=== PATIENT | male | born 1950 | race Caucasian/White ===

== ENCOUNTER → 2018-02-18 | Outpatient (CLI) | payer MEDICARE, OTHER ==
--- NOTE | 2018-02-25 10:19 | P.ARTDOP ---
Arterial Doppler LOWER EXTREMITY ARTERIAL DOPPLER: DATE OF SERVICE: 02/18/2018 Reason for study: Suspected peripheral vascular disease. Doppler waveforms: Multiphasic bilaterally throughout. Pulse volume recording: Fairly normal configuration. Pressure gradients: Mild gradient above the low thigh bilaterally. Ankle-brachial indices: 0.84 on the right and 0.71 on the left. Toe pressures: [] on the right, [] on the left Impression: Mild right SFA disease and mild to moderate left SFA disease. Clinical correlation suggested..
== END | disposition home or self-care (01) ==
LOC: RADUSWWP 07:52
PROVIDERS: ATTEND Family Medicine
DX: I73.9 Peripheral vascular disease, unspecified (principal)
CPT/HCPCS: 93923

== ENCOUNTER 2018-09-16 09:35 | Day surgery (SDC) | payer MEDICARE, OTHER ==
[2018-09-14 17:39] VITALS: BMI 33.9
--- NOTE | 2018-09-16 07:56 | P.GSHP ---
History of Present Illness H&P Date: 09/16/18 CHIEF COMPLAINT: Colon screen HISTORY OF PRESENT ILLNESS: The patient is a 68-year-old male who presents for colon screen. Lower endoscopy was offered for further evaluation and management. PAST MEDICAL HISTORY: Please see list. PAST SURGICAL HISTORY: Please see list. MEDICATIONS: Please see list. ALLERGIES: Please see list. SOCIAL HISTORY: No illicit drug use FAMILY HISTORY: No reports of Crohn disease or ulcerative colitis. REVIEW OF ORGAN SYSTEMS: CONSTITUTIONAL: No reports of fevers or chills. PHYSICAL EXAM: VITAL SIGNS: Stable GENERAL: Well-developed pleasant in no acute distress. HEENT: No scleral icterus. Extraocular movements grossly intact. Moist buccal mucosa. NECK: Supple without lymphadenopathy. CHEST: Unlabored respirations. Equal bilateral excursions. CARDIOVASCULAR: Regular rate and rhythm. Distal 2+ pulses. ABDOMEN: Soft, nontender, nondistended. MUSCULOSKELETAL: No clubbing, cyanosis, or edema. ASSESSMENT: 1. Colon screen. PLAN: 1. Recommend proceeding with a lower endoscopy Past Medical History Past Medical History: Asthma, CVA/TIA, Hyperlipidemia, Hypertension, Osteoarthritis (OA), Rheumatoid Arthritis (RA) Additional Past Medical History / Comment(s): stroke 2005-no residual effects, History of Any Multi-Drug Resistant Organisms: None Reported Additional Past Surgical History / Comment(s): left cataract Past Anesthesia/Blood Transfusion Reactions: No Reported Reaction Smoking Status: Current every day smoker - Past Family History Father Family Medical History: Cancer Medications and Allergies Home Medications Medication Instructions Recorded Confirmed Type Aspirin [Adult Low Dose Aspirin EC] 81 mg PO DAILY 09/14/18 09/14/18 History Atorvastatin [Lipitor] 40 mg PO HS 09/14/18 09/14/18 History Clopidogrel [Plavix] 75 mg PO DAILY 09/14/18 09/14/18 History Losartan/Hydrochlorothiazide 1 each PO QAM 09/14/18 09/14/18 History [Hyzaar 100-12.5 Tablet] Allergies Allergy/AdvReac Type Severity Reaction Status Date / Time strawberry Allergy Swelling Verified 09/14/18 17:30
[~2018-09-16 09:35] MED LIST: LACTATED RINGERS 1,000 ML IV SCH; LIDOCAINE 1% 20 ML VIAL (10MG/ML) FOR IV START INTRADERMA PRN
[2018-09-16 10:22] VITALS: RESP 16; TEMP 97.2
[2018-09-16] MEDS ORDERED: PROPOFOL 10 MG/ML 20 ML VIAL IV ONE (11:07)
--- NOTE | 2018-09-16 12:06 | P.PCN ---
Date of Procedure: 09/16/18 Description of Procedure: PREOPERATIVE DIAGNOSIS: Colonoscopy screening Personal history of colon polyps. POSTOPERATIVE DIAGNOSIS: Colonoscopy screening Personal history of colon polyps. Large tubular adenomas of the cecum of unclear malignant potential Tubular adenomas, ascending colon OPERATION: Colonoscopy to the ileocecal valve and appendiceal orifice. Colonoscopy with multiple hot snare polypectomies Colonoscopy with injection of Angélica ink, cecum SURGEON: Gabi Jackson MD. ANESTHESIA: MAC. INDICATIONS: The patient is a 68-year-old male who presents for colonoscopy screening. Last colonoscopy 3 years ago. Benefits and risks were described and informed consent was obtained. DESCRIPTION OF PROCEDURE: The patient had undergone Gatorade, MiraLAX and Dulcolax prep. He had been brought into the operating room and laid in the left lateral decubitus position. After adequate intravenous sedation, the rectum was examined with 2% lidocaine jelly. No external hemorrhoids were encountered. The rectal tone was within normal limits. No lesions were palpated in the rectal vault. An Olympus colonoscope was advanced until the ileocecal valve and appendiceal orifice were clearly viewed. The prep was good with visualization of the mucosal folds. The scope was removed with visualization of each mucosal fold. 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 Angélica ink, 3 mL was injected circumferentially at the site of tumor. No scattered diverticulosis was encountered. Multiple colonic polyps were found and snare polypectomy. No evidence of focal colitis was found. Retroflexion of the scope demonstrated grade 1 internal hemorrhoids without active bleeding or inflammation. The colon was desufflated. The patient had tolerated the procedure well. Withdrawal time was over 6 minutes. 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 Angélica ink, 3 mL was injected circumferentially at the site of tumor. Removal of 2 polyps: - Snare polypectomy ascending colon 2, 12 mm tubulovillous adenoma polyp. No focal colitis. RECOMMENDATIONS: Will need resection of tumor and ileocecal valve as complete resection not amenable by snare polypectomy Plan - Discharge Summary Discharge Rx Participant: No New Discharge Prescriptions: No Action Losartan/Hydrochlorothiazide [Hyzaar 100-12.5 Tablet] 1 each PO QAM Clopidogrel [Plavix] 75 mg PO DAILY Atorvastatin [Lipitor] 40 mg PO HS Aspirin [Adult Low Dose Aspirin EC] 81 mg PO DAILY Discharge Medication List Aspirin [Adult Low Dose Aspirin EC] 81 mg PO DAILY 09/14/18 [History] Atorvastatin [Lipitor] 40 mg PO HS 09/14/18 [History] Clopidogrel [Plavix] 75 mg PO DAILY 09/14/18 [History] Losartan/Hydrochlorothiazide [Hyzaar 100-12.5 Tablet] 1 each PO QAM 09/14/18 [History] Follow up Appointment(s)/Referral(s): Gabi Jackson MD [STAFF PHYSICIAN] - 09/29/18 Patient Instructions/Handouts: Colorectal Polyps (DC), Diverticulosis Diet (GEN), Diverticulosis (DC) Activity/Diet/Wound Care/Special Instructions: Re-start plavix September 18. Discharge Disposition: HOME SELF-CARE
[2018-09-16 12:07] VITALS: BP 138/86; PULSE 66
== END 2018-09-16 12:36 | disposition home or self-care (01) ==
LOC: ORWHC2ENDO 09:35
PROVIDERS: ATTEND Surgery Plastic and Reconstructive Surgery
DX: Z12.11 Encounter for screening for malignant neoplasm of colon (principal); Z86.010 Personal history of colon polyps; D37.4 Neoplasm of uncertain behavior of colon; K63.5 Polyp of colon; K64.8 Other hemorrhoids; E66.01 Morbid (severe) obesity due to excess calories; Z68.33 Body mass index [BMI] 33.0-33.9, adult; M06.9 Rheumatoid arthritis, unspecified; I10 Essential (primary) hypertension; M19.90 Unspecified osteoarthritis, unspecified site; J45.909 Unspecified asthma, uncomplicated; F17.210 Nicotine dependence, cigarettes, uncomplicated; Z98.42 Cataract extraction status, left eye; Z86.73 Personal history of transient ischemic attack (TIA), and cerebral infarction without residual deficits; Z79.02 Long term (current) use of antithrombotics/antiplatelets; Z79.82 Long term (current) use of aspirin; Z79.899 Other long term (current) drug therapy; Z91.018 Allergy to other foods
CPT/HCPCS: 88305; 45385; 45381; J2704; 44404

== ENCOUNTER 2018-11-13 11:45 | Inpatient (IN) | payer MEDICARE, OTHER ==
--- NOTE | 2018-11-19 09:30 | P.PN ---
Progress Note - Text Progress Note Date: 11/19/18 I personally contacted patient home. Patient presents with new findings of acute renal failure with kidney function of 1.1 and now elevated to 1.7 within the last week. He is to undergo a bowel prep. 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
[2018-11-19] MEDS ORDERED: ONDANSETRON 4 MG/2 ML VIAL IVP PRN (12:33)
[2018-11-19] MEDS ORDERED: NALOXONE 0.4 MG/ML 1 ML VIAL IV PRN (12:33)
[2018-11-19] MEDS ORDERED: Antibiotics per Pharmacy 1 EACH MISC MISCELLANE PRN (12:38)
[2018-11-19 14:23] VITALS: BMI 33.7
[2018-11-19] MEDS: metroNIDAZOLE 500 MG TAB PO SCH ×2 (14:34→14:46)
[2018-11-19] MEDS: NEOMYCIN 500 MG TAB PO SCH ×2 (14:35→14:46)
[2018-11-19] MEDS: SODIUM CHLORIDE 0.9% 1,000 ML IV SCH ×2 (14:44→18:03)
[2018-11-19] MEDS ORDERED: SODIUM CHLORIDE 0.9% 2,000 ML IV ONE (15:25)
--- NOTE | 2018-11-19 15:27 | P.GSHP ---
History of Present Illness H&P Date: 11/19/18 CHIEF COMPLAINT: History of large cecal polyp, unresectable and new acute kidney injury HISTORY OF PRESENT ILLNESS: Kevin Kincaid is a 68-year-old male who comes in with a history of multiple colon adenomas, particularly along the cecum. He has a large tumor, unresectable, by snare technique, and hence presents for further evaluation and management. In fact, he actually had cardiac clearance already, including echo and stress test. Separately, he reports new onset right upper quadrant abdominal pain in the last 3 days. Additionally, he had preoperative workup including a CT of the abdomen pelvis where blood work came back with new acute kidney injury with creatinine elevated from 1.19 to to 1.78 in less than 1 week. He has lost 13 pounds in less than 2 weeks intentionally on a new diet. He reports having a high protein diet. His family is at bedside who reports with weight loss, he often becomes dehydrated. He has history of intolerance to his hypertensive medications which he has been on for the last 3 months. No recent blood in stools however. Secondary to acute onset kidney injury and history of cecal malignancy, he has been admitted. PAST MEDICAL HISTORY: Please see list. PAST SURGICAL HISTORY: Please see list. MEDICATIONS: Please see list. ALLERGIES: Please see list. SOCIAL HISTORY: Past tobacco use FAMILY HISTORY: No reports of Crohn disease or ulcerative colitis. REVIEW OF ORGAN SYSTEMS: CONSTITUTIONAL: No fevers or chills. No recent weight loss. EYES: Denies any trouble with vision. Wears glasses. HEENT: No difficulties with hearing. No nosebleeds. No difficulty swallowing. RESPIRATORY: Denies pneumonia. Denies any troubles with breathing or dyspnea on exertion. Past bronchitis. CARDIOVASCULAR: Denies any chest pain, palpitations, or recent heart attacks. History of hypertensive heart disease. GASTROINTESTINAL: Denies fatty food intolerance. Denies change in bowel habits and gas bloat. History of high risk colon polyps. GENITOURINARY: Denies any blood in urine or increased urinary frequency. NEUROLOGICAL: Denies any numbness or tingling along the distal extremities. No seizure disorders or headaches. Past stroke. MUSCULOSKELETAL: Has back pain, stiffness or joint arthritis. SKIN: No current skin cancer. No rash. PSYCHIATRIC: Denies current depression or suicidal thoughts. ENDOCRINE: Denies current thyroid disorders. Denies any blood sugar glucose intolerance. HEME/LYMPHATIC: Denies any lumps and bumps around the neck. No recent deep venous thrombosis. ALLERGY/IMMUNOLOGY: No immunoglobulin therapy. No immune deficiencies. BREAST: Denies current breast lumps, pain or nipple discharge. PHYSICAL EXAM: VITAL SIGNS: Stable Patient is a 68-year-old male. CONSTITUTIONAL: Well developed and in no acute distress. Vitals reviewed. EYES: Conjuctivae without sclera icterus. Pupils are equally round and reactive to light. Extraocular movements grossly intact. HEAD, EARS, NOSE, THROAT: Moist buccal mucosa. Head is atraumatic, normocephalic. Hears conversational speech. No nasal drainage. Missing maxillary mulitple front teet. NECK: Supple. No JV distention. No thyroidomegaly. RESPIRATORY: Non-labored respirations and equal bilateral excursions. No gross wheezes. CARDIOVASCULAR: Regular rate and rhythm. Extremities without moderate edema. Palpable 2+ radial pulses. ABDOMEN: No hepatomegaly. Soft. Obese. Mild tenderness at right flank/right upper quadrant. Nondistended. LYMPH: No neck lymphadenopathy. No axillary lymphadenopathy. MUSCULOSKELETAL: Gait within normal limits. Range of motion bilateral upper extremities within normal limits. Nail and fingers with good capillary refill. SKIN: Warm and well perfused with good skin turgor. NEUROLOGIC: Cranial nerves I through XII grossly intact. Sensation upper and extremities intact. No focal or lateralizing signs. PSYCH: Appropriate affect. Alert and oriented to person, place and time. Displays appropriate insight. PATHOLOGY: Consistent with tubular adenoma. MISC: Reviewed films from colonoscopy and demonstrated multiple flat adenomas and tubular adenomas involving the ileocecal valve, ascending colon, unresectable STUDIES: CT of the abdomen and pelvis and appendix were reviewed demonstrating some thickening along the ascending colon and redundancy of hepatic flexure. No adenopathy. REPORT: CT of the abdomen and pelvis report confirms right kidney stone. ASSESSMENT: 1. Cecal malignancy. 2. Acute kidney injury, new 3. Hypertensive heart disease 4. Past history of stroke 5. Obesity duet to excess calories, BMI 34.3 PLAN: 1. Given the location, including multiple tubular adenomas along the cecum and ascending colon, a colon resection was described. 2. Enhanced colon recovery program advsied. 3. He has completed cardiac risk assessment. 4. Robotic colectomy was described in detail with benefits and risks. He will need a complete bowel prep including preoperative education and diet were also given. 5. He is high risk with history of cardiac disease, morbid obesity and new acute kidney injury 6. Aggressive fluid hydration 7. Renal consultation for acute kidney injury. 8. Inpatient hospitalization more than 2 nights described. Past Medical History Past Medical History: Asthma, CVA/TIA, Hyperlipidemia, Hypertension, Osteoarthritis (OA), Rheumatoid Arthritis (RA), Vascular Disorder Additional Past Medical History / Comment(s): stroke 2005-no residual effects, tumor colon, kidney stones History of Any Multi-Drug Resistant Organisms: None Reported Additional Past Surgical History / Comment(s): left cataract, colonoscopy Past Anesthesia/Blood Transfusion Reactions: No Reported Reaction Past Psychological History: No Psychological Hx Reported Smoking Status: Former smoker Past Alcohol Use History: None Reported Additional Past Alcohol Use History / Comment(s): smokes 1 PPD, has smoked for 50 yrs quit 10/28 Past Drug Use History: None Reported - Past Family History Father Family Medical History: Cancer Additional Family Medical History / Comment(s): oral cancer with metastasis Medications and Allergies Home Medications Medication Instructions Recorded Confirmed Type Aspirin [Adult Low Dose Aspirin EC] 81 mg PO DAILY 09/14/18 11/19/18 History Atorvastatin [Lipitor] 40 mg PO HS 09/14/18 11/19/18 History Clopidogrel [Plavix] 75 mg PO DAILY 09/14/18 11/19/18 History Losartan/Hydrochlorothiazide 1 tab PO QAM 09/14/18 11/19/18 History [Hyzaar 100-12.5 Tablet] Allergies Allergy/AdvReac Type Severity Reaction Status Date / Time strawberry Allergy Swelling Verified 11/19/18 15:28 Surgical - Exam Vital Signs Resp 16 11/19/18 14:49 Assessment and Plan (1) Adenomatous polyp of cecum Current Visit: Yes Status: Acute Code(s): D12.0 - BENIGN NEOPLASM OF CECUM SNOMED Code(s): 147188679 (2) Adenomatous polyp of ascending colon Current Visit: Yes Status: Acute Code(s): D12.2 - BENIGN NEOPLASM OF ASCENDING COLON SNOMED Code(s): 081707269 (3) Obesity (BMI 30.0-34.9) Current Visit: Yes Status: Acute Code(s): E66.9 - OBESITY, UNSPECIFIED SNOMED Code(s): 338483585140479 (4) Hypertensive heart disease Current Visit: Yes Status: Acute Code(s): I11.9 - HYPERTENSIVE HEART DISEASE WITHOUT HEART FAILURE SNOMED Code(s): 18298112 (5) Acute kidney injury (BHAVIK) with acute tubular necrosis (ATN) Current Visit: Yes Status: Acute Code(s): N17.0 - ACUTE KIDNEY FAILURE WITH TUBULAR NECROSIS SNOMED Code(s): 303420443 (6) Right flank pain Current Visit: Yes Status: Acute Code(s): R10.9 - UNSPECIFIED ABDOMINAL PAIN SNOMED Code(s): 630316225 (7) Kidney stone on right side Current Visit: Yes Status: Acute Code(s): N20.0 - CALCULUS OF KIDNEY SNOMED Code(s): 01676317
[2018-11-19] MEDS ORDERED: POLYETHYLENE GLYCOL LYTES SOLN 4,000 ML SOLN.RECON PO ONE (17:00)
[2018-11-19 18:58] LABS: Basophils % (A) 1 %; Eosinophils # (A) 0.3 k/uL (0-0.7); Eosinophils % (A) 3 %; HGB 14.3 gm/dL (13.0-17.5); Lymphocytes # (A) 1.4 k/uL (1.0-4.8); Lymphocytes % (A) 16 %; MCH 31.5 pg (25.0-35.0); MCV 92.9 fL (80.0-100.0); Mean Platelet Volume 9.6; Monocytes # (A) 0.5 k/uL (0-1.0); Monocytes % (A) 6 %; Neutrophils # (A) 6.2 k/uL (1.3-7.7); Neutrophils % (A) 73 %; Platelet Count 156 k/uL (150-450); RBC 4.53 m/uL (4.30-5.90); RDW 12.7 % (11.5-15.5); WBC 8.5 k/uL (3.8-10.6)
[2018-11-19 19:08] LABS: Albumin 3.9 g/dL (3.5-5.0); Calcium 8.8 mg/dL (8.4-10.2); Potassium 3.9 mmol/L (3.5-5.1); Total Bilirubin 0.8 mg/dL (0.2-1.3); Total Protein 6.3 g/dL (6.3-8.2)
[2018-11-19] MEDS ORDERED: TEMAZEPAM 15 MG CAP PO ONE (21:00)
[2018-11-20] MEDS: metroNIDAZOLE 500 MG TAB PO SCH (00:32)
[2018-11-20] MEDS: SODIUM CHLORIDE 0.9% 1,000 ML IV SCH ×4 (00:32→21:12)
[2018-11-20] MEDS: NEOMYCIN 500 MG TAB PO SCH (00:32)
[2018-11-20] MEDS ORDERED: metroNIDAZOLE-NS PMX 500 MG in SALINE 1 100ML.BAG IVPB ONE (05:00)
[2018-11-20] MEDS ORDERED: ceFAZolin IN SWFI 2 GM/20 ML SYRINGE IVP ONE ×2 (05:00→14:00)
[2018-11-20] MEDS ORDERED: HEPARIN SODIUM,PORCINE 5,000 UNIT/ML 1 ML VIAL SQ ONE (05:00)
[2018-11-20] MEDS ORDERED: IV FLUID CONTINUATION 1,000 ML IV ONE (07:31)
[2018-11-20] MEDS ORDERED: ALVIMOPAN 12 MG CAPSULE PO ONE (08:00)
[2018-11-20] MEDS ORDERED: LACTATED RINGERS 1,000 ML IV ONE ×6 (08:09→14:46)
[2018-11-20] MEDS ORDERED: LIDOCAINE 1% 20 ML VIAL (10MG/ML) FOR IV START INTRADERMA ONE (08:25)
[2018-11-20] MEDS ORDERED: MIDAZOLAM (PF) 2 MG/2 ML VIAL IV ONE (08:28)
[2018-11-20] MEDS ORDERED: fentaNYL (PF) 50 MCG/ML 2 ML AMP IV ONE (08:28)
[2018-11-20 08:34] LABS: Basophils % (A) 1 %; Eosinophils # (A) 0.2 k/uL (0-0.7); Eosinophils % (A) 3 %; HCT 40.6 % (39.0-53.0); HGB 13.2 gm/dL (13.0-17.5); Lymphocytes % (A) 15 %; MCH 30.5 pg (25.0-35.0); MCHC 32.6 g/dL (31.0-37.0); MCV 93.6 fL (80.0-100.0); Mean Platelet Volume 9.8; Monocytes # (A) 0.4 k/uL (0-1.0); Monocytes % (A) 6 %; Neutrophils % (A) 74 %; Platelet Count 146 k/uL (150-450); RBC 4.33 m/uL (4.30-5.90); RDW 12.8 % (11.5-15.5); WBC 6.8 k/uL (3.8-10.6)
--- NOTE | 2018-11-20 08:43 | P.ANPRN ---
Procedure Note - Anesthesia - Nerve Block Performed Transversus Abdominis Time Out Performed: Yes Date of Procedure: 11/20/18 Procedure Start Time: 08:29 Procedure Stop Time: 08:38 Location of Patient Procedure: PreOp Indication: Acute Post-Operative Pain, Requested by physician Sedation Type: Sedate with meaningful contact maintained Preparation: Sterile Prep Position: Supine Catheter: None Needle Types: Pajunk Needle Gauge: 21 Technique: Ultrasound Injectate: 0.5% Ropivacaine (see comment for volume) (30ml ropi +4mg dexamethasone- 15ml/side) Blood Aspirated: No Pain Paresthesia on Injection Noted: No Resistance on Injection: Normal Events: Uneventful and Well Tolerated
[2018-11-20] MEDS ORDERED: ONDANSETRON 4 MG/2 ML VIAL IVP ONE (08:46)
[2018-11-20] MEDS ORDERED: DEXAMETHASONE SOD PHOSPHATE 10 MG/ML 1 ML VIAL IV ONE (08:47)
[2018-11-20 09:06] LABS: Calcium 8.4 mg/dL (8.4-10.2); Potassium 4.1 mmol/L (3.5-5.1)
--- NOTE | 2018-11-20 09:14 | CONS ---
CONSULTATION REASON FOR CONSULT: Renal failure. HISTORY OF PRESENT ILLNESS: Patient is a 68-year-old male who was admitted to the hospital for abdominal surgery for robotic colectomy as he was found to have a cecal mass. Patient's serum creatinine was elevated to 1.78 mg/dL on 11/18/2018, which was up from 1.19 on 11/13/2018. The patient has been started on IV fluids. His renal function has improved with creatinine down to 1.2 yesterday. At this point, patient denies any prior history of kidney disease. He states he has been voiding. He has not had any nonsteroidal anti- inflammatory agents prior to admission. Patient was maintained on losartan/hydrochlorothiazide. Blood pressure had been slightly on the lower side. Patient is currently off NEAL inhibitors. He was seen this morning and is being wheeled down to OR. PAST MEDICAL HISTORY: Hypertension, dyslipidemia, osteoarthritis. Recent CT of the abdomen was noted to have a large abdominal tumor, multiple colon adenomas in the past. MEDICATIONS: Prior to admission included Hyzaar, Plavix, Lipitor, aspirin. SOCIAL HISTORY: Negative for drug abuse or alcohol abuse. The patient is a former smoker. PHYSICAL EXAMINATION: Currently patient is comfortable, awake, not in any acute distress. Blood pressure was 130/59, heart rate 55 per minute. He is afebrile. Examination of the heart, S1, S2. Examination of the lungs, bilateral breath sounds are heard. Abdomen is soft, nontender. Examination of the lower extremities shows no evidence of edema. INSPECTOR CHIEF exam is grossly intact. LABS: Sodium 139, potassium 3.9, BUN 19, serum creatinine 1.21 from yesterday. Hemoglobin 14.3. ASSESSMENT: 1. Acute kidney injury, mostly prerenal, currently improved. Check urinalysis. Repeat labs today. Continue IV fluids and continue to hold off on NEAL inhibitors for now. 2. A cecal mass, most likely malignancy going in for a colectomy today. 3. History of hypertension. Blood pressure is controlled and maintain patient off NEAL inhibitors for now. 4. Osteoarthritis. 5. Dyslipidemia. PLAN: Continue IV fluids. Repeat labs today. Check urinalysis and maintain patient off NEAL inhibitors and we will continue to follow the patient. Thank you for this consultation. MMODL / IJN: [id number] /
[2018-11-20] MEDS ORDERED: DEXAMETHASONE SOD PHOSPHATE 4 MG/ML 1 ML VIAL ONE (09:45)
[2018-11-20] MEDS ORDERED: PROPOFOL 10 MG/ML 20 ML VIAL IV ONE (09:45)
[2018-11-20] MEDS ORDERED: ROPIVACAINE 5 MG/ML 30 ML VIAL ONE (09:45)
[2018-11-20] MEDS ORDERED: LIDOCAINE 1% INJ 10MG/ML (20 ML MDV) ONE (09:45)
[2018-11-20] MEDS ORDERED: GLYCOPYRROLATE 0.2 MG/ML 2 ML VIAL ONE (09:45)
[2018-11-20] MEDS ORDERED: NEOSTIGMINE 1 MG/ML 10 ML VIAL ONE (09:45)
[2018-11-20] MEDS ORDERED: fentaNYL (PF) 50 MCG/ML 2 ML AMP ONE (09:45)
[2018-11-20] MEDS ORDERED: ROCURONIUM BROMIDE 10 MG/ML 10 ML VIAL IV ONE (09:45)
[2018-11-20] MEDS ORDERED: MIDAZOLAM 2 MG/2 ML VIAL ONE (09:45)
[2018-11-20] MEDS ORDERED: BUPIVACAINE-EPI 0.5%-1:200,000 10 ML VIAL SQ ONE (10:42)
[2018-11-20] MEDS ORDERED: BUPIVACAINE (PF) 0.25% 30 ML VIAL SQ ONE (10:42)
--- NOTE | 2018-11-20 17:46 | P.OP ---
Date of Procedure: 11/20/18 Description of Procedure: SURGEON: KHALIDA LOUIS MD Preoperative Diagnosis: 1. Cecal malignant colon polyps 2. Ascending malignant colon polyps 3. Hypertensive heart disease 4. Hyperlipidemia 5. Kidney stones 6. Asthma 7. History of transient ischemic attack 8. Rheumatoid arthritis 9. Acute kidney injury Postoperative Diagnosis: 1. Cecal malignant colon polyps 2. Ascending malignant colon polyps 3. Hypertensive heart disease 4. Hyperlipidemia 5. Kidney stones 6. Asthma 7. History of transient ischemic attack 8. Rheumatoid arthritis 9. Acute kidney injury 10. Appendicitis 11. Chronic cholecystitis Procedure(s) Performed: 1. Robot-assisted daVinci Xi laparoscopic extended right hemicolectomy 2. Application of PREVENA wound vac 13-cm at left upper quadrant incision Anesthesia: GETA, local Estimated Blood Loss (ml): 20 Pathology: other (Right hemicolectomy en bloc) Condition: stable Disposition: floor Operative Findings: 1. Moderate redundancy of hepatic flexure adding complexity to the case 2. Moderate redundancy of ascending colon with retroperitoneal attachments causing intermittent large bowel obstruction intermittent 3. Dilated tip of appendix with moderate scarring highly suspicious for past appendicitis 4. Moderate inflammation along the gallbladder consistent with chronic cholecystitis 5. Side to side anastomosis ileum to midtransverse colon using 60 mm sureform blue staple load 6. Mesenteric defect undisturbed, and widely patent 7. Handsewn anastomosis for [id number]-ps-xsan ileocolectomy, 2 layer approach 8. Complete closure of left upper quadrant fascial defect at 12 mm port including specimen extraction site 9. PREVENA-13cm wound VAC placed 10. Complete docking of robot along the left side, left lateral abdominal wall 11. Removal of over 2 feet of redundant ascending colon including proximal transverse colon 12. Console time 315 min INDICATIONS: The patient is a 68-year-old male who presents with unresectable malignant cecal and ascending colon polyps. Surgical intervention with colon resection was described in detail. Benefits and risks, including infection, open surgery possibility for additional surgery was discussed at length. Informed consent was obtained. All questions of the patient and family were answered. DESCRIPTION: Earlier the patient had undergone a bowel prep using the enhanced colon recovery program. An abdominal wall block was placed by anesthesia. The patient was transferred to the operating room and placed in supine position. After general anesthetic, a chauhan catheter was placed. The abdomen was then prepped and draped in standard sterile fashion as Ioban was placed along the abdomen to minimize any contamination of skin floor. After a timeout protocol was performed, attention was then brought to the left upper quadrant whereby a 0 degree 5 mm laparoscopic trocar entry was performed. The abdominal cavity was entered and insufflated to 15 mmHg pressure, which was tolerated well. Diagnostic laparoscopy demonstrated no injury to bowel, viscera or mesentery. The liver was unremarkable. Next all four trochars were placed along the left lateral abdominal wall. Ports were placed 10 cm apart from each other including 15-20 cm away from the target anatomy of the right pelvis. The 5-mm port was exchanged for a 8 mm robotic p ort. The patient was then placed in Trendelenburg position, at least 6, with the right side up 6. The robotic da Kyle XI system was primed and docked from the left side of the patient. Using atraumatic graspers and vessel sealer, the robotic system was docked and primed as described. Instruments were interchanged by the pizza hut assistant including cautery, needle regional intermodal truck driver, robotic stapler and vessel sealer. Next, attention was brought to identify the cecum. The appendix was completely adherent to the retroperitoneum including to the pelvis with dilated tip of the appendix highly suspicious for previous appendicitis. Extensive mobilization was performed to free the appendix and cecum with over 1 hr of mobilization performed. A stay suture using 0 silk was placed along the anterior serosa of the along the terminal ileum. The terminal ileum and ascending colon mesentery were mobilized using a vessel sealer whereby the colon was marked and tagged. Dense adhesions about the gallbladder was found consistent with chronic cholecystitis. Additional time was needed to dissect the colon from the gallbladder. Moderately redundant right colon was identified including the hepatic flexure was adherent to the retroperitoneum. Additionaly extensive mobilization over 3 hrs was performed. To further mobilize the colon, an extended right hemicolectomy with mobilization was performed for another 1 hour. Total mobilization of the ileum, appendix, redundant ascending colon and hepatic flexure occurred over 5 hrs. Additionally, the patient had moderate intra-abdominal tissue and small bowel complicating visualization. Using robot stapler 60 mm white load, the distal ileum was divided 10 centimeters proximal to the ileocecal valve. The mesentery of the ascending colon was mobilized towards the midline using a vessel sealer. Secondary to the highly redundant hepatic flexure and ascending colon, the right colon was mobilized to the mid transverse colon and prepared for resection. The colon was divided using 60 mm green loads. The rest of the colon mesentery was mobilized using vessel sealer including using blunt dissection. The ascending colon was mobilized from proximal to distal with the meeting point of the hepatic flexure The vascular pedicle of the ileocolic artery was controlled using vessel sealer. The mid transverse colon and distal ileum was brought in a side to side antiperistaltic anastomotic fashion after placing interrupted sutures along the proposed filemon-lumen using 3-0 silk. A colotomy and enterotomy were prepared along both limbs along the antimesenteric border. Next, 60 mm blue stapler loads were fired to create the filemon-lumen. The filemon-lumen was closed in 2-layers using 2-0 VLOC followed by imbricating suture of 3-0 silk for closure of the enterostomy. The mesenteric defect was widely patent and undisturbed. All needles were removed from the abdominal cavity. The robot was undocked. I re-scrubbed into the case. Via the 12 mm port of the left upper quadrant, the right colon was removed after widening the skin incision to 3-cm. All sponges were removed from the abdominal cavity. The fascial defect was oversewn using 0 Vicryl and Enzo Mixon. Next all pneumoperitoneum was evacuated from the abdominal cavity. The 8-mm trocar sites were reapproximated using 4-0 Monocryl in an interrupted subcuticular fashion. Local anesthetic was infiltrated to all wounds for postop analgesia. All incisions were also cleansed with diluted hydrogen peroxide. A PREVENA surgical wound vac was placed over the left upper quadrant incision of the colon extraction site. The specimen was measured at least 2 feet. Liquid was applied to the rest of the skin incisions. The patient had tolerated the procedure well. The patient was extubated successfully. Intraoperative photos were reviewed with the patient's family who were overall pleased with the level of care. The patient was transferred to the postanesthesia care unit in stable condition. COMPLEXITY: To further mobilize the colon, an extended right hemicolectomy with mobilization was performed for another 1 hour. Total mobilization of the ileum, appendix, redundant ascending colon and hepatic flexure occurred over 5 hrs. Additionally, the patient had moderate intra-abdominal tissue and small bowel complicating visualization.
[2018-11-20] MEDS: KETOROLAC 30 MG/ML 1 ML VIAL IVP SCH ×2 (19:28→23:45)
[2018-11-20] MEDS: METOCLOPRAMIDE 5 MG/ML 2 ML VIAL IVP SCH ×2 (19:28→23:45)
[2018-11-20] MEDS ORDERED: TAMSULOSIN 0.4 MG CAP.ER.24H PO ONE (20:00)
[2018-11-20] MEDS: FAMOTIDINE 20 MG/2 ML VIAL IV SCH (20:07)
[2018-11-20] MEDS: HEPARIN SODIUM,PORCINE 5,000 UNIT/ML 1 ML VIAL SQ SCH (20:07)
[2018-11-20 22:33] LABS: Appearance,Urine Clear (Clear); Bilirubin,Urine Negative (Negative); Blood,Urine Small (Negative); Cellular Casts,Urine 1 /lpf (0); Color,Urine Yellow; Glucose,Urine (UA) Negative (Negative); Hyaline Casts,Urine 7 /lpf (0-2); Ketones,Urine 3+ (Negative); Leukocyte Esterase,Urine Moderate (Negative); Mucus,Urine Occasional /hpf; Nitrite,Urine Negative (Negative); PH, Urine 5.5 (5.0-8.0); Protein,Urine Trace (Negative); RBC,Urine 37 /hpf (0-5); Urobilinogen,Urine <2.0 mg/dL (<2.0); WBC,Urine 39 /hpf (0-5)
[2018-11-20] MEDS: ceFAZolin IN SWFI 2 GM/20 ML SYRINGE IVP SCH (23:45)
[2018-11-21] MEDS: METOCLOPRAMIDE 5 MG/ML 2 ML VIAL IVP SCH ×3 (05:59→17:47)
[2018-11-21] MEDS: KETOROLAC 30 MG/ML 1 ML VIAL IVP SCH ×3 (05:59→17:47)
[2018-11-21] MEDS: SODIUM CHLORIDE 0.9% 1,000 ML IV SCH ×3 (06:02→15:54)
[2018-11-21 07:09] LABS: Basophils % (A) 0 %; Eosinophils % (A) 0 %; HCT 38.8 % (39.0-53.0); HGB 13.1 gm/dL (13.0-17.5); Lymphocytes # (A) 0.6 k/uL (1.0-4.8); Lymphocytes % (A) 4 %; MCH 31.5 pg (25.0-35.0); MCHC 33.8 g/dL (31.0-37.0); MCV 93.1 fL (80.0-100.0); Mean Platelet Volume 9.9; Monocytes # (A) 0.6 k/uL (0-1.0); Monocytes % (A) 5 %; Neutrophils # (A) 12.8 k/uL (1.3-7.7); Neutrophils % (A) 91 %; Platelet Count 141 k/uL (150-450); RBC 4.17 m/uL (4.30-5.90); RDW 12.6 % (11.5-15.5); WBC 14.2 k/uL (3.8-10.6)
[2018-11-21 07:35] LABS: Potassium 4.3 mmol/L (3.5-5.1)
[2018-11-21] MEDS: FAMOTIDINE 20 MG/2 ML VIAL IV SCH ×2 (09:29→20:35)
[2018-11-21] MEDS: HEPARIN SODIUM,PORCINE 5,000 UNIT/ML 1 ML VIAL SQ SCH ×2 (09:29→20:35)
[2018-11-21] MEDS: ALVIMOPAN 12 MG CAPSULE PO SCH ×2 (09:30→20:35)
[2018-11-21] MEDS: TAMSULOSIN 0.4 MG CAP.ER.24H PO SCH (09:30)
[2018-11-21] MEDS: HYDROmorphone 1 MG/ML 1 ML SYRINGE IVP PRN ×2 (09:37→15:53)
--- NOTE | 2018-11-21 10:28 | P.PN ---
Subjective Progress Note Date: 11/21/18 Principal diagnosis: Post right colectomy Patient doing better today. He is up in the chair at this time. White blood cell count 14.2. Hemoglobin stable. Tolerating clears. No flatus. Objective - Vital Signs Vital signs: Vital Signs Temp 97.6 F 11/21/18 07:15 Pulse 73 11/21/18 07:15 Resp 17 11/21/18 07:15 BP 125/58 11/21/18 07:15 Pulse Ox 95 11/21/18 07:15 Intake & Output 11/20/18 11/21/18 11/21/18 18:59 06:59 18:59 Intake Total 4850 Output Total 675 700 Balance 4175 -700 Intake: IV 4850 Output: Urine 655 700 Uretheral (Wallace) 350 Estimated Blood Loss 20 Other: Voiding Method Indwelling Catheter - Exam Abdomen: Soft, nondistended, incision sites clean and dry, mild tenderness - Labs CBC & Chem 7: 11/21/18 06:39 11/21/18 06:39 Labs: Abnormal Lab Results - Last 24 Hours (Table) 11/20/18 11/21/18 11/21/18 Range/Units 21:21 06:39 06:39 WBC 14.2 H (3.8-10.6) k/uL RBC 4.17 L (4.30-5.90) m/uL Hct 38.8 L (39.0-53.0) % Plt Count 141 L (150-450) k/uL Neutrophils # 12.8 H (1.3-7.7) k/uL Lymphocytes # 0.6 L (1.0-4.8) k/uL Chloride 110 H (98-107) mmol/L Glucose 111 H (74-99) mg/dL Calcium 8.0 L (8.4-10.2) mg/dL Urine Protein Trace H (Negative) Urine Ketones 3+ H (Negative) Urine Blood Small H (Negative) Ur Leukocyte Esterase Moderate H (Negative) Urine RBC 37 H (0-5) /hpf Urine WBC 39 H (0-5) /hpf Hyaline Casts 7 H (0-2) /lpf Urine Mucus Occasional H (None) /hpf Assessment and Plan (1) Cecum mass Narrative/Plan: Will increase diet to full liquids. Ambulate. Possible discharge tomorrow. Current Visit: Yes Status: Acute Code(s): K63.89 - OTHER SPECIFIED DISEASES OF INTESTINE SNOMED Code(s): 029305738
[2018-11-21] MEDS: ceFAZolin IN SWFI 2 GM/20 ML SYRINGE IVP SCH ×2 (11:08→18:24)
--- NOTE | 2018-11-21 13:18 | P.PN ---
Subjective Progress Note Date: 11/21/18 Principal diagnosis: This is a 68-year-old admitted for colectomy for cecal mass which was done on 11/20/2018. He seen because of acute kidney injury. His creatinine went up preop from 1.19 on 11/13/2018, up to to 1.9 dated 11/18/2018. He was admitted on 711 with a creatinine down to 1.21. Postop creatinine is 1.21. He is making urine and is on IV fluids. He feels comfortable except for some abdominal pain. No nausea vomiting is able to eat but has not passed any stools or flatness. Abdomen is somewhat distended. He denies any shortness of breath chest pain. Has mild cough. He is mainly 675 mL of urine overnight and 700 mL since this morning Objective - Vital Signs Vital signs: Vital Signs Temp 97.6 F 11/21/18 07:15 Pulse 73 11/21/18 07:15 Resp 17 11/21/18 07:15 BP 125/58 11/21/18 07:15 Pulse Ox 96 11/21/18 12:36 Intake & Output 11/20/18 11/21/18 11/21/18 18:59 06:59 18:59 Intake Total 4850 Output Total 675 700 Balance 4175 -700 Intake: IV 4850 Output: Urine 655 700 Uretheral (Wallace) 350 Estimated Blood Loss 20 Other: Voiding Method Indwelling Catheter On examination he is somewhat obese male in no distress HEENT exam no JVP neck is supple no facial asymmetry Lungs are clear to auscultation good air entry bilaterally Heart sounds are unremarkable for any murmur rub gallop Abdomen is somewhat obese and distended. Bowel sounds are not heard yet. There is no gross tenderness on palpation of the abdomen Extremity exam was no edema Neurologically awake alert oriented comfortable sitting in a chair - Labs CBC & Chem 7: 11/21/18 06:39 11/21/18 06:39 Labs: Abnormal Lab Results - Last 24 Hours (Table) 11/20/18 11/21/18 11/21/18 Range/Units 21:21 06:39 06:39 WBC 14.2 H (3.8-10.6) k/uL RBC 4.17 L (4.30-5.90) m/uL Hct 38.8 L (39.0-53.0) % Plt Count 141 L (150-450) k/uL Neutrophils # 12.8 H (1.3-7.7) k/uL Lymphocytes # 0.6 L (1.0-4.8) k/uL Chloride 110 H (98-107) mmol/L Glucose 111 H (74-99) mg/dL Calcium 8.0 L (8.4-10.2) mg/dL Urine Protein Trace H (Negative) Urine Ketones 3+ H (Negative) Urine Blood Small H (Negative) Ur Leukocyte Esterase Moderate H (Negative) Urine RBC 37 H (0-5) /hpf Urine WBC 39 H (0-5) /hpf Hyaline Casts 7 H (0-2) /lpf Urine Mucus Occasional H (None) /hpf Assessment and Plan Assessment: Impression 1. Acute kidney injury preop on 11/18/2018 when his creatinine went up from a baseline of 1.19-1.73 cause of this is not clear it resolved prior to surgery with a creatinine down to 1.21 preop on 11/19/2018. Postoperative 1.1 stable 2. Vital signs are stable. Robot-assisted laparoscopic extended right hemicolectomy dated 11/20/2018., Cecal mass Recommendation. 1. Continue IV fluids for 1 more day, reduce it to 100 mL an hour 2. Follow-up labs tomorrow
[2018-11-21] MEDS ORDERED: SODIUM CHLORIDE 0.9% 500 ML 500 ML IV ONE (17:40)
[2018-11-22] MEDS: METOCLOPRAMIDE 5 MG/ML 2 ML VIAL IVP SCH ×3 (00:28→13:49)
[2018-11-22] MEDS: KETOROLAC 30 MG/ML 1 ML VIAL IVP SCH ×3 (00:29→13:49)
[2018-11-22] MEDS: SODIUM CHLORIDE 0.9% 1,000 ML IV SCH ×3 (00:39→13:49)
[2018-11-22] MEDS: ceFAZolin IN SWFI 2 GM/20 ML SYRINGE IVP SCH ×2 (01:01→10:36)
--- NOTE | 2018-11-22 07:15 | P.PN ---
Subjective Progress Note Date: 11/22/18 Principal diagnosis: This is a 68-year-old admitted for colectomy for cecal mass which was done on 11/20/2018. He seen because of acute kidney injury. His creatinine went up preop from 1.19 on 11/13/2018, up to to 1.9 dated 11/18/2018, even before surgery. He was admitted on 11/19 with a creatinine down to 1.21 preop. Postop creatinine is 1.21. He is making urine and is on IV fluids. He feels comfortable, abdominal pain from this surgical scar is much better. He is able to walk. Is able to eat. No nausea or vomiting no chest pain shortness of breath cough. He made 1375 mL of urine output Objective - Vital Signs Vital signs: Vital Signs Temp 98.3 F 11/22/18 02:00 Pulse 78 11/22/18 04:00 Resp 20 11/22/18 04:00 BP 169/66 11/22/18 02:00 Pulse Ox 94 L 11/22/18 02:00 Intake & Output 11/21/18 11/22/18 11/22/18 18:59 06:59 18:59 Intake Total 480 200 Output Total 300 3 Balance 180 197 Intake: Oral 480 200 Output: Urine 300 0 Straight 300 Urine/Stool Mix 3 Other: Voiding Method Toilet # Voids 1 On examination is awake alert oriented comfortable HEENT exam no JVP neck is supple no facial asymmetry Lungs clear to auscultation with occasional coarse crackle at bases. Heart sounds unremarkable for any murmur rub gallop Abdomen soft nontender slightly protuberant and obese. Extremity exam was trace edema Neurologically awake alert oriented - Labs CBC & Chem 7: 11/21/18 06:39 11/21/18 06:39 Labs: Abnormal Lab Results - Last 24 Hours (Table) 11/21/18 11/21/18 Range/Units 06:39 06:39 WBC 14.2 H (3.8-10.6) k/uL RBC 4.17 L (4.30-5.90) m/uL Hct 38.8 L (39.0-53.0) % Plt Count 141 L (150-450) k/uL Neutrophils # 12.8 H (1.3-7.7) k/uL Lymphocytes # 0.6 L (1.0-4.8) k/uL Chloride 110 H (98-107) mmol/L Glucose 111 H (74-99) mg/dL Calcium 8.0 L (8.4-10.2) mg/dL Assessment and Plan Assessment: Impression 1. Acute kidney injury preop on 11/18/2018 when his creatinine went up from a baseline of 1.19-1.73 cause of this is not clear, it resolved prior to surgery with a creatinine down to 1.21 preop on 11/19/2018. Postoperative 1.1 stable. Today's labs are pending 2. Vital signs are stable. Robot-assisted laparoscopic extended right hemicolectomy dated 11/20/2018., Cecal mass 3. Blood pressure is slightly high Recommendation. 1. Discontinue IV fluids. 2. Labs are pending. 3. Expect blood pressures to improve once he is off of the normal saline
[2018-11-22 07:30] LABS: Calcium 8.5 mg/dL (8.4-10.2); Potassium 3.8 mmol/L (3.5-5.1)
[2018-11-22 07:57] LABS: Basophils % (A) 0 %; Eosinophils # (A) 0.1 k/uL (0-0.7); Eosinophils % (A) 1 %; HCT 36.7 % (39.0-53.0); HGB 12.5 gm/dL (13.0-17.5); Lymphocytes # (A) 0.6 k/uL (1.0-4.8); Lymphocytes % (A) 5 %; MCH 31.1 pg (25.0-35.0); MCHC 34.1 g/dL (31.0-37.0); MCV 91.3 fL (80.0-100.0); Monocytes # (A) 0.5 k/uL (0-1.0); Monocytes % (A) 4 %; Neutrophils # (A) 12.1 k/uL (1.3-7.7); Neutrophils % (A) 90 %; Platelet Count 142 k/uL (150-450); RBC 4.02 m/uL (4.30-5.90); RDW 13.5 % (11.5-15.5); WBC 13.5 k/uL (3.8-10.6)
[2018-11-22 08:35] VITALS: BP 156/69; PULSE 73; RESP 16; TEMP 97.6
[2018-11-22] MEDS: TAMSULOSIN 0.4 MG CAP.ER.24H PO SCH (08:58)
[2018-11-22] MEDS: ALVIMOPAN 12 MG CAPSULE PO SCH (08:58)
[2018-11-22] MEDS: FAMOTIDINE 20 MG/2 ML VIAL IV SCH (08:58)
[2018-11-22] MEDS: HEPARIN SODIUM,PORCINE 5,000 UNIT/ML 1 ML VIAL SQ SCH (08:58)
[2018-11-22] MEDS ORDERED: metroNIDAZOLE-NS PMX 500 MG in SALINE 1 100ML.BAG IVPB SCH (11:00)
--- NOTE | 2018-11-22 12:41 | P.DS ---
Providers Date of admission: 11/19/18 13:53 Expected date of discharge: 11/22/18 Attending physician: Gabi Jackson Consults: 11/19/18 12:36 Consult Physician Routine Consulting Provider: Kelly Guajardo Consult Reason/Comments: acute kidney injury Do you want consulting provider notified?: Yes 11/20/18 19:10 Consult Physician Routine Consulting Provider: Jayro Nj Consult Reason/Comments: medical management, HYPERTENSION Do you want consulting provider notified?: Yes Primary care physician: Kevin Sherman - Discharge Diagnosis(es) (1) Cecum mass Patient admitted for elective right colectomy. This was performed 2 days ago. He is doing well today. He is asking to go home. He is tolerating his full liquid diet. Denies nausea vomiting. He did have a bowel movement this morning. White blood cell count improved to 13.5. Creatinine improved as well. Abdomen: Soft, nondistended, minimal tenderness, dressing clean and dry. Will plan discharge today. Follow with Dr. Lacy on Friday. Current Visit: Yes Status: Acute Plan - Discharge Summary Discharge Rx Participant: No New Discharge Prescriptions: New Ibuprofen [Motrin] 600 mg PO Q8HR PRN #30 tab PRN Reason: Pain HYDROcodone/APAP 5-325MG [[place] 5-325] 1 tab PO Q4HR PRN 3 Days #18 tab PRN Reason: Pain Tamsulosin [Flomax] 0.4 mg PO DAILY #5 cap.er.24h No Action Losartan/Hydrochlorothiazide [Hyzaar 100-12.5 Tablet] 1 tab PO QAM Clopidogrel [Plavix] 75 mg PO DAILY Atorvastatin [Lipitor] 40 mg PO HS Aspirin [Adult Low Dose Aspirin EC] 81 mg PO DAILY Discharge Medication List Aspirin [Adult Low Dose Aspirin EC] 81 mg PO DAILY 09/14/18 [History] Atorvastatin [Lipitor] 40 mg PO HS 09/14/18 [History] Clopidogrel [Plavix] 75 mg PO DAILY 09/14/18 [History] Losartan/Hydrochlorothiazide [Hyzaar 100-12.5 Tablet] 1 tab PO QAM 09/14/18 [History] HYDROcodone/APAP 5-325MG [[place] 5-325] 1 tab PO Q4HR PRN 3 Days #18 tab 11/20/18 [Rx] Ibuprofen [Motrin] 600 mg PO Q8HR PRN #30 tab 11/20/18 [Rx] Tamsulosin [Flomax] 0.4 mg PO DAILY #5 cap.er.24h 11/20/18 [Rx] Follow up Appointment(s)/Referral(s): Gabi Jackson MD [STAFF PHYSICIAN] - 11/24/18 Patient Instructions/Handouts: Colectomy Diet (GEN) Activity/Diet/Wound Care/Special Instructions: PREVENA wound vac to be removed in the office. NO bathtub soaks. DO NOT GET WOUND VAC WET. No lifting over 4 pounds in 4 weeks, Dec 21. Liquid diet for home Discharge Disposition: HOME SELF-CARE
--- NOTE | 2018-11-22 14:38 | P.CONS ---
History of Present Illness - Reason for Consult Consult date: 11/22/18 Medical management - Chief Complaint Abdominal pain - History of Present Illness Reason for consultation: Medical management requested by Dr. Lacy Consultation: This is a pleasant 68-year-old patient of Dr. Sherman. Chronic stable medical conditions include asthma, hypertension, hyperlipidemia, osteoarthritis, rheumatoid arthritis. Patient did have a stroke in 2005 with no residue up. History of kidney stones. Patient has undergone right hemicolectomy for underlying abnormal polyps. Patient be advanced to full liquid diet. Did pass some flatus. No nausea vomiting. Some abdominal pain is present. No chest pain or shortness of breath. Otherwise patient feeling well. Review of systems: GEN.: Tired EYES: None HEENT: None NECK: None RESPIRATORY: None CARDIOVASCULAR: None GASTROINTESTINAL: As above GENITOURINARY: None MUSCULOSKELETAL: None LYMPHATICS: None HEMATOLOGICAL: None PSYCHIATRY: None NEUROLOGICAL: None Social history: Smoked a pack a day for close to 50 years. Has just. Few days ago. Family history: Oral cancer with metastatic disease Physical examination: VITAL SIGNS: 97.6, 73, 16, 156/69, 95% room air GENERAL: BMI 34.4, sitting up in a chair, not in distress. EYES: Pupils equal. Conjunctiva normal. HEENT: External appearance of nose and ears normal, oral cavity grossly normal. NECK: JVD not raised; masses not palpable. HEART: First and second heart sounds are normal; no edema. LUNGS: Respiratory rate normal; slightly decreased breath sounds. ABDOMEN: Soft, mild tenderness,, liver spleen not palpable, no masses palpable, bowel sounds present. PSYCH: Alert and oriented x3; mood and affect normal. NEUROLOGICAL: Cranial nerves grossly intact; no facial asymmetry, power and sensation grossly intact. LYMPHATICS: No lymph nodes palpable in the axilla and neck Assessment: -Right hemicolectomy for polyps -Obesity BMI 34.4 -Hyperlipidemia -Essential hypertension -Chronic primary osteoarthritis Plan: Patient stable. Doing well. Home medications should be continued. Patient advised not to resume smoking. Patient should swallow for his family doctor. Diet to be advanced per surgery. Charlotte Lacy Past Medical History Past Medical History: Asthma, CVA/TIA, Hyperlipidemia, Hypertension, Osteoarthritis (OA), Rheumatoid Arthritis (RA), Vascular Disorder Additional Past Medical History / Comment(s): stroke 2005-no residual effects, tumor colon, kidney stones History of Any Multi-Drug Resistant Organisms: None Reported Additional Past Surgical History / Comment(s): left cataract, colonoscopy Past Anesthesia/Blood Transfusion Reactions: No Reported Reaction Past Psychological History: No Psychological Hx Reported Smoking Status: Former smoker Past Alcohol Use History: None Reported Additional Past Alcohol Use History / Comment(s): smokes 1 PPD, has smoked for 50 yrs quit 10/28 Past Drug Use History: None Reported - Past Family History Father Family Medical History: Cancer Additional Family Medical History / Comment(s): oral cancer with metastasis Medications and Allergies Home Medications Medication Instructions Recorded Confirmed Type Aspirin [Adult Low Dose Aspirin EC] 81 mg PO DAILY 09/14/18 11/19/18 History Atorvastatin [Lipitor] 40 mg PO HS 09/14/18 11/19/18 History Clopidogrel [Plavix] 75 mg PO DAILY 09/14/18 11/19/18 History Losartan/Hydrochlorothiazide 1 tab PO QAM 09/14/18 11/19/18 History [Hyzaar 100-12.5 Tablet] HYDROcodone/APAP 5-325MG [[place] 1 tab PO Q4HR PRN 3 Days #18 tab 11/20/18 Rx 5-325] Ibuprofen [Motrin] 600 mg PO Q8HR PRN #30 tab 11/20/18 Rx Tamsulosin [Flomax] 0.4 mg PO DAILY #5 cap.er.24h 11/20/18 Rx Allergies Allergy/AdvReac Type Severity Reaction Status Date / Time strawberry Allergy Swelling Verified 11/19/18 15:28 Physical Exam Vitals: Vital Signs Temp Pulse Resp BP BP Pulse Ox 11/22/18 07:20 97.6 F 73 16 156/69 95 11/22/18 04:00 78 20 11/22/18 02:00 98.3 F 78 20 169/66 94 L 11/22/18 00:00 80 20 11/21/18 20:00 97.9 F 80 20 159/64 95 Intake and Output 11/21/18 11/22/18 11/22/18 22:59 06:59 14:59 Intake Total 380 60 Output Total 302 1 Balance 78 59 Intake: Oral 380 60 Output: Urine 300 0 Straight 300 Urine/Stool Mix 2 1 Other: Voiding Method Toilet Toilet # Voids 1 1 Results CBC & Chem 7: 11/22/18 06:30 11/22/18 06:30 Labs: Abnormal Lab Results - Last 24 Hours (Table) 11/22/18 11/22/18 Range/Units 06:30 06:30 WBC 13.5 H (3.8-10.6) k/uL RBC 4.02 L (4.30-5.90) m/uL Hgb 12.5 L (13.0-17.5) gm/dL Hct 36.7 L (39.0-53.0) % Plt Count 142 L (150-450) k/uL Neutrophils # 12.1 H (1.3-7.7) k/uL Lymphocytes # 0.6 L (1.0-4.8) k/uL Chloride 111 H (98-107) mmol/L Carbon Dioxide 19 L (22-30) mmol/L
--- NOTE | 2018-11-24 12:27 | CDI ---
Documentation Clarification Form Date: 11/24/18 From: Yanira Marina Phone: If you have a question regarding this query, please contact Eugenia Ventura at [phone] between 8am and 5pm. Admit Date: 11/19/2018 1:53:00 PM Patient Name: Kevin Kincaid Visit Number: [id number] Discharge Date: 11/22/2018 3:04:00 PM ATTENTION: The Clinical Documentation Specialists (CDI) and [facility] Coding Staff appreciate your assistance in clarifying documentation. Please respond to the clarification below the line at the bottom and electronically sign. The CDI & [facility] Coding staff will review the response and follow-up if needed. Please note: Queries are made part of the Legal Health Record. If you have any questions, please contact the author of this message via ITS. Dr. Carlos Seo Conflicting documentation has been found in the medical record: In your discharge summary you documented cecum mass. Dr. Jackson documented cecal malignant polyps and ascending malignant colon polyps. History/Risk Factors: Multiple colon polyps particularly along the cecum Clinical Indicators: Large tumor cecum, ascending colon polyps Pathology: Per H&P pathology is consistent with tubular adenoma. No pathology from the hemicolectomy. Treatment: Right hemicolectomy In your opinion, what is the most clinically appropriate diagnosis for this patient? 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 JERRY/AB DANIELS
== END 2018-11-22 15:04 | disposition home or self-care (01) | DRG 329 ==
LOC: 2ORMAIN 11-19 13:48 → UNDOADMIN 11-19 13:48 → 4SSUR 11-19 13:53
PROVIDERS: ADMIT Surgery Plastic and Reconstructive Surgery; ATTEND Surgery Plastic and Reconstructive Surgery
PROC: 8E0W4CZ Robotic Assisted Procedure of Trunk Region, Percutaneous Endoscopic Approach (ICD-10-PCS; 2018-11-20)
PROC: 0DTF4ZZ Resection of Right Large Intestine, Percutaneous Endoscopic Approach (ICD-10-PCS; principal; 2018-11-20 08:55)
DX: D12.0 Benign neoplasm of cecum (principal); N17.0 Acute kidney failure with tubular necrosis; K56.609 Unspecified intestinal obstruction, unspecified as to partial versus complete obstruction; Q43.8 Other specified congenital malformations of intestine; E66.01 Morbid (severe) obesity due to excess calories; K81.1 Chronic cholecystitis; I11.9 Hypertensive heart disease without heart failure; Z68.34 Body mass index [BMI] 34.0-34.9, adult; E78.5 Hyperlipidemia, unspecified; E86.0 Dehydration; J45.909 Unspecified asthma, uncomplicated; K37 Unspecified appendicitis; M06.9 Rheumatoid arthritis, unspecified; M19.91 Primary osteoarthritis, unspecified site; N20.0 Calculus of kidney; Z79.02 Long term (current) use of antithrombotics/antiplatelets; Z79.82 Long term (current) use of aspirin; Z79.899 Other long term (current) drug therapy; Z86.73 Personal history of transient ischemic attack (TIA), and cerebral infarction without residual deficits; Z87.891 Personal history of nicotine dependence; Z87.442 Personal history of urinary calculi; Z98.42 Cataract extraction status, left eye; Z91.018 Allergy to other foods; Z80.8 Family history of malignant neoplasm of other organs or systems
CPT/HCPCS: 64488; 80048; 80053; 81001; 85025; 86850; 86900; 86901; 88309

== ENCOUNTER → 2018-11-13 | Outpatient (CLI) | payer MEDICARE, OTHER ==
[2018-11-13 08:39] LABS: HCT 44.7 % (39.0-53.0); HGB 15.4 gm/dL (13.0-17.5); MCH 31.8 pg (25.0-35.0); MCHC 34.5 g/dL (31.0-37.0); MCV 92.1 fL (80.0-100.0); Mean Platelet Volume 9.8; Platelet Count 181 k/uL (150-450); RBC 4.86 m/uL (4.30-5.90); WBC 9.2 k/uL (3.8-10.6)
[2018-11-13 08:49] LABS: Albumin 4.3 g/dL (3.5-5.0); Calcium 9.6 mg/dL (8.4-10.2); Potassium 4.1 mmol/L (3.5-5.1); Total Bilirubin 0.9 mg/dL (0.2-1.3); Total Protein 6.9 g/dL (6.3-8.2)
== END ==
LOC: LABPAT 07:58
PROVIDERS: ATTEND Surgery Plastic and Reconstructive Surgery
DX: Z01.812 Encounter for preprocedural laboratory examination (principal)
CPT/HCPCS: 36415; 80053; 85027

== ENCOUNTER → 2018-11-18 | Outpatient (CLI) | payer MEDICARE, OTHER ==
--- NOTE | 2018-11-18 14:19 | CT ---
EXAMINATION TYPE: CT abdomen pelvis wo con DATE OF EXAM: 11/18/2018 HISTORY: Ileocecal valve neoplasm, presumed recent abnormal colonoscopy. CT DLP: 1019.0 mGycm. Automated Exposure Control for Dose Reduction was Utilized. TECHNIQUE: CT scan of the abdomen and pelvis is performed with oral but without IV contrast. IV cont rast cannot be given due to acute onset diminished renal function. COMPARISON: NONE FINDINGS: Within the limitations of a non-contrast study, the following observations are made. LUNG BASES: No significant abnormality is appreciated. LIVER/GB: No significant abnormality is appreciated. PANCREAS: No significant abnormality is seen. SPLEEN: No significant abnormality is seen. ADRENALS: No significant abnormality is seen. KIDNEYS: Simple appearing 6.1 cm cyst anteriorly upper pole of the left kidney is noted image 33. The re is 4 mm calculus lower pole of the right kidney on image 63. No hydronephrosis or obstructing uret eral calculi. BOWEL: Oral contrast reaches level of the cecum. No suspicious small or large bowel dilatation. Mena l-appearing appendix is seen from cecum medially in the right lower quadrant. GENITAL ORGANS: No gross abnormality seen. LYMPH NODES: No greater than 1cm abdominal or pelvic lymph nodes are appreciated. OSSEOUS STRUCTURES: Multilevel disc space narrowing and vacuum disc phenomenon in the lower thoracic spine. Slight spondylolisthesis L3 on L4. OTHER: [id number] calcified plaque of the aorta extends into branch vessels. Some ectasia is se en. No greater than 3 cm aneurysmal change is noted. IMPRESSION: No suspicious mass or adenopathy to suggest metastatic disease.
== END | disposition home or self-care (01) ==
LOC: RADCTMAIN 10:27
PROVIDERS: ATTEND Surgery Plastic and Reconstructive Surgery
DX: D49.0 Neoplasm of unspecified behavior of digestive system (principal)
CPT/HCPCS: 36415; 74176; 82565; 84520

== ENCOUNTER 2018-11-24 09:56 | Inpatient (IN) | payer MEDICARE, OTHER ==
[2018-11-24] MEDS ORDERED: NALOXONE 0.4 MG/ML 1 ML VIAL IV PRN (09:57)
[2018-11-24] MEDS ORDERED: ENOXAPARIN 40 MG/0.4 ML SYRINGE SQ SCH (10:00)
--- NOTE | 2018-11-24 10:18 | P.GSHP ---
History of Present Illness H&P Date: 11/24/18 CHIEF COMPLAINT: Colitis and right upper quadrant abdominal pain HISTORY OF PRESENT ILLNESS: Kevin Kincaid is a 68-year-old male who is status post right hemicolectomy 4 days ago, 11/20/2018. He had called the office with acute onset bilateral upper quadrant to right upper quadrant abdominal pain including right shoulder pain which started in the last 24+ hours. He reports doing well at home tolerating full liquid to soft diet. He has been having bowel movements at least 5+ times daily. He denies any independent passage of flatus. He was just recently discharged from the hospital over the weekend 11/22/2018, 2 days ago. He reports acute swelling of his bilateral lower extremities is too tight to ambulate. Previously he was admitted for acute kidney injury last week from taking his home medications. Reports taking his home medications and has persistent dark stools. He also reports discussing with his sister who exclaims multiple high-risk polyps which he did not know until yesterday. Risk colonoscopy was less than 3 months ago. He has not had an upper endoscopy before. Reports epigastric pain as well. He is taking Plavix including ibuprofen and additional NSAIDs with new dark stools. He also reports dark urine and has a history of postoperative obstructive uropathy requiring straight catheterization. He reports fullness at the suprapubic area as well. He has history of kidney stones found incidentally on computed tomography scan. PAST MEDICAL HISTORY: Please see list. PAST SURGICAL HISTORY: Please see list. MEDICATIONS: Please see list. ALLERGIES: Please see list. SOCIAL HISTORY: Past tobacco use FAMILY HISTORY: No reports of Crohn disease or ulcerative colitis. REVIEW OF ORGAN SYSTEMS: CONSTITUTIONAL: No fevers or chills. No recent weight loss. EYES: Denies any trouble with vision. Wears glasses. HEENT: No difficulties with hearing. No nosebleeds. No difficulty swallowing. RESPIRATORY: Denies pneumonia. Denies any troubles with breathing or dyspnea on exertion. Past bronchitis. CARDIOVASCULAR: Denies any chest pain, palpitations, or recent heart attacks. History of hypertensive heart disease. GASTROINTESTINAL: New change in bowel habits including diarrhea. GENITOURINARY: History of any obstructive uropathy including recent acute kidney injury and discontinuing blood pressure medication NEUROLOGICAL: Denies any numbness or tingling along the distal extremities. No seizure disorders or headaches. Past stroke. MUSCULOSKELETAL: Has back pain, stiffness or joint arthritis. SKIN: No current skin cancer. No rash. PSYCHIATRIC: Denies current depression or suicidal thoughts. ENDOCRINE: Denies current thyroid disorders. Denies any blood sugar glucose intolerance. HEME/LYMPHATIC: Denies any lumps and bumps around the neck. No recent deep venous thrombosis. ALLERGY/IMMUNOLOGY: No immunoglobulin therapy. No immune deficiencies. BREAST: Denies current breast lumps, pain or nipple discharge. PHYSICAL EXAM: VITAL SIGNS: Stable Patient is a 68-year-old male. CONSTITUTIONAL: Well developed and in no acute distress. Vitals reviewed. EYES: Conjuctivae without sclera icterus. Pupils are equally round and reactive to light. Extraocular movements grossly intact. HEAD, EARS, NOSE, THROAT: Moist buccal mucosa. Head is atraumatic, normocephalic. Hears conversational speech. No nasal drainage. Missing maxillary mulitple front teet. NECK: Supple. No JV distention. No thyroidomegaly. RESPIRATORY: Non-labored respirations and equal bilateral excursions. No gross wheezes. CARDIOVASCULAR: Regular rate and rhythm. Extremities without moderate edema. Palpable 2+ radial pulses. ABDOMEN: No hepatomegaly. Soft. Obese. Mildly distended. Wound VAC intact midline. Tender along right upper quadrant. LYMPH: No neck lymphadenopathy. No axillary lymphadenopathy. MUSCULOSKELETAL: 3+ bilateral pitting edema of the lower extremities. SKIN: Warm and well perfused with good skin turgor. NEUROLOGIC: Cranial nerves I through XII grossly intact. Sensation upper and extremities intact. No focal or lateralizing signs. PSYCH: Appropriate affect. Alert and oriented to person, place and time. Displays appropriate insight. PATHOLOGY: PENDING ASSESSMENT: 1. Colitis with diarrhea 2. Postoperative ileus 3. Obstructive uropathy, pre-existing 4. History of kidney stones, pre-existing 5. Cholecystitis 6. Acute kidney injury secondary to medications, pre-existing 7. Family history of malignant colon polyps 8. Bilateral lower extremity edema 9. Hypertensive heart disease 10. Adverse reaction to blood pressure medications 11. NSAID use for risk of gastric ulcers PLAN: 1. He has been directed from the office to the hospital for direct admission 2. Recommend stat labs including amylase lipase, compressive metabolic panel and CBC 3. Obtain ultrasound of the bladder for a history of obstructive uropathy 4. Obtain right upper quadrant ultrasound for history of cholecystitis 5. Diuretics for symptomatic severe bilateral lower extremity edema 6. Upper endoscopy for chronic NSAID use and dark stools, risk for gastroi ntestinal bleed 7. Abdominal x-ray including chest x-ray for ileus 8. Placement of Wallace catheter for history of obstructive uropathy Past Medical History Past Medical History: Asthma, CVA/TIA, Hyperlipidemia, Hypertension, Osteoarthritis (OA), Rheumatoid Arthritis (RA) Additional Past Medical History / Comment(s): stroke 2005-no residual effects, History of Any Multi-Drug Resistant Organisms: None Reported Additional Past Surgical History / Comment(s): left cataract Past Anesthesia/Blood Transfusion Reactions: No Reported Reaction Additional Past Alcohol Use History / Comment(s): smokes 1 PPD, has smoked for 50 yrs - Past Family History Father Family Medical History: Cancer Additional Family Medical History / Comment(s): oral cancer with metastasis Medications and Allergies Home Medications Medication Instructions Recorded Confirmed Type Aspirin [Adult Low Dose Aspirin EC] 81 mg PO DAILY 09/14/18 11/19/18 History Atorvastatin [Lipitor] 40 mg PO HS 09/14/18 11/19/18 History Clopidogrel [Plavix] 75 mg PO DAILY 09/14/18 11/19/18 History Losartan/Hydrochlorothiazide 1 tab PO QAM 09/14/18 11/19/18 History [Hyzaar 100-12.5 Tablet] HYDROcodone/APAP 5-325MG [[place] 1 tab PO Q4HR PRN 3 Days #18 tab 11/20/18 Rx 5-325] Ibuprofen [Motrin] 600 mg PO Q8HR PRN #30 tab 11/20/18 Rx Tamsulosin [Flomax] 0.4 mg PO DAILY #5 cap.er.24h 11/20/18 Rx Allergies Allergy/AdvReac Type Severity Reaction Status Date / Time strawberry Allergy Swelling Verified 11/19/18 15:28
--- NOTE | 2018-11-24 10:54 | XR ---
EXAMINATION TYPE: XR abdomen acute w cxr DATE OF EXAM: 11/24/2018 COMPARISON: CT abdomen pelvis 11/18/2018 HISTORY: Ileus, pain and diarrhea, postop TECHNIQUE: Supine, upright, and frontal chest views of the abdomen and chest are obtained. FINDINGS: Minimal basilar atelectasis noted. Difficult to exclude minimal pneumoperitoneum. There are air-fluid levels without bowel distention. Arthropathy noted in the hips. No mass effects are seen. Subcutaneous emphysema is noted. Overlying tubing present in left hemiabdo men. Right-sided renal calcification at the lower pole suspected, there are bowel sutures present in the r ight hemiabdomen, probable vascular calcifications in the pelvis. IMPRESSION: Findings likely represent postoperative ileus. There may be minimal pneumoperitoneum, likely postoper ative.
[2018-11-24] MEDS: SODIUM CHLORIDE 0.9% 1,000 ML IV SCH ×2 (11:46→21:56)
[2018-11-24 11:50] LABS: Appearance,Urine Cloudy (Clear); Bacteria,Urine Occasional /hpf; Bilirubin,Urine Negative (Negative); Blood,Urine Trace (Negative); Color,Urine Yellow; Glucose,Urine (UA) Negative (Negative); Granular Casts,Urine 1 /lpf (0); Hyaline Casts,Urine 44 /lpf (0-2); Ketones,Urine 1+ (Negative); Leukocyte Esterase,Urine Negative (Negative); Mucus,Urine Few /hpf; Nitrite,Urine Negative (Negative); PH, Urine 5.5 (5.0-8.0); Protein,Urine 1+ (Negative); RBC,Urine 3 /hpf (0-5); Squamous Epithelial Cell,Urine <1 /hpf (0-4); Urobilinogen,Urine <2.0 mg/dL (<2.0); WBC,Urine 7 /hpf (0-5); White Blood Cell Casts,Urine 9 /lpf (0)
[2018-11-24] MEDS: PANTOPRAZOLE 40 MG/10 ML VIAL IVP SCH ×2 (12:39→21:50)
[2018-11-24 13:06] LABS: Basophils % (A) 0 %; Eosinophils # (A) 0.2 k/uL (0-0.7); Eosinophils % (A) 1 %; HCT 32.6 % (39.0-53.0); HGB 11.2 gm/dL (13.0-17.5); Lymphocytes # (A) 0.4 k/uL (1.0-4.8); Lymphocytes % (A) 2 %; MCH 32.2 pg (25.0-35.0); MCHC 34.5 g/dL (31.0-37.0); MCV 93.3 fL (80.0-100.0); Mean Platelet Volume 9.5; Monocytes # (A) 0.5 k/uL (0-1.0); Monocytes % (A) 3 %; Neutrophils # (A) 14.5 k/uL (1.3-7.7); Neutrophils % (A) 92 %; Platelet Count 159 k/uL (150-450); RBC 3.49 m/uL (4.30-5.90); RDW 13.6 % (11.5-15.5); WBC 15.8 k/uL (3.8-10.6)
[2018-11-24 13:19] LABS: Calcium 8.8 mg/dL (8.4-10.2); Magnesium 2.1 mg/dL (1.6-2.3); Phosphorus 2.2 mg/dL (2.5-4.5); Potassium 4.2 mmol/L (3.5-5.1); Total Bilirubin 0.7 mg/dL (0.2-1.3); Total Protein 5.4 g/dL (6.3-8.2)
[2018-11-24] MEDS: HYDROmorphone 1 MG/ML 1 ML SYRINGE IVP PRN ×3 (14:07→21:51)
[2018-11-24] MEDS: PIPERACILLIN-TAZOBACTAM 3.375 GM in SODIUM CHLORIDE 0.9% 100 ML IVPB SCH (15:07)
[2018-11-24] MEDS: METOCLOPRAMIDE 5 MG/ML 2 ML VIAL IVP SCH (15:08)
[2018-11-24] MEDS: FUROSEMIDE 10 MG/ML 2 ML VIAL IV SCH (15:08)
--- NOTE | 2018-11-24 15:32 | US ---
EXAMINATION TYPE: US abd limited kidneys/bladder DATE OF EXAM: 11/24/2018 COMPARISON: CT dated 11/18/2018 CLINICAL HISTORY: Right upper quadrant pain; bilateral upper quadrant pain , rt > lt, today after clovis l of oatmeal; patient is post bowel resection last Friday and home from hospital this past Friday EXAM MEASUREMENTS: US exam is limited by overlying bowel gas Liver Length: 16.6 cm Gallbladder Wall: 0.3 cm CBD: 0.2 cm Right Kidney: 11.2 x 7.0 x 5.0 cm Left Kidney: 12.4 x 7.3 x 6.5 cm Post Void Volume: NA as patient has indwelling urinary catheter Pancreas: Obscured by bowel gas Liver: moderately obscured by overlying bowel gas; Gallbladder: small amount of sludge is suspected 5 days post op CBD: wnl Right Kidney: No hydronephrosis or masses seen Left Kidney: upper to mid cortical cyst = 5.9 x 5.9 x 5.7cm. Bladder: indwelling urinary catheter is present, and bladder/catheter is limitedly seen Kidneys show normal cortical medullary differentiation. There is no ascites. IMPRESSION: Exam is somewhat limited. Patient's small right-sided renal calculus is not identified on today's exam. Possible tumefactive sludge is present within the gallbladder. Probable simple cyst le ft kidney.
[2018-11-24 18:05] LABS: Glucose,Whole Blood 110 mg/dL (75-99)
--- NOTE | 2018-11-24 19:33 | P.PN ---
Progress Note - Text Progress Note Date: 11/24/18 Patient had 800 to 1000 mL in bladder upon placement of chauhan as discussed with nursing. Patient had severe obstructive uropathy with immediate improvement of bilateral lower extremity swelling. Family at bedside. He has not passed flatus or bowel movements since admission in the last 7 hrs. P re-tibial edema down from 3+ to 1+. Abdomen decreased tenderness along epigastrium. All labs reviewed including ultrasound confirming new acute pancreatitis consistent with epigastric tenderness. Gallbladder sludge with gallbladder wall thickening also found consistent with cholecystitis. AXR confirms ileus, no bowel obstruction. Above is my personal interpretation. Radiological films also reviewed. ASSESSMENT: 1. Acute pancreatitis, new 2. Acute cholecystitis, new 3. Acute obstructive uropathy Plan: 1. C Diff pending 2. NPO for acute pancreatitis 3. Urology consultation for severe obstructive uropathy 4. Antibiotics for cholecystitis 5. Chauhan catheter to continue upon discharge home pending urology assessment 6. EGD for chronic NSAID use and evaluation for gastric ulcers. 7. Anticipated hospitalization for another 48 hrs pending resolution of pancreatitis. Above care plan discussed and agreed upon with patient and family.
[2018-11-24] MEDS: HEPARIN SODIUM,PORCINE 5,000 UNIT/ML 1 ML VIAL SQ SCH (21:33)
[2018-11-25] MEDS: METOCLOPRAMIDE 5 MG/ML 2 ML VIAL IVP SCH ×5 (00:23→23:42)
[2018-11-25] MEDS: PIPERACILLIN-TAZOBACTAM 3.375 GM in SODIUM CHLORIDE 0.9% 100 ML IVPB SCH ×4 (00:23→23:43)
[2018-11-25] MEDS: HYDROmorphone 1 MG/ML 1 ML SYRINGE IVP PRN ×4 (04:27→21:58)
[2018-11-25] MEDS: SODIUM CHLORIDE 0.9% 1,000 ML IV SCH ×3 (05:48→22:01)
[2018-11-25] MEDS: HEPARIN SODIUM,PORCINE 5,000 UNIT/ML 1 ML VIAL SQ SCH ×2 (08:37→21:12)
[2018-11-25] MEDS: PANTOPRAZOLE 40 MG/10 ML VIAL IVP SCH ×2 (08:42→21:12)
[2018-11-25] MEDS: FUROSEMIDE 10 MG/ML 2 ML VIAL IV SCH (08:48)
[2018-11-25 09:23] LABS: Basophils % (A) 0 %; Eosinophils # (A) 0.1 k/uL (0-0.7); Eosinophils % (A) 0 %; HCT 34.3 % (39.0-53.0); HGB 11.6 gm/dL (13.0-17.5); Lymphocytes # (A) 0.5 k/uL (1.0-4.8); Lymphocytes % (A) 3 %; MCH 31.4 pg (25.0-35.0); MCHC 33.8 g/dL (31.0-37.0); MCV 92.9 fL (80.0-100.0); Mean Platelet Volume 8.6; Monocytes # (A) 0.6 k/uL (0-1.0); Monocytes % (A) 4 %; Neutrophils # (A) 14.7 k/uL (1.3-7.7); Neutrophils % (A) 92 %; Platelet Count 204 k/uL (150-450); RBC 3.69 m/uL (4.30-5.90); RDW 14.1 % (11.5-15.5)
[2018-11-25] MEDS ORDERED: SODIUM CHLORIDE 0.9% 1,000 ML IV ONE (09:25)
[2018-11-25] MEDS: TAMSULOSIN 0.4 MG CAP.ER.24H PO SCH (09:34)
[2018-11-25 09:35] LABS: Calcium 8.1 mg/dL (8.4-10.2); Potassium 3.7 mmol/L (3.5-5.1)
[2018-11-25] MEDS ORDERED: LIDOCAINE 1% INJ 10MG/ML (20 ML MDV) ONE (11:33)
[2018-11-25] MEDS ORDERED: fentaNYL (PF) 50 MCG/ML 2 ML AMP ONE (11:33)
[2018-11-25] MEDS ORDERED: PROPOFOL 10 MG/ML 20 ML VIAL IV ONE (11:33)
[2018-11-25] MEDS ORDERED: MIDAZOLAM 2 MG/2 ML VIAL ONE (11:33)
[2018-11-25] MEDS ORDERED: KETAMINE 10 MG/ML 20 ML VIAL ONE (11:33)
[2018-11-25] MEDS ORDERED: IV FLUID CONTINUATION 700 ML IV ONE (11:34)
--- NOTE | 2018-11-25 12:03 | P.HPADDEND ---
H&P Addendum H&P Addendum Date: 11/25/18 Patient reports passage of flatus. Otherwise, discussion with nurse confirms dark stools. Will proceed with upper endoscopy for evaluation of gastric and duodenal ulcers
--- NOTE | 2018-11-25 12:08 | P.PCN ---
Date of Procedure: 11/25/18 Description of Procedure: PREOPERATIVE DIAGNOSIS: Upper gastrointestinal bleed with melena Chronic antiplatelet use and NSAID use POSTOPERATIVE DIAGNOSIS: Upper gastrointestinal bleed with melena Chronic antiplatelet use and NSAID use Diaphragmatic hiatal hernia Multiple duodenal ulcers with recent bleeding OPERATION: Esophagogastroduodenoscopy with biopsies along duodenum and antrum. SURGEON: Gabi Jackson MD ANESTHESIA: MAC. INDICATIONS: The patient is a 68-year-old male who presents with acute melena. Benefits and risks of the procedure were described. Informed consent was obtained. DESCRIPTION: The patient was brought into the endoscopy suite and laid in the left lateral decubitus position. An Olympus gastroscope was passed along the posterior oropharynx down to the distal esophagus where the squamocolumnar junction was encountered at 40 cm from the incisors. The stomach was entered and no bile reflux was found. Additional findings are listed below. Biopsies with cold forceps were obtained of the antrum. The first through third portion of the duodenum was examined and remarkable for multiple acute duodenal ulcers with recent bleeding involving the first through third portion of the duodenum. Retroflexion of the scope confirmed Hill grade 4 lower esophageal valve. The sq uamocolumnar junction demonstrated LA grade B erosive esophagitis. The stomach was desufflated. The patient tolerated the procedure well. FINDINGS: Squamocolumnar junction 40 cm from the incisors. Diaphragmatic hiatus at 42 cm. Hiatal hernia, 2 cm Hill grade 4 lower esophageal valve. LA grade B erosive esophagitis. Multiple acute duodenal ulcers with recent bleeding No acute superficial gastritis RECOMMENDATIONS: Upper endoscopy as needed. Pertinent pump inhibitor 40 mg twice daily Carafate daily Avoidance of NSAIDs and antiplatelet therapy
--- NOTE | 2018-11-25 12:36 | P.GSCN ---
History of Present Illness Consult date: 11/25/18 Reason for Consult: Urinary retention History of present illness: The patient is a 68-year-old male admitted yesterday for evaluation of epigast levi pain. He had originally undergone robotic right hemicolectomy on 11/20. His catheter was removed on 11/21 but he was unable to void and was in and out cathed later in the day. He was started on tamsulosin and was able to void however a postvoid residual was never rechecked. He was discharged on 11/22. He says that he was voiding at home although he was voiding more frequently. He developed severe epigastric pain on the morning of 11/24 and was admitted for further evaluation. He was discovered to be in urinary retention and a catheter was inserted. It was never recorded how much drained from the bladder at that time but the next entry in the intake and output record was 1600 mL. The patient says that his epigastric pain did not resolve following placement of the catheter. He underwent EGD earlier this morning and says that he is feeling somewhat better than yesterday. He did have loose stool which was apparently dark colored prior to being admitted. The patient denies any previous history of urinary retention. He says he usually voids every 2-3 hours during the day and once or twice at night. He has been told that his prostate is enlarged but hadn't never been on an he lpful carlie. He has no history of urinary tract infection or gross hematuria. Review of Systems - Constitutional Denies chills, Denies fever - Gastrointestinal Reports as per HPI - Genitourinary Reports as per HPI Past Medical History Past Medical History: Asthma, CVA/TIA, Eye Disorder, Hyperlipidemia, Hypertension, Osteoarthritis (OA), Prostate Disorder, Rheumatoid Arthritis (RA) Additional Past Medical History / Comment(s): Multiple colon polyps, recent R colectomy d/t tumor/polyps and found appendix was diseased so removed and also found gallbladder disease and kidney stones per pt, pt has post op wound vac in place, prior to colectomy found to have abnormal kidney function labs-thought d/t dehydration/side effect of antihypertensive med pt was taking, 2005 CVA with no residual, bilateral legs vascular disease, BPH, past nephrolithiasis-passed stones on his own, R cataract History of Any Multi-Drug Resistant Organisms: None Reported Past Surgical History: Appendectomy, Bowel Resection Additional Past Surgical History / Comment(s): 11/23/18 R colectomy/appendectomy, 2 colonoscopies with multiple benign polypectomies, left cataract Past Anesthesia/Blood Transfusion Reactions: No Reported Reaction Smoking Status: Former smoker - Past Family History Father Family Medical History: Cancer Additional Family Medical History / Comment(s): oral cancer with metastasis Mother Family Medical History: Renal Disease Additional Family Medical History / Comment(s): Mother from a kidney stone/infection/sepsis. Medications and Allergies Home Medications Medication Instructions Recorded Confirmed Type Aspirin [Adult Low Dose Aspirin EC] 81 mg PO DAILY 09/14/18 11/24/18 History Atorvastatin [Lipitor] 40 mg PO HS 09/14/18 11/24/18 History Clopidogrel [Plavix] 75 mg PO DAILY 09/14/18 11/24/18 History Losartan/Hydrochlorothiazide 1 tab PO QAM 09/14/18 11/24/18 History [Hyzaar 100-12.5 Tablet] HYDROcodone/APAP 5-325MG [[place] 1 tab PO Q4HR PRN 3 Days #18 tab 11/20/18 11/24/18 Rx 5-325] Ibuprofen [Motrin] 600 mg PO Q8HR PRN #30 tab 11/20/18 11/24/18 Rx Tamsulosin [Flomax] 0.4 mg PO DAILY #5 cap.er.24h 11/20/18 11/24/18 Rx Allergies Allergy/AdvReac Type Severity Reaction Status Date / Time strawberry Allergy Swelling Verified 11/24/18 12:34 Surgical - Exam Vital Signs Temp Pulse Resp BP Pulse Ox 98.5 F 94 20 132/61 95 11/24/18 12:10 11/24/18 12:10 11/24/18 12:10 11/24/18 12:10 11/24/18 12:10 - General well developed, well nourished, no distress, obese - ENT no hearing loss - Neck no masses, no lymphadectomy - Respiratory normal respiratory effort - Abdomen Abdomen: soft, non tender, no organomegaly - Genitourinary normal penis with no external lesions, testicles non-tender, other (Wallace jenelle ter is in place and is draining clear urine) - Rectum Rectum: normal sphincter tone, other (Prostate is 2+ enlarged and benign.) Results - Labs 11/25/18 08:45 11/25/18 08:45 Abnormal Lab Results - Last 24 Hours (Table) 11/24/18 11/24/18 11/24/18 Range/Units 12:02 12:02 18:04 WBC 15.8 H (3.8-10.6) k/uL RBC 3.49 L (4.30-5.90) m/uL Hgb 11.2 L (13.0-17.5) gm/dL Hct 32.6 L (39.0-53.0) % Neutrophils # 14.5 H (1.3-7.7) k/uL Lymphocytes # 0.4 L (1.0-4.8) k/uL Chloride 110 H (98-107) mmol/L BUN 22 H (9-20) mg/dL Creatinine (0.66-1.25) mg/dL Glucose 100 H (74-99) mg/dL POC Glucose (mg/dL) 110 H (75-99) mg/dL Calcium (8.4-10.2) mg/dL Phosphorus 2.2 L (2.5-4.5) mg/dL Total Protein 5.4 L (6.3-8.2) g/dL Albumin 3.0 L (3.5-5.0) g/dL Lipase 409 H (23-300) U/L 11/25/18 11/25/18 Range/Units 08:45 08:45 WBC 16.0 H (3.8-10.6) k/uL RBC 3.69 L (4.30-5.90) m/uL Hgb 11.6 L (13.0-17.5) gm/dL Hct 34.3 L (39.0-53.0) % Neutrophils # 14.7 H (1.3-7.7) k/uL Lymphocytes # 0.5 L (1.0-4.8) k/uL Chloride 111 H (98-107) mmol/L BUN 24 H (9-20) mg/dL Creatinine 1.33 H (0.66-1.25) mg/dL Glucose 108 H (74-99) mg/dL POC Glucose (mg/dL) (75-99) mg/dL Calcium 8.1 L (8.4-10.2) mg/dL Phosphorus (2.5-4.5) mg/dL Total Protein (6.3-8.2) g/dL Albumin (3.5-5.0) g/dL Lipase (23-300) U/L Diabetes panel 11/24/18 11/25/18 Range/Units 12:02 08:45 Sodium 141 143 (137-145) mmol/L Potassium 4.2 3.7 (3.5-5.1) mmol/L Chloride 110 H 111 H (98-107) mmol/L Carbon Dioxide 23 24 (22-30) mmol/L BUN 22 H 24 H (9-20) mg/dL Creatinine 1.10 1.33 H (0.66-1.25) mg/dL Glucose 100 H 108 H (74-99) mg/dL Calcium 8.8 8.1 L (8.4-10.2) mg/dL AST 33 (17-59) U/L ALT 28 (21-72) U/L Alkaline Phosphatase 54 (38-126) U/L Total Protein 5.4 L (6.3-8.2) g/dL Albumin 3.0 L (3.5-5.0) g/dL Calcium panel 11/24/18 11/25/18 Range/Units 12:02 08:45 Calcium 8.8 8.1 L (8.4-10.2) mg/dL Phosphorus 2.2 L (2.5-4.5) mg/dL Albumin 3.0 L (3.5-5.0) g/dL Pituitary panel 11/24/18 11/25/18 Range/Units 12:02 08:45 Sodium 141 143 (137-145) mmol/L Potassium 4.2 3.7 (3.5-5.1) mmol/L Chloride 110 H 111 H (98-107) mmol/L Carbon Dioxide 23 24 (22-30) mmol/L BUN 22 H 24 H (9-20) mg/dL Creatinine 1.10 1.33 H (0.66-1.25) mg/dL Glucose 100 H 108 H (74-99) mg/dL Calcium 8.8 8.1 L (8.4-10.2) mg/dL Adrenal panel 11/24/18 11/25/18 Range/Units 12:02 08:45 Sodium 141 143 (137-145) mmol/L Potassium 4.2 3.7 (3.5-5.1) mmol/L Chloride 110 H 111 H (98-107) mmol/L Carbon Dioxide 23 24 (22-30) mmol/L BUN 22 H 24 H (9-20) mg/dL Creatinine 1.10 1.33 H (0.66-1.25) mg/dL Glucose 100 H 108 H (74-99) mg/dL Calcium 8.8 8.1 L (8.4-10.2) mg/dL Total Bilirubin 0.7 (0.2-1.3) mg/dL AST 33 (17-59) U/L ALT 28 (21-72) U/L Alkaline Phosphatase 54 (38-126) U/L Total Protein 5.4 L (6.3-8.2) g/dL Albumin 3.0 L (3.5-5.0) g/dL Assessment and Plan (1) Postoperative urinary retention Narrative/Plan: Urinary retention is not unusual postop. The patient had mild-moderate symptoms of bladder outflow obstruction preoperatively. It's unclear whether he was emptying his bladder completely prior to being discharged as a postvoid residual was never checked. Unfortunately when a catheter was inserted yesterday he had a very large amount in his bladder which may cause temporary bladder atony. His catheter should be left in place until tomorrow. If he is feeling better he could have a voiding trial tomorrow but he should be monitored with the bladder scan unit to ensure that his postvoid residuals are acceptably small. He should be continued on tamsulosin. Current Visit: Yes Status: Acute Code(s): N99.89 - OTH POSTPROCEDURAL COMPLI CATIONS AND DISORDERS OF SYS; R33.8 - OTHER RETENTION OF URINE SNOMED Code(s): 349035955
[2018-11-25] MEDS: SUCRALFATE 1 GM TAB PO SCH ×2 (13:59→17:27)
[2018-11-25] MEDS: metroNIDAZOLE-NS PMX 500 MG in SALINE 1 100ML.BAG IVPB SCH ×3 (13:59→21:12)
[2018-11-25 16:30] LABS: Ferritin 242.2 ng/mL (22.0-322.0)
[2018-11-25 16:33] LABS: Iron Saturation 4.32 (15.00-50.00)
--- NOTE | 2018-11-25 16:42 | P.CONS ---
History of Present Illness - Reason for Consult Consult date: 11/25/18 Medical management requested by Dr. Angelito Lacy - Chief Complaint Not feeling well - History of Present Illness Consultation: Consultation: This is a pleasant 68-year-old patient of Dr. Sherman. Chronic stable medical conditions include asthma, hypertension, hyperlipidemia, osteoarthritis, rheum atoid arthritis. Patient did have a stroke in 2005 with no residue up. History of kidney stones. Patient on November 20 underwent right hemicolectomy by Dr. Angelito Lacy. Patient was discharged on November 22. Patient had been tolerating a liquid diet. After patient went home he described after second day urine output decreased. Patient also notices swelling of the lower extremity. Also became a bit short of breath. Also patient noticed some diffuse abdominal pain. There was no nausea vomiting area and patient did notice a slight temperature. Patient did have a bowel movement when he caught him. Appetite has not been good. Patient had been ambulatory in the house. Patient been having dark stools at home. Admitted for the same. Patient's is present. Review of systems: GEN.: Tired EYES: None HEENT: None NECK: None RESPIRATORY: None CARDIOVASCULAR: None GASTROINTESTINAL: As above GENITOURINARY: As above MUSCULOSKELETAL: He did some joints LYMPHATICS: None HEMATOLOGICAL: Dark stools PSYCHIATRY: None NEUROLOGICAL: None Social history: Smoked a pack a day for close to 50 years. . Family history: Oral cancer with metastatic disease Physical examination: VITAL SIGNS: 98.5, 94, 20, 132/61, 95% room air GENERAL: BMI 37.4, laying in bed, tired appearing. EYES: Pupils equal. Conjunctiva normal. HEENT: External appearance of nose and ears normal, oral cavity grossly normal. NECK: JVD not raised; masses not palpable. HEART: First and second heart sounds are normal; some edema and lower extremity. LUNGS: Respiratory rate normal; slightly decreased breath sounds. ABDOMEN: Soft, mild tenderness,, liver spleen not palpable, no masses palpable, bowel sounds present. PSYCH: Alert and oriented x3; mood and affect normal. NEUROLOGICAL: Cranial nerves grossly intact; no facial asymmetry, power and sensation grossly intact. LYMPHATICS: No lymph nodes palpable in the axilla and neck Investigations: White count 15.8, hemoglobin 11.2, potassium 4.2, creatinine 1.1 Hemoglobin was 14.3 prior to surgery Renal ultrasound-shows right-sided renal calculi Acute abdominal series reports some element of ileus Assessment: -Patient presented with dark stools. Patient has been on Plavix, aspirin and Motrin. This is probably resulted upper GI bleed -Acute blood loss anemia from upper GI bleed, and also some blood loss as expected from surgery as hemoglobin was 12.5 upon discharge -Right hemicolectomy for polyps -Obesity BMI 34.4 -Hyperlipidemia -Essential hypertension -Chronic primary osteoarthritis Plan: Patient is seen by me earlier today. Patient is due for EGD this afternoon. Patient's antiplatelet agents and NSAIDs are being discontinued. Keep a close and H&H. Other home medications are renewed. Urology was also consulted. Care was discussed with the patient's out of the bedside. Follow closely Thank your Dr. Lacy Past Medical History Past Medical History: Asthma, CVA/TIA, Eye Disorder, Hyperlipidemia, Hypertension, Osteoarthritis (OA), Prostate Disorder, Rheumatoid Arthritis (RA) Additional Past Medical History / Comment(s): Multiple colon polyps, recent R colectomy d/t tumor/polyps and found appendix was diseased so removed and also found gallbladder disease and kidney stones per pt, pt has post op wound vac in place, prior to colectomy found to have abnormal kidney function labs-thought d/t dehydration/side effect of antihypertensive med pt was taking, 2005 CVA with no residual, bilateral legs vascular disease, BPH, past nephrolithiasis-passed stones on his own, R cataract History of Any Multi-Drug Resistant Organisms: None Reported Past Surgical History: Appendectomy, Bowel Resection Additional Past Surgical History / Comment(s): 11/23/18 R colectomy/appendectomy, 2 colonoscopies with multiple benign polypectomies, left cataract Past Anesthesia/Blood Transfusion Reactions: No Reported Reaction Smoking Status: Former smoker - Past Family History Father Family Medical History: Cancer Additional Family Medical History / Comment(s): oral cancer with metastasis Mother Family Medical History: Renal Disease Additional Family Medical History / Comment(s): Mother from a kidney stone/infection/sepsis. Medications and Allergies Home Medications Medication Instructions Recorded Confirmed Type Atorvastatin [Lipitor] 40 mg PO HS 09/14/18 11/24/18 History HYDROcodone/APAP 5-325MG [[place] 1 tab PO Q4HR PRN 3 Days #18 tab 11/20/18 11/24/18 Rx 5-325] Tamsulosin [Flomax] 0.4 mg PO DAILY #5 cap.er.24h 11/20/18 11/24/18 Rx Pantoprazole [Protonix] 40 mg PO BID #60 tab 11/25/18 Rx Sucralfate [Carafate] 1 gm PO AC-TID #90 tab 11/25/18 Rx Allergies Allergy/AdvReac Type Severity Reaction Status Date / Time strawberry Allergy Swelling Verified 11/24/18 12:34 Physical Exam Vitals: Vital Signs Temp Pulse Resp BP Pulse Ox 11/25/18 16:00 74 20 11/25/18 13:30 98.2 F 74 20 108/69 97 11/25/18 13:15 98.3 F 73 18 114/67 93 L 11/25/18 13:07 98.2 F 73 18 113/76 96 11/25/18 12:37 98.1 F 80 18 109/73 94 L 11/25/18 12:22 98.2 F 72 18 110/67 95 11/25/18 09:57 94 L 11/25/18 04:51 98 F 101 H 18 108/65 94 L 11/25/18 00:10 101 H 20 11/24/18 21:00 98.9 F 101 H 20 107/58 94 L 11/24/18 16:45 94 L Intake and Output 11/25/18 11/25/18 11/25/18 06:59 14:59 22:59 Intake Total 500 300 Output Total 1600 Balance 500 300 -1600 Intake: IV 300 Intake, IV Titration 500 Amount Piperacillin-Tazobactam 3 100 .375 gm In Sodium Chloride 0.9% 100 ml @ 25 mls/hr IVPB Q8HR [facility] Rx# :[id number] Sodium Chloride 0.9% 1, 400 000 ml @ 100 mls/hr IV . Q10H [facility] Rx#:[id number] Output: Urine 1600 Other: Voiding Method Indwelling Catheter Indwelling Catheter Indwelling Catheter # Voids 1 1 Results CBC & Chem 7: 11/25/18 08:45 11/25/18 08:45 Labs: Abnormal Lab Results - Last 24 Hours (Table) 11/24/18 11/25/18 11/25/18 Range/Units 18:04 08:45 08:45 WBC 16.0 H (3.8-10.6) k/uL RBC 3.69 L (4.30-5.90) m/uL Hgb 11.6 L (13.0-17.5) gm/dL Hct 34.3 L (39.0-53.0) % Neutrophils # 14.7 H (1.3-7.7) k/uL Lymphocytes # 0.5 L (1.0-4.8) k/uL Chloride 111 H (98-107) mmol/L BUN 24 H (9-20) mg/dL Creatinine 1.33 H (0.66-1.25) mg/dL Glucose 108 H (74-99) mg/dL POC Glucose (mg/dL) 110 H (75-99) mg/dL Calcium 8.1 L (8.4-10.2) mg/dL
--- NOTE | 2018-11-25 18:52 | US ---
EXAMINATION TYPE: US venous doppler duplex LE DATE OF EXAM: 11/25/2018 6:13 PM COMPARISON: NONE CLINICAL HISTORY: r/o dvt. Edema bilateral legs SIDE PERFORMED: bilateral TECHNIQUE: The lower extremity deep venous system is examined utilizing real time linear array sonog efrem with graded compression, doppler sonography and color-flow sonography. VESSELS IMAGED: External Iliac Vein (EIV) Common Femoral Vein Deep Femoral Vein Greater Saphenous Vein * Femoral Vein Popliteal Vein Small Saphenous Vein * Proximal Calf Veins (* superficial vessels) Technical limitations due to large amount of soft tissue edema Right Leg: No evidence of DVT Left Leg: No evidence of DVT IMPRESSION: No evidence of deep venous thrombosis in both legs.
--- NOTE | 2018-11-25 19:41 | P.PN ---
Subjective Progress Note Date: 11/25/18 CHIEF COMPLAINT: Pancreatitis with upper GI bleed HISTORY OF PRESENT ILLNESS: The patient is a 68-year-old male who was readmitted secondary to acute onset epigastric abdominal pain including bilateral lower extremity swelling and suprapubic pain. He presented with severe obstructive uropathy with over 1000 mL emptied in his bladder which at this time is now preexistent as confirmed with the urologist in consultation. Separately, patient completed an upper endoscopy confirming multiple duodenal ulcers with recent bleed consistent with dark stools and upper GI bleed. He reports improvement of his suprapubic pain. Separately, patient had elevated lipase including right upper quadrant abdominal pain with acute cholecystitis and acute pancreatitis improving. He reports generalized weakness as well. He is passing flatus as ileus is resolved. ROS: No reports of nausea and vomiting. Had bowel movement last night dark as witnessed by nursing. No fevers or chills. No new chest pain. No productive sputum PHYSICAL EXAM: VITAL SIGNS: Reviewed CONSTITUTIONAL: Well developed and in no acute distress. EYES: Conjuctivae without sclera icterus. Extraocular movements grossly intact. HEAD, EARS, NOSE, THROAT: Moist buccal mucosa. Head is atraumatic, normocephalic. Hears conversational speech. No nasal drainage. NECK: Supple. No thyroidomegaly. RESPIRATORY: Non-labored respirations and equal bilateral excursions. CARDIOVASCULAR: Palpable 2+ radial pulses. Regular rate. Regular rhythm. ABDOMEN: Incisions clean dry and intact. No cellulitis. PREVENA wound VAC discontinued from left upper abdominal incision. Decreased tenderness right upper quadrant epigastric MUSCULOSKELETAL: No gross deformity of the lower extremities noted. No clubbing. No cyanosis. Trace pitting edema left leg. 1+ pitting edema right leg. SKIN: Good skin turgor. Well perfused. NEUROLOGIC: Cranial nerves I through XII grossly intact. No focal or lateralizing signs. PSYCH: Appropriate affect. Alert and oriented to person, place and time. CLINCAL LABS: White blood cell count elevated at 16,000, creatinine elevated 1.1-1.33 STUDIES: Bilateral lower extremity swelling negative for DVTs ASSESSMENT: 1. Acute upper gastrointestinal bleed secondary to acute bleeding duodenal ulcers 2. Acute pancreatitis, resolving 3. Acute cholecystitis, stable 4. Severe obstructive uropathy, pre-existing, please see urology consultation note 5. Acute bilateral lower extremity edema, resolved 6. Ileus secondary to acute pancreatitis PLAN: 1. Post void residual study per urology recommendations 2. Ileus resolved, start clear liquid diet 3. Evaluation with PT OT including rehabilitation and home health care needs 4. IV fluid hydration 5. Continue with antibiotics for acute cholecystitis 6. Dietitian evaluation for low-fat diet The above care plan and clinical improvement was described to the patient and his his bedside who are agreeable with the plan. Overall he feels better as he is passing flatus. With his new clinical findings, may benefit from rehab evaluation. Objective - Vital Signs Vital signs: Vital Signs Temp 98.1 F 11/25/18 14:17 Pulse 74 11/25/18 16:00 Resp 20 11/25/18 16:00 BP 136/72 11/25/18 14:17 Pulse Ox 98 11/25/18 14:17 Intake & Output 11/25/18 11/25/18 11/26/18 06:59 18:59 06:59 Intake Total 500 300 Output Total 1600 1600 Balance -1100 -1300 Weight 118.2 kg Intake: IV 300 Intake, IV Titration 500 Amount Piperacillin-Tazobactam 3 100 .375 gm In Sodium Chloride 0.9% 100 ml @ 25 mls/hr IVPB Q8HR [facility] Rx# :[id number] Sodium Chloride 0.9% 1, 400 000 ml @ 100 mls/hr IV . Q10H [facility] Rx#:[id number] Output: Urine 1600 1600 Other: Voiding Method Indwelling Catheter Indwelling Catheter # Voids 1 1 # Bowel Movements 2 - Labs CBC & Chem 7: 11/25/18 08:45 11/25/18 08:45 Labs: Abnormal Lab Results - Last 24 Hours (Table) 11/25/18 11/25/18 11/25/18 Range/Units 08:45 08:45 08:45 WBC 16.0 H (3.8-10.6) k/uL RBC 3.69 L (4.30-5.90) m/uL Hgb 11.6 L (13.0-17.5) gm/dL Hct 34.3 L (39.0-53.0) % Neutrophils # 14.7 H (1.3-7.7) k/uL Lymphocytes # 0.5 L (1.0-4.8) k/uL Chloride 111 H (98-107) mmol/L BUN 24 H (9-20) mg/dL Creatinine 1.33 H (0.66-1.25) mg/dL Glucose 108 H (74-99) mg/dL Calcium 8.1 L (8.4-10.2) mg/dL Iron 8 L (65-175) ug/dL TIBC 185 L (228-460) ug/dL Iron Saturation 4.32 L (15.00-50.00) Assessment and Plan (1) Obstructive uropathy Current Visit: Yes Status: Acute Code(s): N13.9 - OBSTRUCTIVE AND REFLUX UROPATHY, UNSPECIFIED SNOMED Code(s): 6527800 (2) Prostatic hyperplasia, benign localized, with obstruction Current Visit: Yes Status: Acute Code(s): N40.1 - BENIGN PROSTATIC HYPERPLASIA WITH LOWER URINARY TRACT SYMP; N13.8 - OTHER OBSTRUCTIVE AND REFLUX UROPATHY SNOMED Code(s): 617704820 (3) Acute cholecystitis with chronic cholecystitis Current Visit: Yes Status: Acute Code(s): K81.2 - ACUTE CHOLECYSTITIS WITH CHRONIC CHOLECYSTITIS SNOMED Code(s): 779822472 (4) Acute pancreatitis Current Visit: Yes Status: Acute Code(s): K85.90 - ACUTE PANCREATITIS WITHOUT NECROSIS OR INFECTION, UNSP SNOMED Code(s): 953830373 (5) Duodenal ulcer hemorrhage Current Visit: Yes Status: Acute Code(s): K26.4 - CHRONIC OR UNSPECIFIED DUODENAL ULCER WITH HEMORRHAGE SNOMED Code(s): 01346481 (6) Upper GI bleeding Current Visit: Yes Status: Acute Code(s): K92.2 - GASTROINTESTINAL HEMORRHAGE, UNSPECIFIED SNOMED Code(s): 29927294 (7) Iron deficiency anemia due to chronic blood loss Current Visit: Yes Status: Acute Code(s): D50.0 - IRON DEFICIENCY ANEMIA SECONDARY TO BLOOD LOSS (CHRONIC) SNOMED Code(s): 492949859 (8) Swelling of lower extremity Current Visit: Yes Status: Acute Code(s): M79.89 - OTHER SPECIFIED SOFT TISSUE DISORDERS SNOMED Code(s): 713053563 (9) Morbid obesity due to excess calories Current Visit: Yes Status: Acute Code(s): E66.01 - MORBID (SEVERE) OBESITY DUE TO EXCESS CALORIES SNOMED Code(s): 410154798 (10) BMI 37.0-37.9, adult Current Visit: Yes Status: Acute Code(s): Z68.37 - BODY MASS INDEX (BMI) 37.0-37.9, ADULT SNOMED Code(s): 154564047 (11) Obstructive sleep apnea Current Visit: Yes Status: Acute Code(s): G47.33 - OBSTRUCTIVE SLEEP APNEA (ADULT) (PEDIATRIC) SNOMED Code(s): 21906947 (12) Hypertensive heart disease Current Visit: No Status: Acute Code(s): I11.9 - HYPERTENSIVE HEART DISEASE WITHOUT HEART FAILURE SNOMED Code(s): 41142681 (13) Bladder atony Current Visit: Yes Status: Acute Code(s): N31.2 - FLACCID NEUROPATHIC BLADDER, NOT ELSEWHERE CLASSIFIED SNOMED Code(s): 222703725
[2018-11-25] MEDS: SODIUM FERRIC GLUCONAT-SUCROSE 125 MG in SODIUM CHLORIDE 0.9% 100 ML IVPB SCH (22:13)
[2018-11-26] MEDS: HYDROmorphone 1 MG/ML 1 ML SYRINGE IVP PRN ×3 (02:13→22:40)
[2018-11-26] MEDS: metroNIDAZOLE-NS PMX 500 MG in SALINE 1 100ML.BAG IVPB SCH ×4 (04:01→22:45)
[2018-11-26] MEDS: METOCLOPRAMIDE 5 MG/ML 2 ML VIAL IVP SCH ×3 (05:02→17:23)
[2018-11-26 07:08] LABS: Basophils % (A) 0 %; Eosinophils # (A) 0.1 k/uL (0-0.7); Eosinophils % (A) 1 %; HCT 33.6 % (39.0-53.0); HGB 11.3 gm/dL (13.0-17.5); Lymphocytes # (A) 0.5 k/uL (1.0-4.8); Lymphocytes % (A) 3 %; MCH 31.4 pg (25.0-35.0); MCHC 33.7 g/dL (31.0-37.0); MCV 93.2 fL (80.0-100.0); Mean Platelet Volume 8.3; Monocytes # (A) 0.7 k/uL (0-1.0); Monocytes % (A) 4 %; Neutrophils # (A) 14.8 k/uL (1.3-7.7); Neutrophils % (A) 91 %; Platelet Count 216 k/uL (150-450); RBC 3.61 m/uL (4.30-5.90); WBC 16.2 k/uL (3.8-10.6)
[2018-11-26 07:18] LABS: Albumin 2.6 g/dL (3.5-5.0); Potassium 3.6 mmol/L (3.5-5.1); Total Bilirubin 0.9 mg/dL (0.2-1.3)
[2018-11-26] MEDS: TAMSULOSIN 0.4 MG CAP.ER.24H PO SCH (08:48)
[2018-11-26] MEDS: SODIUM FERRIC GLUCONAT-SUCROSE 125 MG in SODIUM CHLORIDE 0.9% 100 ML IVPB SCH (08:48)
[2018-11-26] MEDS: PANTOPRAZOLE 40 MG/10 ML VIAL IVP SCH ×2 (08:48→20:39)
[2018-11-26] MEDS: HEPARIN SODIUM,PORCINE 5,000 UNIT/ML 1 ML VIAL SQ SCH ×2 (08:49→20:39)
[2018-11-26] MEDS: SUCRALFATE 1 GM TAB PO SCH ×3 (08:49→17:23)
[2018-11-26] MEDS: PIPERACILLIN-TAZOBACTAM 3.375 GM in SODIUM CHLORIDE 0.9% 100 ML IVPB SCH ×2 (09:57→17:23)
[2018-11-26] MEDS: HYDROcodone/APAP 5-325MG 1 EACH TAB PO PRN ×2 (10:07→14:38)
--- NOTE | 2018-11-26 13:20 | XR ---
EXAMINATION TYPE: XR chest 2V DATE OF EXAM: 11/26/2018 COMPARISON: None INDICATION: Ileus, pain TECHNIQUE: Frontal and lateral views of the chest are obtained. FINDINGS: The heart size is normal. The pulmonary vasculature is normal. The lungs are clear. IMPRESSION: 1. No acute pulmonary process.
[2018-11-26] MEDS ORDERED: FUROSEMIDE 10 MG/ML 2 ML VIAL IV STA (13:49)
--- NOTE | 2018-11-26 13:56 | US ---
EXAMINATION TYPE: US bladder DATE OF EXAM: 11/26/2018 COMPARISON: US 2 days ago/ CT 8 days ago. CLINICAL HISTORY: suprapubic pressure. Pt states ABD pain, pt had urinary cath removed this AM, bladd er scans on floor show urinary retention, pt had recent bowel resection surgery EXAM MEASUREMENTS: Bladder Volume: 72.3 mL Pt states voiding bladder twice today since cath removal, having ABD pain Color Doppler performed to assess ureteral jets. Bilateral Jets seen: No Bladder show suboptimal distention prior to voiding . Bilateral distal ureter jets are not seen. IMPRESSION: As above.
--- NOTE | 2018-11-26 14:00 | P.PN ---
Subjective Progress Note Date: 11/26/18 CHIEF COMPLAINT: Pancreatitis with upper GI bleed HISTORY OF PRESENT ILLNESS: Patient examined at the bedside with Dr. Jackson. Wallace catheter was discontinued this morning. Patient voided without difficulty. Bladder scan was negative for retention. However, patient is reporting suprapubic pressure. His is at the bedside and confirms patient has a history of urinary difficulties at home. Patient reports passing gas from rectum and three bowel movements overnight. All loose. He does report belching and feeling bloated. He has been tolerating clear liquid diet. No nausea or vomiting. WBC increased to 16.2 today. Currently receiving Zosyn and Flagyl. Infectious disease has been consulted for further evaluation of antibiotic therapy. PHYSICAL EXAM: VITAL SIGNS: Currently stable. GENERAL: Well-developed in no acute distress. HEENT: No sclera icterus. Extraocular movements grossly intact. Moist buccal mucosa. Head is atraumatic, normocephalic. Hears conversational speech. No nasal drainage. NECK: Supple without lymphadenopathy. CHEST: Non-labored respirations and equal bilateral excursions. CARDIOVASCULAR: Regular rate with regular rhythm. Palpable 2+ radial pulses. ABDOMEN: Soft. Mildly distended. Positive bowel sounds. Tenderness with palpation near suprapubic region. MUSCULOSKELETAL: No clubbing or cyanosis. +1 bilateral lower extremity edema NEUROLOGIC: No focal or lateralizing signs. Cranial nerves II through XII grossly intact. PSYCH: Appropriate affect. Alert and oriented to person, place and time. SKIN: Well perfused. Good skin turgor. ASSESSMENT: 1. Acute upper gastrointestinal bleed secondary to acute bleeding duodenal ulcers 2. Acute pancreatitis, resolving 3. Acute cholecystitis, stable 4. Severe obstructive uropathy, pre-existing 5. Acute bilateral lower extremity edema 6. Ileus secondary to acute pancreatitis PLAN: 1. Continue to check post void residuals 2. US Bladder 3. XR of chest and abdomen 4. Full liquid diet 5. Continue antibiotics. Await ID evaluation. Monitor CBC. Await culture results. 6. Lasix 20mg IV x 1 dose to help with lower extremity edema. Recommend elevating extremities while in bed. HONEY hose to bilateral LE to help with swelling. Nurse practitioner note has been reviewed by physician. Signing provider agrees with the documented findings, assessment, and plan of care. Objective - Vital Signs Vital signs: Vital Signs Temp 98 F 11/26/18 11:55 Pulse 73 11/26/18 11:55 Resp 20 11/26/18 11:55 BP 138/75 11/26/18 11:55 Pulse Ox 95 11/26/18 11:55 Intake & Output 11/25/18 11/26/18 11/26/18 18:59 06:59 18:59 Intake Total 300 Output Total 1600 2600 0 Balance -1300 -2600 0 Weight 118.2 kg Intake: IV 300 Output: Urine 1600 2600 Post Void Residual 0 Other: Voiding Method Indwelling Catheter Indwelling Catheter Toilet # Voids 1 1 - Labs CBC & Chem 7: 11/26/18 06:18 11/26/18 06:18 Labs: Abnormal Lab Results - Last 24 Hours (Table) 11/25/18 11/26/18 11/26/18 Range/Units 08:45 06:18 06:18 WBC 16.2 H (3.8-10.6) k/uL RBC 3.61 L (4.30-5.90) m/uL Hgb 11.3 L (13.0-17.5) gm/dL Hct 33.6 L (39.0-53.0) % Neutrophils # 14.8 H (1.3-7.7) k/uL Lymphocytes # 0.5 L (1.0-4.8) k/uL Chloride 110 H (98-107) mmol/L BUN 24 H (9-20) mg/dL Glucose 107 H (74-99) mg/dL Calcium 8.0 L (8.4-10.2) mg/dL Iron 8 L (65-175) ug/dL TIBC 185 L (228-460) ug/dL Iron Saturation 4.32 L (15.00-50.00) Total Protein 5.0 L (6.3-8.2) g/dL Albumin 2.6 L (3.5-5.0) g/dL Microbiology - Last 24 Hours (Table) 11/26/18 02:40 Stool Culture - Preliminary Stool Assessment and Plan (1) Acute cholecystitis with chronic cholecystitis Current Visit: Yes Status: Acute Code(s): K81.2 - ACUTE CHOLECYSTITIS WITH CHRONIC CHOLECYSTITIS SNOMED Code(s): 099950734 (2) Acute pancreatitis Current Visit: Yes Status: Acute Code(s): K85.90 - ACUTE PANCREATITIS WITHOUT NECROSIS OR INFECTION, UNSP SNOMED Code(s): 431894010 (3) BMI 37.0-37.9, adult Current Visit: Yes Status: Acute Code(s): Z68.37 - BODY MASS INDEX (BMI) 37.0-37.9, ADULT SNOMED Code(s): 060033469 (4) Bladder atony Current Visit: Yes Status: Acute Code(s): N31.2 - FLACCID NEUROPATHIC BLADDER, NOT ELSEWHERE CLASSIFIED SNOMED Code(s): 847737471 (5) Duodenal ulcer hemorrhage Current Visit: Yes Status: Acute Code(s): K26.4 - CHRONIC OR UNSPECIFIED DUODENAL ULCER WITH HEMORRHAGE SNOMED Code(s): 59330394 (6) Iron deficiency anemia due to chronic blood loss Current Visit: Yes Status: Acute Code(s): D50.0 - IRON DEFICIENCY ANEMIA SECONDARY TO BLOOD LOSS (CHRONIC) SNOMED Code(s): 094507134 (7) Prostatic hyperplasia, benign localized, with obstruction Current Visit: Yes Status: Acute Code(s): N40.1 - BENIGN PROSTATIC HYPERPLA PABLITO WITH LOWER URINARY TRACT SYMP; N13.8 - OTHER OBSTRUCTIVE AND REFLUX UROPATHY SNOMED Code(s): 303444363
--- NOTE | 2018-11-26 15:10 | XR ---
EXAMINATION TYPE: XR abdomen 2V DATE OF EXAM: 11/26/2018 CLINICAL HISTORY: Abdominal pain after recent partial colectomy TECHNIQUE: Supine, upright, and left side down lateral decubitus views of the abdomen are obtained. COMPARISON: CT from 8 days ago. Abdominal x-ray 2 days ago. FINDINGS: Gas prominent small bowel loops throughout the abdomen are present with some prominent air fluid levels in the mid abdominal level. Cannot exclude small amount of pneumoperitoneum low left hem idiaphragm presumed postsurgical. This is improved from 2 days earlier. Surgical sutures right lower quadrant are present. [id number] narrowing in both hip joints is seen. IMPRESSION: Overall nonspecific bowel gas pattern remains present. Presumed postoperative ileus give n patient's history of recent surgery.
[2018-11-26] MEDS: SODIUM CHLORIDE 0.9% 1,000 ML IV SCH (16:11)
--- NOTE | 2018-11-26 17:19 | P.PN ---
Progress Note - Text Progress Note Date: 11/26/18 - Chief Complaint Not feeling well Interval history: This is a pleasant 68-year-old patient of Dr. Sherman. Chronic stable medical conditions include asthma, hypertension, hyperlipidemia, osteoarthritis, rheumatoid arthritis. Patient did have a stroke in 2005 with no residue up. History of kidney stones. Patient on November 20 underwent right hemicolectomy by Dr. Angelito Lacy. Patient was discharged on November 22. Patient had been tolerating a liquid diet. After patient went home he described after second day urine output decreased. Patient also notices swelling of the lower extremity. Also became a bit short of breath. Also patient noticed some diffuse abdominal pain. There was no nausea vomiting area and patient did notice a slight temperature. Patient did have a bowel movement when he caught him. Appetite has not been good. Patient had been ambulatory in the house. Patient been having dark stools at home. Admitted for the same. On November 25 patient did undergo EGD that showed multiple duodenal ulcers with evidence of recent bleeding. Also diaphragmatic hiatal hernia Today-patient is a bit better had couple of bowel movements. No abdominal pain. No nausea vomiting. Didn't walk about a bit. is present. No fever or chills. . Review of systems: Was done for constitutional, cardiovascular, GI, pulmonary. relevant finding as above Current medications are reviewed that include: Subcu heparin, IV Flagyl, IV Zosyn Physical examination: VITAL SIGNS: 98, 73, 20, 130/75, 95% room air GENERAL: Sitting at edge of bed. Feeling better. EYES: Pupils equal. Conjunctiva normal. HEENT: External appearance of nose and ears normal, oral cavity grossly normal. NECK: JVD not raised; masses not palpable. HEART: First and second heart sounds are normal; some edema and lower extremity. LUNGS: Respiratory rate normal; slightly decreased breath sounds. ABDOMEN: Soft, mild tenderness, some distention, liver spleen not palpable, no masses palpable, bowel sounds present. PSYCH: Alert and oriented x3; mood and affect normal. NEUROLOGICAL: Cranial nerves grossly intact; no facial asymmetry, power and sensation grossly intact. LYMPHATICS: No lymph nodes palpable in the axilla and neck Investigations: White count 16.2 hemoglobin 11.3 potassium 3.6 creatinine 1.2 Hemoglobin was 14.3 prior to surgery Renal ultrasound-shows right-sided renal calculi Acute abdominal series reports some element of ileus Assessment: -Acute GI bleed from multiple duodenal ulcers, from use of NSAIDs and antiplatelet agents -Acute blood loss anemia from upper GI bleed, and also some blood loss as expected from surgery as hemoglobin was 12.5 upon discharge -Right hemicolectomy for polyps -Obesity BMI 34.4 -Hyperlipidemia -Essential hypertension -Chronic primary osteoarthritis Plan: Patient is on IV Protonix. Patient is also on Carafate. That will lots of too much of for Propacet may interfere of the medications. I recommend that can be discontinued. Care was discussed with the patient. Patient has been advanced to full liquid diet and follow
[2018-11-26] MEDS: IOPAMIDOL CONTRAST (ORAL USE) VIAL PO PRN ×2 (19:25→20:10)
--- NOTE | 2018-11-26 22:05 | CT ---
EXAMINATION TYPE: CT abdomen pelvis w con DATE OF EXAM: 11/26/2018 COMPARISON: 11/18/2018 HISTORY: Upper abdominal pain and leukocytosis. CT DLP: 1978.3 mGycm Automated exposure control for dose reduction was used. TECHNIQUE: Helical acquisition of images was performed from the lung bases through the pelvis. CONTRAST: Performed with Oral Contrast and with IV Contrast, patient injected with 100ml mL of Isovue 300. FINDINGS: There are small pleural effusions and atelectasis at the lung bases. There is no pericardial effusion . Liver shows no focal defect. Spleen appears normal. Stomach appears intact. There is no evidence of p ancreatic mass. The bile ducts are not dilated. There is no adrenal mass. Kidneys show satisfactory contrast opacification. There is no hydronephrosi s. There is 6.5 cm cortical cyst anterior left kidney. There are right renal parapelvic cysts. There is no retroperitoneal adenopathy. Bladder distends smoothly. There is no inguinal hernia. There is 6 mm nonobstructing calculus lower pole right kidney. There is moderate free fluid in the abdomen. There is patchy pneumoperitoneum. There are multiple dis tended fluid-filled loops of small bowel in the abdomen that measure up to 4 cm. There is soft tissue air over the left anterior abdominal wall. There are surgical clips at the right colon. This relates to the history of recent right hemicolectomy. I see no bony destructive process. Bony pelvis is inta ct. Lumbar spine is intact. IMPRESSION: COMPARED TO RECENT EXAM OF 11/18/2018 THERE IS DILATED SMALL BOWEL WITH FLUID LEVELS AND ALSO MILDLY D ILATED RIGHT COLON CONSISTENT WITH ILEUS OR PARTIAL MECHANICAL OBSTRUCTION. THERE IS pneumoperitoneum and free fluid in the abdomen and pelvis. Bowel leak is possible. The fluid and air are new compared to recent exam. There is apparent recent surgery on the right colon. Stable renal cortical cysts. Results of this exam were discussed with the patient's nurse on the floor at 10:00 PM.
[2018-11-26] MEDS ORDERED: DEXTROSE 5% IN WATER 100 ML with AMIODARONE 150 MG IV ONE (22:17)
[2018-11-26] MEDS ORDERED: AMIODARONE 360 MG in DEXTROSE 5% IN WATER 200 ML IV ONE ×2 (22:17)
--- NOTE | 2018-11-26 23:05 | P.CONS ---
History of Present Illness - Reason for Consult Consult date: 11/26/18 Leukocytosis Requesting physician: Gabi Jackson - Chief Complaint Abdominal pain x few days - History of Present Illness Patient is a 68-year-old male who is status post right hemicolectomy performed at this facility on 11/20/2018 the patient was discharged in a stable condition home on 11/22/2018, patient is presenting back to the [facility] on 11/24/2018 which she complains of abdominal pain and weakness and melena, patient did have EGD performed by Dr. Jackson with evidence of gastritis, during this hospital admission the patient has been afebrile, patient did have elevated white count of 15.8 admission that has slowly increased up to 16.2 today that prompted this infection disease consultation, patient was started on Zosyn on admission with the Flagyl added yesterday. Patient currently denies having any headache or URI symptoms no chest pain shortness of breath or cough has been complaining of some abdominal discomfort m ostly on the right side more of a dull aching pain intensity 5-6 out of 10 and no radiation denies having any diarrhea no burning or frequency of urine so far workup including a UA that has not been positive ultrasound of the abdomen did not show any acute abnormality Review of Systems Positive points has been mentioned in HPI rest of the systems are negative Past Medical History Past Medical History: Asthma, CVA/TIA, Eye Disorder, Hyperlipidemia, Hypertension, Osteoarthritis (OA), Prostate Disorder, Rheumatoid Arthritis (RA) Additional Past Medical History / Comment(s): Multiple colon polyps, recent R colectomy d/t tumor/polyps and found appendix was diseased so removed and also found gallbladder disease and kidney stones per pt, pt has post op wound vac in place, prior to colectomy found to have abnormal kidney function labs-thought d/t dehydration/side effect of antihypertensive med pt was taking, 2005 CVA with no residual, bilateral legs vascular disease, BPH, past nephrolithiasis-passed stones on his own, R cataract History of Any Multi-Drug Resistant Organisms: None Reported Past Surgical History: Appendectomy, Bowel Resection Additional Past Surgical History / Comment(s): 11/23/18 R colectomy/appendectomy, 2 colonoscopies with multiple benign polypectomies, left cataract Past Anesthesia/Blood Transfusion Reactions: No Reported Reaction Smoking Status: Former smoker - Past Family History Father Family Medical History: Cancer Additional Family Medical History / Comment(s): oral cancer with metastasis Mother Family Medical History: Renal Disease Additional Family Medical History / Comment(s): Mother from a kidney stone/infection/sepsis. Medications and Allergies Home Medications Medication Instructions Recorded Confirmed Type Atorvastatin [Lipitor] 40 mg PO HS 09/14/18 11/24/18 History HYDROcodone/APAP 5-325MG [[facility] 1 tab PO Q4HR PRN 3 Days #18 tab 11/20/18 11/24/18 Rx 5-325] Tamsulosin [Flomax] 0.4 mg PO DAILY #5 cap.er.24h 11/20/18 11/24/18 Rx Pantoprazole [Protonix] 40 mg PO BID #60 tab 11/25/18 Rx Sucralfate [Carafate] 1 gm PO AC-TID #90 tab 11/25/18 Rx Tamsulosin [Flomax] 0.4 mg PO DAILY #30 cap.er.24h 11/25/18 Rx Allergies Allergy/AdvReac Type Severity Reaction Status Date / Time strawberry Allergy Swelling Verified 11/24/18 12:34 Physical Exam Vitals: Vital Signs Temp Pulse Resp BP Pulse Ox 11/26/18 11:55 98 F 73 20 138/75 95 11/26/18 09:00 95 11/26/18 04:17 97.9 F 104 H 20 136/73 93 L 11/26/18 00:00 104 H 20 11/25/18 20:15 98.2 F 104 H 20 134/72 95 11/25/18 16:00 74 20 Intake and Output 11/26/18 11/26/18 11/26/18 06:59 14:59 22:59 Intake Total 200 Output Total 2600 100 Balance -2600 100 Intake: Intake, IV Titration 200 Amount Piperacillin-Tazobactam 3 100 .375 gm In Sodium Chloride 0.9% 100 ml @ 25 mls/hr IVPB Q8HR [facility] Rx# :[id number] Sodium Ferric Gluconat- 100 Sucrose 125 mg In Sodium Chloride 0.9% 100 ml @ 100 mls/hr IVPB DAILY [facility] Rx#:[id number] Output: Urine 2600 100 Post Void Residual 0 Other: Voiding Method Indwelling Catheter Toilet # Voids 1 GENERAL DESCRIPTION: An elderly male lying in bed, no distress. No tachypnea or accessory muscle of respiration use. HEENT: Shows Pallor , no scleral icterus. Oral mucous membrane is dry. No pharyngeal erythema or thrush NECK: Trachea central, no thyromegaly. LUNGS: Unlabored breathing. Decreased breath sound at the base. No wheeze or crackle. HEART: S1, S2, regular rate and rhythm. No loud murmur ABDOMEN: Soft, midline incision is healed , patient did have right upper quadrant tenderness ,no guarding or rigidity, no organomegaly EXTREMITIES: No edema of feet. SKIN: No rash, no masses palpable. NEUROLOGICAL: The patient is awake, alert, oriented x3, mood and affect normal. Results CBC & Chem 7: 11/26/18 06:18 11/26/18 06:18 Labs: Abnormal Lab Results - Last 24 Hours (Table) 11/25/18 11/26/18 11/26/18 Range/Units 08:45 06:18 06:18 WBC 16.2 H (3.8-10.6) k/uL RBC 3.61 L (4.30-5.90) m/uL Hgb 11.3 L (13.0-17.5) gm/dL Hct 33.6 L (39.0-53.0) % Neutrophils # 14.8 H (1.3-7.7) k/uL Lymphocytes # 0.5 L (1.0-4.8) k/uL Chloride 110 H (98-107) mmol/L BUN 24 H (9-20) mg/dL Glucose 107 H (74-99) mg/dL Calcium 8.0 L (8.4-10.2) mg/dL Iron 8 L (65-175) ug/dL TIBC 185 L (228-460) ug/dL Iron Saturation 4.32 L (15.00-50.00) Total Protein 5.0 L (6.3-8.2) g/dL Albumin 2.6 L (3.5-5.0) g/dL Microbiology - Last 24 Hours (Table) 11/26/18 02:40 Stool Culture - Preliminary Stool Assessment and Plan Assessment: 1-patient with elevated white count in this patient who did have abdominal pain with some tenderness noticed on clinical examination of the right side with concern for possible abdominal source in this patient who did have recent right hemicolectomy currently with no other clinical focus of infection lungs were clear to auscultation here has been negative and no evidence of any cellulitis Plan: 1-We will obtain a CT of abdominal pelvis to better define his underlying abdominal pain and tenderness and rule out abdominal source for his elevated white count 2-patient is currently covered with Zosyn and that will be continued 3-blood cultures time 2 spike any fever we will follow on clinical condition and culture to further adjust medication if needed Thank you for this consultation will follow this patient along with you Time with Patient: Greater than 30
[2018-11-26 23:14] LABS: Calcium 7.7 mg/dL (8.4-10.2); Potassium 3.2 mmol/L (3.5-5.1)
[2018-11-26] MEDS ORDERED: Potassium Replacement Protocol 1 EACH MISC MISCELLANE PRN (23:28)
--- NOTE | 2018-11-26 23:45 | P.PN ---
Subjective Progress Note Date: 11/26/18 CHIEF COMPLAINT: New atrial fibrillation HISTORY OF PRESENT ILLNESS: The patient is a 68-year-old male who is status post right hemicolectomy 11/20/2018. He is postop day 6. Earlier today he was pass ing flatus and having bowel movements witnessed by me. Additionally epigastric and bilateral upper abdominal pain had resolved. He was ambulating freely through the hallway with his . Later in the afternoon, he reported increased fatigue and mild abdominal distention. Abdominal x-rays were o btained. Consultation with infectious disease was performed for persistent leukocytosis who had ordered an abdominal CT scan. No reports of fevers or chills. Patient later on tonight developed acute onset atrial fibrillation and was transferred to [facility] care and started on amiodarone drip. Additionally, I was notified by covering provider of new studies performed with questionable findings of anastomotic leak. I personally came tonight at patient's bedside. His is at bedside. He denies any generalized abdominal pain. He reports feeling scared. Additionally, he reports his nerves are bad. He explains that he has neglected medical care for many years and feels that has impaired his recovery. Overall, I encouraged him that we will closely follow his recovery. Separately, he reports mild tenderness of the right lower quadrant which started late this afternoon. ROS: No reports of vomiting. Had bowel movements. No fevers or chills. No new chest pain. No productive sputum PHYSICAL EXAM: VITAL SIGNS: Reviewed CONSTITUTIONAL: Well developed and in no acute distress. EYES: Conjuctivae without sclera icterus. Extraocular movements grossly intact. HEAD, EARS, NOSE, THROAT: Moist buccal mucosa. Head is atraumatic, normocephalic. Hears conversational speech. No nasal drainage. NECK: Supple. No thyroidomegaly. RESPIRATORY: Non-labored respirations and equal bilateral excursions. CARDIOVASCULAR: Palpable 2+ radial pulses. Irregular rate. Irregular rhythm ABDOMEN: Mildly abdominal distention. Nontender bilateral upper abdomen. Mild tenderness right lower quadrant. No diffuse peritonitis. No abdominal wall rigidity. MUSCULOSKELETAL: No gross deformity of the lower extremities noted. 1+ bilateral pitting edema SKIN: Good skin turgor. Well perfused. NEUROLOGIC: Cranial nerves I through XII grossly intact. No focal or lateralizing signs. PSYCH: Alert and oriented to person, place and time. CLINCAL LABS: White blood cell count stable at 16,000. Creatinine improved from 1.3-1.2. STUDIES: abdominal x-ray review with air-fluid levels. No diffuse free air identified. Radiology report also confirmed improved findings relative to previous films CT of the abdomen and pelvis independently reviewed by me demonstrating some fluid within the pelvis. Scattered air of the right abdomen and subcu emphysema along the left upper quadrant consistent with incision site. Air-fluid levels identified. Radiology report also reviewed with questionable anastomotic leak. Additionally, persistent right 6 mm kidney stone identified ASSESSMENT: 1. Abnormal computed tomography scan with persisting kidney stone and postsurgical changes 2. New onset H or fibrillation with rapid ventricular response PLAN: 1. I reassured him that we will closely monitor his course. Possibility of surgical exploration pending clinical course was described. 2. Medical reconciliation performed with discontinuance of Reglan with new onset atrial fibrillation 3. Stat magnesium level including stat basic metabolic panel obtain confirming new hypokalemia. Magnesium level 2.0. Potassium protocol started 4. Overall, computed tomography scan reviewed and patient is still within less than 1 week from his recent surgery, as a result persistent intra-abdominal air and postsurgical changes are present. As he denies any peritonitis and cli nically stable without fevers, we'll reevaluate with possibility of surgical intervention and reexploration described. The above care plan and clinical improvement was described to the patient and his his bedside who are agreeable with the plan. Critical care time 33 minutes Objective - Vital Signs Vital signs: Vital Signs Temp 98.9 F 11/26/18 19:51 Pulse 130 H 11/26/18 19:51 Resp 20 11/26/18 20:00 BP 141/69 11/26/18 19:51 Pulse Ox 93 L 11/26/18 19:51 Intake & Output 11/26/18 11/26/18 11/27/18 06:59 18:59 06:59 Intake Total 200 Output Total 2600 100 Balance -2600 100 Intake: Intake, IV Titration 200 Amount Piperacillin-Tazobactam 3 100 .375 gm In Sodium Chloride 0.9% 100 ml @ 25 mls/hr IVPB Q8HR [facility] Rx# :[id number] Sodium Ferric Gluconat- 100 Sucrose 125 mg In Sodium Chloride 0.9% 100 ml @ 100 mls/hr IVPB DAILY [facility] Rx#:[id number] Output: Urine 2600 100 Post Void Residual 0 Other: Voiding Method Indwelling Catheter Toilet Toilet # Voids 1 - Labs CBC & Chem 7: 11/26/18 06:18 11/26/18 22:54 Labs: Abnormal Lab Results - Last 24 Hours (Table) 11/26/18 11/26/18 11/26/18 Range/Units 06:18 06:18 22:54 WBC 16.2 H (3.8-10.6) k/uL RBC 3.61 L (4.30-5.90) m/uL Hgb 11.3 L (13.0-17.5) gm/dL Hct 33.6 L (39.0-53.0) % Neutrophils # 14.8 H (1.3-7.7) k/uL Lymphocytes # 0.5 L (1.0-4.8) k/uL Potassium 3.2 L (3.5-5.1) mmol/L Chloride 110 H (98-107) mmol/L BUN 24 H 22 H (9-20) mg/dL Glucose 107 H 106 H (74-99) mg/dL Calcium 8.0 L 7.7 L (8.4-10.2) mg/dL Total Protein 5.0 L (6.3-8.2) g/dL Albumin 2.6 L (3.5-5.0) g/dL Microbiology - Last 24 Hours (Table) 11/26/18 14:45 Urine Culture - Preliminary Urine,Voided 11/26/18 02:40 Stool Culture - Preliminary Stool Assessment and Plan (1) Obstructive uropathy Current Visit: Yes Status: Acute Code(s): N13.9 - OBSTRUCTIVE AND REFLUX UROPATHY, UNSPECIFIED SNOMED Code(s): 6856481 (2) Prostatic hyperplasia, benign localized, with obstruction Current Visit: Yes Status: Acute Code(s): N40.1 - BENIGN PROSTATIC HYPERPLASIA WITH LOWER URINARY TRACT SYMP; N13.8 - OTHER OBSTRUCTIVE AND REFLUX UROPATHY SNOMED Code(s): 479964353 (3) Acute cholecystitis with chronic cholecystitis Current Visit: Yes Status: Acute Code(s): K81.2 - ACUTE CHOLECYSTITIS WITH CHRONIC CHOLECYSTITIS SNOMED Code(s): 349725320 (4) Acute pancreatitis Current Visit: Yes Status: Acute Code(s): K85.90 - ACUTE PANCREATITIS WITHOUT NECROSIS OR INFECTION, UNSP SNOMED Code(s): 565969142 (5) Duodenal ulcer hemorrhage Current Visit: Yes Status: Acute Code(s): K26.4 - CHRONIC OR UNSPECIFIED DUODENAL ULCER WITH HEMORRHAGE SNOMED Code(s): 00029746 (6) Upper GI bleeding Current Visit: Yes Status: Acute Code(s): K92.2 - GASTROINTESTINAL HEMORRHAGE, UNSPECIFIED SNOMED Code(s): 20906943 (7) Iron deficiency anemia due to chronic blood loss Current Visit: Yes Status: Acute Code(s): D50.0 - IRON DEFICIENCY ANEMIA SECONDARY TO BLOOD LOSS (CHRONIC) SNOMED Code(s): 049583332 (8) Swelling of lower extremity Current Visit: Yes Status: Acute Code(s): M79.89 - OTHER SPECIFIED SOFT TISSUE DISORDERS SNOMED Code(s): 257275211 (9) Morbid obesity due to excess calories Current Visit: Yes Status: Acute Code(s): E66.01 - MORBID (SEVERE) OBESITY DUE TO EXCESS CALORIES SNOMED Code(s): 527887911 (10) BMI 37.0-37.9, adult Current Visit: Yes Status: Acute Code(s): Z68.37 - BODY MASS INDEX (BMI) 37.0-37.9, ADULT SNOMED Code(s): 075817849 (11) Obstructive sleep apnea Current Visit: Yes Status: Acute Code(s): G47.33 - OBSTRUCTIVE SLEEP APNEA (ADULT) (PEDIATRIC) SNOMED Code(s): 73717066 (12) Hypertensive heart disease Current Visit: No Status: Acute Code(s): I11.9 - HYPERTENSIVE HEART DISEASE WITHOUT HEART FAILURE SNOMED Code(s): 21309600 (13) Bladder atony Current Visit: Yes Status: Acute Code(s): N31.2 - FLACCID NEUROPATHIC BLADDER, NOT ELSEWHERE CLASSIFIED SNOMED Code(s): 503832527 (14) Atrial fibrillation with RVR Current Visit: Yes Status: Acute Code(s): I48.91 - UNSPECIFIED ATRIAL FIBRILLATION SNOMED Code(s): 320948704395229
[2018-11-27] MEDS: SODIUM CHLORIDE 0.9% 1,000 ML IV SCH ×2 (00:45→00:46)
[2018-11-27] MEDS: PIPERACILLIN-TAZOBACTAM 3.375 GM in SODIUM CHLORIDE 0.9% 100 ML IVPB SCH ×3 (01:18→15:38)
[2018-11-27] MEDS: ONDANSETRON 4 MG/2 ML VIAL IVP PRN ×2 (01:32→08:35)
[2018-11-27] MEDS: metroNIDAZOLE-NS PMX 500 MG in SALINE 1 100ML.BAG IVPB SCH ×3 (05:49→15:08)
[2018-11-27] MEDS: POTASSIUM CHLORIDE 10 MEQ in WATER FOR INJECTION 1 100ML.BAG IVPB SCH ×4 (05:56→13:59)
[2018-11-27] MEDS: SUCRALFATE 1 GM TAB PO SCH ×2 (05:57→13:18)
[2018-11-27] MEDS ORDERED: CALCIUM GLUCONATE 2 GM in SODIUM CHLORIDE 0.9% 100 ML IVPB ONE (08:06)
[2018-11-27 08:11] LABS: Basophils % (A) 0 %; Eosinophils # (A) 0.1 k/uL (0-0.7); Eosinophils % (A) 1 %; HCT 34.1 % (39.0-53.0); HGB 11.5 gm/dL (13.0-17.5); Lymphocytes # (A) 0.4 k/uL (1.0-4.8); Lymphocytes % (A) 2 %; MCH 31.1 pg (25.0-35.0); MCHC 33.6 g/dL (31.0-37.0); MCV 92.4 fL (80.0-100.0); Mean Platelet Volume 7.4; Monocytes # (A) 0.8 k/uL (0-1.0); Monocytes % (A) 4 %; Neutrophils # (A) 16.9 k/uL (1.3-7.7); Neutrophils % (A) 92 %; Platelet Count 271 k/uL (150-450); RBC 3.69 m/uL (4.30-5.90); RDW 13.2 % (11.5-15.5); WBC 18.4 k/uL (3.8-10.6)
[2018-11-27 08:18] LABS: INR 1.1 (<1.2); Prothrombin Time 11.4 sec (9.0-12.0)
[2018-11-27 08:23] LABS: ALT 38 U/L (21-72); AST 39 U/L (17-59); African American GFR (CKD) >90 (>60 ml/min/1.73 sqM); Albumin 2.3 g/dL (3.5-5.0); Alkaline Phosphatase 44 U/L (38-126); Amylase 93 U/L (30-110); Anion Gap 8 mmol/L; Blood Urea Nitrogen 19 mg/dL (9-20); Calcium 7.8 mg/dL (8.4-10.2); Carbon Dioxide 23 mmol/L (22-30); Chloride 109 mmol/L (98-107); Glucose 105 mg/dL (74-99); Non-African American GFR(CKD) 86 (>60 ml/min/1.73 sqM); Potassium 3.4 mmol/L (3.5-5.1); Sodium 140 mmol/L (137-145); Total Bilirubin 0.8 mg/dL (0.2-1.3); Total Protein 4.6 g/dL (6.3-8.2)
[2018-11-27] MEDS: AMIODARONE 300 MG in DEXTROSE 5% IN WATER 250 ML IV SCH ×2 (08:26)
[2018-11-27] MEDS: HEPARIN SODIUM,PORCINE 5,000 UNIT/ML 1 ML VIAL SQ SCH (08:28)
[2018-11-27] MEDS: PANTOPRAZOLE 40 MG/10 ML VIAL IVP SCH (08:28)
--- NOTE | 2018-11-27 09:06 | P.CRDCN ---
History of Present Illness Consult date: 11/27/18 Requesting physician: Gabi Jackson Consult reason: atrial fibrillation Chief complaint: Status post right hemicolectomy History of present illness: This is a pleasant 68-year-old gentleman who is status post right hemicolectomy on October 21, history of hypertension, hyperlipidemia, nicotine dependence, prior CVA, he appeared presented back to the hospital on November 24 because of the right upper quadrant abdominal pain, patient had also noted to lower extremity edema as well as dark loose stools. He underwent an EGD on November 24 which revealed upper GI bleed with melena, diaphragmatic hiatal hernia with multiple duodenal ulcers and recent bleeding, patient has chronic antiplatelet use and NSAID use. A cardiology consultation was requested because the patient had gone into atrial fibrillation with a rapid ventricular response yesterday. Patient was started on IV amiodarone drip. This morning continues to be in atrial fibrillation, his heart rate is in the 90 range. According to the patient, he has had no prior history of irregular heart beating for atrial fibrillation. CT of the abdomen and pelvis was performed yesterday, compared to recent exam there is dilated small bowel with fluid levels and also mildly dilated right colon consistent with ileus or partial mechanical obstruction. There is no pneumoperitoneum in free fluid in the abdomen and pelvis, bowel leak is possible. The fluid and air are new compared to recent exam. Blood pressure this morning 122/60 with a heart rate in the 1 teens, 98% on 3 L of oxygen. White blood cell count 18.4, hemoglobin 11.5, platelet count 271. Sodium 140, potassium 3.4, BUN 19, creatinine 0.9. Magnesium 2.0. Troponin 0.03. At the time of my examination this morning, patient feels very tired, states that he did not sleep well through the night last night. Denies any palpitations, is mildly short of breath but states that his IMPROVED from yesterday. I did have a lengthy discussion with the patient and his regarding the need for anticoagulation for stroke prevention, in view of the recent bleed and surgery this will need to be cleared by the surgeons. In the meantime we will optimize heart rate control. Obtain a TSH level and an echocardiogram with Doppler study. Past Medical History Past Medical History: Asthma, CVA/TIA, Eye Disorder, Hyperlipidemia, Hypertension, Osteoarthritis (OA), Prostate Disorder, Rheumatoid Arthritis (RA) Additional Past Medical History / Comment(s): Multiple colon polyps, recent R colectomy d/t tumor/polyps and found appendix was diseased so removed and also found gallbladder disease and kidney stones per pt, pt has post op wound vac in place, prior to colectomy found to have abnormal kidney function labs-thought d/t dehydration/side effect of antihypertensive med pt was taking, 2005 CVA with no residual, bilateral legs vascular disease, BPH, past nephrolithiasis-passed stones on his own, R cataract History of Any Multi-Drug Resistant Organisms: None Reported Past Surgical History: Appendectomy, Bowel Resection Additional Past Surgical History / Comment(s): 11/23/18 R colectomy/appendectomy, 2 colonoscopies with multiple benign polypectomies, left cataract Past Anesthesia/Blood Transfusion Reactions: No Reported Reaction Smoking Status: Former smoker - Past Family History Father Family Medical History: Cancer Additional Family Medical History / Comment(s): oral cancer with metastasis Mother Family Medical History: Renal Disease Additional Family Medical History / Comment(s): Mother from a kidney stone/infection/sepsis. Medications and Allergies Home Medications Medication Instructions Recorded Confirmed Type Atorvastatin [Lipitor] 40 mg PO HS 09/14/18 11/24/18 History HYDROcodone/APAP 5-325MG [Chualar 1 tab PO Q4HR PRN 3 Days #18 tab 11/20/18 11/24/18 Rx 5-325] Tamsulosin [Flomax] 0.4 mg PO DAILY #5 cap.er.24h 11/20/18 11/24/18 Rx Pantoprazole [Protonix] 40 mg PO BID #60 tab 11/25/18 Rx Sucralfate [Carafate] 1 gm PO AC-TID #90 tab 11/25/18 Rx Tamsulosin [Flomax] 0.4 mg PO DAILY #30 cap.er.24h 11/25/18 Rx Allergies Allergy/AdvReac Type Severity Reaction Status Date / Time strawberry Allergy Swelling Verified 11/24/18 12:34 Physical Exam Vitals: Vital Signs Temp Pulse Pulse Resp BP Pulse Ox 11/27/18 05:00 97 F L 112 H 16 122/60 98 11/27/18 00:00 98 F 86 16 124/61 98 11/26/18 20:00 98 F 114 H 16 143/92 98 11/26/18 19:51 98.9 F 130 H 18 141/69 93 L 11/26/18 11:55 98 F 73 20 138/75 95 11/26/18 09:00 95 Intake and Output 11/26/18 11/27/18 11/27/18 22:59 06:59 14:59 Output Total 425 Balance -425 Output: Urine 425 Other: Voiding Method Toilet Toilet # Voids 1 PHYSICAL EXAMINATION: GENERAL: 68-year-old gentleman in no acute distress at the time of my examination HEENT: Head is atraumatic, normocephalic. Pupils equal, round. Sclera anicteric. Conjunctiva are clear. Mucous membranes of the mouth are moist. Neck is supple. There is no elevated jugular venous pressure. No carotid bruit is heard. HEART EXAMINATION: Heart S1 and S2 irregularly irregular CHEST EXAMINATION: Lungs are clear with mild diminished air entry to the bases. No chest wall tenderness is noted on palpation or with deep breathing. ABDOMEN: Mild distention noted, right lower quadrant discomfort.. EXTREMITIES: 2+ peripheral pulses with no evidence of 1+ bilateral peripheral edema.. NEUROLOGIC patient is awake, alert and oriented 3 . Results 11/27/18 07:52 11/27/18 07:52 Cardiac Enzymes 11/27/18 Range/Units 07:52 AST 39 (17-59) U/L Coagulation 11/27/18 Range/Units 07:52 PT 11.4 (9.0-12.0) sec CBC 11/27/18 Range/Units 07:52 WBC 18.4 H (3.8-10.6) k/uL RBC 3.69 L (4.30-5.90) m/uL Hgb 11.5 L (13.0-17.5) gm/dL Hct 34.1 L (39.0-53.0) % Plt Count 271 (150-450) k/uL Comprehensive Metabolic Panel 11/26/18 11/27/18 Range/Units 22:54 07:52 Sodium 139 140 (137-145) mmol/L Potassium 3.2 L 3.4 L (3.5-5.1) mmol/L Chloride 107 109 H (98-107) mmol/L Carbon Dioxide 25 23 (22-30) mmol/L BUN 22 H 19 (9-20) mg/dL Creatinine 1.03 0.93 (0.66-1.25) mg/dL Glucose 106 H 105 H (74-99) mg/dL Calcium 7.7 L 7.8 L (8.4-10.2) mg/dL AST 39 (17-59) U/L ALT 38 (21-72) U/L Alkaline Phosphatase 44 (38-126) U/L Total Protein 4.6 L (6.3-8.2) g/dL Albumin 2.3 L (3.5-5.0) g/dL Current Medications Generic Name Dose Route Start Last Admin Trade Name Freq PRN Reason Stop Dose Admin Hydrocodone Bitart/Acetaminophen 1 each 11/26/18 09:25 11/26/18 14:38 Chualar 5-325 PO 1 each Q4HR PRN Administration MODERATE Pain Heparin Sodium (Porcine) 5,000 unit 11/24/18 21:00 11/26/18 20:39 Heparin SQ 5,000 unit Q12HR SONJA Administration Hydromorphone HCl 1 mg 11/24/18 10:03 11/26/18 22:40 Dilaudid IVP 1 mg Q4HR PRN Administration SEVERE Pain Piperacillin Sod/Tazobactam 100 mls @ 25 mls/hr 11/24/18 16:00 11/27/18 01:18 Sod 3.375 gm/ Sodium Chloride IVPB 25 mls/hr Q8HR SONJA Administration Metronidazole 500 mg/ IV 100 mls @ 100 mls/hr 11/25/18 10:00 11/27/18 05:49 Solution IVPB 100 mls/hr Q6H SONJA Administration Ferric Sodium Gluconate 125 mg 110 mls @ 100 mls/hr 11/25/18 19:00 11/26/18 08:48 / Sodium Chloride IVPB 11/27/18 10:05 100 mls/hr DAILY SONJA Administration Sodium Chloride 1,000 mls @ 50 mls/hr 11/26/18 22:30 11/27/18 00:46 Saline 0.9% IV 50 mls/hr .Q20H SONJA Administration Potassium Chloride 10 meq/ IV 100 mls @ 100 mls/hr 11/27/18 07:00 11/27/18 05:56 Solution IVPB 11/27/18 10:59 100 mls/hr Q1HR SONJA Administration Protocol Amiodarone HCl 300 mg/ 250 mls @ 25 mls/hr 11/27/18 06:30 11/27/18 08:26 Dextrose/Water IV 11/28/18 00:29 0.5 mg/min .Q10H SONJA 25 mls/hr Administration Protocol 0.5 MG/MIN Calcium Gluconate 2 gm/ Sodium 120 mls @ 100 mls/hr 11/27/18 08:06 Chloride IVPB 11/27/18 09:17 ONCE ONE Miscellaneous Information 1 each 11/26/18 23:28 Potassium Per Protocol MISCELLANE DAILY PRN Per Protocol Protocol Naloxone HCl 0.2 mg 11/24/18 09:57 Narcan IV Q2M PRN Opioid Reversal Ondansetron HCl 4 mg 11/24/18 09:57 11/27/18 01:32 Zofran IVP 4 mg Q8HR PRN Administration Nausea And Vomiting Pantoprazole Sodium 40 mg 11/24/18 10:15 11/26/18 20:39 Protonix IVP 40 mg BID SONJA Administration Sucralfate 1 gm 11/25/18 12:30 11/27/18 05:57 Carafate PO 1 gm AC-TID SONJA Administration Tamsulosin HCl 0.4 mg 11/25/18 09:00 11/26/18 08:48 Flomax PO 0.4 mg DAILY SONJA Administration Intake and Output 11/26/18 11/27/18 11/27/18 22:59 06:59 14:59 Output Total 425 Balance -425 Output: Urine 425 Other: Voiding Method Toilet Toilet # Voids 1 11/27/18 07:52 11/27/18 07:52 EKG Interpretations (text) EKG shows atrial fibrillation with a rapid ventricular response Assessment and Plan Plan: Assessment and plan #1 acute GI bleed from multiple duodenal ulcers secondary to NSAID and antiplatelet use #2 recent right hemicolectomy on November 20 #3 hypertension #4 hyperlipidemia #5 nicotine dependence #6 history of stroke Plan Patient had a stress test, echo, and preop evaluation performed in the office prior to his surgery with Dr. Edmond, we will request those records. Replace potassium. Continue IV amiodarone, maintain adequate rate control. Patient will require oral anticoagulation for stroke prevention, however in view of the fact that the patient has had a recent acute GI bleed as well as recent hemicolectomy, initiation of oral anticoagulation will need to be cleared by GI and surgery. This was explained to the patient and his . Further recommendations to follow. DNP note has been reviewed, I agree with a documented findings and plan of care. Patient was seen and examined.
[2018-11-27] MEDS: SODIUM FERRIC GLUCONAT-SUCROSE 125 MG in SODIUM CHLORIDE 0.9% 100 ML IVPB SCH ×2 (09:50→11:00)
--- NOTE | 2018-11-27 10:02 | P.PN ---
Subjective Progress Note Date: 11/27/18 CHIEF COMPLAINT: New atrial fibrillation HISTORY OF PRESENT ILLNESS: The patient is a 68-year-old male who is status post right hemicolectomy 11/20/2018. He is postop day 7. Last night I came in to evaluate him regarding new findings on computed tomography scan. He reports passing flatus. Less abdominal distention. Abdominal pain at the right lower quadrant however his still persistent. He is afebrile. He is in atrial fibrillation however rate is controlled. Reglan has been discontinued. Potassium came back with hypokalemia. No fevers or chills. His stay with him at bedside. ROS: No reports of vomiting. No fevers or chills. No new chest pain. No productive sputum PHYSICAL EXAM: VITAL SIGNS: Reviewed CONSTITUTIONAL: Well developed and in no acute distress. EYES: Conjuctivae without sclera icterus. Extraocular movements grossly intact. HEAD, EARS, NOSE, THROAT: Moist buccal mucosa. Head is atraumatic, normocephalic. Hears conversational speech. No nasal drainage. NECK: Supple. No thyroidomegaly. RESPIRATORY: Non-labored respirations and equal bilateral excursions. CARDIOVASCULAR: Palpable 2+ radial pulses. Irregular rate. Irregular rhythm ABDOMEN: No peritonitis. Focal tenderness right lower quadrant. Incisions clean dry and intact MUSCULOSKELETAL: No gross deformity of the lower extremities noted. SKIN: Good skin turgor. Well perfused. NEUROLOGIC: Cranial nerves I through XII grossly intact. No focal or lateralizing signs. PSYCH: Alert and oriented to person, place and time. CLINCAL LABS: White blood cell count increased from 16,000-18,000 STUDIES: All x-rays and CT of the abdomen and pelvis previously reviewed. ASSESSMENT: 1. Abnormal computed tomography scan with persisting kidney stone and postsurgical changes 2. New onset atrial fibrillation with rapid ventricular response PLAN: 1. As he has persistent right lower quadrant abdominal pain and increased leukocytosis, I recommended laparotomy with possible colostomy creation. Placement of NICO drains, nasogastric tube and placement of Wallace catheter was also reviewed. 2. He will likely need TPN for prolonged nothing by mouth status hence PICC line. 3. Additionally, we'll likely need prolonged IV antibiotics. 4. Double-lumen PICC line requested. 5. Benefits and risks of surgical intervention including no intervention carefully reviewed. Patient and agrees with pursuing surgery. 6. Additionally, patient may benefit from rehab postop and also reviewed I reviewed that covering provider will be managing postoperative course including additional consultants silver miner, hospitalist, infectious disease specialist. The above care plan was described to the patient and his his bedside who are agreeable with the plan. Objective - Vital Signs Vital signs: Vital Signs Temp 97 F L 11/27/18 05:00 Pulse 112 H 11/27/18 05:00 Resp 16 11/27/18 05:00 BP 122/60 11/27/18 05:00 Pulse Ox 95 11/27/18 09:00 Intake & Output 11/26/18 11/27/18 11/27/18 18:59 06:59 18:59 Intake Total 200 Output Total 100 425 Balance 100 -425 Intake: Intake, IV Titration 200 Amount Piperacillin-Tazobactam 3 100 .375 gm In Sodium Chloride 0.9% 100 ml @ 25 mls/hr IVPB Q8HR SONJA Rx# :[id number] Sodium Ferric Gluconat- 100 Sucrose 125 mg In Sodium Chloride 0.9% 100 ml @ 100 mls/hr IVPB DAILY SONJA Rx#:[id number] Output: Urine 100 425 Post Void Residual 0 Other: Voiding Method Toilet Toilet Toilet # Voids 1 - Labs CBC & Chem 7: 11/27/18 07:52 11/27/18 07:52 Labs: Abnormal Lab Results - Last 24 Hours (Table) 11/26/18 11/27/18 11/27/18 Range/Units 22:54 07:52 07:52 WBC 18.4 H (3.8-10.6) k/uL RBC 3.69 L (4.30-5.90) m/uL Hgb 11.5 L (13.0-17.5) gm/dL Hct 34.1 L (39.0-53.0) % Neutrophils # 16.9 H (1.3-7.7) k/uL Lymphocytes # 0.4 L (1.0-4.8) k/uL Potassium 3.2 L 3.4 L (3.5-5.1) mmol/L Chloride 109 H (98-107) mmol/L BUN 22 H (9-20) mg/dL Glucose 106 H 105 H (74-99) mg/dL Calcium 7.7 L 7.8 L (8.4-10.2) mg/dL Total Protein 4.6 L (6.3-8.2) g/dL Albumin 2.3 L (3.5-5.0) g/dL Microbiology - Last 24 Hours (Table) 11/26/18 14:45 Urine Culture - Preliminary Urine,Voided 11/26/18 02:40 Stool Culture - Preliminary Stool Assessment and Plan (1) Obstructive uropathy Current Visit: Yes Status: Acute Code(s): N13.9 - OBSTRUCTIVE AND REFLUX UROPATHY, UNSPECIFIED SNOMED Code(s): 2252289 (2) Prostatic hyperplasia, benign localized, with obstruction Current Visit: Yes Status: Acute Code(s): N40.1 - BENIGN PROSTATIC HYPERPLASIA WITH LOWER URINARY TRACT SYMP; N13.8 - OTHER OBSTRUCTIVE AND REFLUX UROPATHY SNOMED Code(s): 417438508 (3) Acute cholecystitis with chronic cholecystitis Current Visit: Yes Status: Acute Code(s): K81.2 - ACUTE CHOLECYSTITIS WITH CHRONIC CHOLECYSTITIS SNOMED Code(s): 887705983 (4) Acute pancreatitis Current Visit: Yes Status: Acute Code(s): K85.90 - ACUTE PANCREATITIS WITHOUT NECROSIS OR INFECTION, UNSP SNOMED Code(s): 288019976 (5) Duodenal ulcer hemorrhage Current Visit: Yes Status: Acute Code(s): K26.4 - CHRONIC OR UNSPECIFIED DUODENAL ULCER WITH HEMORRHAGE SNOMED Code(s): 74765752 (6) Upper GI bleeding Current Visit: Yes Status: Acute Code(s): K92.2 - GASTROINTESTINAL HEMORRHAGE, UNSPECIFIED SNOMED Code(s): 38155353 (7) Iron deficiency anemia due to chronic blood loss Current Visit: Yes Status: Acute Code(s): D50.0 - IRON DEFICIENCY ANEMIA SECONDARY TO BLOOD LOSS (CHRONIC) SNOMED Code(s): 565966908 (8) Swelling of lower extremity Current Visit: Yes Status: Acute Code(s): M79.89 - OTHER SPECIFIED SOFT TISS UE DISORDERS SNOMED Code(s): 435295322 (9) Morbid obesity due to excess calories Current Visit: Yes Status: Acute Code(s): E66.01 - MORBID (SEVERE) OBESITY DUE TO EXCESS CALORIES SNOMED Code(s): 467998813 (10) BMI 37.0-37.9, adult Current Visit: Yes Status: Acute Code(s): Z68.37 - BODY MASS INDEX (BMI) 37.0-37.9, ADULT SNOMED Code(s): 615138960 (11) Obstructive sleep apnea Current Visit: Yes Status: Acute Code(s): G47.33 - OBSTRUCTIVE SLEEP APNEA (ADULT) (PEDIATRIC) SNOMED Code(s): 11486206 (12) Hypertensive heart disease Current Visit: No Status: Acute Code(s): I11.9 - HYPERTENSIVE HEART DISEASE WITHOUT HEART FAILURE SNOMED Code(s): 27474363 (13) Bladder atony Current Visit: Yes Status: Acute Code(s): N31.2 - FLACCID NEUROPATHIC BLADDER, NOT ELSEWHERE CLASSIFIED SNOMED Code(s): 588814262 (14) Atrial fibrillation with RVR Current Visit: Yes Status: Acute Code(s): I48.91 - UNSPECIFIED ATRIAL FIBRILLATION SNOMED Code(s): 288961446824092 (15) Leukocytosis Current Visit: Yes Status: Acute Code(s): D72.829 - ELEVATED WHITE BLOOD CELL COUNT, UNSPECIFIED SNOMED Code(s): 067826757 (16) Hypokalemia due to inadequate potassium intake Current Visit: Yes Status: Acute Code(s): E87.6 - HYPOKALEMIA SNOMED Code(s): 40875351 (17) Inadequate dietary intake of protein Current Visit: Yes Status: Acute Code(s): E63.9 - NUTRITIONAL DEFICIENCY, UNSPECIFIED SNOMED Code(s): 127012039
[2018-11-27] MEDS ORDERED: LIDOCAINE 1% INJ 10MG/ML (20 ML MDV) SQ ONE (10:14)
--- NOTE | 2018-11-27 11:07 | IR ---
PICC LINE PLACEMENT: HISTORY: Infection requiring long-term antibiotic therapy PROCEDURE: Ultrasound and fluoroscopic guidance of PICC line placement. COMPLICATIONS: None ANESTHESIA: 1. 1% Lidocaine locally. FINDINGS/TECHNIQUE: The procedure was explained to the patient. The risks, complications, benefits and alternatives were discussed and any questions were answered. Informed consent was obtained. The patient was placed supine on the fluoroscopic table and prepped and draped in the usual sterile fash ion. Utilizing a 21 gauge needle and sonographic and fluoroscopic guidance, access in the right bas ilic vein was achieved and there is placement of a 0.018 guidewire. The vein is patent. A 4-F sheat h was placed over the guidewire. The guidewire and dilator were removed and a 4-F. PICC line was jevon carmelo through the sheath with the tip at the level of the SVC. The sheath was removed, the catheter wa s flushed and sutured into position. The patient was stable throughout the procedure and remained st able upon discharge from the Department of Radiology. The vein puncture was patent under ultrasound. A simmons scale image was obtained to document patency of the vein punctured. All elements of the maximal barrier technique were utilized. FLUOROSCOPY TIME: 0.3 minutes and one image submitted IMPRESSION: Successful PICC line placement under ultrasound and fluoroscopic guidance.
[2018-11-27] MEDS: TAMSULOSIN 0.4 MG CAP.ER.24H PO SCH (13:18)
--- NOTE | 2018-11-27 14:23 | PN ---
PROGRESS NOTE DATE OF SERVICE: 11/27/2018 REASON FOR FOLLOWUP: Leukocytosis, possible abdominal source. INTERVAL HISTORY: The patient has been transferred to the telemetry. The patient has been breathing comfortably. Still complaining of pain to the right upper quadrant area. Some nausea but no vomiting. No chest pain, shortness of breath or cough. PHYSICAL EXAMINATION: Blood pressure 135/57 with a pulse of 106, temperature 97.8. He is 92% on room air. General description is an elderly male, lying in bed in no distress. RESPIRATORY SYSTEM: Unlabored breathing, decreased breath sounds at the base, no wheeze. HEART: S1, S2. Regular rate and rhythm. ABDOMEN: Soft, mild distended to the right upper quadrant area. EXTREMITIES: No edema feet. LABS: Hemoglobin is 11.5, white count 18.4, BUN of 19, creatinine 0.93. Blood culture has been negative so far. CT abdominal and pelvis completed last night did show evidence of free air and fluid. DIAGNOSTIC IMPRESSION AND PLAN: Patient with leukocytosis, possible abdominal source, did have recent right hemicolectomy. Patient is scheduled for a laparotomy with diverting colostomy this afternoon and possible drainage. Patient is currently on Zosyn. Consult should be obtained at time of surgery and antibiotic adjusted with some clinical response and culture. Family at the bedside. Questions were answered. MMODL / IJN: [id number] / MTDD
[2018-11-27] MEDS ORDERED: IV FLUID CONTINUATION 1,000 ML IV ONE ×3 (16:04→16:05)
[2018-11-27] MEDS ORDERED: FLUID CONTINUATION IV ONE (16:06)
[2018-11-27] MEDS ORDERED: NALOXONE 0.4 MG/ML 1 ML VIAL IV PRN ×2 (17:00→21:46)
[2018-11-27] MEDS ORDERED: diphenhydrAMINE 50 MG/ML 1 ML VIAL IVP PRN (17:00)
--- NOTE | 2018-11-27 17:11 | P.HPADDEND ---
H&P Addendum H&P Addendum Date: 11/27/18 Patient reevaluated after getting PICC line and epidural for proposed open laparotomy. In fact, patient reports new passage of moderate amount of flatus continuously and in fact improvement of his symptoms. His abdominal distention has improved. He no longer has right upper quadrant abdominal pain. His right lower quadrant abdominal pain has also improved. As a result of this new clinical finding, will proceed with diagnostic laparoscopy with possible open laparotomy pending findings. Patient and are agreeable with care plan.
[2018-11-27] MEDS ORDERED: PROPOFOL 10 MG/ML 20 ML VIAL IV ONE (17:49)
[2018-11-27] MEDS ORDERED: HYDROmorphone (PF) 1 MG/ML ONE (17:49)
[2018-11-27] MEDS ORDERED: LIDOCAINE 1% INJ 10MG/ML (20 ML MDV) ONE (17:49)
[2018-11-27] MEDS ORDERED: PHENYLEPHRINE-0.9% NACL SYG 1 MG/10 ML SYRINGE ONE (17:49)
[2018-11-27] MEDS ORDERED: SUCCINYLCHOLINE CHLORIDE 100 MG/5 ML SYR IV ONE (17:49)
[2018-11-27] MEDS ORDERED: fentaNYL (PF) 50 MCG/ML 2 ML AMP ONE (17:49)
[2018-11-27] MEDS ORDERED: ESMOLOL 100 MG/10 ML VIAL ONE (17:49)
[2018-11-27] MEDS ORDERED: ROCURONIUM BROMIDE 10 MG/ML 10 ML VIAL IV ONE (17:49)
[2018-11-27] MEDS ORDERED: BUPIVACAINE (PF) 0.25% 30 ML VIAL SQ ONE (18:13)
[2018-11-27] MEDS ORDERED: LACTATED RINGERS 1,000 ML IV ONE ×2 (18:30→21:00)
[2018-11-27] MEDS: ROPIVACAINE EPIDURAL PRN ×2 (21:34→22:15)
[2018-11-27] MEDS: SODIUM CHLORIDE 0.9% EPIDURAL PRN ×2 (21:34→22:15)
[2018-11-27] MEDS: HYDROMORPHONE EPIDURAL PRN ×2 (21:34→22:15)
--- NOTE | 2018-11-27 21:46 | P.OP ---
Date of Procedure: 11/27/18 Description of Procedure: Date of Procedure: 11/27/18 PREOPERATIVE DIAGNOSES: 1. Abnormal computed tomography scan 2. Leukocytosis 3. Right lower quadrant abdominal pain 4. History of gastrointestinal bleed with duodenal ulcers 5. Right upper quadrant abdominal pain 6. Right lower quadrant abdominal pain with localized peritonitis 7. Hypertensive heart disease 8. New-onset atrial fibrillation 9. Obstructive uropathy POSTOP DIAGNOSES: 1. Intra-abdominal abscess right lower quadrant with anastomotic leak 2. Leukocytosis 3. Right lower quadrant abdominal pain 4. History of gastrointestinal bleed with duodenal ulcers 5. Right upper quadrant abdominal pain 6. Right lower quadrant abdominal pain with localized peritonitis 7. Hypertensive heart disease 8. New-onset atrial fibrillation 9. Obstructive uropathy 10. Abnormal computed tomography scan PROCEDURES PERFORMED: 1. Open lysis of adhesions over 2-1/2 to 3 hours 2. Abdominal lavage 3 L 3. Placement of round #19 drain right lower quadrant 4. Small bowel resection with primary anastomosis involving the mid to distal jejunum Procedure(s) Performed: 1. Diagnostic laparoscopy converted to open exploratory laparotomy 2. Open drainage of intra-abdominal abscess right lower quadrant and pelvis 3. Partial omentectomy 4. Transverse partial colectomy 5. Small bowel resection ileum 6. Primary ileocolic anastomosis 7. Abdominal lavage 12 L normal saline 8. Placement of #19 NICO drain right side pelvis 9. Application of incisional wound VAC system universal Anesthesia: GETA, local, epidural Surgeon: Gabi Jackson Estimated Blood Loss (ml): 20 Pathology: other (1. Small bowel resection of anastomosis 2. Partial omentectomy 3. Partial colectomy of anastomosis) Condition: stable Disposition: floor Operative Findings: 1. Initial diagnostic laparoscopy performed as patient clinically reported doing better and feeling well. 2. Localized intra-abdominal abscess right lower quadrant with conversion to exploratory laparotomy performed 3. Blowout of ileocolic anastomosis identified 4. Drainage of pelvic abscess 5. Remnant transverse colon omentum with ischemic changes of the right upper quadrant excised 15 x 10 cm 6. Small bowel resection of anastomosis performed 7. Primary ileocolic anastomosis to mid transverse colon 8. Complete abdominal washout until aspirant clear 12 L normal saline 9. NICO drain #19 via the right abdominal wall positioned at the pelvis 10. Nasogastric tube position in the stomach 11. Incisional Casey wound VAC system placed INDICATIONS: The patient is a 68-year-old male who previously underwent right hemicolectomy for large ascending colon and cecal adenoma one week ago. He was initially doing well until 2 days ago when he developed new right lower quadrant abdominal pain. Clinically, he reported passing flatus and reportedly felt better today however CT of the abdomen pelvis was abnormal demonstrating possible anastomotic leak. Diagnostic laparoscopy with the possibility of open laparotomy and ileostomy was described. Benefits, risks of procedure including bleeding, infection, small bowel resection were described in detail. Informed consent was obtained. DESCRIPTION: The patient was brought into the operating table. An epidural was placed per Anesthesia. After general induction, a Wallace catheter was placed. The abdomen had been prepped and draped in standard sterile fashion including placement of Ioban draping. Prior to incision, a time-out protocol was confirmed with surgical team regarding the patient's name and procedures being performed. He was on scheduled IV antibiotics. A left upper quadrant 5 mm laparoscopic trocar entry was performed. The abdomen was insufflated to 15 mmHg pressure which he tolerated well. Additionally two 5-mm trochars were placed along the left lateral abdominal wall. The right upper quadrant and lateral abdominal wall was explored where the omentum was elevated and purulence was identified confirming anastomotic leak. At this point a formal exploratory laparotomy was performed. A #10 blade was used to enter the abdomen from the epigastrium down to the pubis. Carefully the abdomen was entered using a combination of blunt dissection with a Kitner as well as Metzenbaum scissors and a #10 blade. Extensive lysis of adhesions occurred well over an hour upon entry into the abdomen to avoid any enterotomies. Next once the abdomen was entered, the bowel was investigated from the ligament of Treitz distally. Interloop adhesions and abscess was found along the right lower quadrant including right upper quadrant where ischemic transverse mesocolon omentum was identified. Partial omentectomy was performed over 10 x 15 cm. The previous ileocolic anastomosis was explored where an anterior serosal defect confirmed an anastomotic leak. The anastomosis was resected along the ileum proximally. Similarly, the proximal transverse colon was resected to prepare for anastomosis as the proximal and distal bowel were viable. The abdomen was copiously irrigated with over 10 L normal saline prior to anastomosis. A 3-0 silk suture was placed along the antimesenteric border for ileocolic anastomosis after extended right hemicolectomy. Next enterotomies were made along the antimesenteric border of the transverse colon and small bowel. A [employer] tri-stapler 60 mm purple load was fired to create neolumen. The enterotomy was closed using similar stapler load. The abdomen was copiously irrigated with total of 12 L normal saline at the end of the case. The nasogastric tube was repositioned and confirmed with Anesthesia. Hemostasis had been checked. Given the moderate amount of irrigation a round #19 NICO drain was exited via the right lower quadrant with suction within the deep pelvis. A 2-0 nylon drain stitch was placed. The tubing was cut to size, and a NICO bulb was placed. The subcutaneous tissue had been cleansed. The abdomen had been closed using double-stranded 0-PDS. Optifoam dressing was also placed over the NICO site as well. PREVENA incisional wound VAC system was placed lengthwise and placed to suction without leak. At the end of the procedure, the sponge and instrument count had been verified correct by the nursing surgical services director. The patient tolerated the procedure well and was brought to the anesthesia postanesthesia care unit in guarded condition. Intraabdominal findings were reviewed at length with the patient's family.
[2018-11-27] MEDS ORDERED: SODIUM CHLORIDE 0.9% 2,000 ML IV ONE (21:51)
[2018-11-28] MEDS: metroNIDAZOLE-NS PMX 500 MG in SALINE 1 100ML.BAG IVPB SCH ×5 (00:12→22:55)
[2018-11-28] MEDS: PANTOPRAZOLE 40 MG/10 ML VIAL IVP SCH ×3 (00:13→21:05)
[2018-11-28] MEDS: SUCRALFATE 1 GM TAB PO SCH ×4 (00:18→16:33)
--- NOTE | 2018-11-28 01:06 | P.PN ---
Progress Note - Text Progress Note Date: 11/27/18 - Chief Complaint Not feeling well Interval history: This is a pleasant 68-year-old patient of Dr. Sherman. Chronic stable medical conditions include asthma, hypertension, hyperlipidemia, osteoarthritis, rheumatoid arthritis. Patient did have a stroke in 2005 with no residue up. History of kidney stones. Patient on November 20 underwent right hemicolectomy by Dr. Angelito Lacy. Patient was discharged on November 22. Patient had been tolerating a liquid diet. After patient went home he described after second day urine output decreased. Patient also notices swelling of the lower extremity. Also became a bit short of breath. Also patient noticed some diffuse abdominal pain. There was no nausea vomiting area and patient did notice a slight temperature. Patient did have a bowel movement when he caught him. Appetite has not been good. Patient had been ambulatory in the house. Patient been having dark stools at home. Admitted for the same. On November 25 patient did undergo EGD that showed multiple duodenal ulcers with evidence of recent bleeding. Also diaphragmatic hiatal hernia Today-seen by me this morning. Laying in bed. Feeling tired. Abdominal distended. Not feeling well. Review of systems: Was done for constitutional, cardiovascular, GI, pulmonary. relevant finding as above Current medications are reviewed that include: Subcu heparin, IV Flagyl, IV Zosyn Physical examination: VITAL SIGNS: 97, 112, 16, 122/60, 90% 3 L GENERAL: Laying in bed, tired appearing. EYES: Pupils equal. Conjunctiva normal. HEENT: External appearance of nose and ears normal, oral cavity grossly normal. NECK: JVD not raised; masses not palpable. HEART: First and second heart sounds are normal; some edema and lower extremity. LUNGS: Respiratory rate normal; slightly decreased breath sounds. ABDOMEN: Soft, distended, tender, liver spleen not palpable, no masses palpable, bowel sounds present. PSYCH: Alert and oriented x3; mood and affect normal. Investigations: White count 18.4 hemoglobin 11.5 potassium 3.4 creatinine 0.93 Computed tomography scan of the abdomen-moderate free fluid in the abdomen. Patchy pneumopericardium. Multiple distended fluid-filled loops of small bowel in the abdomen Hemoglobin was 14.3 prior to surgery Renal ultrasound-shows right-sided renal calculi Acute abdominal series reports some element of ileus Assessment: -Suspect bowel perforation and evidence of free fluid in the abdomen and pneumoperitoneum, also not elevated white count -Acute GI bleed from multiple duodenal ulcers, from use of NSAIDs and antiplatelet agents -Acute blood loss anemia from upper GI bleed, and also some blood loss as expect ed from surgery as hemoglobin was 12.5 upon discharge -Right hemicolectomy for polyps -Obesity BMI 34.4 -Hyperlipidemia -Essential hypertension -Chronic primary osteoarthritis Plan: Continue current medication treatment plan. Awaits further surgical intervention. Care was discussed with the patient. Continue antibiotics.
[2018-11-28] MEDS: SODIUM CHLORIDE 0.9% 1,000 ML IV SCH ×4 (02:51→17:34)
[2018-11-28] MEDS: LACTATED RINGERS 1,000 ML IV SCH ×7 (02:53→10:22)
[2018-11-28] MEDS ORDERED: DEXTROSE 5% IN WATER 250 ML with AMIODARONE 300 MG IV ONE (05:52)
[2018-11-28] MEDS: AMIODARONE 300 MG in DEXTROSE 5% IN WATER 250 ML IV SCH ×2 (06:34)
[2018-11-28] MEDS: PIPERACILLIN-TAZOBACTAM 3.375 GM in SODIUM CHLORIDE 0.9% 100 ML IVPB SCH ×3 (06:36→16:33)
[2018-11-28 07:00] LABS: Basophils % (A) 0 %; Eosinophils % (A) 0 %; HCT 36.6 % (39.0-53.0); HGB 11.8 gm/dL (13.0-17.5); Lymphocytes # (A) 0.4 k/uL (1.0-4.8); Lymphocytes % (A) 2 %; MCH 30.6 pg (25.0-35.0); MCHC 32.4 g/dL (31.0-37.0); MCV 94.6 fL (80.0-100.0); Mean Platelet Volume 8.1; Monocytes # (A) 0.8 k/uL (0-1.0); Monocytes % (A) 4 %; Neutrophils # (A) 22.1 k/uL (1.3-7.7); Neutrophils % (A) 94 %; Platelet Count 275 k/uL (150-450); RBC 3.87 m/uL (4.30-5.90); RDW 14.1 % (11.5-15.5); WBC 23.6 k/uL (3.8-10.6)
[2018-11-28 07:23] LABS: Calcium 7.2 mg/dL (8.4-10.2)
[2018-11-28] MEDS: HEPARIN SODIUM,PORCINE 5,000 UNIT/ML 1 ML VIAL SQ SCH ×2 (08:57→21:05)
--- NOTE | 2018-11-28 09:39 | P.PN ---
Progress Note - Text Progress Note Date: 11/28/18 Pt without complaints. Denies pain. Denies lower extremity paresthesia or weakness. Has not been out of bed yet. BP 88/57 with IVF @ 125 ml/hr. Epidural running at 7 ml/hr. Epidural site clean and dry A/P POD#1 s/p exploratory laparotomy with bowel resection - may titrate epidural down as long as pt remains comfortable
[2018-11-28] MEDS: TAMSULOSIN 0.4 MG CAP.ER.24H PO SCH (09:53)
[2018-11-28] MEDS ORDERED: LACTATED RINGERS 1,000 ML IV SCH (10:00)
--- NOTE | 2018-11-28 10:35 | P.PN ---
Progress Note - Text Progress Note Date: 11/28/18 The patient is postoperative day 1 for reexploration from ileocolectomy anastomotic leak. Patient underwent washout of his abdomen with re-anastomosis yesterday. He has not passed any flatus. He has no significant abdominal pain. On exam his vital signs are stable. His abdomen is soft.Prevena wound system is in place. Patient will continue to be nothing by mouth. He is receiving TPN. We'll observe closely.
[2018-11-28 12:10] LABS: Albumin 1.6 g/dL (3.5-5.0); Calcium 6.9 mg/dL (8.4-10.2); Magnesium 2.1 mg/dL (1.6-2.3); Phosphorus 3.9 mg/dL (2.5-4.5); Potassium 4.1 mmol/L (3.5-5.1); Total Bilirubin 0.5 mg/dL (0.2-1.3); Total Protein 3.5 g/dL (6.3-8.2)
[2018-11-28 12:22] LABS: Ionized Calcium 4.8 mg/dL (4.5-5.3)
[2018-11-28] MEDS ORDERED: INSULIN ASPART (NovoLOG) 100 UNIT/ML VIAL SQ SCH (12:30)
[2018-11-28 13:06] LABS: Glucose,Whole Blood 124 mg/dL (75-99)
[2018-11-28] MEDS ORDERED: SODIUM CHLORIDE 0.9% 1,000 ML IV ONE (13:21)
[2018-11-28] MEDS ORDERED: MVI, ADULT NO.4 WITH VIT K 10 ML, TRACE (CONC-1ML/DOSE) 1 ML in AMINO ACID 5%-D15W 1,00... IV SCH ×3 (14:00)
[2018-11-28] MEDS ORDERED: MVI, ADULT NO.4 WITH VIT K 10 ML, TRACE (CONC-1ML/DOSE) 1 ML, PARENTERAL ELECTROLYTES 2... IV SCH ×4 (14:00)
--- NOTE | 2018-11-28 14:39 | CONS ---
CONSULTATION This is a pulmonary critical care consultation. DATE OF SERVICE: November 28, 2018 This is a 68-year-old male who is status post right hemicolectomy 4 days ago on November 20, 2018. He called Dr. Jackson's office who did the surgery with abdominal discomfort. It had been going on for about 24 hours prior to the phone call. He was discharged from the hospital last on November 22. Anyway, the patient was discovered to have a leak and the patient was taken back to the operating room yesterday to have that repaired. Apparently throughout the last 24 hours or so, the patient has been having significant hypotension and for that reason, the patient was transferred to the ICU. The patient was actually seen by Dr. Moss today. The primary on the patient is Dr. Nj. Dr. Moss called the nurses and wanted the patient transferred because of the hypotension. He is postop day #1 status post reexploration because of an ileocolectomy, anastomotic leak. Currently, the patient's blood pressure was about 88 systolic. He has received 2 L of fluid on the . I have asked the nurses to give him another full L of fluid to do a stat cortisol level and to start Levophed if he is not respond to the fluid bolus. Again the initial surgery was done on November 20. He was discharged on the and he had repeat surgery on the . This repeat surgery was done by Dr. Jackson. She initially apparently attempted diagnostic laparoscopy which converted to an open exploratory laparotomy, drainage of intraabdominal abscess, right lower quadrant and pelvis, partial omentectomy, partial colectomy, small-bowel resection, primary anastomotic ileal colic, primary anastomosis, abdominal lavage with 12 L normal saline and placement of a #19 Mauro-Tomas drain in the right side of the pelvis. Wound VAC was also placed as well. PAST MEDICAL HISTORY: Positive for asthma, hypertension, hyperlipidemia, DJD, rheumatoid arthritis, and CVA without a residual. He also has a history of kidney stones. SOCIAL HISTORY: Positive for 1 pack of cigarettes a day for 50 years. FAMILY HISTORY: Positive for oral cancer with metastatic disease. HOME MEDICATIONS: On discharge on the included Flomax, Hico, Lipitor, Carafate, and Protonix. ALLERGIES: ALLERGIES ARE STRAWBERRIES. MEDICATIONS: His current medication list includes: An epidural catheter, Benadryl, subcu heparin, Hico, Dilaudid, insulin, Flagyl, Narcan, Zofran, Protonix, Zosyn, potassium replacement, Carafate, saline IV, and Flomax. SURGICAL HISTORY: Remote. FAMILY HISTORY: Otherwise noncontributory. OCCUPATION HISTORY: Noncontributory. REVIEW OF SYSTEMS: CONSTITUTIONAL: Weakness. NEUROLOGIC: Negative. HEENT negative. CARDIOVASCULAR: Negative. PULMONARY: Negative. GI negative: negative. RHEUMATOLOGIC negative. IMMUNOLOGIC negative. ENDOCRINOLOGIC negative. DERMATOLOGIC negative. PHYSICAL EXAMINATION: VITAL SIGNS: Current vital signs are reviewed. Temperature is 99.1. Heart rate 96, respiratory rate 16, blood pressure 86/55, mean 65. 3 L saturation 95%. GENERAL: Appears somewhat pale. Not having any distress. No respiratory difficulty. HEENT examination is grossly unremarkable. Nasal O2 in place. NECK: Supple. Full range of motion. No adenopathy or thyromegaly. Neck veins are flat. CARDIOVASCULAR examination reveals a heart rate between 96 and 110 beats per minute. S1, S2 normal. There is no murmur. LUNGS: Reveal mostly clear breath sounds. A few scattered rhonchi. No wheezes. ABDOMEN: Soft. Bowel sounds are not heard. EXTREMITIES are intact. No edema. SKIN: Without rash. NEUROLOGIC examination is brief but nonfocal. LAB DATA: Reviewed. White count 23.6, hemoglobin 11.8, hematocrit 36.6, platelet count 275,000. Sodium 140, potassium 4.1, chloride is 112, CO2 23, anion gap is 5, BUN and creatinine were 38 and 1.76. His calcium was 6.9, ionized calcium was normal. Albumin 1.6. TSH was normal. Microbiology is thus far negative including a blood, stool, urine, and abdominal wound. Medications are reviewed. As mentioned, he is on Flagyl and Zosyn. He is going to get additional fluids on Levophed if his blood pressure does not improve. ASSESSMENT: 1. Status post robotically assisted hemicolectomy on November 20 and discharged from the hospital on the and readmission to the hospital and repeat surgery for anastomotic leak on the . 2. Hypotension, rule out sepsis. 3. History of hyperlipidemia. 4. History of hypertension. 5. History of degenerative joint disease. 6. Previous history of cerebrovascular accident without residual. 7. History of kidney stones. 8. History of rheumatoid arthritis. 9. History of mild asthma. PLAN: The patient will get some additional IV fluids. We will do a stat random cortisol. If he does not respond to the fluids, he will get Levophed to maintain a mean of 65-70 mmHg. He is already on good antibiotics. Additional recommendations and suggestions are forthcoming. Prognosis is guarded. We will continue to watch closely. MMODL / IJN: [id number] /
[2018-11-28] MEDS: NOREPINEPHRINE 32 MG in SODIUM CHLORIDE 0.9% 218 ML IV SCH (14:57)
[2018-11-28] MEDS: FAT EMULSION 20% 250 ML IV SCH (14:59)
[2018-11-28] MEDS ORDERED: AMIODARONE 200 MG TAB PO STA (15:09)
--- NOTE | 2018-11-28 15:12 | P.PN ---
Progress Note - Text Progress Note Date: 11/28/18 - Chief Complaint Not feeling well Interval history: This is a pleasant 68-year-old patient of Dr. Sherman. Chronic stable medical conditions include asthma, hypertension, hyperlipidemia, osteoarthritis, rheumatoid arthritis. Patient did have a stroke in 2005 with no residue up. History of kidney stones. Patient on November 20 underwent right hemicolectomy by Dr. Angelito Lacy. Patient was discharged on November 22. Patient had been tolerating a liquid diet. After patient went home he described after second day urine output decreased. Patient also notices swelling of the lower extremity. Also became a bit short of breath. Also patient noticed some diffuse abdominal pain. There was no nausea vomiting area and patient did notice a slight temperature. Patient did have a bowel movement when he caught him. Appetite has not been good. Patient had been ambulatory in the house. Patient been having dark stools at home. Admitted for the same.subsequently found to have intra-abdominal abscess anastomosis leak. Taking back to the OR. On November 25 patient did undergo EGD that showed multiple duodenal ulcers with evidence of recent bleeding. Also diaphragmatic hiatal hernia Today-laying in bed. NG tube in place. Has a wound VAC in place. NICO drain in place. Abdomen distended. Laying in bed. Family the bedside. Review of systems: Was done for constitutional, cardiovascular, GI, pulmonary. relevant finding as above Active Medications Hydrocodone Bitart/Acetaminophen ([place] 5-325) 1 each PO Q4HR PRN PRN Reason: MODERATE Pain Last Admin: 11/26/18 14:38 Dose: 1 each Documented by: Diphenhydramine HCl (Benadryl) 25 mg IVP Q6HR PRN PRN Reason: Itching Heparin Sodium (Porcine) (Heparin) 5,000 unit SQ Q12HR SONJA Last Admin: 11/28/18 08:57 Dose: 5,000 unit Documented by: Hydromorphone HCl (Dilaudid) 1 mg IVP Q4HR PRN PRN Reason: SEVERE Pain Last Admin: 11/26/18 22:40 Dose: 1 mg Documented by: Piperacillin Sod/Tazobactam (Sod 3.375 gm/ Sodium Chloride) 100 mls @ 25 mls/hr IVPB Q8HR SONJA Last Admin: 11/28/18 08:50 Dose: 25 mls/hr Documented by: Metronidazole 500 mg/ IV (Solution) 100 mls @ 100 mls/hr IVPB Q6H [facility] Last Admin: 11/28/18 15:01 Dose: 100 mls/hr Documented by: Ropivacaine 400 mg/Hydromorphone HCl 7.5 mg/Sodium Chloride 250 mls @ 0 mls/hr EPIDURAL .Q0M PRN; Protocol PRN Reason: Pain Control Last Admin: 11/27/18 22:15 Dose: 6 mls Documented by: Sodium Chloride (Saline 0.9%) 1,000 mls @ 125 mls/hr IV .Q8H SONJA Last Admin: 11/28/18 12:41 Dose: 125 mls/hr Documented by: Amiodarone HCl 300 mg/ (Dextrose/Water) 256 mls @ 25 mls/hr IV .[id number] ONE Stop: 11/28/18 16:06 Last Admin: 11/28/18 06:48 Dose: 25 mls/hr Documented by: Norepinephrine Bitartrate 32 (mg/ Sodium Chloride) 250 mls @ 2.77 mls/hr IV .Q24H [facility]; Protocol Last Admin: 11/28/18 14:57 Dose: Not Given Documented by: Fat Emulsion Intravenous (Lipids 20%) 250 mls @ 20.833 mls/hr IV DAILY [facility] Last Admin: 11/28/18 14:59 Dose: 20.833 mls/hr Documented by: Parenteral Vitamin Supplement 10 ml/ Chromium/Copper/Manganese/Seleni/Zn 1 ml/Parenteral Electrolytes 20 ml/Amino Acids/Dextrose 1,031 mls @ 30 mls/hr IV .Q24H [facility] Stop: 11/29/18 13:59 Last Admin: 11/28/18 14:59 Dose: 30 mls/hr Documented by: Parenteral Vitamin Supplement 10 ml/ Chromium/Copper/Manganese/Seleni/Zn 1 ml/Amino Ac/Electrol/Dextrose/Calcium 1,011 mls @ 95 mls/hr IV .BY DURATION [facility] Amino Ac/Electrol/Dextrose/Calcium (Clinimix E 5%-D15% Solution) 1,000 mls @ 95 mls/hr IV .BY DURATION [facility] Insulin Aspart (Novolog) 0 unit SQ Q6H SONJA; Protocol Miscellaneous Information (Potassium Per Protocol) 1 each MISCELLANE DAILY PRN; Protocol PRN Reason: Per Protocol Naloxone HCl (Narcan) 0.2 mg IV Q2M PRN PRN Reason: Opioid Reversal Ondansetron HCl (Zofran) 4 mg IVP Q8HR PRN PRN Reason: Nausea And Vomiting Last Admin: 11/27/18 08:35 Dose: 4 mg Documented by: Pantoprazole Sodium (Protonix) 40 mg IVP BID [facility] Last Admin: 11/28/18 08:51 Dose: 40 mg Documented by: Sucralfate (Carafate) 1 gm PO AC-TID [facility] Last Admin: 11/28/18 12:40 Dose: Not Given Documented by: Physical examination: VITAL SIGNS: 99.1, 96, 16, 86/55, 95% on 3 L GENERAL: Laying in bed, tired appearing. EYES: Pupils equal. Conjunctiva normal. HEENT: External appearance of nose and ears normal, oral cavity grossly normal.NG tube in place NECK: JVD not raised; masses not palpable. HEART: First and second heart sounds are normal; some edema and lower extremity. LUNGS: Respiratory rate normal; slightly decreased breath sounds. ABDOMEN: distended, wound VAC in place, NICO drain, bowel sounds absent PSYCH: Alert and oriented x3; mood and affect normal. Investigations: white count 23.6 hemoglobin 11.8 potassium 4.1 BUN 38 creatinine 1.76 Computed tomography scan of the abdomen-moderate free fluid in the abdomen. Patchy pneumopericardium. Multiple distended fluid-filled loops of small bowel in the abdomen Hemoglobin was 14.3 prior to surgery Renal ultrasound-shows right-sided renal calculi Acute abdominal series reports some element of ileus Assessment: -Diagnostic laparoscopy converted to open exploratory laparotomy, drainage of intra-abdominal abscess right lower quadrant and pelvis, partial omentectomy, partial colectomy, small bowel resection, primary anastomosis ileocolic, abdominal lavage 12 L normal saline, placement of #19 NICO drain right side pelvis, application of incisional wound VAC system universal -Acute GI bleed from multiple duodenal ulcers, from use of NSAIDs and antiplatelet agents -Acute blood loss anemia from upper GI bleed, and also some blood loss as expected from surgery as hemoglobin was 12.5 upon discharge -Impending septic shock, blood pressure trending low. -Right hemicolectomy for polyps -Obesity BMI 34.4 -Hyperlipidemia -Essential hypertension -Chronic primary osteoarthritis -Acute renal failure possibly ATN combination of cardiorenal syndrome, loss of fluids Plan: patient clinical condition was discussed with the family the bedside. Patient to continue with antibiotics. Getting TPN. Blood pressures running low. On broad-spectrum antibiotics. Dr. Moss is moving the patient 2 ICU. agree with the same. Prognosis guarded.ID is on the following the case.
--- NOTE | 2018-11-28 15:38 | P.PN ---
Subjective Progress Note Date: 12/05/18 This is a 68-year-old gentleman who is status post right hemicolectomy on October 21 hypertension, hyperlipidemia and previous CVA, was readmitted to the hospitalon November 24 with abdominal pain and had a repeat surgeryith the drainage of intra-abdominal abscess, partial omentectomy, partial colectomy and small bowel resection. Patient went into atrial fibrillation and has been on IVamiodarone. Today patient has been hypotensive and is transferred to intensive care unit.. Patient is given fluid challenges. We'll going to start him on amiodarone by mouth. Patient's lab values showed a white count of 23,000. Hemoglobin is 11.8. His creatinine is 1.63. Objective - Vital Signs Vital signs: Vital Signs Temp 99.1 F 11/28/18 11:58 Pulse 103 H 11/28/18 14:00 Resp 12 11/28/18 14:00 BP 90/51 11/28/18 14:00 Pulse Ox 93 L 11/28/18 14:00 Intake & Output 11/27/18 11/28/18 11/28/18 18:59 06:59 18:59 Intake Total 7590 402 3299 Output Total 310 330 Balance 1575 196 910 Weight 118.2 kg 118.2 kg Intake: IV 2570 776 1044 Sodium Chloride 0.9% 1, 1000 000 ml @ 999 mls/hr IV . Q1H1M [facility] Rx#:[id number] Oral 0 240 Output: Gastric Drainage 50 Drainage 80 Right Lower Abdomen 80 Urine 150 250 Uretheral (Wallace) 200 Estimated Blood Loss 110 Other: Voiding Method Toilet Indwelling Catheter Indwelling Catheter - Exam GENERAL EXAM: Patient is laying in bed. Patient has NG tube in place. Abdomen is distended HEENT: Normocephalic. Normal reaction of pupils, equal size, normal range of extraocular motion. No erythema or exudates in the throat. NECK: No masses, no nuchal rigidity. CHEST: No chest wall deformity. LUNGS:iminished breath sounds HEART: irregular heart rhythm ABDOMEN:distended abdomen SKIN: No rashes CENTRAL NERVOUS SYSTEM:awake EXTREMITIES: [No cyanosis, clubbing or edema. - Labs CBC & Chem 7: 11/28/18 06:19 11/28/18 11:35 Labs: Abnormal Lab Results - Last 24 Hours (Table) 11/28/18 11/28/18 11/28/18 Range/Units 06:19 06:19 11:35 WBC 23.6 H (3.8-10.6) k/uL RBC 3.87 L (4.30-5.90) m/uL Hgb 11.8 L (13.0-17.5) gm/dL Hct 36.6 L (39.0-53.0) % Neutrophils # 22.1 H (1.3-7.7) k/uL Lymphocytes # 0.4 L (1.0-4.8) k/uL Chloride 111 H 112 H (98-107) mmol/L BUN 31 H 38 H (9-20) mg/dL Creatinine 1.63 H 1.76 H (0.66-1.25) mg/dL Glucose 119 H 119 H (74-99) mg/dL POC Glucose (mg/dL) (75-99) mg/dL Calcium 7.2 L 6.9 L (8.4-10.2) mg/dL Alkaline Phosphatase 31 L (38-126) U/L Total Protein 3.5 L (6.3-8.2) g/dL Albumin 1.6 L (3.5-5.0) g/dL 11/28/18 Range/Units 13:02 WBC (3.8-10.6) k/uL RBC (4.30-5.90) m/uL Hgb (13.0-17.5) gm/dL Hct (39.0-53.0) % Neutrophils # (1.3-7.7) k/uL Lymphocytes # (1.0-4.8) k/uL Chloride (98-107) mmol/L BUN (9-20) mg/dL Creatinine (0.66-1.25) mg/dL Glucose (74-99) mg/dL POC Glucose (mg/dL) 124 H (75-99) mg/dL Calcium (8.4-10.2) mg/dL Alkaline Phosphatase (38-126) U/L Total Protein (6.3-8.2) g/dL Albumin (3.5-5.0) g/dL Microbiology - Last 24 Hours (Table) 11/26/18 09:48 Blood Culture - Preliminary Blood No Growth after 48 hours 11/26/18 02:40 Stool Culture - Preliminary Stool 11/27/18 21:15 Gram Stain - Preliminary Abdomen Wound Culture - Preliminary 11/27/18 21:15 Anaerobic Culture - Preliminary Peritoneal Fluid 11/26/18 14:45 Urine Culture - Final Urine,Voided Assessment and Plan (1) Status post colectomy Current Visit: Yes Status: Acute Code(s): Z90.49 - ACQUIRED ABSENCE OF OTHER SPECIFIED PARTS OF DIGESTIVE TRACT SNOMED Code(s): 464268698 (2) Atrial fibrillation with RVR Current Visit: Yes Status: Acute Code(s): I48.91 - UNSPECIFIED ATRIAL FIBRILLATION SNOMED Code(s): 697972439854985 (3) Hypertensive heart disease Current Visit: No Status: Acute Code(s): I11.9 - HYPERTENSIVE HEART DISEASE WITHOUT HEART FAILURE SNOMED Code(s): 85703123 Plan: patient has multiple comorbidities. From cardiac standpoint I will switch to by mouth amiodarone. Patient is getting fluid challenges. May need a Levophed. If blood pressure doesn't respond. Prognosis is guarded
--- NOTE | 2018-11-28 17:16 | PN ---
PROGRESS NOTE DATE OF SERVICE: 11/28/2018. REASON FOR FOLLOWUP: Abdominal abscess and leukocytosis. INTERVAL HISTORY: The patient was taken to the OR last night. The patient is status post laparotomy with drainage of right-sided abscess, small-bowel resection that has been sent for culture. The patient's has been in the ICU. The patient is afebrile. He seems to be hemodynamically stable. Not requiring pressor support. Did have slight blood, low blood pressure responding to the fluid boluses. The patient is currently sleepy, lethargic and unable to provide any history. PHYSICAL EXAMINATION: Blood pressure is 96/50 with a pulse of 93, temperature 98.4. He is 94% on 3 L nasal cannula. General description is an elderly male lying in bed in no distress. Respiratory system: Unlabored breathing. Decreased breath sounds at the bases. HEART: S1, S2. Regular rate and rhythm. Abdomen soft. No tenderness. Extremities: Some trace edema of the feet. LABS: Hemoglobin 11.8, white count 3.7, BUN of 38, creatinine 1.76. DIAGNOSTIC IMPRESSION AND PLAN: Patient with abdominal abscess, status post laparotomy and drainage of the abscess. The patient is currently covered with Zosyn and Flagyl. We will try to get a followup on the cultures being done in the OR to adjust antibiotic further if needed. Monitor clinical course closely. Continue supportive care. XUANL / NANCYN: [id number] / MTDD
--- NOTE | 2018-11-28 17:24 | ECHOF ---
Referral Reason:afib MEASUREMENTS -------- HEIGHT: 177.8 cm WEIGHT: 117.9 kg BP: 122/60 RVIDd: 3.9 cm (< 3.3) IVSd: 1.0 cm (0.6 - 1.1) LVIDd: 4.6 cm (3.9 - 5.3) LVPWd: 1.5 cm (0.6 - 1.1) IVSs: 1.4 cm LVIDs: 2.9 cm LVPWs: 1.6 cm LAESV Index (A-L): 25.81 ml/m Ao Diam: 3.0 cm (2.0 - 3.7) AV Cusp: 2.2 cm (1.5 - 2.6) LA Diam: 4.6 cm (2.7 - 3.8) MV EXCURSION: 18.742 mm (> 18.000) MV EF SLOPE: 150 mm/s (70 - 150) EPSS: 0.5 cm RAP: 5.00 mmHg RVSP: 33.96 mmHg FINDINGS -------- Atrial fibrillation. This was a technically adequate study. The left ventricular size is normal. There is mild concentric left ventricular hypertrophy. Overa ll left ventricular systolic function is normal with, an EF between 55 - 60 %. Left ventricular salty limg pressure cannot be estimated due to Atrial fibrillation. The right ventricle is mild to moderately enlarged. Normal LA size by volume 22+/-6 ml/m2. RA appears enlarged. Interatrial and interventricular septum intact. The aortic valve is trileaflet and appears structurally normal. There is no evidence of aortic regu rgitation. There is no evidence of aortic stenosis. There is trace mitral regurgitation. Mild tricuspid regurgitation present. There is borderline pulmonary hypertension. The right ventr icular systolic pressure, as measured by Doppler, is 33.96mmHg. There is no pulmonic regurgitation present. The aortic root size is normal. IVC Not well visulized. There is no pericardial effusion. CONCLUSIONS -------- 1. Atrial fibrillation. 2. This was a technically adequate study. 3. The left ventricular size is normal. 4. There is mild concentric left ventricular hypertrophy. 5. Overall left ventricular systolic function is normal with, an EF between 55 - 60 %. 6. Left ventricular fillimg pressure cannot be estimated due to Atrial fibrillation. 7. The right ventricle is mild to moderately enlarged. 8. Normal LA size by volume 22+/-6 ml/m2. 9. RA appears enlarged. 10. Interatrial and interventricular septum intact. 11. The aortic valve is trileaflet and appears structurally normal. 12. There is no evidence of aortic regurgitation. 13. There is no evidence of aortic stenosis. 14. There is trace mitral regurgitation. 15. Mild tricuspid regurgitation present. 16. There is borderline pulmonary hypertension. 17. The right ventricular systolic pressure, as measured by Doppler, is 33.96mmHg. 18. There is no pulmonic regurgitation present. 19. The aortic root size is normal. 20. IVC Not well visulized. 21. There is no pericardial effusion. THERMODYNAMICIST: Clemencia Stanton RDCS
[2018-11-28] MEDS: INSULIN ASPART (NovoLOG) 100 UNIT/ML VIAL SQ SCH (17:33)
[2018-11-28 17:35] LABS: Glucose,Whole Blood 114 mg/dL (75-99)
[2018-11-28] MEDS: AMIODARONE 200 MG TAB PO SCH (21:05)
[2018-11-29 00:22] LABS: Glucose,Whole Blood 121 mg/dL (75-99)
[2018-11-29] MEDS: INSULIN ASPART (NovoLOG) 100 UNIT/ML VIAL SQ SCH ×4 (00:52→17:54)
[2018-11-29] MEDS: PIPERACILLIN-TAZOBACTAM 3.375 GM in SODIUM CHLORIDE 0.9% 100 ML IVPB SCH ×3 (00:54→16:54)
[2018-11-29] MEDS: SODIUM CHLORIDE 0.9% EPIDURAL PRN (02:42)
[2018-11-29] MEDS: HYDROMORPHONE EPIDURAL PRN (02:42)
[2018-11-29] MEDS: SODIUM CHLORIDE 0.9% 1,000 ML IV SCH ×3 (02:42→17:54)
[2018-11-29] MEDS: ROPIVACAINE EPIDURAL PRN (02:42)
[2018-11-29 04:45] LABS: Basophils # (A) 0.1 k/uL (0-0.2); Basophils % (A) 0 %; Eosinophils # (A) 0.3 k/uL (0-0.7); Eosinophils % (A) 1 %; HCT 32.2 % (39.0-53.0); HGB 10.5 gm/dL (13.0-17.5); Lymphocytes # (A) 0.6 k/uL (1.0-4.8); Lymphocytes % (A) 3 %; MCHC 32.8 g/dL (31.0-37.0); MCV 94.6 fL (80.0-100.0); Mean Platelet Volume 8.5; Monocytes # (A) 0.8 k/uL (0-1.0); Monocytes % (A) 4 %; Neutrophils # (A) 18.2 k/uL (1.3-7.7); Neutrophils % (A) 91 %; Platelet Count 247 k/uL (150-450); RBC 3.41 m/uL (4.30-5.90); RDW 14.6 % (11.5-15.5); WBC 20.1 k/uL (3.8-10.6)
[2018-11-29] MEDS: metroNIDAZOLE-NS PMX 500 MG in SALINE 1 100ML.BAG IVPB SCH ×4 (04:58→21:07)
[2018-11-29 05:08] LABS: Calcium 7.1 mg/dL (8.4-10.2); Magnesium 2.4 mg/dL (1.6-2.3); Potassium 3.7 mmol/L (3.5-5.1)
[2018-11-29] MEDS ORDERED: POTASSIUM BICARBONATE/CIT AC 20 MEQ TABLET.EFF NG-TUBE SCH (06:00)
[2018-11-29 06:13] LABS: Glucose,Whole Blood 118 mg/dL (75-99)
[2018-11-29] MEDS: SUCRALFATE 1 GM TAB PO SCH ×3 (06:21→17:03)
--- NOTE | 2018-11-29 09:40 | P.PN ---
Subjective Progress Note Date: 11/29/18 This is a 68-year-old gentleman who is status post right hemicolectomy on October 21 hypertension, hyperlipidemia and previous CVA, was readmitted to the hospitalon November 24 with abdominal pain and had a repeat surgeryith the drainage of intra-abdominal abscess, partial omentectomy, partial colectomy and small bowel resection. Patient went into atrial fibrillation and has been on IVamiodarone. Today patient has been hypotensive and is transferred to intensive care unit.. Patient is given fluid challenges. We'll going to start him on amiodarone by mouth. Patient's lab values showed a white count of 23,000. Hemoglobin is 11.8. His creatinine is 1.63. 11/29/2018. Patient is a status post reexploration surgery for intra-abdominal abscess. Patient still has NG tube draining. Complaints of mild abdominal discomfort. Denies any chest pain or shortness of breath. His blood pressure is more stable. From Cardec standpoint, patient is stable. Objective - Vital Signs Vital signs: Vital Signs Temp 98.9 F 11/29/18 08:00 Pulse 98 11/29/18 08:00 Resp 19 11/29/18 08:00 BP 101/59 11/29/18 08:00 Pulse Ox 94 L 11/29/18 08:00 Intake & Output 11/28/18 11/29/18 11/29/18 18:59 06:59 18:59 Intake Total 1875 2359 140 Output Total 570 1305 100 Balance 1305 1054 40 Weight 118.2 kg 125.8 kg Intake: IV 1635 1610 140 Piperacillin-Tazobactam 3 75 25 25 .375 gm In Sodium Chloride 0.9% 100 ml @ 25 mls/hr IVPB Q8HR [facility] Rx# :[id number] Sodium Chloride 0.9% 1, 460 1585 115 000 ml @ 125 mls/hr IV . Q8H [facility] Rx#:[id number] Sodium Chloride 0.9% 1, 1000 000 ml @ 999 mls/hr IV . Q1H1M [facility] Rx#:[id number] metroNIDAZOLE-NS PMX 500 100 mg In Saline 1 100ml.bag @ 100 mls/hr IVPB Q6H [facility] Rx#:[id number] Intake, IV Titration 749 Amount Fat Emulsion 20% 250 ml @ 189 20.833 mls/hr IV DAILY [facility] Rx#:[id number] Mvi, Adult No.4 with Vit 360 K 10 ml Trace (Conc-1Ml/ Dose) 1 ml Parenteral Electrolytes 20 ml In Amino Acid 5%-D15w 1,000 ml @ 30 mls/hr IV .Q24H [facility] Rx#:[id number] Piperacillin-Tazobactam 3 100 .375 gm In Sodium Chloride 0.9% 100 ml @ 25 mls/hr IVPB Q8HR [facility] Rx# :[id number] metroNIDAZOLE-NS PMX 500 100 mg In Saline 1 100ml.bag @ 100 mls/hr IVPB Q6H [facility] Rx#:[id number] Oral 240 Output: Drainage 120 145 Right Lower Abdomen 120 145 Urine 450 1160 100 Uretheral (Wallace) 200 Other: Voiding Method Indwelling Catheter Indwelling Catheter Indwelling Catheter - Exam GENERAL EXAM: Patient is laying in bed. Patient has NG tube in place. Abdomen is distended HEENT: Normocephalic. Normal reaction of pupils, equal size, normal range of extraocular motion. No erythema or exudates in the throat. NECK: No masses, no nuchal rigidity. CHEST: No chest wall deformity. LUNGS:iminished breath sounds HEART: irregular heart rhythm ABDOMEN:distended abdomen SKIN: No rashes CENTRAL NERVOUS SYSTEM:awake EXTREMITIES: [No cyanosis, clubbing or edema. - Labs CBC & Chem 7: 11/29/18 04:30 11/29/18 04:30 Labs: Abnormal Lab Results - Last 24 Hours (Table) 11/28/18 11/28/18 11/28/18 Range/Units 11:35 13:02 17:20 WBC (3.8-10.6) k/uL RBC (4.30-5.90) m/uL Hgb (13.0-17.5) gm/dL Hct (39.0-53.0) % Neutrophils # (1.3-7.7) k/uL Lymphocytes # (1.0-4.8) k/uL Chloride 112 H (98-107) mmol/L BUN 38 H (9-20) mg/dL Creatinine 1.76 H (0.66-1.25) mg/dL Glucose 119 H (74-99) mg/dL POC Glucose (mg/dL) 124 H 114 H (75-99) mg/dL Calcium 6.9 L (8.4-10.2) mg/dL Phosphorus (2.5-4.5) mg/dL Magnesium (1.6-2.3) mg/dL Alkaline Phosphatase 31 L (38-126) U/L Total Protein 3.5 L (6.3-8.2) g/dL Albumin 1.6 L (3.5-5.0) g/dL 11/29/18 11/29/18 11/29/18 Range/Units 00:18 04:30 04:30 WBC 20.1 H (3.8-10.6) k/uL RBC 3.41 L (4.30-5.90) m/uL Hgb 10.5 L (13.0-17.5) gm/dL Hct 32.2 L (39.0-53.0) % Neutrophils # 18.2 H (1.3-7.7) k/uL Lymphocytes # 0.6 L (1.0-4.8) k/uL Chloride 115 H (98-107) mmol/L BUN 39 H (9-20) mg/dL Creatinine 1.46 H (0.66-1.25) mg/dL Glucose 106 H (74-99) mg/dL POC Glucose (mg/dL) 121 H (75-99) mg/dL Calcium 7.1 L (8.4-10.2) mg/dL Phosphorus 2.0 L (2.5-4.5) mg/dL Magnesium 2.4 H (1.6-2.3) mg/dL Alkaline Phosphatase (38-126) U/L Total Protein (6.3-8.2) g/dL Albumin (3.5-5.0) g/dL 11/29/18 Range/Units 06:11 WBC (3.8-10.6) k/uL RBC (4.30-5.90) m/uL Hgb (13.0-17.5) gm/dL Hct (39.0-53.0) % Neutrophils # (1.3-7.7) k/uL Lymphocytes # (1.0-4.8) k/uL Chloride (98-107) mmol/L BUN (9-20) mg/dL Creatinine (0.66-1.25) mg/dL Glucose (74-99) mg/dL POC Glucose (mg/dL) 118 H (75-99) mg/dL Calcium (8.4-10.2) mg/dL Phosphorus (2.5-4.5) mg/dL Magnesium (1.6-2.3) mg/dL Alkaline Phosphatase (38-126) U/L Total Protein (6.3-8.2) g/dL Albumin (3.5-5.0) g/dL Microbiology - Last 24 Hours (Table) 11/27/18 21:15 Gram Stain - Preliminary Abdomen Wound Culture - Preliminary 11/26/18 09:48 Blood Culture - Preliminary Blood No Growth after 48 hours 11/26/18 02:40 Stool Culture - Preliminary Stool Assessment and Plan (1) Status post colectomy Current Visit: Yes Status: Acute Code(s): Z90.49 - ACQUIRED ABSENCE OF OTHER SPECIFIED PARTS OF DIGESTIVE TRACT SNOMED Code(s): 502283808 (2) Atrial fibrillation with RVR Current Visit: Yes Status: Acute Code(s): I48.91 - UNSPECIFIED ATRIAL FIBRILLATION SNOMED Code(s): 317188878566521 (3) Hypertensive heart disease Current Visit: No Status: Acute Code(s): I11.9 - HYPERTENSIVE HEART DISEASE WITHOUT HEART FAILURE SNOMED Code(s): 14183776 Plan: Hemodynamically stable. Mild abdominal discomfort which is distended. Still has NG tube draining. Continue current management. We'll follow
[2018-11-29] MEDS: AMIODARONE 200 MG TAB PO SCH ×2 (09:50→20:15)
[2018-11-29] MEDS: HEPARIN SODIUM,PORCINE 5,000 UNIT/ML 1 ML VIAL SQ SCH ×2 (09:50→20:15)
[2018-11-29] MEDS: PANTOPRAZOLE 40 MG/10 ML VIAL IVP SCH ×2 (09:50→20:15)
--- NOTE | 2018-11-29 10:56 | PN ---
PROGRESS NOTE DATE OF SERVICE: November 29, 2018 This is a 68-year-old male who had a robotically assisted right hemicolectomy on November 20. The patient was discharged from the hospital on the . Subsequent to that, the patient came back to the hospital, was found to have an anastomotic leak. He went back to the operating room on November 27. The patient was transferred to the ICU yesterday because of persistent hypotension. He was seen by Dr. Moss who was covering for Dr. Jackson. Today, he is postop day #2, status post reexploration because of the anastomotic leak. The patient's blood pressure has been reasonably stable. Since he has been here he has not required any pressor. He is on nasal O2 at 3 L. He is getting TPN at 30 mL an hours, saline at 125 mL an hours, lipid and he has an epidural in place for pain control. The patient states that he is feeling reasonably well. Again, his initial surgery was done on November 20. He was discharged on the and a followup surgery was done on the . On the , he had an exploratory laparotomy, drainage of intraabdominal abscess, partial omentectomy, partial colectomy, and small- bowel resection. A Mauro-Tomas drain was placed. Overall, the patient is doing much better. He does have a history of asthma, hypertension, hyperlipidemia, DJD, rheumatoid arthritis, and CVA as well as kidney stones. PHYSICAL EXAMINATION: VITAL SIGNS: Currently, his vital signs are stable. His temperature is 98.9, heart rate 98, respiratory rate 19, blood pressure 101/59 mean 73, 3 L saturation 94%. GENERAL: Appears in no acute distress. HEENT examination is grossly unremarkable. Mucous membranes are dry. An NG tube is noted. Nasal O2 noted. NECK: Supple. Full range of motion. No adenopathy or thyromegaly. Neck veins are flat. CARDIOVASCULAR examination reveals regular rhythm and rate. S1, S2 normal. LUNGS: Reveal mostly clear breath sounds. A few scattered rhonchi. No wheezes or crackles. ABDOMEN is reasonably soft. Tenderness on palpation. Bowel sounds are noted. EXTREMITIES are intact. Mild edema. Skin is without rash. No cyanosis or clubbing. NEUROLOGIC examination is brief but nonfocal. So far, microbiologic studies are all negative. This includes blood, stool, and urine and abdominal wound cultures. LABORATORY DATA: Includes a white count of 20.1, hemoglobin 10.5, hematocrit 32.2, platelet count is normal. Sodium 142, potassium 3.7, chloride 115, CO2 is 25, anion gap is 2, BUN and creatinine were 39 and 1.46. Magnesium is 2.4, cortisol was 40, calcium 7.1, phosphorus is 2. No recent x-ray to report. Medications are reviewed. The patient remains on Flagyl and Zosyn. ASSESSMENT: 1. Status post robotically assisted hemicolectomy on November 20, discharge on November 22, readmission to the hospital with a repeat exploratory laparotomy and repair of anastomotic leak on November 27, postop day #2. 2. Hypotension, rule out sepsis. 3. Hyperlipidemia. 4. History of hypertension. 5. History of degenerative joint disease. 6. Previous history of cerebrovascular accident. 7. History of kidney stones. 8. Rheumatoid arthritis. 9. History of mild asthma. PLAN: The patient seems to be doing relatively well. Cortisol level was 40. He remains on TPN and lipids. He has his epidural in place for pain control. He is getting saline at 125 mL an hour. He is only on 3 L nasal cannula. The patient seems to be doing relatively well. He remains on Zosyn and Flagyl. We will continue to follow. Prognosis is guarded. Has not required any pressors. We will continue to watch very carefully. We do recommend deep breathing, coughing and clearing secretions and hourly use of the incentive spirometer, which is at bedside. Critical care time 33 minutes. MMODL / IJN: [id number] /
[2018-11-29] MEDS: FAT EMULSION 20% 250 ML IV SCH (11:38)
[2018-11-29] MEDS: NOREPINEPHRINE 32 MG in SODIUM CHLORIDE 0.9% 218 ML IV SCH (11:39)
[2018-11-29 11:51] LABS: Glucose,Whole Blood 106 mg/dL (75-99)
--- NOTE | 2018-11-29 12:18 | P.PN ---
Progress Note - Text Progress Note Date: 11/29/18 Pt without complaints. Hypotension improved with fluid resuscitation. Epidural @ 6 ml/hr. Pain controlled. Denies leg weakness or pruritis. Denies headache. Epidural site clean and dry. A/P POD#2 s/p exploratory laparotomy w/ colon resection. -- continue current rate
--- NOTE | 2018-11-29 12:35 | P.PN ---
Progress Note - Text Progress Note Date: 11/29/18 The patient states he feels better today. He was transferred to the ICU for persistent hypotension yesterday. He has responded to fluid boluses performed yesterday. On exam his vital signs are stable. His abdomen soft. White count is decreased slightly slightly to 20,000. Status post exploratory laparotomy for anastomotic leak. Patient will continue nothing by mouth. He has no significant bowel function.
--- NOTE | 2018-11-29 13:58 | P.PN ---
Progress Note - Text Progress Note Date: 11/29/18 - Chief Complaint Not feeling well Interval history: This is a pleasant 68-year-old patient of Dr. Sherman. Chronic stable medical conditions include asthma, hypertension, hyperlipidemia, osteoarthritis, rheumatoid arthritis. Patient did have a stroke in 2005 with no residue up. History of kidney stones. Patient on November 20 underwent right hemicolectomy by Dr. Angelito Lacy. Patient was discharged on November 22. Patient had been tolerating a liquid diet. After patient went home he described after second day urine output decreased. Patient also notices swelling of the lower extremity. Also became a bit short of breath. Also patient noticed some diffuse abdominal pain. There was no nausea vomiting area and patient did notice a slight temperature. . Appetite has not been good. Patient had been ambulatory in the house. Patient been having dark stools at home. On November 25 patient did undergo EGD that showed multiple duodenal ulcers with evidence of recent bleeding. Also diaphragmatic hiatal hernia Admitted for the same.subsequently found to have intra-abdominal abscess anastomosis leak. Taking back to the OR. Today-remains in the ICU. Tired. No bowel movement. No output through the wound VAC. NICO drain put out 120 mL overnight. Patient slightly anxious. Family the bedside. Patient remains nothing by mouth. NG tube remains in place. Telemetry shows a flutter/fibrillation-patient went into that couple of days ago. Rate controlled Review of systems: Was done for constitutional, cardiovascular, GI, pulmonary. relevant finding as above Active Medications Hydrocodone Bitart/Acetaminophen ([place] 5-325) 1 each PO Q4HR PRN PRN Reason: MODERATE Pain Last Admin: 11/26/18 14:38 Dose: 1 each Documented by: Amiodarone HCl (Cordarone) 200 mg PO BID [facility] Last Admin: 11/29/18 09:50 Dose: 200 mg Documented by: Diphenhydramine HCl (Benadryl) 25 mg IVP Q6HR PRN PRN Reason: Itching Heparin Sodium (Porcine) (Heparin) 5,000 unit SQ Q12HR [facility] Last Admin: 11/29/18 09:50 Dose: 5,000 unit Documented by: Hydromorphone HCl (Dilaudid) 1 mg IVP Q4HR PRN PRN Reason: SEVERE Pain Last Admin: 11/26/18 22:40 Dose: 1 mg Documented by: Piperacillin Sod/Tazobactam (Sod 3.375 gm/ Sodium Chloride) 100 mls @ 25 mls/hr IVPB Q8HR [facility] Last Admin: 11/29/18 07:41 Dose: 25 mls/hr Documented by: Metronidazole 500 mg/ IV (Solution) 100 mls @ 100 mls/hr IVPB Q6H [facility] Last Admin: 11/29/18 10:00 Dose: 100 mls/hr Documented by: Ropivacaine 400 mg/Hydromorphone HCl 7.5 mg/Sodium Chloride 250 mls @ 0 mls/hr EPIDURAL .Q0M PRN; Protocol PRN Reason: Pain Control Last Admin: 11/29/18 02:42 Dose: 6 mls/hr Documented by: Sodium Chloride (Saline 0.9%) 1,000 mls @ 125 mls/hr IV .Q8H [facility] Last Admin: 11/29/18 11:39 Dose: 125 mls/hr Documented by: Norepinephrine Bitartrate 32 (mg/ Sodium Chloride) 250 mls @ 2.77 mls/hr IV .Q24H [facility]; Protocol Last Admin: 11/29/18 11:39 Dose: Not Given Documented by: Fat Emulsion Intravenous (Lipids 20%) 250 mls @ 20.833 mls/hr IV DAILY [facility] Last Admin: 11/29/18 11:38 Dose: 20.833 mls/hr Documented by: Parenteral Vitamin Supplement 10 ml/ Chromium/Copper/Manganese/Seleni/Zn 1 ml/Parenteral Electrolytes 20 ml/Amino Acids/Dextrose 1,031 mls @ 30 mls/hr IV .Q24H [facility] Stop: 11/29/18 13:59 Last Admin: 11/28/18 14:59 Dose: 30 mls/hr Documented by: Sodium Acetate 25 meq/Potassium Phosphate 20 mmol/Calcium Gluconate 1 gm/Parenteral Vitamin Supplement 10 ml/ Chromium/Copper/Manganese/Seleni/Zn 1 ml/Amino Acids/Dextrose 1,040.1667 mls @ 95 mls/hr IV .BY DURATION [facility] Sodium Acetate 25 meq/Potassium Phosphate 20 mmol/Calcium Gluconate 1 gm/ Amino Acids/Dextrose 1,029.1667 mls @ 95 mls/hr IV .BY DURATION [facility] Insulin Aspart (Novolog) 0 unit SQ Q6H [facility]; Protocol Last Admin: 11/29/18 11:52 Dose: Not Given Documented by: Miscellaneous Information (Potassium Per Protocol) 1 each MISCELLANE DAILY PRN; Protocol PRN Reason: Per Protocol Naloxone HCl (Narcan) 0.2 mg IV Q2M PRN PRN Reason: Opioid Reversal Ondansetron HCl (Zofran) 4 mg IVP Q8HR PRN PRN Reason: Nausea And Vomiting Last Admin: 11/27/18 08:35 Dose: 4 mg Documented by: Pantoprazole Sodium (Protonix) 40 mg IVP BID [facility] Last Admin: 11/29/18 09:50 Dose: 40 mg Documented by: Sucralfate (Carafate) 1 gm PO AC-TID [facility] Last Admin: 11/29/18 11:52 Dose: 1 gm Documented by: Physical examination: VITAL SIGNS: 98.9, 98, 12, 108/61, 95% on 3 L GENERAL: Laying in bed, awake. EYES: Pupils equal. Conjunctiva normal. HEENT: External appearance of nose and ears normal, oral cavity grossly normal.NG tube in place NECK: JVD not raised; masses not palpable. HEART: Heart sounds irregular; some edema . LUNGS: Respiratory rate normal; slightly decreased breath sounds. ABDOMEN: distended, wound VAC in place, NICO drain, bowel sounds absent PSYCH: Alert and oriented x3; mood and affect anxious. Investigations: white count 23.6 hemoglobin 11.8 potassium 4.1 BUN 38 creatinine 1.76 Previous investigations Computed tomography scan of the abdomen-moderate free fluid in the abdomen. Patchy pneumopericardium. Multiple distended fluid-filled loops of small bowel in the abdomen Hemoglobin was 14.3 prior to surgery Renal ultrasound-shows right-sided renal calculi Acute abdominal series reports some element of ileus 2-D echo shows EF of 55-60% Assessment: -Diagnostic laparoscopy converted to open exploratory laparotomy, drainage of intra-abdominal abscess right lower quadrant and pelvis, partial omentectomy, partial colectomy, small bowel resection, primary anastomosis ileocolic, abdominal lavage 12 L normal saline, placement of #19 NICO drain right side pelvis, application of incisional wound VAC system universal -Acute GI bleed from multiple duodenal ulcers, from use of NSAIDs and antiplatelet agents, status post EGD on November 25 -Acute blood loss anemia from upper GI bleed, and also some blood loss as expected from surgery as hemoglobin was 12.5 upon discharge -Hypotension improving -New onset atrial flutter fibrillation, not a candidate for anticoagulation the present time -Right hemicolectomy for polyps -Obesity BMI 34.4 -Hyperlipidemia -Essential hypertension -Chronic primary osteoarthritis -Acute renal failure possibly ATN combination of cardiorenal syndrome, loss of fluids, slow to improve -Intra-abdominal abscess, following anastamotic leak. Status post surgery as above Plan: Continue current medication treatment plan. Care was discussed with the patient and family the bedside questions were answered. Patient remains in ICU. Getting IV antibiotics. TPN and lipids. Prognosis guarded.
[2018-11-29] MEDS ORDERED: 1: MVI, ADULT NO.4 WITH VIT K 10 ML, TRACE (CONC-1ML/DOSE) 1 ML in AMINO ACID 5%-D15W+LY IV SCH ×3 (14:00)
[2018-11-29] MEDS ORDERED: [UNRECOGNIZED DRUG - REMARK] IV SCH ×3 (14:00)
[2018-11-29] MEDS: SODIUM ACETATE IV SCH ×6 (14:48)
[2018-11-29] MEDS: [UNRECOGNIZED DRUG - OTHER] IV SCH ×6 (14:48)
[2018-11-29] MEDS: POTASSIUM PHOSPHATE IV SCH ×6 (14:48)
[2018-11-29] MEDS: CALCIUM GLUCONATE IV SCH ×6 (14:48)
[2018-11-29] MEDS: MVI IV SCH ×6 (14:48)
[2018-11-29 18:07] LABS: Glucose,Whole Blood 122 mg/dL (75-99)
--- NOTE | 2018-11-29 19:48 | PN ---
PROGRESS NOTE DATE OF SERVICE: 11/29/2018. REASON FOR FOLLOWUP: Abdominal abscess. INTERVAL HISTORY: The patient is currently afebrile. The patient is breathing comfortably. Denies having any chest pain or cough. No nausea, vomiting. No abdominal pain or any diarrhea. PHYSICAL EXAMINATION: Blood pressure 108/63 with a pulse of 96, temperature 98.9. He is 94% on 3 L nasal cannula. General description is an elderly male lying in bed in no distress. Respiratory system: Unlabored breathing. Decreased breath sounds in the bases. No wheeze. Heart S1, S2. Regular rate and rhythm. ABDOMEN: Soft, no tenderness. LABS: Hemoglobin is 10.5, white count 20.1. BUN of 39, creatinine 1.46. Abdominal cultures currently pending. DIAGNOSTIC IMPRESSION AND PLAN: Patient with abdominal abscess, status post laparotomy and drainage of this abscess. Cultures currently pending. Patient is currently broadly covered with Zosyn to continue adjusting it further based on the culture report. Family at the bedside. Questions answered. MMODL / IJN: [id number] /
[2018-11-30] MEDS: INSULIN ASPART (NovoLOG) 100 UNIT/ML VIAL SQ SCH ×4 (00:09→17:42)
[2018-11-30] MEDS: PIPERACILLIN-TAZOBACTAM 3.375 GM in SODIUM CHLORIDE 0.9% 100 ML IVPB SCH ×4 (00:10→22:47)
[2018-11-30 00:11] LABS: Glucose,Whole Blood 128 mg/dL (75-99)
[2018-11-30] MEDS: SODIUM CHLORIDE 0.9% 1,000 ML IV SCH ×3 (00:45→20:52)
[2018-11-30] MEDS: POTASSIUM PHOSPHATE IV SCH ×12 (02:43→14:46)
[2018-11-30] MEDS: MVI IV SCH ×12 (02:43→14:46)
[2018-11-30] MEDS: SODIUM ACETATE IV SCH ×12 (02:43→14:46)
[2018-11-30] MEDS: [UNRECOGNIZED DRUG - OTHER] IV SCH ×12 (02:43→14:46)
[2018-11-30] MEDS: CALCIUM GLUCONATE IV SCH ×12 (02:43→14:46)
[2018-11-30] MEDS: metroNIDAZOLE-NS PMX 500 MG in SALINE 1 100ML.BAG IVPB SCH ×4 (04:02→20:53)
[2018-11-30 05:35] LABS: Glucose,Whole Blood 135 mg/dL (75-99)
[2018-11-30 05:35] LABS: Glucose,Whole Blood 135 mg/dL (75-99)
[2018-11-30 05:42] LABS: Basophils # (A) 0.1 k/uL (0-0.2); Basophils % (A) 0 %; Eosinophils # (A) 0.3 k/uL (0-0.7); Eosinophils % (A) 2 %; HCT 32.4 % (39.0-53.0); HGB 10.4 gm/dL (13.0-17.5); Lymphocytes # (A) 0.6 k/uL (1.0-4.8); Lymphocytes % (A) 3 %; MCH 30.8 pg (25.0-35.0); MCHC 32.1 g/dL (31.0-37.0); Mean Platelet Volume 7.9; Monocytes # (A) 0.5 k/uL (0-1.0); Monocytes % (A) 3 %; Neutrophils # (A) 16.2 k/uL (1.3-7.7); Neutrophils % (A) 91 %; Platelet Count 239 k/uL (150-450); RBC 3.37 m/uL (4.30-5.90); RDW 14.2 % (11.5-15.5); WBC 17.8 k/uL (3.8-10.6)
[2018-11-30 05:48] LABS: Ionized Calcium 4.9 mg/dL (4.5-5.3)
[2018-11-30 05:59] LABS: Glucose,Whole Blood 132 mg/dL (75-99)
[2018-11-30 06:16] LABS: Albumin 1.8 g/dL (3.5-5.0); Magnesium 2.2 mg/dL (1.6-2.3); Phosphorus 2.1 mg/dL (2.5-4.5); Potassium 3.6 mmol/L (3.5-5.1)
[2018-11-30] MEDS: SUCRALFATE 1 GM TAB PO SCH ×3 (06:41→17:29)
--- NOTE | 2018-11-30 06:46 | P.PN ---
Progress Note - Text Progress Note Date: 11/30/18 Patient without complaints. Pain controlled. Denies lower extremity weakness. Epidural @ 5 ml/hr Epidural site clean and dry A/P POD#3 s/p exploratory laparotomy with colon resection. - may increase rate if pt has discomfort. - doing well
[2018-11-30] MEDS ORDERED: POTASSIUM BICARBONATE/CIT AC 20 MEQ TABLET.EFF NG-TUBE SCH (07:00)
[2018-11-30] MEDS: PANTOPRAZOLE 40 MG/10 ML VIAL IVP SCH ×2 (08:32→20:53)
[2018-11-30] MEDS: HEPARIN SODIUM,PORCINE 5,000 UNIT/ML 1 ML VIAL SQ SCH ×2 (08:34→20:53)
[2018-11-30] MEDS: AMIODARONE 200 MG TAB PO SCH ×2 (08:35→20:53)
[2018-11-30] MEDS: FAT EMULSION 20% 250 ML IV SCH (09:32)
--- NOTE | 2018-11-30 09:51 | P.PN ---
Subjective Progress Note Date: 11/30/18 This is a 68-year-old male patient is being seen in follow-up in the intensive care unit. The patient has a complicated history. The patient underwent the initial primary colectomy and ileocolic anastomosis to the mid transverse colon. Subsequently, the patient came in with increased abdominal pain, leukocytosis and the patient was taken to the operating room where the patient underwent diagnostic laparoscopy converted to open exploratory laparotomy and the patient underwent drainage of intra-abdominal abscess in the right lower quadrant and pelvis and partial omentectomy and partial colectomy and small bowel resection and primary anastomosis of the ileocolic area in addition to abdominal lavage of 12 L with normal saline and placement of a 19-gauge NICO drain in the right side of the pelvis and incisional wound VAC system was applied. The surgery was done on 11/27/2018 and the patient is currently postop day #3. The patient still has an NG tube in place. Output remains considerably high in the order of 300 mL's over the past 24 hours. Abdomen is nondistended. The patient does not have any flatus. The patient has not produced any bowel movement activity. The patient is afebrile. The patient is hemodynamically stable. The patient is receiving TPN for nutritional support rate of 95 mL an hour. The patient is also on normal saline today to 150 mL an hour. Has been negative over the past 48 hours. The patient has also developed some increased swelling in the upper and lower extremities bilaterally. He is using incentive spirometer. Currently is on 2 L of oxygen nasal cannula. NG tube is in place. No cough or sputum production. No chest pain. No fever or chills. No altered mentation. He remains on accommodation Zosyn and Flagyl. Intra-abdominal cultures of been all negative. Objective - Vital Signs Vital signs: Vital Signs Temp 98.7 F 11/30/18 04:00 Pulse 88 11/30/18 06:00 Resp 18 11/30/18 06:00 BP 126/65 11/30/18 06:00 Pulse Ox 96 11/30/18 06:00 Intake & Output 11/29/18 11/30/18 11/30/18 18:59 06:59 18:59 Intake Total 2395.81 3032.617 220 Output Total 1450 1505 105 Balance 945.81 1527.617 115 Weight 127.3 kg Intake: IV 2195.81 2884.15 220 Fat Emulsion 20% 250 ml @ 145.81 104.15 0 20.833 mls/hr IV DAILY [facility] Rx#:[id number] Mvi, Adult No.4 with Vit 210 K 10 ml Trace (Conc-1Ml/ Dose) 1 ml Parenteral Electrolytes 20 ml In Amino Acid 5%-D15w 1,000 ml @ 30 mls/hr IV .Q24H [facility] Rx#:[id number] Piperacillin-Tazobactam 3 175 125 .375 gm In Sodium Chloride 0.9% 100 ml @ 25 mls/hr IVPB Q8HR [facility] Rx# :[id number] Sodium Acetate 25 meq 380 1140 95 Potassium Phosphate 20 mmol Calcium Gluconate 1 gm In Amino Acid 5%-D15w 1,000 ml @ 95 mls/hr IV . BY DURATION [facility] Rx#: [id number] Sodium Chloride 0.9% 1, 1085 1315 125 000 ml @ 125 mls/hr IV . Q8H [facility] Rx#:[id number] metroNIDAZOLE-NS PMX 500 200 200 mg In Saline 1 100ml.bag @ 100 mls/hr IVPB Q6H [facility] Rx#:[id number] Intake, IV Titration 148.467 Amount Ropivacaine 400 mg 148.467 Hydromorphone (Pf) 7.5 mg In Sodium Chloride 0.9% 169 ml @ Per Protocol EPIDURAL .Q0M PRN Rx#: [id number] Other 200 Output: Gastric Drainage 300 Drainage 120 195 Right Lower Abdomen 120 195 Urine 1030 1310 105 Other: Voiding Method Indwelling Catheter Indwelling Catheter - Exam Gen. appearance, comfortable likely distress. The patient is currently on oxygen at 2 L and the patient is an NG tube in place. Head exam was generally normal. There was no scleral icterus or corneal arcus. Mucous membranes were moist. Neck was supple and without jugular venous distension, thyromegaly, or carotid bruits. Carotids were easily palpable bilaterally. There was no adenopathy. Lungs sounds are diminished bilaterally especially in the lung bases Cardiac exam revealed the PMI to be normally situated and sized. The rhythm was regular and no extrasystoles were noted during several minutes of auscultation. The first and second heart sounds were normal and physiologic splitting of the second heart sound was noted. There were no murmurs, rubs, clicks, or gallops. Abdomen is slightly distended. Bowel sounds are absent. There is an abdominal wound VAC applied over the anterior abdominal wall. The patient also has a NICO drain #19 in the right lower quadrant. No direct tenderness. No rebound tenderness no guarding. Extremities show +1-2 pitting edema both in upper and lower extremities. No cyanosis. No clubbing. Examination of the skin revealed no evidence of significant rashes, suspicious appearing nevi or other concerning lesions. The patient is a PICC line in the right upper extremity. Neurologic the patient is awake and alert and there is no focal neurological deficit. - Labs CBC & Chem 7: 11/30/18 05:30 11/30/18 05:30 Labs: Abnormal Lab Results - Last 24 Hours (Table) 11/29/18 11/29/18 11/30/18 Range/Units 11:48 17:53 00:07 WBC (3.8-10.6) k/uL RBC (4.30-5.90) m/uL Hgb (13.0-17.5) gm/dL Hct (39.0-53.0) % Neutrophils # (1.3-7.7) k/uL Lymphocytes # (1.0-4.8) k/uL Sodium (137-145) mmol/L Chloride (98-107) mmol/L BUN (9-20) mg/dL Glucose (74-99) mg/dL POC Glucose (mg/dL) 106 H 122 H 128 H (75-99) mg/dL Calcium (8.4-10.2) mg/dL Phosphorus (2.5-4.5) mg/dL Albumin (3.5-5.0) g/dL 11/30/18 11/30/18 11/30/18 Range/Units 05:30 05:30 05:31 WBC 17.8 H (3.8-10.6) k/uL RBC 3.37 L (4.30-5.90) m/uL Hgb 10.4 L (13.0-17.5) gm/dL Hct 32.4 L (39.0-53.0) % Neutrophils # 16.2 H (1.3-7.7) k/uL Lymphocytes # 0.6 L (1.0-4.8) k/uL Sodium 146 H (137-145) mmol/L Chloride 117 H (98-107) mmol/L BUN 27 H (9-20) mg/dL Glucose 129 H (74-99) mg/dL POC Glucose (mg/dL) 135 H (75-99) mg/dL Calcium 7.0 L (8.4-10.2) mg/dL Phosphorus 2.1 L (2.5-4.5) mg/dL Albumin 1.8 L (3.5-5.0) g/dL 11/30/18 11/30/18 Range/Units 05:32 05:45 WBC (3.8-10.6) k/uL RBC (4.30-5.90) m/uL Hgb (13.0-17.5) gm/dL Hct (39.0-53.0) % Neutrophils # (1.3-7.7) k/uL Lymphocytes # (1.0-4.8) k/uL Sodium (137-145) mmol/L Chloride (98-107) mmol/L BUN (9-20) mg/dL Glucose (74-99) mg/dL POC Glucose (mg/dL) 135 H 132 H (75-99) mg/dL Calcium (8.4-10.2) mg/dL Phosphorus (2.5-4.5) mg/dL Albumin (3.5-5.0) g/dL Microbiology - Last 24 Hours (Table) 11/26/18 02:40 Stool Culture - Final Stool 11/27/18 21:15 Gram Stain - Final Abdomen Wound Culture - Final 11/27/18 21:15 Anaerobic Culture - Preliminary Peritoneal Fluid 11/26/18 09:48 Blood Culture - Preliminary Blood No Growth after 72 hours Assessment and Plan Plan: 1 Localized intra-abdominal abscess of the right lower quadrant that and an anastomotic leak, the patient is post open expiratory laparotomy, drainage of intra-abdominal abscess, partial omentectomy, partial colectomy, small bowel resection, primary ileocolic anastomosis and abdominal lavage and placement of a NICO drain in the right lower quadrant/pelvic area and the patient is postop day #3. 2 NPO post abdominal surgery and the patient continues to have excessive amount of output from his NG tube 3 TPN for nutritional support 4 hypotension recovered 5 hyperlipidemia 6 hypertension 7 history of CVA 8 history of rheumatoid arthritis 9 mild bronchial asthma 10 kidney stones 11 obesity Plan Done and IV fluids to 40 mL an hour. Give the patient 20 mg of IV Lasix. Continue TPN for nutritional support. Continue same antibiotic coverage. Monitor the output from the NICO drain. Monitor the output from the NG tube. Monitor the cultures. Keep same antibiotic coverage. Encourage using incentive spirometer. Asked the patient to stop on a chair if possible. Surgeries on the case. Wound VAC is in place. We'll continue to follow.
--- NOTE | 2018-11-30 10:19 | PN ---
PROGRESS NOTE Kevin is a 68-year-old gentleman with history of right hemicolectomy, hypertension, dyslipidemia, prior CVA, who is admitted to hospital with surgical problems and underwent surgery for the same. He has atrial fibrillation for which Cardiology is consulted. He still has surgical drains and also has an epidural. They have not resumed his anticoagulant yet. PHYSICAL EXAM: He remains in AFib with controlled ventricular rate. Blood pressure is normal. Chest exam reveals diminished air entry at the bases. Heart exam reveals first and second heart sounds, irregular rhythm. Abdomen is status post surgery. Exam of extremities reveals mild edema and peripheral pulses are felt. LABS: Show that the potassium is 3.6, hemoglobin is 10.4. ASSESSMENT: 1. Chronic atrial fibrillation with controlled ventricular rate. 2. Status post abdominal surgery. 3. Prior history of cerebrovascular accident.. PLAN: Patient will continue with the current medications including the amiodarone. He is not on anticoagulation, but he was not on even coming in, so we need to look into this further. MMODL / IJN: [id number] /
[2018-11-30] MEDS ORDERED: DEXTROSE 5% IV ONE ×2 (11:00)
[2018-11-30] MEDS ORDERED: POTASSIUM PHOSPHATE IV ONE ×2 (11:00)
[2018-11-30] MEDS ORDERED: WATER IV ONE ×2 (11:00)
[2018-11-30] MEDS ORDERED: FUROSEMIDE 10 MG/ML 2 ML VIAL IV STA (11:18)
[2018-11-30 12:25] LABS: Glucose,Whole Blood 133 mg/dL (75-99)
--- NOTE | 2018-11-30 13:34 | P.PN ---
Subjective Progress Note Date: 11/30/18 CHIEF COMPLAINT: Pancreatitis with upper GI bleed HISTORY OF PRESENT ILLNESS: patient is status post diagnostic laparoscopy converted to open exploratory laparotomy, drainage of intractable abdominal abscess right lower quadrant and pelvis, partial omentectomy, partial colectomy, small bowel resection, primary anastomosis ileocolic, and abdominal lavage completed on 11/27/18. Patient examined at the bedside in the ICU. He denies passing flatus. Denies BM. NG to LIS with 600cc bilious output in drainage. NICO to right lower quadrant with serous drainage. TPN infusing via PICC line. Chauhan with yellow urine. Patient's at the bedside and states patient is going to attempt to get up to the chair today. She reports he attempted yesterday but his heart rate went up into the 140s. WBC 17.8. Hemoglobin 10.4. PHYSICAL EXAM: VITAL SIGNS: Currently stable. GENERAL: Well-developed in no acute distress. HEENT: NG to LIS with bilous output. No sclera icterus. Extraocular movements grossly intact. Moist buccal mucosa. Head is atraumatic, normocephalic. Hears conversational speech. No nasal drainage. NECK: Supple without lymphadenopathy. CHEST: Non-labored respirations and equal bilateral excursions. CARDIOVASCULAR: Regular rate with regular rhythm. Palpable 2+ radial pulses. ABDOMEN: Soft. Distended. Very hypoactive bowel sounds. Tenderness with palpation. PREVENA intact. NICO to right lower quadrant with serous drainage MUSCULOSKELETAL: No clubbing or cyanosis. +1-2 bilateral upper and lower extremity edema NEUROLOGIC: No focal or lateralizing signs. Cranial nerves II through XII grossly intact. PSYCH: Appropriate affect. Alert and oriented to person, place and time. SKIN: Well perfused. Good skin turgor. ASSESSMENT: 1. Acute upper gastrointestinal bleed secondary to acute bleeding duodenal ulcers 2. Acute pancreatitis, resolving 3. Acute cholecystitis, stable 4. Severe obstructive uropathy, pre-existing 5. Acute bilateral lower extremity edema 6. Ileus secondary to acute pancreatitis 7. S/P diagnostic laparoscopy converted to open exploratory laparotomy, drainage of intractable abdominal abscess right lower quadrant and pelvis, partial omentectomy, partial colectomy, small bowel resection, primary anastomosis ileocolic, and abdominal lavage PLAN: 1. Await bowel function 2. Continue NG to LIS 3. Continue TPN 4. Discontinue epidural 5. Continue chauhan catheter today for accurate I&O 6. Incentive spirometry 7. Activity as tolerated Nurse practitioner note has been reviewed by physician. Signing provider agrees with the documented findings, assessment, and plan of care. Objective - Vital Signs Vital signs: Vital Signs Temp 97.4 F L 11/30/18 08:00 Pulse 96 11/30/18 10:00 Resp 19 11/30/18 10:00 BP 128/66 11/30/18 10:00 Pulse Ox 95 11/30/18 10:00 Intake & Output 11/29/18 11/30/18 11/30/18 18:59 06:59 18:59 Intake Total 2395.81 3032.617 1304.0 Output Total 1450 1505 705 Balance 945.81 1527.617 599.0 Weight 127.3 kg Intake: IV 2195.81 2884.15 1304.0 Fat Emulsion 20% 250 ml @ 145.81 104.15 104.0 20.833 mls/hr IV DAILY [facility] Rx#:[id number] Mvi, Adult No.4 with Vit 210 K 10 ml Trace (Conc-1Ml/ Dose) 1 ml Parenteral Electrolytes 20 ml In Amino Acid 5%-D15w 1,000 ml @ 30 mls/hr IV .Q24H [facility] Rx#:[id number] Piperacillin-Tazobactam 3 175 125 100 .375 gm In Sodium Chloride 0.9% 100 ml @ 25 mls/hr IVPB Q8HR [facility] Rx# :[id number] Sodium Acetate 25 meq 380 1140 475 Potassium Phosphate 20 mmol Calcium Gluconate 1 gm In Amino Acid 5%-D15w 1,000 ml @ 95 mls/hr IV . BY DURATION [facility] Rx#: [id number] Sodium Chloride 0.9% 1, 1085 1315 525 000 ml @ 125 mls/hr IV . Q8H [facility] Rx#:[id number] metroNIDAZOLE-NS PMX 500 200 200 100 mg In Saline 1 100ml.bag @ 100 mls/hr IVPB Q6H [facility] Rx#:[id number] Intake, IV Titration 148.467 Amount Ropivacaine 400 mg 148.467 Hydromorphone (Pf) 7.5 mg In Sodium Chloride 0.9% 169 ml @ Per Protocol EPIDURAL .Q0M PRN Rx#: [id number] Other 200 Output: Gastric Drainage 300 Drainage 120 195 200 Right Lower Abdomen 120 195 200 Urine 1030 1310 505 Other: Voiding Method Indwelling Catheter Indwelling Catheter Indwelling Catheter # Voids 1 - Labs CBC & Chem 7: 11/30/18 05:30 11/30/18 05:30 Labs: Abnormal Lab Results - Last 24 Hours (Table) 11/29/18 11/30/18 11/30/18 Range/Units 17:53 00:07 05:30 WBC (3.8-10.6) k/uL RBC (4.30-5.90) m/uL Hgb (13.0-17.5) gm/dL Hct (39.0-53.0) % Neutrophils # (1.3-7.7) k/uL Lymphocytes # (1.0-4.8) k/uL Sodium 146 H (137-145) mmol/L Chloride 117 H (98-107) mmol/L BUN 27 H (9-20) mg/dL Glucose 129 H (74-99) mg/dL POC Glucose (mg/dL) 122 H 128 H (75-99) mg/dL Calcium 7.0 L (8.4-10.2) mg/dL Phosphorus 2.1 L (2.5-4.5) mg/dL Albumin 1.8 L (3.5-5.0) g/dL 11/30/18 11/30/18 11/30/18 Range/Units 05:30 05:31 05:32 WBC 17.8 H (3.8-10.6) k/uL RBC 3.37 L (4.30-5.90) m/uL Hgb 10.4 L (13.0-17.5) gm/dL Hct 32.4 L (39.0-53.0) % Neutrophils # 16.2 H (1.3-7.7) k/uL Lymphocytes # 0.6 L (1.0-4.8) k/uL Sodium (137-145) mmol/L Chloride (98-107) mmol/L BUN (9-20) mg/dL Glucose (74-99) mg/dL POC Glucose (mg/dL) 135 H 135 H (75-99) mg/dL Calcium (8.4-10.2) mg/dL Phosphorus (2.5-4.5) mg/dL Albumin (3.5-5.0) g/dL 11/30/18 11/30/18 Range/Units 05:45 11:59 WBC (3.8-10.6) k/uL RBC (4.30-5.90) m/uL Hgb (13.0-17.5) gm/dL Hct (39.0-53.0) % Neutrophils # (1.3-7.7) k/uL Lymphocytes # (1.0-4.8) k/uL Sodium (137-145) mmol/L Chloride (98-107) mmol/L BUN (9-20) mg/dL Glucose (74-99) mg/dL POC Glucose (mg/dL) 132 H 133 H (75-99) mg/dL Calcium (8.4-10.2) mg/dL Phosphorus (2.5-4.5) mg/dL Albumin (3.5-5.0) g/dL Microbiology - Last 24 Hours (Table) 11/26/18 09:48 Blood Culture - Preliminary Blood No Growth after 96 hours 11/26/18 02:40 Stool Culture - Final Stool 11/27/18 21:15 Gram Stain - Final Abdomen Wound Culture - Final 11/27/18 21:15 Anaerobic Culture - Preliminary Peritoneal Fluid Assessment and Plan (1) Acute cholecystitis with chronic cholecystitis Current Visit: Yes Status: Acute Code(s): K81.2 - ACUTE CHOLECYSTITIS WITH CHRONIC CHOLECYSTITIS SNOMED Code(s): 963757821 (2) Acute pancreatitis Current Visit: Yes Status: Acute Code(s): K85.90 - ACUTE PANCREATITIS WITHOUT NECROSIS OR INFECTION, UNSP SNOMED Code(s): 669746411 (3) BMI 37.0-37.9, adult Current Visit: Yes Status: Acute Code(s): Z68.37 - BODY MASS INDEX (BMI) 37.0-37.9, ADULT SNOMED Code(s): 527587050 (4) Bladder atony Current Visit: Yes Status: Acute Code(s): N31.2 - FLACCID NEUROPATHIC BLADDER, NOT ELSEWHERE CLASSIFIED SNOMED Code(s): 828537366 (5) Duodenal ulcer hemorrhage Current Visit: Yes Status: Acute Code(s): K26.4 - CHRONIC OR UNSPECIFIED DUODENAL ULCER WITH HEMORRHAGE SNOMED Code(s): 75461384 (6) Iron deficiency anemia due to chronic blood loss Current Visit: Yes Status: Acute Code(s): D50.0 - IRON DEFICIENCY ANEMIA SECONDARY TO BLOOD LOSS (CHRONIC) SNOMED Code(s): 972816879 (7) Prostatic hyperplasia, benign localized, with obstruction Current Visit: Yes Status: Acute Code(s): N40.1 - BENIGN PROSTATIC HYPERPLASIA WITH LOWER URINARY TRACT SYMP; N13.8 - OTHER OBSTRUCTIVE AND REFLUX UROPATHY SNOMED Code(s): 008305804
--- NOTE | 2018-11-30 14:55 | PN ---
PROGRESS NOTE DATE OF SERVICE: 11/30/2018 REASON FOR FOLLOWUP VISIT: Abdominal abscess. INTERVAL HISTORY: The patient is currently afebrile. The patient has been hemodynamically stable. Not on any pressor support. The patient is breathing comfortably. Denies having any chest pain, occasional cough. Abdominal pain is currently controlled with pain medication. No nausea, no vomiting. PHYSICAL EXAMINATION: Blood pressure is 120/56 with a pulse of 96, temperature 98, he is 95% on 3 L. General description is an elderly male, lying in bed in no distress. RESPIRATORY SYSTEM: Unlabored breathing with decreased breath sounds at the bases. HEART: S1, S2. Regular rate and rhythm. ABDOMEN: Soft, mildly distended. No guarding no rigidity. EXTREMITIES: No edema of the feet. LABS: Hemoglobin is 10.4, white count of 17.8. BUN of 27, creatinine is 1.10. Abdominal culture so far negative. DIAGNOSTIC IMPRESSION AND PLAN: Patient abdominal abscess, status post drainage. Cultures are currently pending. White count showing a downward trend. Will keep the patient on Zosyn while following his clinical course cold. Family at the bedside. Their questions were answered. MMODL / IJN: [id number] /
[2018-11-30] MEDS: HYDROcodone/APAP 5-325MG 1 EACH TAB PO PRN ×2 (17:29→22:47)
[2018-11-30 17:43] LABS: Glucose,Whole Blood 119 mg/dL (75-99)
[2018-11-30 20:37] LABS: Glucose,Whole Blood 126 mg/dL (75-99)
--- NOTE | 2018-11-30 22:40 | P.PN ---
Subjective Progress Note Date: 11/30/18 Principal diagnosis: s/p exploratory laparotomy with colon resection s/p drainage of intra-abdominal abscess right lower quadrant and pelvis This is a pleasant 68-year-old patient of Dr. Sherman. Chronic stable medical conditions include asthma, hypertension, hyperlipidemia, osteoarthritis, rheumatoid arthritis. Patient did have a stroke in 2005 with no residue up. History of kidney stones. Patient on November 20 underwent right hemicolectomy by Dr. Angelito Lacy. Patient was discharged on November 22. Patient had been tolerating a liquid diet. After patient went home he described after second day urine output decreased. Patient also notices swelling of the lower extremity. Also became a bit short of breath. Also patient noticed some diffuse abdominal pain. There was no nausea vomiting area and patient did notice a slight temperature. . Appetite has not been good. Patient had been ambulatory in the house. Patient been having dark stools at home. On November 25 patient did undergo EGD that showed multiple duodenal ulcers with evidence of recent bleeding. Also diaphragmatic hiatal hernia Admitted for the same.subsequently found to have intra-abdominal abscess anastomosis leak. Taking back to the OR. Previous investigations Computed tomography scan of the abdomen-moderate free fluid in the abdomen. Patchy pneumopericardium. Multiple distended fluid-filled loops of small bowel in the abdomen Hemoglobin was 14.3 prior to surgery Renal ultrasound-shows right-sided renal calculi Acute abdominal series reports some element of ileus 2-D echo shows EF of 55-60% 11/29/18 remains in the ICU. Tired. No bowel movement. No output through the wound VAC. NICO drain put out 120 mL overnight. Patient slightly anxious. Family the bedside. Patient remains nothing by mouth. NG tube remains in place. Telemetry shows a flutter/fibrillation-patient went into that couple of days ago. Rate controlled 11/30/18 Patient is currently in the MICU. Patient is status post diagnostic laparoscopy converted to open exploratory Laparotomy, drainage of abdominal abscess right lower quadrant and pelvis. Partial omentectomy, colectomy and small bowel resection, primary anastomosis ileocolic and abdominal lavage completed on 11/27/2018. Patient is currently on NG tube with low intermittent suction. No passage of flatus. NICO drain is in place. Patient is also on TPN via PICC line. PTOT was consulted and patient is attempting to get up to the chair today. Saturating well on nasal cannula oxygen. No complaints of chest pain. No cough or sputum production. No fever no chills. Currently on normal saline at 1 50 mL per hour. Urine output is good. Currently on antibiotic smoke, Zosyn and Flagyl. Intra-abdominal fluid cultures have been negative so far. WBC 17.8. Hemoglobin 10.4, sodium 146, BUN 26 and creatinine 1.1 month calcium 7.0 Review of systems: Was done for constitutional, cardiovascular, GI, pulmonary. relevant finding as above Active Medications Generic Name Dose Route Start Last Admin Trade Name Freq PRN Reason Stop Dose Admin Hydrocodone Bitart/Acetaminophen 1 each 11/26/18 09:25 11/30/18 17:29 [place] 5-325 PO 1 each Q4HR PRN Administration MODERATE Pain Amiodarone HCl 200 mg 11/28/18 21:00 11/30/18 20:53 Cordarone PO 200 mg BID [facility] Administration Diphenhydramine HCl 25 mg 11/27/18 17:00 Benadryl IVP Q6HR PRN Itching Heparin Sodium (Porcine) 5,000 unit 11/28/18 09:00 11/30/18 20:53 Heparin SQ 5,000 unit Q12HR [facility] Administration Hydromorphone HCl 1 mg 11/24/18 10:03 11/26/18 22:40 Dilaudid IVP 1 mg Q4HR PRN Administration SEVERE Pain Piperacillin Sod/Tazobactam 100 mls @ 25 mls/hr 11/24/18 16:00 11/30/18 15:56 Sod 3.375 gm/ Sodium Chloride IVPB 25 mls/hr Q8HR [facility] Administration Metronidazole 500 mg/ IV 100 mls @ 100 mls/hr 11/25/18 10:00 11/30/18 20:53 Solution IVPB 100 mls/hr Q6H [facility] Administration Sodium Chloride 1,000 mls @ 50 mls/hr 11/28/18 02:45 11/30/18 20:52 Saline 0.9% IV 50 mls/hr .Q20H [facility] Administration Fat Emulsion Intravenous 250 mls @ 20.833 mls/hr 11/28/18 14:00 11/30/18 09:32 Lipids 20% IV 20.833 mls/hr DAILY [facility] Administration Sodium Acetate 25 meq/ 1,040.1667 mls @ 95 mls/hr 11/29/18 14:00 11/30/18 14:46 Potassium Phosphate 20 mmol/ IV 95 mls/hr Calcium Gluconate 1 gm/ .BY DURATION [facility] Administration Parenteral Vitamin Supplement 10 ml/ Chromium/Copper/ Manganese/Seleni/Zn 1 ml/ Amino Acids/Dextrose Sodium Acetate 25 meq/ 1,029.1667 mls @ 95 mls/hr 11/29/18 14:00 11/30/18 02:43 Potassium Phosphate 20 mmol/ IV 95 mls/hr Calcium Gluconate 1 gm/ Amino .BY DURATION [facility] Administration Acids/Dextrose Insulin Aspart 0 unit 11/28/18 18:00 11/30/18 17:42 Novolog SQ Not Given Q6H [facility] Protocol Miscellaneous Information 1 each 11/26/18 23:28 Potassium Per Protocol MISCELLANE DAILY PRN Per Protocol Protocol Naloxone HCl 0.2 mg 11/27/18 21:46 Narcan IV Q2M PRN Opioid Reversal Ondansetron HCl 4 mg 11/24/18 09:57 11/27/18 08:35 Zofran IVP 4 mg Q8HR PRN Administration Nausea And Vomiting Pantoprazole Sodium 40 mg 11/24/18 10:15 11/30/18 20:53 Protonix IVP 40 mg BID [facility] Administration Sucralfate 1 gm 11/25/18 12:30 11/30/18 17:29 Carafate PO 1 gm AC-TID [facility] Administration Objective - Vital Signs Vital signs: Vital Signs Temp 97.4 F L 11/30/18 08:00 Pulse 96 11/30/18 10:00 Resp 19 11/30/18 10:00 BP 128/66 11/30/18 10:00 Pulse Ox 95 11/30/18 10:00 Intake & Output 11/29/18 11/30/18 11/30/18 18:59 06:59 18:59 Intake Total 2395.81 3032.617 1138.2 Output Total 1450 1505 605 Balance 945.81 1527.617 533.2 Weight 127.3 kg Intake: IV 2195.81 2884.15 1138.2 Fat Emulsion 20% 250 ml @ 145.81 104.15 83.2 20.833 mls/hr IV DAILY [facility] Rx#:[id number] Mvi, Adult No.4 with Vit 210 K 10 ml Trace (Conc-1Ml/ Dose) 1 ml Parenteral Electrolytes 20 ml In Amino Acid 5%-D15w 1,000 ml @ 30 mls/hr IV .Q24H [facility] Rx#:[id number] Piperacillin-Tazobactam 3 175 125 100 .375 gm In Sodium Chloride 0.9% 100 ml @ 25 mls/hr IVPB Q8HR [facility] Rx# :[id number] Sodium Acetate 25 meq 380 1140 380 Potassium Phosphate 20 mmol Calcium Gluconate 1 gm In Amino Acid 5%-D15w 1,000 ml @ 95 mls/hr IV . BY DURATION [facility] Rx#: [id number] Sodium Chloride 0.9% 1, 1085 1315 475 000 ml @ 125 mls/hr IV . Q8H [facility] Rx#:[id number] metroNIDAZOLE-NS PMX 500 200 200 100 mg In Saline 1 100ml.bag @ 100 mls/hr IVPB Q6H [facility] Rx#:[id number] Intake, IV Titration 148.467 Amount Ropivacaine 400 mg 148.467 Hydromorphone (Pf) 7.5 mg In Sodium Chloride 0.9% 169 ml @ Per Protocol EPIDURAL .Q0M PRN Rx#: [id number] Other 200 Output: Gastric Drainage 300 Drainage 120 195 200 Right Lower Abdomen 120 195 200 Urine 1030 1310 405 Other: Voiding Method Indwelling Catheter Indwelling Catheter - Exam GENERAL: Laying in bed, awake. EYES: Pupils equal. Conjunctiva normal. HEENT: External appearance of nose and ears normal, oral cavity grossly normal.NG tube in place NECK: JVD not raised; masses not palpable. HEART: Heart sounds irregular; some edema . LUNGS: Respiratory rate normal; slightly decreased breath sounds. ABDOMEN: distended, wound VAC in place, NICO drain, bowel sounds absent PSYCH: Alert and oriented x3; mood and affect anxious. - Labs CBC & Chem 7: 11/30/18 05:30 11/30/18 05:30 Labs: Abnormal Lab Results - Last 24 Hours (Table) 11/29/18 11/30/18 11/30/18 Range/Units 17:53 00:07 05:30 WBC (3.8-10.6) k/uL RBC (4.30-5.90) m/uL Hgb (13.0-17.5) gm/dL Hct (39.0-53.0) % Neutrophils # (1.3-7.7) k/uL Lymphocytes # (1.0-4.8) k/uL Sodium 146 H (137-145) mmol/L Chloride 117 H (98-107) mmol/L BUN 27 H (9-20) mg/dL Glucose 129 H (74-99) mg/dL POC Glucose (mg/dL) 122 H 128 H (75-99) mg/dL Calcium 7.0 L (8.4-10.2) mg/dL Phosphorus 2.1 L (2.5-4.5) mg/dL Albumin 1.8 L (3.5-5.0) g/dL 11/30/18 11/30/18 11/30/18 Range/Units 05:30 05:31 05:32 WBC 17.8 H (3.8-10.6) k/uL RBC 3.37 L (4.30-5.90) m/uL Hgb 10.4 L (13.0-17.5) gm/dL Hct 32.4 L (39.0-53.0) % Neutrophils # 16.2 H (1.3-7.7) k/uL Lymphocytes # 0.6 L (1.0-4.8) k/uL Sodium (137-145) mmol/L Chloride (98-107) mmol/L BUN (9-20) mg/dL Glucose (74-99) mg/dL POC Glucose (mg/dL) 135 H 135 H (75-99) mg/dL Calcium (8.4-10.2) mg/dL Phosphorus (2.5-4.5) mg/dL Albumin (3.5-5.0) g/dL 11/30/18 Range/Units 05:45 WBC (3.8-10.6) k/uL RBC (4.30-5.90) m/uL Hgb (13.0-17.5) gm/dL Hct (39.0-53.0) % Neutrophils # (1.3-7.7) k/uL Lymphocytes # (1.0-4.8) k/uL Sodium (137-145) mmol/L Chloride (98-107) mmol/L BUN (9-20) mg/dL Glucose (74-99) mg/dL POC Glucose (mg/dL) 132 H (75-99) mg/dL Calcium (8.4-10.2) mg/dL Phosphorus (2.5-4.5) mg/dL Albumin (3.5-5.0) g/dL Microbiology - Last 24 Hours (Table) 11/26/18 02:40 Stool Culture - Final Stool 11/27/18 21:15 Gram Stain - Final Abdomen Wound Culture - Final 11/27/18 21:15 Anaerobic Culture - Preliminary Peritoneal Fluid 11/26/18 09:48 Blood Culture - Preliminary Blood No Growth after 72 hours Assessment and Plan Assessment: Assessment: -Diagnostic laparoscopy converted to open exploratory laparotomy, drainage of intra-abdominal abscess right lower quadrant and pelvis, partial omentectomy, partial colectomy, small bowel resection, primary anastomosis ileocolic, abdominal lavage 12 L normal saline, placement of #19 NICO drain right side pelvis, application of incisional wound VAC system universal -Acute GI bleed from multiple duodenal ulcers, from use of NSAIDs and antiplatelet agents, status post EGD on November 25 -Acute blood loss anemia from upper GI bleed, and also some blood loss as expected from surgery as hemoglobin was 12.5 upon discharge -Hypotension improving -New onset atrial flutter fibrillation, not a candidate for anticoagulation the present time -Right hemicolectomy for polyps -Obesity BMI 34.4 -Hyperlipidemia -Essential hypertension -Chronic primary osteoarthritis -Acute renal failure possibly ATN combination of cardiorenal syndrome, loss of fluids, slow to improve -Intra-abdominal abscess, following anastamotic leak. Status post surgery as above Plan: Continue current medication treatment plan. Care was discussed with the patient and family the bedside questions were answered. Patient remains in ICU. Getting IV antibiotics. NG tube with low intermittent suction. TPN and lipids. Prognosis guarded. Time with Patient: Greater than 30
[2018-12-01] MEDS: HYDROcodone/APAP 5-325MG 1 EACH TAB PO PRN ×5 (01:51→23:10)
[2018-12-01] MEDS: SODIUM ACETATE IV SCH ×12 (03:27→15:03)
[2018-12-01] MEDS: POTASSIUM PHOSPHATE IV SCH ×12 (03:27→15:03)
[2018-12-01] MEDS: CALCIUM GLUCONATE IV SCH ×12 (03:27→15:03)
[2018-12-01] MEDS: [UNRECOGNIZED DRUG - OTHER] IV SCH ×12 (03:27→15:03)
[2018-12-01] MEDS: MVI IV SCH ×12 (03:27→15:03)
[2018-12-01] MEDS: INSULIN ASPART (NovoLOG) 100 UNIT/ML VIAL SQ SCH ×4 (03:28→17:40)
[2018-12-01] MEDS: metroNIDAZOLE-NS PMX 500 MG in SALINE 1 100ML.BAG IVPB SCH ×4 (03:32→21:38)
[2018-12-01 05:31] LABS: Glucose,Whole Blood 168 mg/dL (75-99)
[2018-12-01 05:31] LABS: Glucose,Whole Blood 175 mg/dL (75-99)
[2018-12-01 05:35] LABS: Basophils # (A) 0.1 k/uL (0-0.2); Basophils % (A) 0 %; Eosinophils # (A) 0.2 k/uL (0-0.7); Eosinophils % (A) 1 %; HCT 33.2 % (39.0-53.0); HGB 10.2 gm/dL (13.0-17.5); Lymphocytes # (A) 0.4 k/uL (1.0-4.8); Lymphocytes % (A) 2 %; MCH 29.7 pg (25.0-35.0); MCHC 30.9 g/dL (31.0-37.0); MCV 96.2 fL (80.0-100.0); Mean Platelet Volume 7.8; Monocytes # (A) 0.8 k/uL (0-1.0); Monocytes % (A) 4 %; Neutrophils # (A) 18.4 k/uL (1.3-7.7); Neutrophils % (A) 92 %; Platelet Count 230 k/uL (150-450); RBC 3.45 m/uL (4.30-5.90); RDW 14.1 % (11.5-15.5); WBC 20.1 k/uL (3.8-10.6)
[2018-12-01 05:45] LABS: African American GFR (CKD) >90 (>60 ml/min/1.73 sqM); Blood Urea Nitrogen 25 mg/dL (9-20); Calcium 7.1 mg/dL (8.4-10.2); Carbon Dioxide 26 mmol/L (22-30); Glucose 158 mg/dL (74-99); Magnesium 1.9 mg/dL (1.6-2.3); Non-African American GFR(CKD) 81 (>60 ml/min/1.73 sqM); Phosphorus 2.1 mg/dL (2.5-4.5)
[2018-12-01 05:50] LABS: Anion Gap 5 mmol/L; Chloride 114 mmol/L (98-107); Potassium 3.3 mmol/L (3.5-5.1); Sodium 145 mmol/L (137-145)
[2018-12-01] MEDS ORDERED: Potassium Replacement Protocol 1 EACH MISC MISCELLANE PRN (05:55)
[2018-12-01] MEDS ORDERED: Magnesium Replacement Protocol 1 EACH MISC MISCELLANE PRN (05:56)
[2018-12-01] MEDS: MAGNESIUM SULFATE-D5W PMX 1 GM in DEXTROSE/WATER 1 100ML.BAG IVPB SCH ×2 (06:15→08:03)
[2018-12-01] MEDS: SUCRALFATE 1 GM TAB PO SCH ×3 (06:15→17:36)
[2018-12-01] MEDS: POTASSIUM BICARBONATE/CIT AC 20 MEQ TABLET.EFF NG-TUBE SCH ×2 (06:15→08:16)
[2018-12-01] MEDS: PANTOPRAZOLE 40 MG/10 ML VIAL IVP SCH ×2 (08:01→21:36)
[2018-12-01] MEDS: PIPERACILLIN-TAZOBACTAM 3.375 GM in SODIUM CHLORIDE 0.9% 100 ML IVPB SCH ×2 (08:02→16:21)
[2018-12-01] MEDS: AMIODARONE 200 MG TAB PO SCH ×2 (08:16→21:36)
[2018-12-01] MEDS: HEPARIN SODIUM,PORCINE 5,000 UNIT/ML 1 ML VIAL SQ SCH ×2 (08:16→21:36)
[2018-12-01] MEDS: FAT EMULSION 20% 250 ML IV SCH (08:16)
[2018-12-01] MEDS ORDERED: FUROSEMIDE 10 MG/ML 4 ML VIAL IV STA (08:50)
[2018-12-01] MEDS ORDERED: FUROSEMIDE 10 MG/ML 4 ML VIAL IV SCH (09:00)
--- NOTE | 2018-12-01 09:00 | P.PN ---
Subjective Progress Note Date: 12/01/18 This is a 68-year-old male patient is being seen in follow-up in the intensive care unit. The patient has a complicated history. The patient underwent the initial primary colectomy and ileocolic anastomosis to the mid transverse colon. Subsequently, the patient came in with increased abdominal pain, leukocytosis and the patient was taken to the operating room where the patient underwent diagnostic laparoscopy converted to open exploratory laparotomy and the patient underwent drainage of intra-abdominal abscess in the right lower quadrant and pelvis and partial omentectomy and partial colectomy and small bowel resection and primary anastomosis of the ileocolic area in addition to abdominal lavage of 12 L with normal saline and placement of a 19-gauge NICO drain in the right side of the pelvis and incisional wound VAC system was applied. The surgery was done on 11/27/2018 and the patient is currently postop day #3. The patient still has an NG tube in place. Output remains considerably high in the order of 300 mL's over the past 24 hours. Abdomen is nondistended. The patient does not have any flatus. The patient has not produced any bowel movement activity. The patient is afebrile. The patient is hemodynamically stable. The patient is receiving TPN for nutritional support rate of 95 mL an hour. The patient is also on normal saline today to 150 mL an hour. Has been negative over the past 48 hours. The patient has also developed some increased swelling in the upper and lower extremities bilaterally. He is using incentive spirometer. Currently is on 2 L of oxygen nasal cannula. NG tube is in place. No cough or sputum production. No chest pain. No fever or chills. No altered mentation. He remains on accommodation Zosyn and Flagyl. Intra-abdominal cultures of been all negative. On 12/01/2018 I'm seeing this patient for a follow-up. Is awake and alert. He was able to sit up on a chair for half an hour yesterday. He still has an NG tube in place. Output from the NG has been in the order of 300 mL over the past 24 hours, the patient also has a wound VAC in place and this is a superficial wound VAC and the NICO drain in the right lower quadrant. The patient remains on TPN for nutritional support. The neck fluid balance is positive and the patient remains in a positive fluid balance of 10 L and this is related to IV fluids, antibiotics and TPN. He is getting progressively more swollen the upper and lower extremities. The patient given a dose of diuretic yesterday he received a dose of Lasix 20 mg of push. IV fluids were also cut down. He is on 2 L of oxygen nasal cannula. Bowel sounds are hypoactive. No flatus. Surgical site is dry clean and intact. He is postop day #4 following his abdominal surgery. Cultures of been negative. He remains on Zosyn and Flagyl. He is using incentive spirometer. He is awake and alert. No other significant events overnight. Objective - Vital Signs Vital signs: Vital Signs Temp 99.2 F 12/01/18 08:00 Pulse 103 H 12/01/18 08:00 Resp 26 H 12/01/18 08:00 BP 147/77 12/01/18 08:00 Pulse Ox 95 12/01/18 08:00 Intake & Output 11/30/18 12/01/18 12/01/18 18:59 06:59 18:59 Intake Total 3643.7667 1895 440 Output Total 1560 1490 300 Balance 2083.7667 405 140 Weight 127.3 kg Intake: IV 2614.6 1895 340 Fat Emulsion 20% 250 ml @ 249.6 20.833 mls/hr IV DAILY [facility] Rx#:[id number] Piperacillin-Tazobactam 3 200 100 100 .375 gm In Sodium Chloride 0.9% 100 ml @ 25 mls/hr IVPB Q8HR [facility] Rx# :[id number] Sodium Acetate 25 meq 1140 1045 190 Potassium Phosphate 20 mmol Calcium Gluconate 1 gm In Amino Acid 5%-D15w 1,000 ml @ 95 mls/hr IV . BY DURATION [facility] Rx#: [id number] Sodium Chloride 0.9% 1, 825 550 50 000 ml @ 50 mls/hr IV . Q20H [facility] Rx#:[id number] metroNIDAZOLE-NS PMX 500 200 200 mg In Saline 1 100ml.bag @ 100 mls/hr IVPB Q6H [facility] Rx#:[id number] Intake, IV Titration 1029.1667 100 Amount Magnesium Sulfate-D5w Pmx 100 1 gm In Dextrose/Water 1 100ml.bag @ 100 mls/hr IVPB Q1H [facility] Rx#: [id number] Sodium Acetate 25 meq 1029.1667 Potassium Phosphate 20 mmol Calcium Gluconate 1 gm In Amino Acid 5%-D15w 1,000 ml @ 95 mls/hr IV . BY DURATION [facility] Rx#: [id number] Output: Drainage 380 165 50 Right Lower Abdomen 380 165 50 Urine 1180 1325 250 Other: Voiding Method Indwelling Catheter Indwelling Catheter # Voids 1 - Exam Gen. appearance, comfortable likely distress. The patient is currently on oxygen at 2 L and the patient is an NG tube in place. Head exam was generally normal. There was no scleral icterus or corneal arcus. Mucous membranes were moist. Neck was supple and without jugular venous distension, thyromegaly, or carotid bruits. Carotids were easily palpable bilaterally. There was no adenopathy. Lungs sounds are diminished bilaterally especially in the lung bases Cardiac exam revealed the PMI to be normally situated and sized. The rhythm was regular and no extrasystoles were noted during several minutes of auscultation. The first and second heart sounds were normal and physiologic splitting of the second heart sound was noted. There were no murmurs, rubs, clicks, or gallops. Abdomen is slightly distended. Bowel sounds are absent. There is an abdominal wound VAC applied over the anterior abdominal wall. The patient also has a NICO drain #19 in the right lower quadrant. No direct tenderness. No rebound tenderness no guarding. Extremities show +1-2 pitting edema both in upper and lower extremities. No cyanosis. No clubbing. Examination of the skin revealed no evidence of significant rashes, suspicious appearing nevi or other concerning lesions. The patient is a PICC line in the right upper extremity. Neurologic the patient is awake and alert and there is no focal neurological deficit. - Labs CBC & Chem 7: 12/01/18 05:20 12/01/18 05:20 Labs: Abnormal Lab Results - Last 24 Hours (Table) 11/30/18 11/30/18 11/30/18 Range/Units 11:59 17:41 20:34 WBC (3.8-10.6) k/uL RBC (4.30-5.90) m/uL Hgb (13.0-17.5) gm/dL Hct (39.0-53.0) % MCHC (31.0-37.0) g/dL Neutrophils # (1.3-7.7) k/uL Lymphocytes # (1.0-4.8) k/uL Potassium (3.5-5.1) mmol/L Chloride (98-107) mmol/L BUN (9-20) mg/dL Glucose (74-99) mg/dL POC Glucose (mg/dL) 133 H 119 H 126 H (75-99) mg/dL Calcium (8.4-10.2) mg/dL Phosphorus (2.5-4.5) mg/dL 12/01/18 12/01/18 12/01/18 Range/Units 05:20 05:20 05:26 WBC 20.1 H (3.8-10.6) k/uL RBC 3.45 L (4.30-5.90) m/uL Hgb 10.2 L (13.0-17.5) gm/dL Hct 33.2 L (39.0-53.0) % MCHC 30.9 L (31.0-37.0) g/dL Neutrophils # 18.4 H (1.3-7.7) k/uL Lymphocytes # 0.4 L (1.0-4.8) k/uL Potassium 3.3 L (3.5-5.1) mmol/L Chloride 114 H (98-107) mmol/L BUN 25 H (9-20) mg/dL Glucose 158 H (74-99) mg/dL POC Glucose (mg/dL) 168 H (75-99) mg/dL Calcium 7.1 L (8.4-10.2) mg/dL Phosphorus 2.1 L (2.5-4.5) mg/dL 12/01/18 Range/Units 05:27 WBC (3.8-10.6) k/uL RBC (4.30-5.90) m/uL Hgb (13.0-17.5) gm/dL Hct (39.0-53.0) % MCHC (31.0-37.0) g/dL Neutrophils # (1.3-7.7) k/uL Lymphocytes # (1.0-4.8) k/uL Potassium (3.5-5.1) mmol/L Chloride (98-107) mmol/L BUN (9-20) mg/dL Glucose (74-99) mg/dL POC Glucose (mg/dL) 175 H (75-99) mg/dL Calcium (8.4-10.2) mg/dL Phosphorus (2.5-4.5) mg/dL Microbiology - Last 24 Hours (Table) 11/26/18 09:48 Blood Culture - Preliminary Blood No Growth after 96 hours 11/26/18 02:40 Stool Culture - Final Stool Assessment and Plan Plan: 1 Localized intra-abdominal abscess of the right lower quadrant that and an anastomotic leak, the patient is post open expiratory laparotomy, drainage of intra-abdominal abscess, partial omentectomy, partial colectomy, small bowel resection, primary ileocolic anastomosis and abdominal lavage and placement of a NICO drain in the right lower quadrant/pelvic area and the patient is postop day #4. The patient continues to be on TPN for nutritional support. Bowel sounds are hypoactive. No flatus. 2 NPO post abdominal surgery and the patient continues to have excessive amount of output from his NG tube 3 TPN for nutritional support 4 hypotension recovered, currently normotensive 5 hyperlipidemia 6 hypertension 7 history of CVA 8 history of rheumatoid arthritis 9 mild bronchial asthma 10 kidney stones 11 obesity 12 hypokalemia 13 A. fib with RVR current rhythm is back to sinus, and the patient is on amiodarone Plan Face potassium. IV fluids to KVO. 40 mg IV Lasix. Continue TPN. Continue Flagyl. Continue Zosyn. Incentive spirometer. Physical therapy. We'll continue to follow.
[2018-12-01] MEDS: METOPROLOL TARTRATE 25 MG TAB PO SCH ×2 (11:07→21:36)
[2018-12-01 11:59] LABS: Glucose,Whole Blood 153 mg/dL (75-99)
--- NOTE | 2018-12-01 12:08 | PN ---
PROGRESS NOTE A 68-year-old patient with right hemicolectomy, hypertension, dyslipidemia, prior CVA is in the ICU following surgery, still has drains and is edematous, but overall has improved quite a bit. No longer has the epidural. He is currently in AFib with controlled ventricular rate. On exam, patient is in AFib, blood pressure is normal. Chest exam reveals good air entry. Heart exam reveals first and second heart sounds irregular rhythm exam of the extremities reveals trace edema lab show that the hemoglobin is 10.2, creatinine is 0.98 assessment chronic atrial fibrillation with fairly well controlled ventricular rate. The patient will continue current medications. Will resume the anticoagulant when okay with the surgeon. MMLENYL / IJN: [id number] /
[2018-12-01] MEDS: SIMETHICONE 40 MG/0.6 ML DROPS 2,000 MG/30 ML BOTTLE PO SCH ×3 (12:10→21:43)
--- NOTE | 2018-12-01 14:46 | P.PN ---
Subjective Progress Note Date: 12/01/18 CHIEF COMPLAINT: Pancreatitis with upper GI bleed HISTORY OF PRESENT ILLNESS: patient is status post diagnostic laparoscopy converted to open exploratory laparotomy, drainage of intractable abdominal abscess right lower quadrant and pelvis, partial omentectomy, partial colectomy, small bowel resection, primary anastomosis ileocolic, and abdominal lavage completed on 11/27/18. POD #4. Patient examined at the bedside in the ICU. He is sitting up in the chair. He denies passing flatus. Denies BM. NG to LIS. No output documented for last 12 hours in EMR. NICO drain with serosanguinous drainage. WBC increased to 20.1. he is afebrile. Using IS but encouraged more frequent use. PHYSICAL EXAM: VITAL SIGNS: Currently stable. GENERAL: Well-developed in no acute distress. HEENT: NG to LIS with bilous output. No sclera icterus. Extraocular movements grossly intact. Moist buccal mucosa. Head is atraumatic, normocephalic. Hears conversational speech. No nasal drainage. NECK: Supple without lymphadenopathy. CHEST: Non-labored respirations and equal bilateral excursions. CARDIOVASCULAR: Irregular rate with regular rhythm. Palpable 2+ radial pulses. ABDOMEN: Soft. Distended. Hypoactive bowel sounds. Tenderness with palpation. PREVENA intact. NICO to right lower quadrant with serosanguinous drainage MUSCULOSKELETAL: No clubbing or cyanosis. +1-2 bilateral upper and lower extremity edema NEUROLOGIC: No focal or lateralizing signs. Cranial nerves II through XII grossly intact. PSYCH: Appropriate affect. Alert and oriented to person, place and time. SKIN: Well perfused. Good skin turgor. ASSESSMENT: 1. Acute upper gastrointestinal bleed secondary to acute bleeding duodenal ulcers 2. Acute pancreatitis, resolving 3. Acute cholecystitis, stable 4. Severe obstructive uropathy, pre-existing 5. Acute bilateral lower extremity edema 6. Ileus secondary to acute pancreatitis 7. S/P diagnostic laparoscopy converted to open exploratory laparotomy, drainage of intractable abdominal abscess right lower quadrant and pelvis, partial omentectomy, partial colectomy, small bowel resection, primary anastomosis ileocolic, and abdominal lavage PLAN: 1. Await bowel function 2. Continue NG to LIS 3. Continue TPN 4. Pain control 5. Continue chauhan catheter for accurate I&O 6. Incentive spirometry 7. Activity as tolerated 8. Continue to monitor WBC. infectious disease following 9. Will discuss anticoagulation with Dr. Moss as patient did have recent acute upper GI bleed with bleeding duodenal ulcers and recent EGD. At that time, patient was taking Plavix and NSAIDS which were discontinued by Dr. Jackson. Patient is at high risk to resume anticoagulation secondary to bleeding. Nurse practitioner note has been reviewed by physician. Signing provider agrees with the documented findings, assessment, and plan of care. Objective - Vital Signs Vital signs: Vital Signs Temp 98.9 F 12/01/18 12:00 Pulse 83 12/01/18 13:00 Resp 22 12/01/18 13:00 BP 158/74 12/01/18 13:00 Pulse Ox 95 12/01/18 13:00 Intake & Output 11/30/18 12/01/18 12/01/18 18:59 06:59 18:59 Intake Total 3643.7667 1895 1380 Output Total 1560 1490 2460 Balance 2083.7667 405 -1080 Weight 127.3 kg 127.3 kg Intake: IV 2614.6 1895 1120 Fat Emulsion 20% 250 ml @ 249.6 105 20.833 mls/hr IV DAILY [facility] Rx#:[id number] Piperacillin-Tazobactam 3 200 100 100 .375 gm In Sodium Chloride 0.9% 100 ml @ 25 mls/hr IVPB Q8HR [facility] Rx# :[id number] Sodium Acetate 25 meq 1140 1045 665 Potassium Phosphate 20 mmol Calcium Gluconate 1 gm In Amino Acid 5%-D15w 1,000 ml @ 95 mls/hr IV . BY DURATION [facility] Rx#: [id number] Sodium Chloride 0.9% 1, 825 550 150 000 ml @ 20 mls/hr IV . Q24H [facility] Rx#:[id number] metroNIDAZOLE-NS PMX 500 200 200 100 mg In Saline 1 100ml.bag @ 100 mls/hr IVPB Q6H [facility] Rx#:[id number] Intake, IV Titration 1029.1667 100 Amount Magnesium Sulfate-D5w Pmx 100 1 gm In Dextrose/Water 1 100ml.bag @ 100 mls/hr IVPB Q1H [facility] Rx#: [id number] Sodium Acetate 25 meq 1029.1667 Potassium Phosphate 20 mmol Calcium Gluconate 1 gm In Amino Acid 5%-D15w 1,000 ml @ 95 mls/hr IV . BY DURATION [facility] Rx#: [id number] Other 160 Output: Drainage 380 165 100 Right Lower Abdomen 380 165 100 Urine 1180 1325 2360 Other: Voiding Method Indwelling Catheter Indwelling Catheter Indwelling Catheter # Voids 1 - Labs CBC & Chem 7: 12/01/18 05:20 12/01/18 05:20 Labs: Abnormal Lab Results - Last 24 Hours (Table) 11/30/18 11/30/18 12/01/18 Range/Units 17:41 20:34 05:20 WBC (3.8-10.6) k/uL RBC (4.30-5.90) m/uL Hgb (13.0-17.5) gm/dL Hct (39.0-53.0) % MCHC (31.0-37.0) g/dL Neutrophils # (1.3-7.7) k/uL Lymphocytes # (1.0-4.8) k/uL Potassium 3.3 L (3.5-5.1) mmol/L Chloride 114 H (98-107) mmol/L BUN 25 H (9-20) mg/dL Glucose 158 H (74-99) mg/dL POC Glucose (mg/dL) 119 H 126 H (75-99) mg/dL Calcium 7.1 L (8.4-10.2) mg/dL Phosphorus 2.1 L (2.5-4.5) mg/dL 12/01/18 12/01/18 12/01/18 Range/Units 05:20 05:26 05:27 WBC 20.1 H (3.8-10.6) k/uL RBC 3.45 L (4.30-5.90) m/uL Hgb 10.2 L (13.0-17.5) gm/dL Hct 33.2 L (39.0-53.0) % MCHC 30.9 L (31.0-37.0) g/dL Neutrophils # 18.4 H (1.3-7.7) k/uL Lymphocytes # 0.4 L (1.0-4.8) k/uL Potassium (3.5-5.1) mmol/L Chloride (98-107) mmol/L BUN (9-20) mg/dL Glucose (74-99) mg/dL POC Glucose (mg/dL) 168 H 175 H (75-99) mg/dL Calcium (8.4-10.2) mg/dL Phosphorus (2.5-4.5) mg/dL 12/01/18 Range/Units 11:56 WBC (3.8-10.6) k/uL RBC (4.30-5.90) m/uL Hgb (13.0-17.5) gm/dL Hct (39.0-53.0) % MCHC (31.0-37.0) g/dL Neutrophils # (1.3-7.7) k/uL Lymphocytes # (1.0-4.8) k/uL Potassium (3.5-5.1) mmol/L Chloride (98-107) mmol/L BUN (9-20) mg/dL Glucose (74-99) mg/dL POC Glucose (mg/dL) 153 H (75-99) mg/dL Calcium (8.4-10.2) mg/dL Phosphorus (2.5-4.5) mg/dL Microbiology - Last 24 Hours (Table) 11/26/18 09:48 Blood Culture - Preliminary Blood No Growth after 120 hours Assessment and Plan (1) Acute cholecystitis with chronic cholecystitis Current Visit: Yes Status: Acute Code(s): K81.2 - ACUTE CHOLECYSTITIS WITH CHRONIC CHOLECYSTITIS SNOMED Code(s): 302124291 (2) Acute pancreatitis Current Visit: Yes Status: Acute Code(s): K85.90 - ACUTE PANCREATITIS WITHOUT NECROSIS OR INFECTION, UNSP SNOMED Code(s): 079569141 (3) BMI 37.0-37.9, adult Current Visit: Yes Status: Acute Code(s): Z68.37 - BODY MASS INDEX (BMI) 37.0-37.9, ADULT SNOMED Code(s): 332558595 (4) Bladder atony Current Visit: Yes Status: Acute Code(s): N31.2 - FLACCID NEUROPATHIC BLADDER, NOT ELSEWHERE CLASSIFIED SNOMED Code(s): 110957247 (5) Duodenal ulcer hemorrhage Current Visit: Yes Status: Acute Code(s): K26.4 - CHRONIC OR UNSPECIFIED DUODENAL ULCER WITH HEMORRHAGE SNOMED Code(s): 35784589 (6) Iron deficiency anemia due to chronic blood loss Current Visit: Yes Status: Acute Code(s): D50.0 - IRON DEFICIENCY ANEMIA SECONDARY TO BLOOD LOSS (CHRONIC) SNOMED Code(s): 522646705 (7) Prostatic hyperplasia, benign localized, with obstruction Current Visit: Yes Status: Acute Code(s): N40.1 - BENIGN PROSTATIC HYPERPLASIA WITH LOWER URINARY TRACT SYMP; N13.8 - OTHER OBSTRUCTIVE AND REFLUX UROPATHY SNOMED Code(s): 708966205
[2018-12-01] MEDS: SODIUM CHLORIDE 0.9% 1,000 ML IV SCH (15:04)
[2018-12-01 17:42] LABS: Glucose,Whole Blood 134 mg/dL (75-99)
[2018-12-01] MEDS ORDERED: ANIDULAFUNGIN 200 MG in SODIUM CHLORIDE 0.9% 200 ML IVPB ONE (18:30)
--- NOTE | 2018-12-01 20:20 | PN ---
PROGRESS NOTE DATE OF SERVICE: 12/01/2018. REASON FOR FOLLOWUP: Abdominal abscess. INTERVAL HISTORY: The patient is currently afebrile. The patient has been breathing comfortably. Denies any chest pain. Occasional cough. No nausea, vomiting. Denies any abdominal pain. Still has the NG in and no urinary symptoms. PHYSICAL EXAMINATION: Blood pressure 142/76, pulse of 90, temperature 98, he is 97% on 3 L nasal cannula. General description is an elderly male lying in bed in no distress. Respiratory system: Unlabored breathing, clear to auscultation anteriorly. Heart S1, S2. Regular rate and rhythm. ABDOMEN: Soft, no tenderness. LABS: Hemoglobin is 10.1, white count 20.1 with a BUN of 25, creatinine 0.98. Abdominal culture has been negative so far. DIAGNOSTIC IMPRESSION AND PLAN: Patient with abdominal abscess status post drainage. The patient is currently covered with Zosyn with the white count still elevated and the patient is on amiodarone, contraindicating the use of Diflucan. We will Eraxis and monitor his clinical course closely. Continue supportive care. MMODL / IJN: [id number] /
[2018-12-01 23:58] LABS: Glucose,Whole Blood 146 mg/dL (75-99)
[2018-12-02] MEDS: PIPERACILLIN-TAZOBACTAM 3.375 GM in SODIUM CHLORIDE 0.9% 100 ML IVPB SCH ×3 (00:21→15:17)
[2018-12-02] MEDS: INSULIN ASPART (NovoLOG) 100 UNIT/ML VIAL SQ SCH ×4 (00:21→17:33)
[2018-12-02 05:53] LABS: HCT 31.5 % (39.0-53.0); HGB 10.1 gm/dL (13.0-17.5); Hypochromasia Slight; MCV 96.7 fL (80.0-100.0); Mean Platelet Volume 8.5; Platelet Count 252 k/uL (150-450); RBC 3.26 m/uL (4.30-5.90); RDW 13.9 % (11.5-15.5); WBC 21.2 k/uL (3.8-10.6)
[2018-12-02 05:54] LABS: Glucose,Whole Blood 145 mg/dL (75-99)
[2018-12-02 06:00] LABS: African American GFR (CKD) >90 (>60 ml/min/1.73 sqM); Blood Urea Nitrogen 23 mg/dL (9-20); Calcium 6.8 mg/dL (8.4-10.2); Carbon Dioxide 28 mmol/L (22-30); Glucose 125 mg/dL (74-99); Magnesium 2.1 mg/dL (1.6-2.3); Non-African American GFR(CKD) 89 (>60 ml/min/1.73 sqM); Phosphorus 2.4 mg/dL (2.5-4.5)
[2018-12-02 06:10] LABS: Anion Gap 4 mmol/L; Chloride 114 mmol/L (98-107); Potassium 3.2 mmol/L (3.5-5.1); Sodium 146 mmol/L (137-145)
[2018-12-02] MEDS ORDERED: Potassium Replacement Protocol 1 EACH MISC MISCELLANE PRN (06:11)
[2018-12-02] MEDS: metroNIDAZOLE-NS PMX 500 MG in SALINE 1 100ML.BAG IVPB SCH ×4 (06:39→21:45)
[2018-12-02] MEDS: POTASSIUM BICARBONATE/CIT AC 20 MEQ TABLET.EFF NG-TUBE SCH ×2 (06:39→08:02)
[2018-12-02] MEDS: SUCRALFATE 1 GM TAB PO SCH ×3 (06:41→17:33)
[2018-12-02 07:19] LABS: Band Neutrophils % 7 %; Eosinophils # (M) 0.85 k/uL (0-0.7); Lymphocytes # (M) 1.27 k/uL (1.0-4.8); Metamyelocytes # (M) 0.21 k/uL (0); Metamyelocytes % 1 %; Monocytes # (M) 0.21 k/uL (0-1.0); Myelocytes # (M) 0.21 k/uL (0); Myelocytes % 1 %; Neutrophils % (M) 83 %; Nucleated Red Blood Cells 0 /100 WBC (0-0); Total Cells Counted 200
[2018-12-02 07:21] LABS: Large Platelets Present
[2018-12-02 07:22] LABS: Toxic Granulation Present
[2018-12-02] MEDS: AMIODARONE 200 MG TAB PO SCH ×2 (08:01→20:22)
[2018-12-02] MEDS: FAT EMULSION 20% 250 ML IV SCH (08:02)
[2018-12-02] MEDS: METOPROLOL TARTRATE 25 MG TAB PO SCH ×2 (08:02→20:22)
[2018-12-02] MEDS: HEPARIN SODIUM,PORCINE 5,000 UNIT/ML 1 ML VIAL SQ SCH ×2 (08:02→20:22)
[2018-12-02] MEDS: PANTOPRAZOLE 40 MG/10 ML VIAL IVP SCH ×2 (08:02→20:22)
[2018-12-02] MEDS: SIMETHICONE 40 MG/0.6 ML DROPS 2,000 MG/30 ML BOTTLE PO SCH ×4 (08:03→23:29)
--- NOTE | 2018-12-02 09:55 | XR ---
EXAMINATION TYPE: XR chest 1V portable DATE OF EXAM: 12/02/2018 COMPARISON: Prior chest x-ray 11/26/2018 HISTORY: PICC line placement TECHNIQUE: Single frontal view of the chest is obtained. FINDINGS: Right-sided PICC line shows the distal tip overlying the subclavian region on the right. N o pneumothorax or pleural effusion. Orogastric tube is in place. Cardiac mediastinal silhouette, pulm onary vascularity and alva within normal limits. IMPRESSION: PICC line placement as described
--- NOTE | 2018-12-02 10:30 | P.PN ---
Subjective Progress Note Date: 12/02/18 Principal diagnosis: Localized intra-abdominal abscess, anastomotic leak status post open expiratory laparotomy, drainage of abscess, partial omentectomy, colectomy, small bowel re section This is a 68-year-old male patient is being seen in follow-up in the intensive care unit. The patient has a complicated history. The patient underwent the initial primary colectomy and ileocolic anastomosis to the mid transverse colon. Subsequently, the patient came in with increased abdominal pain, leukocytosis and the patient was taken to the operating room where the patient underwent diagnostic laparoscopy converted to open exploratory laparotomy and the patient underwent drainage of intra-abdominal abscess in the right lower quadrant and pelvis and partial omentectomy and partial colectomy and small bowel resection and primary anastomosis of the ileocolic area in addition to abdominal lavage of 12 L with normal saline and placement of a 19-gauge NICO drain in the right side o f the pelvis and incisional wound VAC system was applied. The surgery was done on 11/27/2018 and the patient is currently postop day #3. The patient still has an NG tube in place. Output remains considerably high in the order of 300 mL's over the past 24 hours. Abdomen is nondistended. The patient does not have any flatus. The patient has not produced any bowel movement activity. The patient is afebrile. The patient is hemodynamically stable. The patient is receiving TPN for nutritional support rate of 95 mL an hour. The patient is also on normal saline today to 150 mL an hour. Has been negative over the past 48 hours. The patient has also developed some increased swelling in the upper and lower extremities bilaterally. He is using incentive spirometer. Currently is on 2 L of oxygen nasal cannula. NG tube is in place. No cough or sputum production. No chest pain. No fever or chills. No altered mentation. He remains on accommodation Zosyn and Flagyl. Intra-abdominal cultures of been all negative. On 12/01/2018 I'm seeing this patient for a follow-up. Is awake and alert. He was able to sit up on a chair for half an hour yesterday. He still has an NG tube in place. Output from the NG has been in the order of 300 mL over the past 24 hours, the patient also has a wound VAC in place and this is a superficial wound VAC and the NICO drain in the right lower quadrant. The patient remains on TPN for nutritional support. The neck fluid balance is positive and the patient remains in a positive fluid balance of 10 L and this is related to IV fluids, antibiotics and TPN. He is getting progressively more swollen the upper and lower extremities. The patient given a dose of diuretic yesterday he received a dose of Lasix 20 mg of push. IV fluids were also cut down. He is on 2 L of oxygen nasal cannula. Bowel sounds are hypoactive. No flatus. Surgical site is dry clean and intact. He is postop day #4 following his abdominal surgery. Cultures of been negative. He remains on Zosyn and Flagyl. He is using incentive spirometer. He is awake and alert. No other significant events overnight. On 12/02/2018 patient seen in follow-up in the intensive care unit, he is awake and alert, no acute distress, 3 L of oxygen the pulse ox of 96-98%, he is afe brile, hemodynamically stable, patient is passing gas and he had a bowel movement this morning, bowel sounds are present. Patient has been on TPN, however this morning there is a concern about displacement of his PICC line as it has been pulled out slightly. Chest x-ray has been obtained, showing the distal tip of the PICC line overlying the subclavian region on the right, no pneumothorax or pleural effusion. We will consult surgery in regards to starting some oral feedings since the patient is passing stool and gas. Today's labs have been reviewed, showing white blood cell count of 21.2, hemoglobin of 10.1, platelet count of 252, serum sodium is 146, potassium is 3.2, chloride is 114, CO2 is 28, BUN is 23 and creatinine 0.89. All cultures remain negative thus far, currently on a combination of Zosyn, Eraxis and Flagyl. No fever or chills. Objective - Vital Signs Vital signs: Vital Signs Temp 98.6 F 12/02/18 04:00 Pulse 92 12/02/18 07:00 Resp 23 12/02/18 07:00 BP 173/80 12/02/18 07:00 Pulse Ox 98 12/02/18 07:00 Intake & Output 12/01/18 12/02/18 12/02/18 18:59 06:59 18:59 Intake Total 2540 1591 105 Output Total 3210 1840 100 Balance -670 -249 5 Weight 127.3 kg 127.1 kg Intake: IV 1525 1496 105 Fat Emulsion 20% 250 ml @ 210 21 20.833 mls/hr IV DAILY [facility] Rx#:[id number] Piperacillin-Tazobactam 3 200 100 .375 gm In Sodium Chloride 0.9% 100 ml @ 25 mls/hr IVPB Q8HR [facility] Rx# :[id number] Sodium Acetate 25 meq 665 Potassium Phosphate 20 mmol Calcium Gluconate 1 gm In Amino Acid 5%-D15w 1,000 ml @ 95 mls/hr IV . BY DURATION [facility] Rx#: [id number] Sodium Acetate 25 meq 1045 95 Potassium Phosphate 20 mmol Calcium Gluconate 1 gm Mvi, Adult No.4 with Vit K 10 ml Trace (Conc- 1Ml/Dose) 1 ml In Amino Acid 5%-D15w 1,000 ml @ 95 mls/hr IV .BY DURATION [facility] Rx#:[id number] Sodium Chloride 0.9% 1, 250 130 10 000 ml @ 20 mls/hr IV . Q24H [facility] Rx#:[id number] metroNIDAZOLE-NS PMX 500 200 200 mg In Saline 1 100ml.bag @ 100 mls/hr IVPB Q6H [facility] Rx#:[id number] Intake, IV Titration 775 95 Amount Anidulafungin 200 mg In 200 Sodium Chloride 0.9% 200 ml @ 84 mls/hr IVPB ONCE ONE Rx#:[id number] Magnesium Sulfate-D5w Pmx 100 1 gm In Dextrose/Water 1 100ml.bag @ 100 mls/hr IVPB Q1H [facility] Rx#: [id number] Mvi, Adult No.4 with Vit 475 95 K 10 ml Trace (Conc-1Ml/ Dose) 1 ml Potassium Phosphate 10 mmol In Amino Acid 5%-D15w+Lytes* E* 1,000 ml @ 95 mls/hr IV .BY DURATION [facility] Rx#: [id number] Other 240 Output: Gastric Drainage 200 200 Drainage 220 330 Right Lower Abdomen 220 330 Urine 2790 1310 100 Other: Voiding Method Indwelling Catheter Indwelling Catheter - Exam GENERAL EXAM: Alert, pleasant, 68-year-old white male on 3 L of oxygen with a pulse ox of 96-98%, comfortable in no apparent distress. HEAD: Normocephalic/atraumatic. EYES: Normal reaction of pupils, equal size. Conjunctiva pink, sclera white. NOSE: Clear with pink turbinates. THROAT: No erythema or exudates. NECK: No masses, no JVD, no thyroid enlargement, no adenopathy. CHEST: No chest wall deformity. Symmetrical expansion. LUNGS: Equal air entry with no crackles, wheeze, rhonchi or dullness. CVS: Regular rate and rhythm, normal S1 and S2, no gallops, no murmurs, no rubs ABDOMEN: Soft, nontender. No hepatosplenomegaly, no guarding or rigidity. Midabdominal incision is clean dry and intact, abdominal binder is on. Bowel sounds 4 EXTREMITIES: No clubbing, no edema, no cyanosis, 2+ pulses and upper and lower extremities. MUSCULOSKELETAL: Muscle strength and tone normal. SPINE: No scoliosis or deformity SKIN: No rashes CENTRAL NERVOUS SYSTEM: Alert and oriented -3. No focal deficits, tone is normal in all 4 extremities. PSYCHIATRIC: Alert and oriented -3. Appropriate affect. Intact judgment and insight. - Labs CBC & Chem 7: 12/02/18 04:50 12/02/18 04:50 Labs: Abnormal Lab Results - Last 24 Hours (Table) 12/01/18 12/01/18 12/01/18 Range/Units 11:56 17:39 23:44 WBC (3.8-10.6) k/uL RBC (4.30-5.90) m/uL Hgb (13.0-17.5) gm/dL Hct (39.0-53.0) % Neutrophils # (Manual) (1.3-7.7) k/uL Eosinophils # (Manual) (0-0.7) k/uL Metamyelocytes # (Man) (0) k/uL Myelocytes # (Manual) (0) k/uL Sodium (137-145) mmol/L Potassium (3.5-5.1) mmol/L Chloride (98-107) mmol/L BUN (9-20) mg/dL Glucose (74-99) mg/dL POC Glucose (mg/dL) 153 H 134 H 146 H (75-99) mg/dL Calcium (8.4-10.2) mg/dL Phosphorus (2.5-4.5) mg/dL 12/02/18 12/02/1819 Range/Units 04:50 04:50 05:40 WBC 21.2 H (3.8-10.6) k/uL RBC 3.26 L (4.30-5.90) m/uL Hgb 10.1 L (13.0-17.5) gm/dL Hct 31.5 L (39.0-53.0) % Neutrophils # (Manual) 19.00 H (1.3-7.7) k/uL Eosinophils # (Manual) 0.85 H (0-0.7) k/uL Metamyelocytes # (Man) 0.21 H (0) k/uL Myelocytes # (Manual) 0.21 H (0) k/uL Sodium 146 H (137-145) mmol/L Potassium 3.2 L (3.5-5.1) mmol/L Chloride 114 H (98-107) mmol/L BUN 23 H (9-20) mg/dL Glucose 125 H (74-99) mg/dL POC Glucose (mg/dL) 145 H (75-99) mg/dL Calcium 6.8 L (8.4-10.2) mg/dL Phosphorus 2.4 L (2.5-4.5) mg/dL Microbiology - Last 24 Hours (Table) 11/27/18 21:15 Anaerobic Culture - Final Peritoneal Fluid 11/26/18 09:48 Blood Culture - Preliminary Blood No Growth after 120 hours Assessment and Plan Plan: 1 Localized intra-abdominal abscess of the right lower quadrant that and an anastomotic leak, the patient is post open expiratory laparotomy, drainage of intra-abdominal abscess, partial omentectomy, partial colectomy, small bowel resection, primary ileocolic anastomosis and abdominal lavage and placement of a NICO drain in the right lower quadrant/pelvic area and the patient is postop day #5. The patient continues to be on TPN for nutritional support. Bowel sounds are hypoactive. No flatus. 2 NPO post abdominal surgery and the patient continues to have excessive amount of output from his NG tube 3 TPN for nutritional support 4 hypotension recovered, currently normotensive 5 hyperlipidemia 6 hypertension 7 history of CVA 8 history of rheumatoid arthritis 9 mild bronchial asthma 10 kidney stones 11 obesity 12 hypokalemia 13 A. fib with RVR current rhythm is back to sinus, and the patient is on amiodarone Plan: We will discontinue the left arm PICC line as there is a concern about displacement, and in view of patient's passing bowel movements and gas we will consult with surgery about starting oral feedings. Hemodynamically stable. No respiratory complaints, continue encouraging deep breathing and coughing, wean FiO2. Increase activity as tolerated. No fever or chills, his pain is reasonably controlled. Antibiotics per ID service recommendations, we may obtain a midline or on of the PICC line placement depending on the course of recommended antibiotic treatment after discharge. Continue the GI and DVT prophylaxis. We'll follow I performed a history & physical examination of the patient and discussed their management with my nurse practitioner, Karli Peck. I reviewed the nurse practitioner's note and agree with the documented findings and plan of care. Lung sounds are positive for clear, diminished breath sounds. The findings and the impression was discussed with the patient. I attest to the documentation by the nurse practitioner. Time with Patient: Less than 30
[2018-12-02] MEDS: HYDROcodone/APAP 5-325MG 1 EACH TAB PO PRN (10:39)
[2018-12-02] MEDS ORDERED: HEPARIN SODIUM 1,000 UN/ML (10ML VL) ONE (11:11)
[2018-12-02] MEDS ORDERED: LIDOCAINE 1% INJ 10MG/ML (20 ML MDV) ONE (11:11)
[2018-12-02] MEDS: IOPAMIDOL CONTRAST (ORAL USE) VIAL PO PRN ×2 (11:22→12:38)
--- NOTE | 2018-12-02 11:28 | PN ---
PROGRESS NOTE This morning patient remains in atrial fibrillation with controlled ventricular rate. He is not a candidate for anticoagulation because of risk of bleeding, PHYSICAL EXAMINATION: On exam, heart rate is 90 beats per minute. Blood pressure is 135/60. Respiratory rate is 20. Chest exam reveals diminished air entry at the bases. Heart exam reveals first and second heart sounds, irregular rhythm with a systolic murmur at the left lower sternal border. Examination of extremities did not reveal any edema. LABS: Labs show that the hemoglobin is 10.1, platelet count is 250. Potassium is 3.2. Creatinine is 2.8. ASSESSMENT: 1. Chronic atrial fibrillation with controlled ventricular rate. 2. Status post surgery. PLAN: Patient will continue with current medications. No anticoagulation. MMODL / IJN: [id number] /
[2018-12-02 12:11] LABS: Glucose,Whole Blood 84 mg/dL (75-99)
--- NOTE | 2018-12-02 12:13 | XR ---
EXAMINATION TYPE: XR chest 1V portable DATE OF EXAM: 12/02/2018 HISTORY: Shortness of breath. COMPARISON: 12/02/2018 TECHNIQUE: Single view of the chest is submitted. FINDINGS: Demonstrated are scattered senescent parenchymal change. Right-sided PICC line with distal tip overl olena the SVC. No pneumothorax. NG tube seen coursing into the stomach. There is no evidence for focal infiltrate. The heart is stable. Hilar and mediastinal structures are within normal limits. Degenerative changes are seen of the dorsal spine. IMPRESSION: 1. Chronic changes without evidence for acute pulmonary disease.
--- NOTE | 2018-12-02 13:40 | CT ---
EXAMINATION TYPE: CT abdomen pelvis wo con DATE OF EXAM: 12/02/2018 COMPARISON: 11/26/2018 HISTORY: Generalized pain CT DLP: 1209.4 mGycm Examination of the solid and hollow viscera is limited given the lack of contrast. FINDINGS: LUNG BASES: Bilateral pleural effusions right greater than left with underlying atelectasis or infilt rates. LIVER/GB: The gallbladder is unremarkable. No space-occupying hepatic lesion. PANCREAS: No pancreatic mass identified. No inflammatory process seen. SPLEEN: No evidence for splenomegaly. No intrasplenic lesions seen. ADRENALS: No adrenal nodules identified. No evidence for thickening. KIDNEYS: No evidence for renal mass. No nephrolithiasis. No hydronephrosis. The balloon catheter seen within the urinary bladder. Small amount of air is noted within the lumen of the urinary bladder. BOWEL: Resolution of previously noted pneumoperitoneum. Drainage catheter is noted to extend into the right lower quadrant. Midline skin andrea identified. There is free fluid seen within the pelvis as well as interloop regions without definitive abscess at this time. Small bowel distention compatible with mild ileus. Contrast is seen within the colon. Right hemicolectomy changes seen. No evidence fo r leak at this time. Lymph nodes: No evidence for adenopathy greater than 1 cm. Abdominal aorta: Atheromatous changes seen. No evidence for aneurysm. Genital organs: No significant abnormality. Other: No significant abnormality. IMPRESSION: 1. Postoperative changes without evidence for leak or abscess at this time. There is evidence of asci nato. 2. Basilar pleural effusions and atelectasis. 3. Subcutaneous edema may reflect developing anasarca.
--- NOTE | 2018-12-02 14:15 | P.PN ---
Subjective Progress Note Date: 12/02/18 CHIEF COMPLAINT: Pancreatitis with upper GI bleed HISTORY OF PRESENT ILLNESS: patient is status post diagnostic laparoscopy converted to open exploratory laparotomy, drainage of intractable abdominal abscess right lower quadrant and pelvis, partial omentectomy, partial colectomy, small bowel resection, primary anastomosis ileocolic, and abdominal lavage completed on 11/27/18. POD #5. Patient examined at the bedside in the ICU. Patient reports passing flatus and having a small bowel movement. Pain is tolerable. NG to LIS. WBC continues to trend upward. 21.2 today. Patient has been afebrile. CT scan with oral contrast ordered which was negative for leak or abscess. PHYSICAL EXAM: VITAL SIGNS: Reviewed GENERAL: Well-developed in no acute distress. HEENT: NG to LIS with bilous output. No sclera icterus. Extraocular movements grossly intact. Moist buccal mucosa. Head is atraumatic, normocephalic. Hears conversational speech. No nasal drainage. ABDOMEN: Soft. Mildly distended. Positive bowel sounds. Mild tenderness with palpation. PREVENA intact. NICO to right lower quadrant with serosanguinous drainage NEUROLOGIC: Alert and oriented. Cranial nerves II through XII grossly intact. ASSESSMENT: 1. Acute upper gastrointestinal bleed secondary to acute bleeding duodenal ulcers 2. Acute pancreatitis, resolved 3. Acute cholecystitis, stable 4. Severe obstructive uropathy, pre-existing 5. Acute bilateral lower extremity edema 6. Ileus secondary to acute pancreatitis 7. S/P diagnostic laparoscopy converted to open exploratory laparotomy, drainage of intractable abdominal abscess right lower quadrant and pelvis, partial omentectomy, partial colectomy, small bowel resection, primary anastomo sis ileocolic, and abdominal lavage 8. Atrial fibrillation PLAN: 1. Discontinue NG tube 2. Begin clear liquid diet 3. Continue TPN until PO intake improves and ensure patient tolerates diet 4. Patients PICC line was DC this morning as there was suspicious it was displaced. Patient to have PICC line reinserted today to continue TPN and possibility of IV antibiotics at discharge 5. Continue to monitor WBC. Infectious disease following 6. No anticoagulation at this time as patient did have recent acute upper GI bleed with bleeding duodenal ulcers and recent EGD. At that time, patient was taking Plavix and NSAIDS which were discontinued by Dr. Jackson. Patient is at high risk to resume anticoagulation secondary to bleeding. 7. Incentive spirometry 8. Activity as tolerated 9. Continue catheter for accurate I&O and also secondary to patients decreased mobility. Would like to have urinary catheter discontinued as soon as possible due to risk of infection. Will re-evaluate on a daily basis. 10. Will discontinue PREVENA wound system on 12/04/18 Nurse practitioner note has been reviewed by physician. Signing provider agrees with the documented findings, assessment, and plan of care. Objective - Vital Signs Vital signs: Vital Signs Temp 97.7 F 12/02/18 12:00 Pulse 82 12/02/18 12:00 Resp 25 H 12/02/18 12:00 BP 127/66 12/02/18 12:00 Pulse Ox 96 12/02/18 12:00 Intake & Output 12/01/18 12/02/18 12/02/18 18:59 06:59 18:59 Intake Total 2540 1591 2765.1633 Output Total 3210 1840 620 Balance -670 -249 2145.1633 Weight 127.3 kg 127.1 kg 127.1 kg Intake: IV 1525 1496 430.83 Fat Emulsion 20% 250 ml @ 210 21 20.83 20.833 mls/hr IV DAILY [facility] Rx#:[id number] Piperacillin-Tazobactam 3 200 100 100 .375 gm In Sodium Chloride 0.9% 100 ml @ 25 mls/hr IVPB Q8HR [facility] Rx# :[id number] Sodium Acetate 25 meq 665 Potassium Phosphate 20 mmol Calcium Gluconate 1 gm In Amino Acid 5%-D15w 1,000 ml @ 95 mls/hr IV . BY DURATION [facility] Rx#: [id number] Sodium Acetate 25 meq 1045 190 Potassium Phosphate 20 mmol Calcium Gluconate 1 gm Mvi, Adult No.4 with Vit K 10 ml Trace (Conc- 1Ml/Dose) 1 ml In Amino Acid 5%-D15w 1,000 ml @ 95 mls/hr IV .BY DURATION [facility] Rx#:[id number] Sodium Chloride 0.9% 1, 250 130 20 000 ml @ 20 mls/hr IV . Q24H [facility] Rx#:[id number] metroNIDAZOLE-NS PMX 500 200 200 100 mg In Saline 1 100ml.bag @ 100 mls/hr IVPB Q6H [facility] Rx#:[id number] Intake, IV Titration 159 44 1957.3333 Amount Anidulafungin 200 mg In 200 Sodium Chloride 0.9% 200 ml @ 84 mls/hr IVPB ONCE ONE Rx#:[id number] Magnesium Sulfate-D5w Pmx 100 1 gm In Dextrose/Water 1 100ml.bag @ 100 mls/hr IVPB Q1H [facility] Rx#: [id number] Mvi, Adult No.4 with Vit 406 02 1377.3333 K 10 ml Trace (Conc-1Ml/ Dose) 1 ml Potassium Phosphate 10 mmol In Amino Acid 5%-D15w+Lytes* E* 1,000 ml @ 95 mls/hr IV .BY DURATION [facility] Rx#: [id number] Other 240 1320 Output: Gastric Drainage 200 200 Drainage 220 330 155 Right Lower Abdomen 220 330 155 Urine 2790 1310 465 Other: Voiding Method Indwelling Catheter Indwelling Catheter - Labs CBC & Chem 7: 12/02/18 04:50 12/02/18 12:45 Labs: Abnormal Lab Results - Last 24 Hours (Table) 12/01/18 12/01/18 12/02/18 Range/Units 17:39 23:44 04:50 WBC (3.8-10.6) k/uL RBC (4.30-5.90) m/uL Hgb (13.0-17.5) gm/dL Hct (39.0-53.0) % Neutrophils # (Manual) (1.3-7.7) k/uL Eosinophils # (Manual) (0-0.7) k/uL Metamyelocytes # (Man) (0) k/uL Myelocytes # (Manual) (0) k/uL Sodium 146 H (137-145) mmol/L Potassium 3.2 L (3.5-5.1) mmol/L Chloride 114 H (98-107) mmol/L BUN 23 H (9-20) mg/dL Glucose 125 H (74-99) mg/dL POC Glucose (mg/dL) 134 H 146 H (75-99) mg/dL Calcium 6.8 L (8.4-10.2) mg/dL Phosphorus 2.4 L (2.5-4.5) mg/dL 12/02/18 12/02/18 Range/Units 04:50 05:40 WBC 21.2 H (3.8-10.6) k/uL RBC 3.26 L (4.30-5.90) m/uL Hgb 10.1 L (13.0-17.5) gm/dL Hct 31.5 L (39.0-53.0) % Neutrophils # (Manual) 19.00 H (1.3-7.7) k/uL Eosinophils # (Manual) 0.85 H (0-0.7) k/uL Metamyelocytes # (Man) 0.21 H (0) k/uL Myelocytes # (Manual) 0.21 H (0) k/uL Sodium (137-145) mmol/L Potassium (3.5-5.1) mmol/L Chloride (98-107) mmol/L BUN (9-20) mg/dL Glucose (74-99) mg/dL POC Glucose (mg/dL) 145 H (75-99) mg/dL Calcium (8.4-10.2) mg/dL Phosphorus (2.5-4.5) mg/dL Microbiology - Last 24 Hours (Table) 11/26/18 09:48 Blood Culture - Final Blood No Growth after 144 hours 11/27/18 21:15 Anaerobic Culture - Final Peritoneal Fluid Assessment and Plan (1) Acute cholecystitis with chronic cholecystitis Current Visit: Yes Status: Acute Code(s): K81.2 - ACUTE CHOLECYSTITIS WITH CHRONIC CHOLECYSTITIS SNOMED Code(s): 399536330 (2) Acute pancreatitis Current Visit: Yes Status: Acute Code(s): K85.90 - ACUTE PANCREATITIS WITHOUT NECROSIS OR INFECTION, UNSP SNOMED Code(s): 946420888 (3) BMI 37.0-37.9, adult Current Visit: Yes Status: Acute Code(s): Z68.37 - BODY MASS INDEX (BMI) 37.0-37.9, ADULT SNOMED Code(s): 545934038 (4) Bladder atony Current Visit: Yes Status: Acute Code(s): N31.2 - FLACCID NEUROPATHIC BLADDER, NOT ELSEWHERE CLASSIFIED SNOMED Code(s): 974674832 (5) Duodenal ulcer hemorrhage Current Visit: Yes Status: Acute Code(s): K26.4 - CHRONIC OR UNSPECIFIED DUODENAL ULCER WITH HEMORRHAGE SNOMED Code(s): 46405973 (6) Iron deficiency anemia due to chronic blood loss Current Visit: Yes Status: Acute Code(s): D50.0 - IRON DEFICIENCY ANEMIA SECONDARY TO BLOOD LOSS (CHRONIC) SNOMED Code(s): 561230084 (7) Prostatic hyperplasia, benign localized, with obstruction Current Visit: Yes Status: Acute Code(s): N40.1 - BENIGN PROSTATIC HYPERPLA PABLITO WITH LOWER URINARY TRACT SYMP; N13.8 - OTHER OBSTRUCTIVE AND REFLUX UROPATHY SNOMED Code(s): 082446842
[2018-12-02] MEDS ORDERED: POTASSIUM BICARBONATE/CIT AC 20 MEQ TABLET.EFF NG-TUBE SCH (14:30)
[2018-12-02] MEDS: SODIUM CHLORIDE 0.9% 1,000 ML IV SCH (14:48)
--- NOTE | 2018-12-02 15:30 | IR ---
PICC line exchange HISTORY: Malpositioned PICC line, needs long-term intravenous access for total parenteral nutrition Correlation to chest x-ray same date Patient's indwelling PICC line was prepped and draped in a sterile fashion. Lidocaine was used for lo omkar anesthesia. The indwelling PICC line was cut and subsequently withdrawn and exchanged over wire f or the peel-away sheath. Catheter was tailored to appropriate length and advanced such that the tip o f the catheter is at the level of the superior vena cava. Chest x-ray verified placement. Catheter wa s fixed to the skin. Catheter was aspirated and flushed with sterile saline. Hemostasis achieved. No immediate application. IMPRESSION: Status post PICC line exchange. This procedure performed by the undersigned.
--- NOTE | 2018-12-02 16:19 | PN ---
PROGRESS NOTE DATE OF SERVICE: 12/02/2018 REASON FOR FOLLOWUP: Abdominal abscess. INTERVAL HISTORY: The patient is currently afebrile. Patient has been breathing comfortably. Denies having any chest pain. Occasional cough. No nausea, no vomiting, no worsening abdominal pain. PHYSICAL EXAMINATION: Blood pressure 127/56, with pulse of 82, temperature 97.7. He is 96% on 2 L nasal cannula. General description is an elderly male lying in bed in no distress. Respiratory system: Unlabored breathing. Clear to auscultation anteriorly. Heart S1, S2. Regular rate and rhythm. Mild distention. No guarding or rigidity. Extremities: Some trace edema of the feet. LABS: White count 21,000. DIAGNOSTIC IMPRESSION AND PLAN: Patient with abdominal abscess status post drainage, now with worsening of his white count. CT has been done which did show some postoperative changes, but no evidence of new abscess. DIAGNOSTIC IMPRESSION/ PLAN: Patient with abdominal status post drainage. So far culture has been negative. Patient is covered with Zosyn and Eraxis. Those will be continued while monitoring clinical course closely. Continue supportive care. MMODL / IJN: [id number] / FRANCES
[2018-12-02] MEDS: ANIDULAFUNGIN 100 MG in SODIUM CHLORIDE 0.9% 100 ML IVPB SCH (17:33)
[2018-12-02 17:35] LABS: Glucose,Whole Blood 117 mg/dL (75-99)
[2018-12-02 23:49] LABS: Glucose,Whole Blood 131 mg/dL (75-99)
--- NOTE | 2018-12-02 23:51 | P.PN ---
Subjective Progress Note Date: 12/01/18 Principal diagnosis: s/p exploratory laparotomy with colon resection s/p drainage of intra-abdominal abscess right lower quadrant and pelvis This is a pleasant 68-year-old patient of Dr. Sherman. Chronic stable medical conditions include asthma, hypertension, hyperlipidemia, osteoarthritis, rheumatoid arthritis. Patient did have a stroke in 2005 with no residue up. History of kidney stones. Patient on November 20 underwent right hemicolectomy by Dr. Angelito Lacy. Patient was discharged on November 22. Patient had been tolerating a liquid diet. After patient went home he described after second day urine output decreased. Patient also notices swelling of the lower extremity. Also became a bit short of breath. Also patient noticed some diffuse abdominal pain. There was no nausea vomiting area and patient did notice a slight temperature. . Appetite has not been good. Patient had been ambulatory in the house. Patient been having dark stools at home. On November 25 patient did undergo EGD that showed multiple duodenal ulcers with evidence of recent bleeding. Also diaphragmatic hiatal hernia Admitted for the same.subsequently found to have intra-abdominal abscess anastomosis leak. Taking back to the OR. Previous investigations Computed tomography scan of the abdomen-moderate free fluid in the abdomen. Patchy pneumopericardium. Multiple distended fluid-filled loops of small bowel in the abdomen Hemoglobin was 14.3 prior to surgery Renal ultrasound-shows right-sided renal calculi Acute abdominal series reports some element of ileus 2-D echo shows EF of 55-60% 11/29/18 remains in the ICU. Tired. No bowel movement. No output through the wound VAC. NICO drain put out 120 mL overnight. Patient slightly anxious. Family the bedside. Patient remains nothing by mouth. NG tube remains in place. Telemetry shows a flutter/fibrillation-patient went into that couple of days ago. Rate controlled 11/30/18 Patient is currently in the MICU. Patient is status post diagnostic laparoscopy converted to open exploratory Laparotomy, drainage of abdominal abscess right lower quadrant and pelvis. Partial omentectomy, colectomy and small bowel resection, primary anastomosis ileocolic and abdominal lavage completed on 11/27/2018. Patient is currently on NG tube with low intermittent suction. No passage of flatus. NICO drain is in place. Patient is also on TPN via PICC line. PTOT was consulted and patient is attempting to get up to the chair today. Saturating well on nasal cannula oxygen. No complaints of chest pain. No cough or sputum production. No fever no chills. Currently on normal saline at 1 50 mL per hour. Urine output is good. Currently on antibiotic smoke, Zosyn and Flagyl. Intra-abdominal fluid cultures have been negative so far. WBC 17.8. Hemoglobin 10.4, sodium 146, BUN 26 and creatinine 1.1 month calcium 7.0 12/01/2018 Patient is lying in the bed still having abdominal discomfort.. Awake alert and oriented. Patient was able to sit in the chair today. Patient does not have any bowel movement yet. NG tube is in place. Currently saturating well on 2 L oxygen only on nausea cannula. Continued on antibiotics in the form of Zosyn and Flagyl. No fever no chills. Surgical site is intact. General surgery and pulmonary is on board. Review of systems: Was done for constitutional, cardiovascular, GI, pulmonary. relevant finding as above Current medications reviewed. Objective - Vital Signs Vital signs: Vital Signs Temp 98.9 F 12/01/18 12:00 Pulse 87 12/01/18 16:00 Resp 21 12/01/18 16:00 BP 145/77 12/01/18 16:00 Pulse Ox 96 12/01/18 16:00 Intake & Output 11/30/18 12/01/18 12/01/18 18:59 06:59 18:59 Intake Total 3643.7667 1895 1988 Output Total 1560 1490 3050 Balance 2083.7667 405 -1062 Weight 127.3 kg 127.3 kg Intake: IV 2614.6 1895 1443 Fat Emulsion 20% 250 ml @ 249.6 168 20.833 mls/hr IV DAILY [facility] Rx#:[id number] Piperacillin-Tazobactam 3 200 100 200 .375 gm In Sodium Chloride 0.9% 100 ml @ 25 mls/hr IVPB Q8HR [facility] Rx# :[id number] Sodium Acetate 25 meq 1140 1045 665 Potassium Phosphate 20 mmol Calcium Gluconate 1 gm In Amino Acid 5%-D15w 1,000 ml @ 95 mls/hr IV . BY DURATION [facility] Rx#: [id number] Sodium Chloride 0.9% 1, 825 550 210 000 ml @ 20 mls/hr IV . Q24H [facility] Rx#:[id number] metroNIDAZOLE-NS PMX 500 200 200 200 mg In Saline 1 100ml.bag @ 100 mls/hr IVPB Q6H [facility] Rx#:[id number] Intake, IV Titration 1029.1667 385 Amount Magnesium Sulfate-D5w Pmx 100 1 gm In Dextrose/Water 1 100ml.bag @ 100 mls/hr IVPB Q1H [facility] Rx#: [id number] Mvi, Adult No.4 with Vit 285 K 10 ml Trace (Conc-1Ml/ Dose) 1 ml Potassium Phosphate 10 mmol In Amino Acid 5%-D15w+Lytes* E* 1,000 ml @ 95 mls/hr IV .BY DURATION [facility] Rx#: [id number] Sodium Acetate 25 meq 1029.1667 Potassium Phosphate 20 mmol Calcium Gluconate 1 gm In Amino Acid 5%-D15w 1,000 ml @ 95 mls/hr IV . BY DURATION [facility] Rx#: [id number] Other 160 Output: Gastric Drainage 200 Drainage 380 165 220 Right Lower Abdomen 380 165 220 Urine 1180 1325 2630 Other: Voiding Method Indwelling Catheter Indwelling Catheter Indwelling Catheter # Voids 1 - Exam GENERAL: Laying in bed, awake. EYES: Pupils equal. Conjunctiva normal. HEENT: External appearance of nose and ears normal, oral cavity grossly normal.NG tube in place NECK: JVD not raised; masses not palpable. HEART: Heart sounds irregular; some edema . LUNGS: Respiratory rate normal; slightly decreased breath sounds. ABDOMEN: distended, wound VAC in place, NICO drain, bowel sounds absent PSYCH: Alert and oriented x3; mood and affect anxious. - Labs CBC & Chem 7: 12/02/18 04:50 12/02/18 12:45 Labs: Abnormal Lab Results - Last 24 Hours (Table) 11/30/18 11/30/18 12/01/18 Range/Units 17:41 20:34 05:20 WBC (3.8-10.6) k/uL RBC (4.30-5.90) m/uL Hgb (13.0-17.5) gm/dL Hct (39.0-53.0) % MCHC (31.0-37.0) g/dL Neutrophils # (1.3-7.7) k/uL Lymphocytes # (1.0-4.8) k/uL Potassium 3.3 L (3.5-5.1) mmol/L Chloride 114 H (98-107) mmol/L BUN 25 H (9-20) mg/dL Glucose 158 H (74-99) mg/dL POC Glucose (mg/dL) 119 H 126 H (75-99) mg/dL Calcium 7.1 L (8.4-10.2) mg/dL Phosphorus 2.1 L (2.5-4.5) mg/dL 12/01/18 12/01/18 12/01/18 Range/Units 05:20 05:26 05:27 WBC 20.1 H (3.8-10.6) k/uL RBC 3.45 L (4.30-5.90) m/uL Hgb 10.2 L (13.0-17.5) gm/dL Hct 33.2 L (39.0-53.0) % MCHC 30.9 L (31.0-37.0) g/dL Neutrophils # 18.4 H (1.3-7.7) k/uL Lymphocytes # 0.4 L (1.0-4.8) k/uL Potassium (3.5-5.1) mmol/L Chloride (98-107) mmol/L BUN (9-20) mg/dL Glucose (74-99) mg/dL POC Glucose (mg/dL) 168 H 175 H (75-99) mg/dL Calcium (8.4-10.2) mg/dL Phosphorus (2.5-4.5) mg/dL 12/01/18 Range/Units 11:56 WBC (3.8-10.6) k/uL RBC (4.30-5.90) m/uL Hgb (13.0-17.5) gm/dL Hct (39.0-53.0) % MCHC (31.0-37.0) g/dL Neutrophils # (1.3-7.7) k/uL Lymphocytes # (1.0-4.8) k/uL Potassium (3.5-5.1) mmol/L Chloride (98-107) mmol/L BUN (9-20) mg/dL Glucose (74-99) mg/dL POC Glucose (mg/dL) 153 H (75-99) mg/dL Calcium (8.4-10.2) mg/dL Phosphorus (2.5-4.5) mg/dL Microbiology - Last 24 Hours (Table) 11/26/18 09:48 Blood Culture - Preliminary Blood No Growth after 120 hours Assessment and Plan Assessment: Assessment: -Diagnostic laparoscopy converted to open exploratory laparotomy, drainage of intra-abdominal abscess right lower quadrant and pelvis, partial omentectomy, partial colectomy, small bowel resection, primary anastomosis ileocolic, abdo chidi lavage 12 L normal saline, placement of #19 NICO drain right side pelvis, application of incisional wound VAC system universal -Acute GI bleed from multiple duodenal ulcers, from use of NSAIDs and antiplatelet agents, status post EGD on November 25 -Acute blood loss anemia from upper GI bleed, and also some blood loss as expected from surgery as hemoglobin was 12.5 upon discharge -Hypotension improving -New onset atrial flutter fibrillation, not a candidate for anticoagulation the present time -Right hemicolectomy for polyps -Obesity BMI 34.4 -Hyperlipidemia -Essential hypertension -Chronic primary osteoarthritis -Acute renal failure possibly ATN combination of cardiorenal syndrome, loss of fluids, slow to improve -Intra-abdominal abscess, following anastamotic leak. Status post surgery as above Plan: Continue current medication treatment plan. Care was discussed with the patient and family the bedside questions were answered. Patient remains in ICU. Getting IV antibiotics. NG tube with low intermittent suction. TPN and lipids. Prognosis guarded. Time with Patient: Greater than 30
--- NOTE | 2018-12-02 23:55 | P.PN ---
Subjective Progress Note Date: 12/02/18 Principal diagnosis: s/p exploratory laparotomy with colon resection s/p drainage of intra-abdominal abscess right lower quadrant and pelvis This is a pleasant 68-year-old patient of Dr. Sherman. Chronic stable medical conditions include asthma, hypertension, hyperlipidemia, osteoarthritis, rheumatoid arthritis. Patient did have a stroke in 2005 with no residue up. History of kidney stones. Patient on November 20 underwent right hemicolectomy by Dr. Angelito Lacy. Patient was discharged on November 22. Patient had been tolerating a liquid diet. After patient went home he described after second day urine output decreased. Patient also notices swelling of the lower extremity. Also became a bit short of breath. Also patient noticed some diffuse abdominal pain. There was no nausea vomiting area and patient did notice a slight temperature. . Appetite has not been good. Patient had been ambulatory in the house. Patient been having dark stools at home. On November 25 patient did undergo EGD that showed multiple duodenal ulcers with evidence of recent bleeding. Also diaphragmatic hiatal hernia Admitted for the same.subsequently found to have intra-abdominal abscess anastomosis leak. Taking back to the OR. Previous investigations Computed tomography scan of the abdomen-moderate free fluid in the abdomen. Patchy pneumopericardium. Multiple distended fluid-filled loops of small bowel in the abdomen Hemoglobin was 14.3 prior to surgery Renal ultrasound-shows right-sided renal calculi Acute abdominal series reports some element of ileus 2-D echo shows EF of 55-60% 11/29/18 remains in the ICU. Tired. No bowel movement. No output through the wound VAC. NICO drain put out 120 mL overnight. Patient slightly anxious. Family the bedside. Patient remains nothing by mouth. NG tube remains in place. Telemetry shows a flutter/fibrillation-patient went into that couple of days ago. Rate controlled 11/30/18 Patient is currently in the MICU. Patient is status post diagnostic laparoscopy converted to open exploratory Laparotomy, drainage of abdominal abscess right lower quadrant and pelvis. Partial omentectomy, colectomy and small bowel resection, primary anastomosis ileocolic and abdominal lavage completed on 11/27/2018. Patient is currently on NG tube with low intermittent suction. No passage of flatus. NICO drain is in place. Patient is also on TPN via PICC line. PTOT was consulted and patient is attempting to get up to the chair today. Saturating well on nasal cannula oxygen. No complaints of chest pain. No cough or sputum production. No fever no chills. Currently on normal saline at 1 50 mL per hour. Urine output is good. Currently on antibiotic smoke, Zosyn and Flagyl. Intra-abdominal fluid cultures have been negative so far. WBC 17.8. Hemoglobin 10.4, sodium 146, BUN 26 and creatinine 1.1 month calcium 7.0 12/01/2018 Patient is lying in the bed still having abdominal discomfort.. Awake alert and oriented. Patient was able to sit in the chair today. Patient does not have any bowel movement yet. NG tube is in place. Currently saturating well on 2 L oxygen only on nausea cannula. Continued on antibiotics in the form of Zosyn and Flagyl. No fever no chills. Surgical site is intact. General surgery and pulmonary is on board. 02/02/2019 Patient is more awake and alert and oriented today. Patient did have a bowel movement. NG tube has been discontinued. Patient was started on clear liquid diet. Currently saturating well on nasal cannula oxygen. No complaints of chest pain or worsening shortness of breath. Chest x-ray showed distal tip of the PICC line overlying the subclavian. No pneumothorax. No pleural effusion. Leukocytosis is increasing to 21.2 today. Hemoglobin 10.1 and platelet count 252. Sodium 146 and potassium 3.2 improved to 3.6 today. Patient has been afebrile. Review of systems: Was done for constitutional, cardiovascular, GI, pulmonary. relevant finding as above Current medications reviewed. Objective - Vital Signs Vital signs: Vital Signs Temp 99.1 F 12/02/18 20:00 Pulse 106 H 12/02/18 21:00 Resp 20 12/02/18 21:00 BP 156/75 12/02/18 21:00 Pulse Ox 92 L 12/02/18 21:00 Intake & Output 12/02/18 12/02/18 12/03/18 06:59 18:59 06:59 Intake Total 1591 3720.1433 162.49 Output Total 1840 1480 380 Balance -249 2240.1433 -217.51 Weight 127.1 kg 127.1 kg Intake: IV 1496 925.81 122.49 Anidulafungin 100 mg In 100 Sodium Chloride 0.9% 100 ml @ 84 mls/hr IVPB Q24H [facility] Rx#:[id number] Fat Emulsion 20% 250 ml @ 21 145.81 62.49 20.833 mls/hr IV DAILY [facility] Rx#:[id number] Mvi, Adult No.4 with Vit 0 K 10 ml Trace (Conc-1Ml/ Dose) 1 ml Potassium Phosphate 10 mmol In Amino Acid 5%-D15w+Lytes* E* 1,000 ml @ 80 mls/hr IV .BY DURATION [facility] Rx#: [id number] Piperacillin-Tazobactam 3 100 200 .375 gm In Sodium Chloride 0.9% 100 ml @ 25 mls/hr IVPB Q8HR [facility] Rx# :[id number] Sodium Acetate 25 meq 1045 190 Potassium Phosphate 20 mmol Calcium Gluconate 1 gm Mvi, Adult No.4 with Vit K 10 ml Trace (Conc- 1Ml/Dose) 1 ml In Amino Acid 5%-D15w 1,000 ml @ 95 mls/hr IV .BY DURATION [facility] Rx#:[id number] Sodium Chloride 0.9% 1, 130 90 60 000 ml @ 20 mls/hr IV . Q24H [facility] Rx#:[id number] metroNIDAZOLE-NS PMX 500 200 200 mg In Saline 1 100ml.bag @ 100 mls/hr IVPB Q6H [facility] Rx#:[id number] Intake, IV Titration 95 1014.3333 40 Amount Mvi, Adult No.4 with Vit 40 K 10 ml Trace (Conc-1Ml/ Dose) 1 ml Potassium Phosphate 10 mmol In Amino Acid 5%-D15w+Lytes* E* 1,000 ml @ 80 mls/hr IV .BY DURATION [facility] Rx#: [id number] Mvi, Adult No.4 with Vit 95 1014.3333 K 10 ml Trace (Conc-1Ml/ Dose) 1 ml Potassium Phosphate 10 mmol In Amino Acid 5%-D15w+Lytes* E* 1,000 ml @ 95 mls/hr IV .BY DURATION [facility] Rx#: [id number] Oral 360 Other 1420 Output: Gastric Drainage 200 200 Drainage 330 390 120 Right Lower Abdomen 330 390 120 Urine 1310 890 260 Other: Voiding Method Indwelling Catheter Indwelling Catheter Indwelling Catheter # Bowel Movements 1 1 - Exam GENERAL: Laying in bed, awake. EYES: Pupils equal. Conjunctiva normal. HEENT: External appearance of nose and ears normal, oral cavity grossly normal. NECK: JVD not raised; masses not palpable. HEART: Heart sounds irregular; some edema . LUNGS: Respiratory rate normal; slightly decreased breath soundsr. ABDOMEN: distended, wound VAC in place, NICO drain, bowel sounds absent PSYCH: Alert and oriented x3; mood and affect anxious. - Labs CBC & Chem 7: 12/02/18 04:50 12/02/18 12:45 Labs: Abnormal Lab Results - Last 24 Hours (Table) 12/01/18 12/02/18 12/02/18 Range/Units 23:44 04:50 04:50 WBC 21.2 H (3.8-10.6) k/uL RBC 3.26 L (4.30-5.90) m/uL Hgb 10.1 L (13.0-17.5) gm/dL Hct 31.5 L (39.0-53.0) % Neutrophils # (Manual) 19.00 H (1.3-7.7) k/uL Eosinophils # (Manual) 0.85 H (0-0.7) k/uL Metamyelocytes # (Man) 0.21 H (0) k/uL Myelocytes # (Manual) 0.21 H (0) k/uL Sodium 146 H (137-145) mmol/L Potassium 3.2 L (3.5-5.1) mmol/L Chloride 114 H (98-107) mmol/L BUN 23 H (9-20) mg/dL Glucose 125 H (74-99) mg/dL POC Glucose (mg/dL) 146 H (75-99) mg/dL Calcium 6.8 L (8.4-10.2) mg/dL Phosphorus 2.4 L (2.5-4.5) mg/dL 12/02/18 12/02/18 Range/Units 05:40 17:32 WBC (3.8-10.6) k/uL RBC (4.30-5.90) m/uL Hgb (13.0-17.5) gm/dL Hct (39.0-53.0) % Neutrophils # (Manual) (1.3-7.7) k/uL Eosinophils # (Manual) (0-0.7) k/uL Metamyelocytes # (Man) (0) k/uL Myelocytes # (Manual) (0) k/uL Sodium (137-145) mmol/L Potassium (3.5-5.1) mmol/L Chloride (98-107) mmol/L BUN (9-20) mg/dL Glucose (74-99) mg/dL POC Glucose (mg/dL) 145 H 117 H (75-99) mg/dL Calcium (8.4-10.2) mg/dL Phosphorus (2.5-4.5) mg/dL Microbiology - Last 24 Hours (Table) 11/26/18 09:48 Blood Culture - Final Blood No Growth after 144 hours 11/27/18 21:15 Anaerobic Culture - Final Peritoneal Fluid Assessment and Plan Assessment: Assessment: -Diagnostic laparoscopy converted to open exploratory laparotomy, drainage of intra-abdominal abscess right lower quadrant and pelvis, partial omentectomy, partial colectomy, small bowel resection, primary anastomosis ileocolic, abdominal lavage 12 L normal saline, placement of #19 NICO drain right side pelvis, application of incisional wound VAC system universal -Acute GI bleed from multiple duodenal ulcers, from use of NSAIDs and antiplate let agents, status post EGD on November 25 -Acute blood loss anemia from upper GI bleed, and also some blood loss as expected from surgery as hemoglobin was 12.5 upon discharge -Hypotension improving -New onset atrial flutter fibrillation, not a candidate for anticoagulation the present time -Right hemicolectomy for polyps -Obesity BMI 34.4 -Hyperlipidemia -Essential hypertension -Chronic primary osteoarthritis -Acute renal failure possibly ATN combination of cardiorenal syndrome, loss of fluids, slow to improve -Intra-abdominal abscess, following anastamotic leak. Status post surgery as above Plan: Continue current medication treatment plan. Care was discussed with the patient and family the bedside questions were answered. Patient remains in ICU. Getting IV antibiotics. And has been discontinued. Patient did have bowel movement. Started on liquid diet.. TPN and lipids. Increase activity. Prognosis guarded. Time with Patient: Greater than 30
[2018-12-03] MEDS: INSULIN ASPART (NovoLOG) 100 UNIT/ML VIAL SQ SCH ×4 (00:14→17:13)
[2018-12-03] MEDS: PIPERACILLIN-TAZOBACTAM 3.375 GM in SODIUM CHLORIDE 0.9% 100 ML IVPB SCH ×3 (00:25→15:23)
[2018-12-03] MEDS: metroNIDAZOLE-NS PMX 500 MG in SALINE 1 100ML.BAG IVPB SCH ×4 (04:23→21:57)
[2018-12-03 05:23] LABS: HCT 29.6 % (39.0-53.0); HGB 9.3 gm/dL (13.0-17.5); MCH 29.4 pg (25.0-35.0); MCHC 31.5 g/dL (31.0-37.0); MCV 93.2 fL (80.0-100.0); Mean Platelet Volume 8.2; Platelet Count 295 k/uL (150-450); Poikilocytosis Slight; RBC 3.18 m/uL (4.30-5.90); RDW 13.6 % (11.5-15.5)
[2018-12-03 06:08] LABS: Band Neutrophils % 5 %; Eosinophils # (M) 0.51 k/uL (0-0.7); Metamyelocytes # (M) 0.34 k/uL (0); Metamyelocytes % 2 %; Monocytes # (M) 0.34 k/uL (0-1.0); Neutrophils % (M) 82 %; Nucleated Red Blood Cells 1 /100 WBC (0-0); Total Cells Counted 200
[2018-12-03 06:09] LABS: Lymphocytes # (M) 1.01 k/uL (1.0-4.8); WBC 16.9 k/uL (3.8-10.6)
[2018-12-03] MEDS: SUCRALFATE 1 GM TAB PO SCH ×3 (06:53→17:17)
[2018-12-03 07:00] LABS: Ionized Calcium 5.2 mg/dL (4.5-5.3)
[2018-12-03 07:10] LABS: Glucose,Whole Blood 125 mg/dL (75-99)
[2018-12-03 07:14] LABS: ALT 24 U/L (21-72); AST 23 U/L (17-59); African American GFR (CKD) >90 (>60 ml/min/1.73 sqM); Albumin 1.8 g/dL (3.5-5.0); Alkaline Phosphatase 43 U/L (38-126); Anion Gap 1 mmol/L; Blood Urea Nitrogen 22 mg/dL (9-20); Calcium 7.1 mg/dL (8.4-10.2); Carbon Dioxide 28 mmol/L (22-30); Chloride 112 mmol/L (98-107); Glucose 114 mg/dL (74-99); Magnesium 2.1 mg/dL (1.6-2.3); Non-African American GFR(CKD) 85 (>60 ml/min/1.73 sqM); Phosphorus 2.8 mg/dL (2.5-4.5); Potassium 3.4 mmol/L (3.5-5.1); Sodium 141 mmol/L (137-145); Total Bilirubin 0.3 mg/dL (0.2-1.3); Total Protein 4.4 g/dL (6.3-8.2)
[2018-12-03] MEDS: AMIODARONE 200 MG TAB PO SCH ×2 (08:13→21:56)
[2018-12-03] MEDS: PANTOPRAZOLE 40 MG/10 ML VIAL IVP SCH ×2 (08:13→21:57)
[2018-12-03] MEDS: HEPARIN SODIUM,PORCINE 5,000 UNIT/ML 1 ML VIAL SQ SCH ×2 (08:13→21:57)
[2018-12-03] MEDS: METOPROLOL TARTRATE 25 MG TAB PO SCH ×2 (08:13→21:56)
[2018-12-03] MEDS: SIMETHICONE 40 MG/0.6 ML DROPS 2,000 MG/30 ML BOTTLE PO SCH ×4 (08:14→21:56)
[2018-12-03] MEDS: POTASSIUM BICARBONATE/CIT AC 20 MEQ TABLET.EFF NG-TUBE SCH ×3 (09:14→12:27)
[2018-12-03] MEDS ORDERED: TAMSULOSIN 0.4 MG CAP.ER.24H PO STA (09:27)
--- NOTE | 2018-12-03 11:16 | PN ---
PROGRESS NOTE A 68-year-old gentleman who is status post abdominal surgery, remains in AFib with controlled ventricular rate. Not a candidate for anticoagulation. He is on aspirin. Comfortable at rest. Vital signs are stable. Chest exam reveals diminished air entry at the bases. Heart exam reveals first and second heart sounds, irregular rhythm. Abdomen is status post surgery. Exam of extremities reveals 1+ edema. Peripheral pulses are felt. LABS: Showed that the hemoglobin is 9.3, creatinine is 0.9. ASSESSMENT: Chronic atrial fibrillation with controlled ventricular rate. Patient is not a candidate for anticoagulation because of concern with bleed. I will continue the amiodarone and beta blockers that he is on. MMODL / IJN: [id number] /
[2018-12-03 11:39] LABS: Glucose,Whole Blood 123 mg/dL (75-99)
--- NOTE | 2018-12-03 13:37 | P.PN ---
Subjective Progress Note Date: 12/03/18 Principal diagnosis: Localized intra-abdominal abscesses, anastomotic leak status post open exploratory laparotomy, drainage of abscess, partial omentectomy, colectomy and small bowel resection This is a 68-year-old male patient is being seen in follow-up in the intensive care unit. The patient has a complicated history. The patient underwent the initial primary colectomy and ileocolic anastomosis to the mid transverse colon. Subsequently, the patient came in with increased abdominal pain, leukocytosis and the patient was taken to the operating room where the patient underwent diagnostic laparoscopy converted to open exploratory laparotomy and the patient underwent drainage of intra-abdominal abscess in the right lower quadrant and pelvis and partial omentectomy and partial colectomy and small bowel resection and primary anastomosis of the ileocolic area in addition to abdominal lavage of 12 L with normal saline and placement of a 19-gauge NICO drain in the right side of the pelvis and incisional wound VAC system was applied. The surgery was done on 11/27/2018 and the patient is currently postop day #3. The patient still has an NG tube in place. Output remains considerably high in the order of 300 mL's over the past 24 hours. Abdomen is nondistended. The patient does not have any flatus. The patient has not produced any bowel movement activity. The patient is afebrile. The patient is hemodynamically stable. The patient is receiving TPN for nutritional support rate of 95 mL an hour. The patient is also on normal saline today to 150 mL an hour. Has been negative over the past 48 hours. The patient has also developed some increased swelling in the upper and lower extremities bilaterally. He is using incentive spirometer. Currently is on 2 L of oxygen nasal cannula. NG tube is in place. No cough or sputum production. No chest pain. No fever or chills. No altered mentation. He remains on accommodation Zosyn and Flagyl. Intra-abdominal cultures of been all negative. On 12/01/2018 I'm seeing this patient for a follow-up. Is awake and alert. He was able to sit up on a chair for half an hour yesterday. He still has an NG tube in place. Output from the NG has been in the order of 300 mL over the past 24 hours, the patient also has a wound VAC in place and this is a superficial wound VAC and the NICO drain in the right lower quadrant. The patient remains on TPN for nutritional support. The neck fluid balance is positive and the patient remains in a positive fluid balance of 10 L and this is related to IV fluids, antibiotics and TPN. He is getting progressively more swollen the upper and lower extremities. The patient given a dose of diuretic yesterday he received a dose of Lasix 20 mg of push. IV fluids were also cut down. He is on 2 L of oxygen nasal cannula. Bowel sounds are hypoactive. No flatus. Surgical site is dry clean and intact. He is postop day #4 following his abdominal surgery. Cultures of been negative. He remains on Zosyn and Flagyl. He is using incentive spirometer. He is awake and alert. No other significant events overnight. On 12/02/2018 patient seen in follow-up in the intensive care unit, he is awake and alert, no acute distress, 3 L of oxygen the pulse ox of 96-98%, he is afebrile, hemodynamically stable, patient is passing gas and he had a bowel movement this morning, bowel sounds are present. Patient has been on TPN, however this morning there is a concern about displacement of his PICC line as it has been pulled out slightly. Chest x-ray has been obtained, showing the distal tip of the PICC line overlying the subclavian region on the right, no pneumothorax or pleural effusion. We will consult surgery in regards to starting some oral feedings since the patient is passing stool and gas. Today's labs have been reviewed, showing white blood cell count of 21.2, hemoglobin of 10.1, platelet count of 252, serum sodium is 146, potassium is 3.2, chloride is 114, CO2 is 28, BUN is 23 and creatinine 0.89. All cultures remain negative thus far, currently on a combination of Zosyn, Eraxis and Flagyl. No fever or chills. The patient is seen today 12/03/2018 in follow-up in the intensive care unit. He is currently awake and alert in no acute distress. Resting quite comfortably in bed. He had been up in the chair earlier this morning. He is maintaining good O2 saturations in the 90s on room air. He's been afebrile. Hemodynamically stable. Blood urine and wound cultures reveal no growth. White count 16.9. Hemoglobin 9.3. Creatinine 0.94. Computed tomography scan of the abdomen revealed postoperative changes without evidence for leak or abscess. There is evidence of ascites. There is basilar pleural effusions and atelectasis. His nasogastric tube was removed. He is tolerating liquids. He is having bowel movements. Objective - Vital Signs Vital signs: Vital Signs Temp 98.5 F 12/03/18 12:00 Pulse 95 12/03/18 12:00 Resp 21 12/03/18 12:00 BP 146/65 12/03/18 12:00 Pulse Ox 95 12/03/18 12:00 Intake & Output 12/02/18 12/03/18 12/03/18 18:59 06:59 18:59 Intake Total 3720.1433 1444.15 1200 Output Total 1480 1005 445 Balance 2240.1433 439.15 755 Weight 127.1 kg 125.4 kg Intake: IV 925.81 964.15 360 Anidulafungin 100 mg In 100 Sodium Chloride 0.9% 100 ml @ 84 mls/hr IVPB Q24H [facility] Rx#:[id number] Fat Emulsion 20% 250 ml @ 145.81 104.15 20.833 mls/hr IV DAILY [facility] Rx#:[id number] Mvi, Adult No.4 with Vit 0 K 10 ml Trace (Conc-1Ml/ Dose) 1 ml Potassium Phosphate 10 mmol In Amino Acid 5%-D15w+Lytes* E* 1,000 ml @ 80 mls/hr IV .BY DURATION [facility] Rx#: [id number] Piperacillin-Tazobactam 3 200 100 100 .375 gm In Sodium Chloride 0.9% 100 ml @ 25 mls/hr IVPB Q8HR [facility] Rx# :[id number] Sodium Acetate 25 meq 320 80 Potassium Phosphate 20 mmol Calcium Gluconate 1 gm In Amino Acid 5%-D15w 1,000 ml @ 95 mls/hr IV . BY DURATION [facility] Rx#: [id number] Sodium Acetate 25 meq 190 Potassium Phosphate 20 mmol Calcium Gluconate 1 gm Mvi, Adult No.4 with Vit K 10 ml Trace (Conc- 1Ml/Dose) 1 ml In Amino Acid 5%-D15w 1,000 ml @ 95 mls/hr IV .BY DURATION [facility] Rx#:[id number] Sodium Chloride 0.9% 1, 90 240 80 000 ml @ 20 mls/hr IV . Q24H [facility] Rx#:[id number] metroNIDAZOLE-NS PMX 500 200 200 100 mg In Saline 1 100ml.bag @ 100 mls/hr IVPB Q6H [facility] Rx#:[id number] Intake, IV Titration 1014.3333 480 240 Amount Mvi, Adult No.4 with Vit 480 K 10 ml Trace (Conc-1Ml/ Dose) 1 ml Potassium Phosphate 10 mmol In Amino Acid 5%-D15w+Lytes* E* 1,000 ml @ 80 mls/hr IV .BY DURATION [facility] Rx#: [id number] Mvi, Adult No.4 with Vit 1014.3333 K 10 ml Trace (Conc-1Ml/ Dose) 1 ml Potassium Phosphate 10 mmol In Amino Acid 5%-D15w+Lytes* E* 1,000 ml @ 95 mls/hr IV .BY DURATION [facility] Rx#: [id number] Potassium Phosphate 10 240 mmol In Amino Acid 5%- D15w+Lytes*E* 1,000 ml @ 80 mls/hr IV .BY DURATION [facility] Rx#:[id number] Oral 360 600 Other 1420 Output: Gastric Drainage 200 Drainage 390 205 95 Right Lower Abdomen 390 205 95 Urine 890 800 350 Other: Voiding Method Indwelling Catheter Indwelling Catheter Indwelling Catheter # Bowel Movements 1 1 - Exam GENERAL EXAM: Alert, pleasant, 68-year-old male on room air, comfortable in no apparent distress. HEAD: Normocephalic/atraumatic. EYES: Normal reaction of pupils, equal size. Conjunctiva pink, sclera white. NOSE: Clear with pink turbinates. THROAT: No erythema or exudates. NECK: No masses, no JVD, no thyroid enlargement, no adenopathy. CHEST: No chest wall deformity. Symmetrical expansion. LUNGS: Equal air entry with no crackles, wheeze, rhonchi or dullness. CVS: Regular rate and rhythm, normal S1 and S2, no gallops, no murmurs, no rubs ABDOMEN: Soft, nontender. No hepatosplenomegaly, no guarding or rigidity. Midabdominal incision is clean dry and intact, abdominal binder is on. Bowel sounds 4 EXTREMITIES: No clubbing, no edema, no cyanosis, 2+ pulses and upper and lower extremities. MUSCULOSKELETAL: Muscle strength and tone normal. SPINE: No scoliosis or deformity SKIN: No rashes CENTRAL NERVOUS SYSTEM: No focal deficits, tone is normal in all 4 extremities. PSYCHIATRIC: Alert and oriented -3. Appropriate affect. Intact judgment and insight. - Labs CBC & Chem 7: 12/03/18 04:55 12/03/18 04:55 Labs: Abnormal Lab Results - Last 24 Hours (Table) 12/02/18 12/02/18 12/03/18 Range/Units 17:32 23:46 04:55 WBC (3.8-10.6) k/uL RBC (4.30-5.90) m/uL Hgb (13.0-17.5) gm/dL Hct (39.0-53.0) % Neutrophils # (Manual) (1.3-7.7) k/uL Metamyelocytes # (Man) (0) k/uL Nucleated RBCs (0-0) /100 WBC Potassium 3.4 L (3.5-5.1) mmol/L Chloride 112 H (98-107) mmol/L BUN 22 H (9-20) mg/dL Glucose 114 H (74-99) mg/dL POC Glucose (mg/dL) 117 H 131 H (75-99) mg/dL Calcium 7.1 L (8.4-10.2) mg/dL Total Protein 4.4 L (6.3-8.2) g/dL Albumin 1.8 L (3.5-5.0) g/dL 12/03/18 12/03/18 12/03/18 Range/Units 04:55 06:55 11:36 WBC 16.9 H (3.8-10.6) k/uL RBC 3.18 L (4.30-5.90) m/uL Hgb 9.3 L (13.0-17.5) gm/dL Hct 29.6 L (39.0-53.0) % Neutrophils # (Manual) 14.70 H (1.3-7.7) k/uL Metamyelocytes # (Man) 0.34 H (0) k/uL Nucleated RBCs 1 H (0-0) /100 WBC Potassium (3.5-5.1) mmol/L Chloride (98-107) mmol/L BUN (9-20) mg/dL Glucose (74-99) mg/dL POC Glucose (mg/dL) 125 H 123 H (75-99) mg/dL Calcium (8.4-10.2) mg/dL Total Protein (6.3-8.2) g/dL Albumin (3.5-5.0) g/dL Microbiology - Last 24 Hours (Table) 11/26/18 09:48 Blood Culture - Final Blood No Growth after 144 hours Assessment and Plan Assessment: Impression: 1 Localized intra-abdominal abscess of the right lower quadrant that and an anastomotic leak, the patient is post open expiratory laparotomy, drainage of intra-abdominal abscess, partial omentectomy, partial colectomy, small bowel resection, primary ileocolic anastomosis and abdominal lavage and placement of a NCIO drain in the right lower quadrant/pelvic area and the patient is postop day #5. The patient continues to be on TPN for nutritional support. Bowel sounds are hypoactive. No flatus. 2 NPO post abdominal surgery and the patient continues to have excessive amount of output from his NG tube 3 TPN for nutritional support 4 hypotension recovered, currently normotensive 5 hyperlipidemia 6 hypertension 7 history of CVA 8 history of rheumatoid arthritis 9 mild bronchial asthma 10 kidney stones 11 obesity 12 hypokalemia 13 A. fib with RVR current rhythm is back to sinus, and the patient is on amiod arone Plan: The patient was seen and evaluated by Dr. Ko. He is currently stable from the pulmonary and critical care standpoint and could be transferred out of the ICU today. To continue to work with the incentive spirometer. Antibiotics per ID services. PICC line was replaced and the right upper extremity. We'll continue to follow. I, the cosigning physician, performed a history & physical examination of the patient. Lungs sounds with faint crackles in the posterior bases. Maintaining good O2 saturations in the 90s on room air. I discussed the assessment and plan of care with my nurse practitioner, Felicia Walters. I attest to the above note as dictated by her.
--- NOTE | 2018-12-03 14:49 | P.PN ---
Subjective Progress Note Date: 12/03/18 CHIEF COMPLAINT: Pancreatitis with upper GI bleed HISTORY OF PRESENT ILLNESS: patient is status post diagnostic laparoscopy converted to open exploratory laparotomy, drainage of intractable abdominal abscess right lower quadrant and pelvis, partial omentectomy, partial colectomy, small bowel resection, primary anastomosis ileocolic, and abdominal lavage completed on 11/27/18. POD #6. Patient examined in the ICU this morning. He is sitting up in the chair. Patient is passing flatus and having multiple loose bowel movements. He is tolerating clear liquid diet. denies nausea or vomiting. WBC decreased to 16.9. PHYSICAL EXAM: VITAL SIGNS: Reviewed GENERAL: Well-developed in no acute distress. HEENT: NG to LIS with bilous output. No sclera icterus. Extraocular movements grossly intact. Moist buccal mucosa. Head is atraumatic, normocephalic. Hears conversational speech. No nasal drainage. ABDOMEN: Soft. Mildly distended. Positive bowel sounds. Mild tenderness with palpation. PREVENA intact. NICO to right lower quadrant with serosanguinous drainage NEUROLOGIC: Alert and oriented. Cranial nerves II through XII grossly intact. ASSESSMENT: 1. Acute upper gastrointestinal bleed secondary to acute bleeding duodenal ulcers 2. Acute pancreatitis, resolved 3. Acute cholecystitis, stable 4. Severe obstructive uropathy, pre-existing 5. Acute bilateral lower extremity edema 6. Ileus secondary to acute pancreatitis 7. S/P diagnostic laparoscopy converted to open exploratory laparotomy, drainage of intractable abdominal abscess right lower quadrant and pelvis, partial omentectomy, partial colectomy, small bowel resection, primary anastomosis ileocolic, and abdominal lavage 8. Atrial fibrillation PLAN: 1. Advance diet to full liquid 2. Begin Flomax 0.4 mg daily. First dose now. 3. Discontinue Wallace catheter 4. Obtain post void residual 5. If patient tolerates full liquid diet, may wean off TPN this afternoon 6. Continue to monitor WBC. Infectious disease following. Antibiotics per Dr. Martinez 7. No anticoagulation at this time as patient did have recent acute upper GI bleed with bleeding duodenal ulcers and recent EGD. At that time, patient was taking Plavix and NSAIDS which were discontinued by Dr. Jackson. Patient is at high risk to resume anticoagulation secondary to bleeding. 8. Incentive spirometry 9. Activity as tolerated 10. Will discontinue PREVENA wound system on 12/04/18 Nurse practitioner note has been reviewed by physician. Signing provider agrees with the documented findings, assessment, and plan of care. Objective - Vital Signs Vital signs: Vital Signs Temp 98.5 F 12/03/18 12:00 Pulse 95 12/03/18 12:00 Resp 21 12/03/18 12:00 BP 146/65 12/03/18 12:00 Pulse Ox 95 12/03/18 12:00 Intake & Output 12/02/18 12/03/18 12/03/18 18:59 06:59 18:59 Intake Total 3720.1433 1444.15 1960 Output Total 1480 1005 475 Balance 2240.1433 439.15 1485 Weight 127.1 kg 125.4 kg Intake: IV 925.81 964.15 440 Anidulafungin 100 mg In 100 Sodium Chloride 0.9% 100 ml @ 84 mls/hr IVPB Q24H [facility] Rx#:[id number] Fat Emulsion 20% 250 ml @ 145.81 104.15 20.833 mls/hr IV DAILY [facility] Rx#:[id number] Mvi, Adult No.4 with Vit 0 K 10 ml Trace (Conc-1Ml/ Dose) 1 ml Potassium Phosphate 10 mmol In Amino Acid 5%-D15w+Lytes* E* 1,000 ml @ 80 mls/hr IV .BY DURATION [facility] Rx#: [id number] Piperacillin-Tazobactam 3 200 100 100 .375 gm In Sodium Chloride 0.9% 100 ml @ 25 mls/hr IVPB Q8HR [facility] Rx# :[id number] Sodium Acetate 25 meq 320 80 Potassium Phosphate 20 mmol Calcium Gluconate 1 gm In Amino Acid 5%-D15w 1,000 ml @ 95 mls/hr IV . BY DURATION [facility] Rx#: [id number] Sodium Acetate 25 meq 190 Potassium Phosphate 20 mmol Calcium Gluconate 1 gm Mvi, Adult No.4 with Vit K 10 ml Trace (Conc- 1Ml/Dose) 1 ml In Amino Acid 5%-D15w 1,000 ml @ 95 mls/hr IV .BY DURATION [facility] Rx#:[id number] Sodium Chloride 0.9% 1, 90 240 160 000 ml @ 20 mls/hr IV . Q24H [facility] Rx#:[id number] metroNIDAZOLE-NS PMX 500 200 200 100 mg In Saline 1 100ml.bag @ 100 mls/hr IVPB Q6H [facility] Rx#:[id number] Intake, IV Titration 1014.3333 480 560 Amount Mvi, Adult No.4 with Vit 480 K 10 ml Trace (Conc-1Ml/ Dose) 1 ml Potassium Phosphate 10 mmol In Amino Acid 5%-D15w+Lytes* E* 1,000 ml @ 80 mls/hr IV .BY DURATION [facility] Rx#: [id number] Mvi, Adult No.4 with Vit 1014.3333 K 10 ml Trace (Conc-1Ml/ Dose) 1 ml Potassium Phosphate 10 mmol In Amino Acid 5%-D15w+Lytes* E* 1,000 ml @ 95 mls/hr IV .BY DURATION [facility] Rx#: [id number] Potassium Phosphate 10 560 mmol In Amino Acid 5%- D15w+Lytes*E* 1,000 ml @ 80 mls/hr IV .BY DURATION [facility] Rx#:[id number] Oral 360 960 Other 1420 Output: Gastric Drainage 200 Drainage 390 205 125 Right Lower Abdomen 390 205 125 Urine 890 800 350 Other: Voiding Method Indwelling Catheter Indwelling Catheter Indwelling Catheter # Bowel Movements 1 1 1 - Labs CBC & Chem 7: 12/03/18 04:55 12/03/18 04:55 Labs: Abnormal Lab Results - Last 24 Hours (Table) 12/02/18 12/02/18 12/03/18 Range/Units 17:32 23:46 04:55 WBC (3.8-10.6) k/uL RBC (4.30-5.90) m/uL Hgb (13.0-17.5) gm/dL Hct (39.0-53.0) % Neutrophils # (Manual) (1.3-7.7) k/uL Metamyelocytes # (Man) (0) k/uL Nucleated RBCs (0-0) /100 WBC Potassium 3.4 L (3.5-5.1) mmol/L Chloride 112 H (98-107) mmol/L BUN 22 H (9-20) mg/dL Glucose 114 H (74-99) mg/dL POC Glucose (mg/dL) 117 H 131 H (75-99) mg/dL Calcium 7.1 L (8.4-10.2) mg/dL Total Protein 4.4 L (6.3-8.2) g/dL Albumin 1.8 L (3.5-5.0) g/dL 12/03/18 12/03/18 12/03/18 Range/Units 04:55 06:55 11:36 WBC 16.9 H (3.8-10.6) k/uL RBC 3.18 L (4.30-5.90) m/uL Hgb 9.3 L (13.0-17.5) gm/dL Hct 29.6 L (39.0-53.0) % Neutrophils # (Manual) 14.70 H (1.3-7.7) k/uL Metamyelocytes # (Man) 0.34 H (0) k/uL Nucleated RBCs 1 H (0-0) /100 WBC Potassium (3.5-5.1) mmol/L Chloride (98-107) mmol/L BUN (9-20) mg/dL Glucose (74-99) mg/dL POC Glucose (mg/dL) 125 H 123 H (75-99) mg/dL Calcium (8.4-10.2) mg/dL Total Protein (6.3-8.2) g/dL Albumin (3.5-5.0) g/dL Microbiology - Last 24 Hours (Table) 11/26/18 09:48 Blood Culture - Final Blood No Growth after 144 hours Assessment and Plan (1) Acute cholecystitis with chronic cholecystitis Current Visit: Yes Status: Acute Code(s): K81.2 - ACUTE CHOLECYSTITIS WITH CHRONIC CHOLECYSTITIS SNOMED Code(s): 499440343 (2) Acute pancreatitis Current Visit: Yes Status: Acute Code(s): K85.90 - ACUTE PANCREATITIS WITHOUT NECROSIS OR INFECTION, UNSP SNOMED Code(s): 205995068 (3) BMI 37.0-37.9, adult Current Visit: Yes Status: Acute Code(s): Z68.37 - BODY MASS INDEX (BMI) 37.0-37.9, ADULT SNOMED Code(s): 274592566 (4) Bladder atony Current Visit: Yes Status: Acute Code(s): N31.2 - FLACCID NEUROPATHIC BLADDER, NOT ELSEWHERE CLASSIFIED SNOMED Code(s): 336777776 (5) Duodenal ulcer hemorrhage Current Visit: Yes Status: Acute Code(s): K26.4 - CHRONIC OR UNSPECIFIED DUODENAL ULCER WITH HEMORRHAGE SNOMED Code(s): 24995254 (6) Iron deficiency anemia due to chronic blood loss Current Visit: Yes Status: Acute Code(s): D50.0 - IRON DEFICIENCY ANEMIA SECONDARY TO BLOOD LOSS (CHRONIC) SNOMED Code(s): 720214152 (7) Prostatic hyperplasia, benign localized, with obstruction Current Visit: Yes Status: Acute Code(s): N40.1 - BENIGN PROSTATIC HYPERPLASIA WITH LOWER URINARY TRACT SYMP; N13.8 - OTHER OBSTRUCTIVE AND REFLUX UROPATHY SNOMED Code(s): 488006517
[2018-12-03] MEDS: SODIUM CHLORIDE 0.9% 1,000 ML IV SCH (15:24)
[2018-12-03 17:13] LABS: Glucose,Whole Blood 100 mg/dL (75-99)
[2018-12-03] MEDS: ANIDULAFUNGIN 100 MG in SODIUM CHLORIDE 0.9% 100 ML IVPB SCH (17:17)
[2018-12-03] MEDS: NYSTATIN 100,000 UNIT/ML SUSP 500,000 UNIT/5 ML CUP PO SCH ×2 (17:58→21:56)
--- NOTE | 2018-12-03 20:41 | PN ---
PROGRESS NOTE DATE OF SERVICE: 12/03/2018. REASON FOR FOLLOWUP: Abdominal abscess. INTERVAL HISTORY: The patient is currently afebrile. Patient NG has been discontinued. She was started on a clear liquid diet. Denies having any chest pain. No shortness of breath or cough. No nausea, no vomiting. PHYSICAL EXAMINATION: Blood pressure 148/76, pulse 105. Temperature 97.8. She is 95% on room air. General description is an elderly male lying in bed in no distress. Respiratory system: Unlabored breathing with decreased breath sounds in the bases. Heart S1, S2. Regular rate and rhythm. ABDOMEN: Soft, no tenderness. LABS: Hemoglobin 9.8, white count 16.9 with a BUN of 22, creatinine 0.94. DIAGNOSTIC IMPRESSION AND PLAN: Patient with abdominal abscess status post drainage of this abscess surgically. Culture has been negative so far. Patient did have a component of oral thrush with possible question oral pharyngeal candidiasis. Patient covered with Zosyn and Eraxis to continue. We will add Nystatin swish and swallow with resumption of his oral activity and monitor his clinical course closely. MMODL / IJN: [id number] / FRANCES
--- NOTE | 2018-12-03 23:34 | P.PN ---
Subjective Progress Note Date: 12/03/18 Principal diagnosis: s/p exploratory laparotomy with colon resection s/p drainage of intra-abdominal abscess right lower quadrant and pelvis This is a pleasant 68-year-old patient of Dr. Sherman. Chronic stable medical conditions include asthma, hypertension, hyperlipidemia, osteoarthritis, rheumatoid arthritis. Patient did have a stroke in 2005 with no residue up. History of kidney stones. Patient on November 20 underwent right hemicolectomy by Dr. Angelito Lacy. Patient was discharged on November 22. Patient had been tolerating a liquid diet. After patient went home he described after second day urine output decreased. Patient also notices swelling of the lower extremity. Also became a bit short of breath. Also patient noticed some diffuse abdominal pain. There was no nausea vomiting area and patient did notice a slight temperature. . Appetite has not been good. Patient had been ambulatory in the house. Patient been having dark stools at home. On November 25 patient did undergo EGD that showed multiple duodenal ulcers with evidence of recent bleeding. Also diaphragmatic hiatal hernia Admitted for the same.subsequently found to have intra-abdominal abscess anastomosis leak. Taking back to the OR. Previous investigations Computed tomography scan of the abdomen-moderate free fluid in the abdomen. Patchy pneumopericardium. Multiple distended fluid-filled loops of small bowel in the abdomen Hemoglobin was 14.3 prior to surgery Renal ultrasound-shows right-sided renal calculi Acute abdominal series reports some element of ileus 2-D echo shows EF of 55-60% 11/29/18 remains in the ICU. Tired. No bowel movement. No output through the wound VAC. NICO drain put out 120 mL overnight. Patient slightly anxious. Family the bedside. Patient remains nothing by mouth. NG tube remains in place. Telemetry shows a flutter/fibrillation-patient went into that couple of days ago. Rate controlled 11/30/18 Patient is currently in the MICU. Patient is status post diagnostic laparoscopy converted to open exploratory Laparotomy, drainage of abdominal abscess right lower quadrant and pelvis. Partial omentectomy, colectomy and small bowel resection, primary anastomosis ileocolic and abdominal lavage completed on 11/27/2018. Patient is currently on NG tube with low intermittent suction. No passage of flatus. NICO drain is in place. Patient is also on TPN via PICC line. PTOT was consulted and patient is attempting to get up to the chair today. Saturating well on nasal cannula oxygen. No complaints of chest pain. No cough or sputum production. No fever no chills. Currently on normal saline at 1 50 mL per hour. Urine output is good. Currently on antibiotic smoke, Zosyn and Flagyl. Intra-abdominal fluid cultures have been negative so far. WBC 17.8. Hemoglobin 10.4, sodium 146, BUN 26 and creatinine 1.1 month calcium 7.0 12/01/2018 Patient is lying in the bed still having abdominal discomfort.. Awake alert and oriented. Patient was able to sit in the chair today. Patient does not have any bowel movement yet. NG tube is in place. Currently saturating well on 2 L oxygen only on nausea cannula. Continued on antibiotics in the form of Zosyn and Flagyl. No fever no chills. Surgical site is intact. General surgery and pulmonary is on board. 12/02/2018 Patient is more awake and alert and oriented today. Patient did have a bowel movement. NG tube has been discontinued. Patient was started on clear liquid diet. Currently saturating well on nasal cannula oxygen. No complaints of chest pain or worsening shortness of breath. Chest x-ray showed distal tip of the PICC line overlying the subclavian. No pneumothorax. No pleural effusion. Leukocytosis is increasing to 21.2 today. Hemoglobin 10.1 and platelet count 252. Sodium 146 and potassium 3.2 improved to 3.6 today. Patient has been afebrile. 12/03/2018 Patient is currently sitting in the chair.. Able to tolerate liquid diet. Patient is having bowel movements with loose stools. Saturating well on room air. WBC 16.[address] of abdomen showed postoperative changes without evidence for leak or abscess. Overall hemodynamically stable. Increased his activity and advance diet as tolerated. Pulmonary and general surgery is following. Review of systems: Was done for constitutional, cardiovascular, GI, pulmonary. relevant finding as above Current medications reviewed. Objective - Vital Signs Vital signs: Vital Signs Temp 98.5 F 12/03/18 12:00 Pulse 95 12/03/18 12:00 Resp 21 12/03/18 12:00 BP 146/65 12/03/18 12:00 Pulse Ox 95 12/03/18 12:00 Intake & Output 12/02/18 12/03/18 12/03/18 18:59 06:59 18:59 Intake Total 3720.1433 1444.15 1960 Output Total 1480 1005 475 Balance 2240.1433 439.15 1485 Weight 127.1 kg 125.4 kg Intake: IV 925.81 964.15 440 Anidulafungin 100 mg In 100 Sodium Chloride 0.9% 100 ml @ 84 mls/hr IVPB Q24H [facility] Rx#:[id number] Fat Emulsion 20% 250 ml @ 145.81 104.15 20.833 mls/hr IV DAILY [facility] Rx#:[id number] Mvi, Adult No.4 with Vit 0 K 10 ml Trace (Conc-1Ml/ Dose) 1 ml Potassium Phosphate 10 mmol In Amino Acid 5%-D15w+Lytes* E* 1,000 ml @ 80 mls/hr IV .BY DURATION [facility] Rx#: [id number] Piperacillin-Tazobactam 3 200 100 100 .375 gm In Sodium Chloride 0.9% 100 ml @ 25 mls/hr IVPB Q8HR [facility] Rx# :[id number] Sodium Acetate 25 meq 320 80 Potassium Phosphate 20 mmol Calcium Gluconate 1 gm In Amino Acid 5%-D15w 1,000 ml @ 95 mls/hr IV . BY DURATION [facility] Rx#: [id number] Sodium Acetate 25 meq 190 Potassium Phosphate 20 mmol Calcium Gluconate 1 gm Mvi, Adult No.4 with Vit K 10 ml Trace (Conc- 1Ml/Dose) 1 ml In Amino Acid 5%-D15w 1,000 ml @ 95 mls/hr IV .BY DURATION [facility] Rx#:[id number] Sodium Chloride 0.9% 1, 90 240 160 000 ml @ 20 mls/hr IV . Q24H [facility] Rx#:[id number] metroNIDAZOLE-NS PMX 500 200 200 100 mg In Saline 1 100ml.bag @ 100 mls/hr IVPB Q6H [facility] Rx#:[id number] Intake, IV Titration 1014.3333 480 560 Amount Mvi, Adult No.4 with Vit 480 K 10 ml Trace (Conc-1Ml/ Dose) 1 ml Potassium Phosphate 10 mmol In Amino Acid 5%-D15w+Lytes* E* 1,000 ml @ 80 mls/hr IV .BY DURATION [facility] Rx#: [id number] Mvi, Adult No.4 with Vit 1014.3333 K 10 ml Trace (Conc-1Ml/ Dose) 1 ml Potassium Phosphate 10 mmol In Amino Acid 5%-D15w+Lytes* E* 1,000 ml @ 95 mls/hr IV .BY DURATION [facility] Rx#: [id number] Potassium Phosphate 10 560 mmol In Amino Acid 5%- D15w+Lytes*E* 1,000 ml @ 80 mls/hr IV .BY DURATION [facility] Rx#:[id number] Oral 360 960 Other 1420 Output: Gastric Drainage 200 Drainage 390 205 125 Right Lower Abdomen 390 205 125 Urine 890 800 350 Post Void Residual 0 Other: Voiding Method Indwelling Catheter Indwelling Catheter Indwelling Catheter # Voids 1 # Bowel Movements 1 1 1 - Exam GENERAL: Laying in bed, awake. EYES: Pupils equal. Conjunctiva normal. HEENT: External appearance of nose and ears normal, oral cavity grossly normal. NECK: JVD not raised; masses not palpable. HEART: Heart sounds irregular; some edema . LUNGS: Respiratory rate normal; slightly decreased breath soundsr. ABDOMEN: distended, wound VAC in place, NICO drain, bowel sounds absent PSYCH: Alert and oriented x3; mood and affect anxious. - Labs CBC & Chem 7: 12/03/18 04:55 12/03/18 04:55 Labs: Abnormal Lab Results - Last 24 Hours (Table) 12/02/18 12/02/18 12/03/18 Range/Units 17:32 23:46 04:55 WBC (3.8-10.6) k/uL RBC (4.30-5.90) m/uL Hgb (13.0-17.5) gm/dL Hct (39.0-53.0) % Neutrophils # (Manual) (1.3-7.7) k/uL Metamyelocytes # (Man) (0) k/uL Nucleated RBCs (0-0) /100 WBC Potassium 3.4 L (3.5-5.1) mmol/L Chloride 112 H (98-107) mmol/L BUN 22 H (9-20) mg/dL Glucose 114 H (74-99) mg/dL POC Glucose (mg/dL) 117 H 131 H (75-99) mg/dL Calcium 7.1 L (8.4-10.2) mg/dL Total Protein 4.4 L (6.3-8.2) g/dL Albumin 1.8 L (3.5-5.0) g/dL 12/03/18 12/03/18 12/03/18 Range/Units 04:55 06:55 11:36 WBC 16.9 H (3.8-10.6) k/uL RBC 3.18 L (4.30-5.90) m/uL Hgb 9.3 L (13.0-17.5) gm/dL Hct 29.6 L (39.0-53.0) % Neutrophils # (Manual) 14.70 H (1.3-7.7) k/uL Metamyelocytes # (Man) 0.34 H (0) k/uL Nucleated RBCs 1 H (0-0) /100 WBC Potassium (3.5-5.1) mmol/L Chloride (98-107) mmol/L BUN (9-20) mg/dL Glucose (74-99) mg/dL POC Glucose (mg/dL) 125 H 123 H (75-99) mg/dL Calcium (8.4-10.2) mg/dL Total Protein (6.3-8.2) g/dL Albumin (3.5-5.0) g/dL Microbiology - Last 24 Hours (Table) 11/26/18 09:48 Blood Culture - Final Blood No Growth after 144 hours Assessment and Plan Assessment: Assessment: -Diagnostic laparoscopy converted to open exploratory laparotomy, drainage of intra-abdominal abscess right lower quadrant and pelvis, partial omentectomy, partial colectomy, small bowel resection, primary anastomosis ileocolic, abdominal lavage 12 L normal saline, placement of #19 NICO drain right side pelvis, application of incisional wound VAC system universal -Acute GI bleed from multiple duodenal ulcers, from use of NSAIDs and antiplatelet agents, status post EGD on November 25 -Acute blood loss anemia from upper GI bleed, and also some blood loss as expected from surgery as hemoglobin was 12.5 upon discharge -Hypotension improving -New onset atrial flutter fibrillation, not a candidate for anticoagulation the present time -Right hemicolectomy for polyps -Obesity BMI 34.4 -Hyperlipidemia -Essential hypertension -Chronic primary osteoarthritis -Acute renal failure possibly ATN combination of cardiorenal syndrome, loss of fluids, slow to improve -Intra-abdominal abscess, following anastamotic leak. Status post surgery as above Plan: Continue current medication treatment plan. Care was discussed with the patient and family the bedside questions were answered. Patient remains in ICU. Getting IV antibiotics. And has been discontinued. Patient did have bowel movement. Started on liquid diet.. TPN and lipids. Increase activity. Prognosis guarded. Time with Patient: Greater than 30
[2018-12-04] MEDS: PIPERACILLIN-TAZOBACTAM 3.375 GM in SODIUM CHLORIDE 0.9% 100 ML IVPB SCH ×4 (00:44→17:41)
[2018-12-04] MEDS: metroNIDAZOLE-NS PMX 500 MG in SALINE 1 100ML.BAG IVPB SCH ×4 (04:52→23:24)
[2018-12-04 07:49] LABS: Albumin 1.8 g/dL (3.5-5.0); Calcium 7.1 mg/dL (8.4-10.2); Phosphorus 3.5 mg/dL (2.5-4.5); Potassium 3.9 mmol/L (3.5-5.1); Total Bilirubin 0.5 mg/dL (0.2-1.3); Total Protein 4.5 g/dL (6.3-8.2)
[2018-12-04] MEDS ORDERED: FAT EMULSION 20% 250 ML in EMPTY BAG 1 BAG IV SCH (09:00)
[2018-12-04] MEDS: PANTOPRAZOLE 40 MG/10 ML VIAL IVP SCH ×2 (09:57→20:21)
[2018-12-04] MEDS: METOPROLOL TARTRATE 25 MG TAB PO SCH ×2 (09:58→20:21)
[2018-12-04] MEDS: SUCRALFATE 1 GM TAB PO SCH ×3 (09:58→17:40)
[2018-12-04] MEDS: TAMSULOSIN 0.4 MG CAP.ER.24H PO SCH (09:58)
[2018-12-04] MEDS: NYSTATIN 100,000 UNIT/ML SUSP 500,000 UNIT/5 ML CUP PO SCH ×4 (09:58→23:24)
[2018-12-04] MEDS: HEPARIN SODIUM,PORCINE 5,000 UNIT/ML 1 ML VIAL SQ SCH ×2 (09:59→20:21)
[2018-12-04] MEDS: AMIODARONE 200 MG TAB PO SCH ×2 (09:59→20:21)
[2018-12-04] MEDS: SIMETHICONE 40 MG/0.6 ML DROPS 2,000 MG/30 ML BOTTLE PO SCH ×4 (09:59→23:23)
[2018-12-04 10:22] LABS: HCT 28.5 % (39.0-53.0); HGB 9.2 gm/dL (13.0-17.5); Hypochromasia Slight; MCH 31.1 pg (25.0-35.0); MCHC 32.2 g/dL (31.0-37.0); MCV 96.6 fL (80.0-100.0); Mean Platelet Volume 9.1; Platelet Count 338 k/uL (150-450); RBC 2.95 m/uL (4.30-5.90); WBC 13.7 k/uL (3.8-10.6)
[2018-12-04 10:58] LABS: Band Neutrophils % 1 %; Eosinophils # (M) 0.27 k/uL (0-0.7); Lymphocytes # (M) 0.82 k/uL (1.0-4.8); Metamyelocytes # (M) 0.27 k/uL (0); Metamyelocytes % 2 %; Monocytes # (M) 0.82 k/uL (0-1.0); Myelocytes # (M) 0.27 k/uL (0); Myelocytes % 2 %; Neutrophils % (M) 83 %; Nucleated Red Blood Cells 0 /100 WBC (0-0); Total Cells Counted 200
[2018-12-04 11:00] LABS: Toxic Granulation Present
--- NOTE | 2018-12-04 11:32 | XR ---
EXAMINATION TYPE: XR chest 1V confirm line [facility] DATE OF EXAM: 12/04/2018 COMPARISON: 12/02/2018 HISTORY: Line placement TECHNIQUE: Single frontal view of the chest is obtained. FINDINGS: Right-sided PICC has been placed in the interim terminating in the subclavian vein. This sh ould be advanced approximately 15 cm for optimal placement. No postprocedural pneumothorax is seen ho wever the patient's chin obscures the lung apices. There is no focal air space opacity, pleural effus ion, or pulmonary vascular congestion seen. The cardiac silhouette size is within normal limits. T he osseous structures are intact. Endotracheal tube has been removed in the interim. IMPRESSION: Interval insertion on a right-sided PICC terminating in the subclavian vein. Advancement of at least 15 cm is recommended for optimal placement.
--- NOTE | 2018-12-04 12:25 | P.PN ---
<Yasmin Hill A - Last Filed: 12/04/18 12:27> Subjective Progress Note Date: 12/04/18 CHIEF COMPLAINT: Pancreatitis with upper GI bleed HISTORY OF PRESENT ILLNESS: patient is status post diagnostic laparoscopy converted to open exploratory laparotomy, drainage of intractable abdominal abscess right lower quadrant and pelvis, partial omentectomy, partial colectomy, small bowel resection, primary anastomosis ileocolic, and abdominal lavage completed on 11/27/18. POD #7. Patient examined this morning at the bedside. He reports his pain is tolerable. He is tolerating full liquid diet. Reports liquid stools have slowed down. Denies nausea or vomiting. WBC 13.7. Vital signs s table. Afebrile. PHYSICAL EXAM: VITAL SIGNS: Reviewed GENERAL: Well-developed in no acute distress. HEENT: NG to LIS with bilous output. No sclera icterus. Extraocular movements grossly intact. Moist buccal mucosa. Head is atraumatic, normocephalic. Hears conversational speech. No nasal drainage. ABDOMEN: Soft. Nondistended. Positive bowel sounds. Nontender. PREVENA intact. NICO to right lower quadrant with serosanguinous drainage NEUROLOGIC: Alert and oriented. Cranial nerves II through XII grossly intact. ASSESSMENT: 1. Acute upper gastrointestinal bleed secondary to acute bleeding duodenal ulcers 2. Acute pancreatitis, resolved 3. Acute cholecystitis, stable 4. Severe obstructive uropathy, pre-existing 5. Acute bilateral lower extremity edema 6. Ileus secondary to acute pancreatitis 7. S/P diagnostic laparoscopy converted to open exploratory laparotomy, drainage of intractable abdominal abscess right lower quadrant and pelvis, partial omentectomy, partial colectomy, small bowel resection, primary anastomosis ileocolic, and abdominal lavage 8. Atrial fibrillation PLAN: 1. Continue full liquid diet for today 2. Continue Flomax. Nursing to obtain additional post void bladder scan today 3. PREVENA discontinued. Optifoam applied 4. PICC line to be removed today due to position. Possible re-insertion of PICC for outpatient IV antibiotics. Will defer to Dr. Martinez 5. No anticoagulation at this time as patient did have recent acute upper GI bleed with bleeding duodenal ulcers and recent EGD. At that time, patient was taking Plavix and NSAIDS which were discontinued by Dr. Jackson. Patient is at high risk to resume anticoagulation secondary to bleeding. 6. Incentive spirometry 7. Activity as tolerated 8. Possible discharge early next week. Patient requesting MATIAS if he will require IV antibiotics at discharge Nurse practitioner note has been reviewed by physician. Signing provider agrees with the documented findings, assessment, and plan of care. Objective - Vital Signs Vital signs: Vital Signs Temp 97.7 F 12/04/18 07:00 Pulse 99 12/04/18 07:00 Resp 19 12/04/18 07:00 BP 142/62 12/04/18 07:00 Pulse Ox 93 L 12/04/18 07:00 Intake & Output 12/03/18 12/04/18 12/04/18 18:59 06:59 18:59 Intake Total 1960 360 236 Output Total 475 1000 Balance 1485 -640 236 Weight 126 kg 126 kg Intake: IV 440 360 Piperacillin-Tazobactam 3 100 .375 gm In Sodium Chloride 0.9% 100 ml @ 25 mls/hr IVPB Q8HR [facility] Rx# :[id number] Sodium Acetate 25 meq 80 Potassium Phosphate 20 mmol Calcium Gluconate 1 gm In Amino Acid 5%-D15w 1,000 ml @ 95 mls/hr IV . BY DURATION [facility] Rx#: [id number] Sodium Chloride 0.9% 1, 160 160 000 ml @ 20 mls/hr IV . Q24H [facility] Rx#:[id number] metroNIDAZOLE-NS PMX 500 100 200 mg In Saline 1 100ml.bag @ 100 mls/hr IVPB Q6H [facility] Rx#:[id number] Intake, IV Titration 560 Amount Potassium Phosphate 10 560 mmol In Amino Acid 5%- D15w+Lytes*E* 1,000 ml @ 80 mls/hr IV .BY DURATION [facility] Rx#:[id number] Oral 960 236 Output: Drainage 125 Right Lower Abdomen 125 Urine 350 200 Post Void Residual 0 Urine/Stool Mix 800 Other: Voiding Method Incontinent # Voids 1 2 # Bowel Movements 1 - Labs CBC & Chem 7: 12/04/18 06:59 12/04/18 06:59 Labs: Abnormal Lab Results - Last 24 Hours (Table) 12/03/18 12/04/18 12/04/18 Range/Units 16:59 06:59 06:59 WBC 13.7 H (3.8-10.6) k/uL RBC 2.95 L (4.30-5.90) m/uL Hgb 9.2 L (13.0-17.5) gm/dL Hct 28.5 L (39.0-53.0) % Neutrophils # (Manual) 11.50 H (1.3-7.7) k/uL Lymphocytes # (Manual) 0.82 L (1.0-4.8) k/uL Metamyelocytes # (Man) 0.27 H (0) k/uL Myelocytes # (Manual) 0.27 H (0) k/uL Chloride 114 H (98-107) mmol/L POC Glucose (mg/dL) 100 H (75-99) mg/dL Calcium 7.1 L (8.4-10.2) mg/dL ALT 20 L (21-72) U/L Total Protein 4.5 L (6.3-8.2) g/dL Albumin 1.8 L (3.5-5.0) g/dL Assessment and Plan (1) Acute cholecystitis with chronic cholecystitis Current Visit: Yes Status: Acute Code(s): K81.2 - ACUTE CHOLECYSTITIS WITH CHRONIC CHOLECYSTITIS SNOMED Code(s): 825054144 (2) Acute pancreatitis Current Visit: Yes Status: Acute Code(s): K85.90 - ACUTE PANCREATITIS WITHOUT NECROSIS OR INFECTION, UNSP SNOMED Code(s): 411098882 (3) BMI 37.0-37.9, adult Current Visit: Yes Status: Acute Code(s): Z68.37 - BODY MASS INDEX (BMI) 37.0-37.9, ADULT SNOMED Code(s): 589980520 (4) Bladder atony Current Visit: Yes Status: Acute Code(s): N31.2 - FLACCID NEUROPATHIC BLADDER, NOT ELSEWHERE CLASSIFIED SNOMED Code(s): 413886359 (5) Duodenal ulcer hemorrhage Current Visit: Yes Status: Acute Code(s): K26.4 - CHRONIC OR UNSPECIFIED DUODENAL ULCER WITH HEMORRHAGE SNOMED Code(s): 96518788 (6) Iron deficiency anemia due to chronic blood loss Current Visit: Yes Status: Acute Code(s): D50.0 - IRON DEFICIENCY ANEMIA SECONDARY TO BLOOD LOSS (CHRONIC) SNOMED Code(s): 605330776 (7) Prostatic hyperplasia, benign localized, with obstruction Current Visit: Yes Status: Acute Code(s): N40.1 - BENIGN PROSTATIC HYPERPLASIA WITH LOWER URINARY TRACT SYMP; N13.8 - OTHER OBSTRUCTIVE AND REFLUX UROPATHY SNOMED Code(s): 614289921 <Carlos Seo - Last Filed: 12/04/18 16:20> Subjective As above. Patient feels well today. White blood cell count improved. Tolera ting diet. He is having bowel movements. NICO drain serous. Patient did have evidence of drainage from the periumbilical aspect of his incision. This was bluntly opened at the bedside. Cultures were taken. Wound was packed with 4 x 4 gauze. Fascia is intact. Objective - Vital Signs Vital signs: Vital Signs Temp 97.7 F 12/04/18 07:00 Pulse 99 12/04/18 07:00 Resp 19 12/04/18 07:00 BP 142/62 12/04/18 07:00 Pulse Ox 93 L 12/04/18 07:00 Intake & Output 12/03/18 12/04/18 12/04/18 18:59 06:59 18:59 Intake Total 1960 360 736 Output Total 475 1000 Balance 1485 -640 736 Weight 126 kg 126 kg Intake: IV 440 360 Piperacillin-Tazobactam 3 100 .375 gm In Sodium Chloride 0.9% 100 ml @ 25 mls/hr IVPB Q8HR [facility] Rx# :[id number] Sodium Acetate 25 meq 80 Potassium Phosphate 20 mmol Calcium Gluconate 1 gm In Amino Acid 5%-D15w 1,000 ml @ 95 mls/hr IV . BY DURATION [facility] Rx#: [id number] Sodium Chloride 0.9% 1, 160 160 000 ml @ 20 mls/hr IV . Q24H [facility] Rx#:[id number] metroNIDAZOLE-NS PMX 500 100 200 mg In Saline 1 100ml.bag @ 100 mls/hr IVPB Q6H [facility] Rx#:[id number] Intake, IV Titration 560 Amount Potassium Phosphate 10 560 mmol In Amino Acid 5%- D15w+Lytes*E* 1,000 ml @ 80 mls/hr IV .BY DURATION [facility] Rx#:[id number] Oral 960 736 Output: Drainage 125 Right Lower Abdomen 125 Urine 350 200 Post Void Residual 0 Urine/Stool Mix 800 Other: Voiding Method Incontinent # Voids 1 2 2 # Bowel Movements 1 2 - Labs CBC & Chem 7: 12/04/18 06:59 12/04/18 06:59 Labs: Abnormal Lab Results - Last 24 Hours (Table) 12/03/18 12/04/18 12/04/18 Range/Units 16:59 06:59 06:59 WBC 13.7 H (3.8-10.6) k/uL RBC 2.95 L (4.30-5.90) m/uL Hgb 9.2 L (13.0-17.5) gm/dL Hct 28.5 L (39.0-53.0) % Neutrophils # (Manual) 11.50 H (1.3-7.7) k/uL Lymphocytes # (Manual) 0.82 L (1.0-4.8) k/uL Metamyelocytes # (Man) 0.27 H (0) k/uL Myelocytes # (Manual) 0.27 H (0) k/uL Chloride 114 H (98-107) mmol/L POC Glucose (mg/dL) 100 H (75-99) mg/dL Calcium 7.1 L (8.4-10.2) mg/dL ALT 20 L (21-72) U/L Total Protein 4.5 L (6.3-8.2) g/dL Albumin 1.8 L (3.5-5.0) g/dL
--- NOTE | 2018-12-04 14:27 | P.PN ---
Subjective Progress Note Date: 12/04/18 Principal diagnosis: Localized intra-abdominal abscesses, anastomotic leak status post open exploratory laparotomy, drainage of abscess, partial omentectomy, colectomy and small bowel resection This is a 68-year-old male patient is being seen in follow-up in the intensive care unit. The patient has a complicated history. The patient underwent the initial primary colectomy and ileocolic anastomosis to the mid transverse colon. Subsequently, the patient came in with increased abdominal pain, leukocytosis and the patient was taken to the operating room where the patient underwent diagnostic laparoscopy converted to open exploratory laparotomy and the patient underwent drainage of intra-abdominal abscess in the right lower quadrant and pelvis and partial omentectomy and partial colectomy and small bowel resection and primary anastomosis of the ileocolic area in addition to abdominal lavage of 12 L with normal saline and placement of a 19-gauge NICO drain in the right side of the pelvis and incisional wound VAC system was applied. The surgery was done on 11/27/2018 and the patient is currently postop day #3. The patient still has an NG tube in place. Output remains considerably high in the order of 300 mL's over the past 24 hours. Abdomen is nondistended. The patient does not have any flatus. The patient has not produced any bowel movement activity. The patient is afebrile. The patient is hemodynamically stable. The patient is receiving TPN for nutritional support rate of 95 mL an hour. The patient is also on normal saline today to 150 mL an hour. Has been negative over the past 48 hours. The patient has also developed some increased swelling in the upper and lower extremities bilaterally. He is using incentive spirometer. Currently is on 2 L of oxygen nasal cannula. NG tube is in place. No cough or sputum production. No chest pain. No fever or chills. No altered mentation. He remains on accommodation Zosyn and Flagyl. Intra-abdominal cultures of been all negative. On 12/01/2018 I'm seeing this patient for a follow-up. Is awake and alert. He was able to sit up on a chair for half an hour yesterday. He still has an NG tube in place. Output from the NG has been in the order of 300 mL over the past 24 hours, the patient also has a wound VAC in place and this is a superficial wound VAC and the NICO drain in the right lower quadrant. The patient remains on TPN for nutritional support. The neck fluid balance is positive and the patient remains in a positive fluid balance of 10 L and this is related to IV fluids, antibiotics and TPN. He is getting progressively more swollen the upper and lower extremities. The patient given a dose of diuretic yesterday he received a dose of Lasix 20 mg of push. IV fluids were also cut down. He is on 2 L of oxygen nasal cannula. Bowel sounds are hypoactive. No flatus. Surgical site is dry clean and intact. He is postop day #4 following his abdominal surgery. Cultures of been negative. He remains on Zosyn and Flagyl. He is using incentive spirometer. He is awake and alert. No other significant events overnight. On 12/02/2018 patient seen in follow-up in the intensive care unit, he is awake and alert, no acute distress, 3 L of oxygen the pulse ox of 96-98%, he is afebrile, hemodynamically stable, patient is passing gas and he had a bowel movement this morning, bowel sounds are present. Patient has been on TPN, however this morning there is a concern about displacement of his PICC line as it has been pulled out slightly. Chest x-ray has been obtained, showing the distal tip of the PICC line overlying the subclavian region on the right, no pneumothorax or pleural effusion. We will consult surgery in regards to starting some oral feedings since the patient is passing stool and gas. Today's labs have been reviewed, showing white blood cell count of 21.2, hemoglobin of 10.1, platelet count of 252, serum sodium is 146, potassium is 3.2, chloride is 114, CO2 is 28, BUN is 23 and creatinine 0.89. All cultures remain negative thus far, currently on a combination of Zosyn, Eraxis and Flagyl. No fever or chills. The patient is seen today 12/03/2018 in follow-up in the intensive care unit. He is currently awake and alert in no acute distress. Resting quite comfortably in bed. He had been up in the chair earlier this morning. He is maintaining good O2 saturations in the 90s on room air. He's been afebrile. Hemodynamically stable. Blood urine and wound cultures reveal no growth. White count 16.9. Hemoglobin 9.3. Creatinine 0.94. Computed tomography scan of the abdomen revealed postoperative changes without evidence for leak or abscess. There is evidence of ascites. There is basilar pleural effusions and atelectasis. His nasogastric tube was removed. He is tolerating liquids. He is having bowel movements. The patient is seen today 12/04/2018 in follow-up on the regular medical floor. He is awake and alert in no acute distress. Resting flat in bed. He is tolerating his diet. He is moving his bowels. No shortness of breath, cough or congestion. Continues to maintain good O2 saturations in the 90s on room air. He's been afebrile. Hemodynamically stable. White count 13.7. Hemoglobin 9.2. Creatinine 1.07. Objective - Vital Signs Vital signs: Vital Signs Temp 97.7 F 12/04/18 07:00 Pulse 99 12/04/18 07:00 Resp 19 12/04/18 07:00 BP 142/62 12/04/18 07:00 Pulse Ox 93 L 12/04/18 07:00 Intake & Output 12/03/18 12/04/18 12/04/18 18:59 06:59 18:59 Intake Total 1960 360 236 Output Total 475 1000 Balance 1485 -640 236 Weight 126 kg 126 kg Intake: IV 440 360 Piperacillin-Tazobactam 3 100 .375 gm In Sodium Chloride 0.9% 100 ml @ 25 mls/hr IVPB Q8HR SONJA Rx# :[id number] Sodium Acetate 25 meq 80 Potassium Phosphate 20 mmol Calcium Gluconate 1 gm In Amino Acid 5%-D15w 1,000 ml @ 95 mls/hr IV . BY DURATION SONJA Rx#: [id number] Sodium Chloride 0.9% 1, 160 160 000 ml @ 20 mls/hr IV . Q24H SONJA Rx#:[id number] metroNIDAZOLE-NS PMX 500 100 200 mg In Saline 1 100ml.bag @ 100 mls/hr IVPB Q6H SONJA Rx#:[id number] Intake, IV Titration 560 Amount Potassium Phosphate 10 560 mmol In Amino Acid 5%- D15w+Lytes*E* 1,000 ml @ 80 mls/hr IV .BY DURATION SONJA Rx#:[id number] Oral 960 236 Output: Drainage 125 Right Lower Abdomen 125 Urine 350 200 Post Void Residual 0 Urine/Stool Mix 800 Other: Voiding Method Incontinent # Voids 1 2 # Bowel Movements 1 - Exam GENERAL EXAM: Alert, pleasant, 68-year-old male comfortable in no apparent distress. On room air. HEAD: Normocephalic/atraumatic. EYES: Normal reaction of pupils, equal size. Conjunctiva pink, sclera white. NOSE: Clear with pink turbinates. THROAT: No erythema or exudates. NECK: No masses, no JVD, no thyroid enlargement, no adenopathy. CHEST: No chest wall deformity. Symmetrical expansion. LUNGS: Equal air entry with no crackles, wheeze, rhonchi or dullness. CVS: Regular rate and rhythm, normal S1 and S2, no gallops, no murmurs, no rubs ABDOMEN: Soft, nontender. No hepatosplenomegaly, no guarding or rigidity. Midabdominal incision is clean dry and intact, abdominal binder is on. Bowel sounds 4. NICO drain in place. EXTREMITIES: No clubbing, no edema, no cyanosis, 2+ pulses and upper and lower extremities. MUSCULOSKELETAL: Muscle strength and tone normal. SPINE: No scoliosis or deformity SKIN: No rashes CENTRAL NERVOUS SYSTEM: No focal deficits, tone is normal in all 4 extremities. PSYCHIATRIC: Alert and oriented -3. Appropriate affect. Intact judgment and insight. - Labs CBC & Chem 7: 12/04/18 06:59 12/04/18 06:59 Labs: Abnormal Lab Results - Last 24 Hours (Table) 12/03/18 12/04/18 12/04/18 Range/Units 16:59 06:59 06:59 WBC 13.7 H (3.8-10.6) k/uL RBC 2.95 L (4.30-5.90) m/uL Hgb 9.2 L (13.0-17.5) gm/dL Hct 28.5 L (39.0-53.0) % Neutrophils # (Manual) 11.50 H (1.3-7.7) k/uL Lymphocytes # (Manual) 0.82 L (1.0-4.8) k/uL Metamyelocytes # (Man) 0.27 H (0) k/uL Myelocytes # (Manual) 0.27 H (0) k/uL Chloride 114 H (98-107) mmol/L POC Glucose (mg/dL) 100 H (75-99) mg/dL Calcium 7.1 L (8.4-10.2) mg/dL ALT 20 L (21-72) U/L Total Protein 4.5 L (6.3-8.2) g/dL Albumin 1.8 L (3.5-5.0) g/dL Assessment and Plan Assessment: Impression: 1 Localized intra-abdominal abscess of the right lower quadrant that and an anastomotic leak, the patient is post open expiratory laparotomy, drainage of intra-abdominal abscess, partial omentectomy, partial colectomy, small bowel resection, primary ileocolic anastomosis and abdominal lavage and placement of a NICO drain in the right lower quadrant/pelvic area and the patient is postop day #5. The patient continues to be on TPN for nutritional support. Bowel sounds are hypoactive. No flatus. 2 NPO post abdominal surgery and the patient continues to have excessive amount of output from his NG tube 3 TPN for nutritional support 4 hypotension recovered, currently normotensive 5 hyperlipidemia 6 hypertension 7 history of CVA 8 history of rheumatoid arthritis 9 mild bronchial asthma 10 kidney stones 11 obesity 12 hypokalemia 13 A. fib with RVR current rhythm is back to sinus, and the patient is on amiodarone Plan: The patient was seen and evaluated by Dr. Ko. He is currently stable from the pulmonary standpoint. To continue to work with the incentive spirometer. Antibiotics per ID services. We will follow the patient on as-needed basis. I, the cosigning physician, performed a history & physical examination of the pa tient. Lungs sounds with faint crackles in the posterior bases. Maintaining good O2 saturations in the 90s on room air. I discussed the assessment and plan of care with my nurse practitioner, Felicia Walters. I attest to the above note as dictated by her.
[2018-12-04] MEDS: SODIUM CHLORIDE 0.9% 1,000 ML IV SCH (15:23)
--- NOTE | 2018-12-04 19:09 | PN ---
PROGRESS NOTE DATE OF SERVICE: 12/04/2018. REASON FOR FOLLOWUP VISIT: Abdominal abscess. INTERVAL HISTORY: The patient is currently afebrile. The patient has been breathing comfortably. Denies having any chest pain or shortness of breath or cough. The patient's PICC line got pulled out while he was getting in bed this morning by the nursing staff. No nausea, no vomiting or diarrhea. PHYSICAL EXAMINATION: Blood pressure 142/62 with a pulse of 99, temperature 97.7, he is 93% on 2 L nasal cannula. General description is an elderly male up in the bed in no distress. Respiratory system: Unlabored breathing with decreased breath sounds in the bases. Heart S1, S2. Regular rate and rhythm. Abdomen soft, no tenderness. LABS: Hemoglobin 9.1, white count 13.7, BUN of 19, creatinine 1.07. DIAGNOSTIC IMPRESSION AND PLAN: Patient with abdominal abscess status post surgical drainage so far culture has been negative. The patient has seemed to respond clinically to Zosyn. to continue to finish a two week course of therapy. He will need a new PICC line on Friday. Current PICC line should be discontinued as has been pulled out significantly. Peripheral IV over the weekend. Continue supportive care. MMODL / IJN: [id number] / FRANCES
[2018-12-05] MEDS: ANIDULAFUNGIN 100 MG in SODIUM CHLORIDE 0.9% 100 ML IVPB SCH ×2 (00:25→18:34)
[2018-12-05] MEDS: PIPERACILLIN-TAZOBACTAM 3.375 GM in SODIUM CHLORIDE 0.9% 100 ML IVPB SCH ×3 (02:29→15:52)
[2018-12-05] MEDS: metroNIDAZOLE-NS PMX 500 MG in SALINE 1 100ML.BAG IVPB SCH ×4 (04:21→22:11)
[2018-12-05 08:34] LABS: Basophils # (A) 0.1 k/uL (0-0.2); Basophils % (A) 1 %; Eosinophils # (A) 0.4 k/uL (0-0.7); Eosinophils % (A) 3 %; HCT 30.7 % (39.0-53.0); HGB 9.8 gm/dL (13.0-17.5); Hypochromasia Slight; Lymphocytes # (A) 0.7 k/uL (1.0-4.8); Lymphocytes % (A) 4 %; MCH 31.3 pg (25.0-35.0); MCHC 31.8 g/dL (31.0-37.0); MCV 98.4 fL (80.0-100.0); Mean Platelet Volume 9.2; Monocytes # (A) 0.5 k/uL (0-1.0); Monocytes % (A) 3 %; Neutrophils # (A) 13.2 k/uL (1.3-7.7); Neutrophils % (A) 88 %; Platelet Count 420 k/uL (150-450); Poikilocytosis Slight; RBC 3.12 m/uL (4.30-5.90); RDW 14.8 % (11.5-15.5); WBC 15.1 k/uL (3.8-10.6)
[2018-12-05 08:46] LABS: Albumin 2.1 g/dL (3.5-5.0); Calcium 7.3 mg/dL (8.4-10.2); Phosphorus 3.4 mg/dL (2.5-4.5); Potassium 3.7 mmol/L (3.5-5.1); Total Bilirubin 0.5 mg/dL (0.2-1.3); Total Protein 4.9 g/dL (6.3-8.2)
[2018-12-05] MEDS: SUCRALFATE 1 GM TAB PO SCH ×3 (09:29→18:02)
[2018-12-05] MEDS: METOPROLOL TARTRATE 25 MG TAB PO SCH ×2 (09:29→20:02)
[2018-12-05] MEDS: SIMETHICONE 40 MG/0.6 ML DROPS 2,000 MG/30 ML BOTTLE PO SCH ×4 (09:29→22:11)
[2018-12-05] MEDS: AMIODARONE 200 MG TAB PO SCH ×2 (09:29→20:02)
[2018-12-05] MEDS: TAMSULOSIN 0.4 MG CAP.ER.24H PO SCH (09:30)
[2018-12-05] MEDS: NYSTATIN 100,000 UNIT/ML SUSP 500,000 UNIT/5 ML CUP PO SCH ×4 (09:30→22:11)
[2018-12-05] MEDS: HEPARIN SODIUM,PORCINE 5,000 UNIT/ML 1 ML VIAL SQ SCH ×2 (09:30→20:02)
[2018-12-05] MEDS: PANTOPRAZOLE 40 MG/10 ML VIAL IVP SCH ×2 (09:30→22:10)
--- NOTE | 2018-12-05 09:56 | P.PN ---
Subjective Progress Note Date: 12/05/18 Principal diagnosis: Anastomotic leak Patient doing better today. He is somewhat depressed. T-max 99.4. White blood cell count increased slightly to 15.1. Significantly decreased drainage from the umbilical incision site. Gram stain from wound negative. Objective - Vital Signs Vital signs: Vital Signs Temp 98.3 F 12/05/18 08:33 Pulse 116 H 12/05/18 08:33 Resp 16 12/05/18 08:33 BP 120/71 12/05/18 08:33 Pulse Ox 97 12/05/18 08:33 Intake & Output 12/04/18 12/05/18 12/05/18 18:59 06:59 18:59 Intake Total 736 180 Output Total 90 180 Balance 646 -180 180 Weight 126 kg Intake: Oral 736 180 Output: Drainage 90 180 Right Lower Abdomen 90 180 Other: # Voids 2 1 1 # Bowel Movements 2 1 - Exam Abdomen: Soft, nondistended, incision with wound at umbilicus, minimal erythema, mild tenderness, small amount of serous drainage - Labs CBC & Chem 7: 12/05/18 07:15 12/05/18 07:15 Labs: Abnormal Lab Results - Last 24 Hours (Table) 11/26/18 12/04/18 12/05/18 Range/Units 02:40 06:59 07:15 WBC 13.7 H (3.8-10.6) k/uL RBC 2.95 L (4.30-5.90) m/uL Hgb 9.2 L (13.0-17.5) gm/dL Hct 28.5 L (39.0-53.0) % Neutrophils # (1.3-7.7) k/uL Neutrophils # (Manual) 11.50 H (1.3-7.7) k/uL Lymphocytes # (1.0-4.8) k/uL Lymphocytes # (Manual) 0.82 L (1.0-4.8) k/uL Metamyelocytes # (Man) 0.27 H (0) k/uL Myelocytes # (Manual) 0.27 H (0) k/uL Chloride 111 H (98-107) mmol/L Calcium 7.3 L (8.4-10.2) mg/dL Total Protein 4.9 L (6.3-8.2) g/dL Albumin 2.1 L (3.5-5.0) g/dL Stool Calprotectin 129.4 H mcg/g 12/05/18 Range/Units 07:15 WBC 15.1 H (3.8-10.6) k/uL RBC 3.12 L (4.30-5.90) m/uL Hgb 9.8 L (13.0-17.5) gm/dL Hct 30.7 L (39.0-53.0) % Neutrophils # 13.2 H (1.3-7.7) k/uL Neutrophils # (Manual) (1.3-7.7) k/uL Lymphocytes # 0.7 L (1.0-4.8) k/uL Lymphocytes # (Manual) (1.0-4.8) k/uL Metamyelocytes # (Man) (0) k/uL Myelocytes # (Manual) (0) k/uL Chloride (98-107) mmol/L Calcium (8.4-10.2) mg/dL Total Protein (6.3-8.2) g/dL Albumin (3.5-5.0) g/dL Stool Calprotectin mcg/g Microbiology - Last 24 Hours (Table) 12/04/18 15:36 Gram Stain - Preliminary Abdomen Wound Culture - Preliminary 12/04/18 22:05 Anaerobic Culture - Preliminary Abdomen Assessment and Plan (1) Anastomotic leak of intestine Narrative/Plan: Will increase diet to low fiber at this time. Continue antibiotics. Repeat CBC tomorrow. Local wound care with Aquacel silver gauze. Increase activity. Current Visit: Yes Status: Acute Code(s): K91.89 - OTH POSTPROCEDURAL COMPLICATIONS AND DISORDERS OF DGSTV SYS SNOMED Code(s): 086924027
[2018-12-05] MEDS ORDERED: FUROSEMIDE 10 MG/ML 4 ML VIAL IV STA (13:07)
--- NOTE | 2018-12-05 13:09 | P.PN ---
Subjective Progress Note Date: 12/05/18 Principal diagnosis: Localized intra-abdominal abscess, anastomotic leak status post open expiratory laparotomy, drainage of abscess, partial omentectomy, colectomy, small bowel re section This is a 68-year-old male patient is being seen in follow-up in the intensive care unit. The patient has a complicated history. The patient underwent the initial primary colectomy and ileocolic anastomosis to the mid transverse colon. Subsequently, the patient came in with increased abdominal pain, leukocytosis and the patient was taken to the operating room where the patient underwent diagnostic laparoscopy converted to open exploratory laparotomy and the patient underwent drainage of intra-abdominal abscess in the right lower quadrant and pelvis and partial omentectomy and partial colectomy and small bowel resection and primary anastomosis of the ileocolic area in addition to abdominal lavage of 12 L with normal saline and placement of a 19-gauge NICO drain in the right side o f the pelvis and incisional wound VAC system was applied. The surgery was done on 11/27/2018 and the patient is currently postop day #3. The patient still has an NG tube in place. Output remains considerably high in the order of 300 mL's over the past 24 hours. Abdomen is nondistended. The patient does not have any flatus. The patient has not produced any bowel movement activity. The patient is afebrile. The patient is hemodynamically stable. The patient is receiving TPN for nutritional support rate of 95 mL an hour. The patient is also on normal saline today to 150 mL an hour. Has been negative over the past 48 hours. The patient has also developed some increased swelling in the upper and lower extremities bilaterally. He is using incentive spirometer. Currently is on 2 L of oxygen nasal cannula. NG tube is in place. No cough or sputum production. No chest pain. No fever or chills. No altered mentation. He remains on accommodation Zosyn and Flagyl. Intra-abdominal cultures of been all negative. On 12/01/2018 I'm seeing this patient for a follow-up. Is awake and alert. He was able to sit up on a chair for half an hour yesterday. He still has an NG tube in place. Output from the NG has been in the order of 300 mL over the past 24 hours, the patient also has a wound VAC in place and this is a superficial wound VAC and the NICO drain in the right lower quadrant. The patient remains on TPN for nutritional support. The neck fluid balance is positive and the patient remains in a positive fluid balance of 10 L and this is related to IV fluids, antibiotics and TPN. He is getting progressively more swollen the upper and lower extremities. The patient given a dose of diuretic yesterday he received a dose of Lasix 20 mg of push. IV fluids were also cut down. He is on 2 L of oxygen nasal cannula. Bowel sounds are hypoactive. No flatus. Surgical site is dry clean and intact. He is postop day #4 following his abdominal surgery. Cultures of been negative. He remains on Zosyn and Flagyl. He is using incentive spirometer. He is awake and alert. No other significant events overnight. On 12/02/2018 patient seen in follow-up in the intensive care unit, he is awake and alert, no acute distress, 3 L of oxygen the pulse ox of 96-98%, he is afe brile, hemodynamically stable, patient is passing gas and he had a bowel movement this morning, bowel sounds are present. Patient has been on TPN, however this morning there is a concern about displacement of his PICC line as it has been pulled out slightly. Chest x-ray has been obtained, showing the distal tip of the PICC line overlying the subclavian region on the right, no pneumothorax or pleural effusion. We will consult surgery in regards to starting some oral feedings since the patient is passing stool and gas. Today's labs have been reviewed, showing white blood cell count of 21.2, hemoglobin of 10.1, platelet count of 252, serum sodium is 146, potassium is 3.2, chloride is 114, CO2 is 28, BUN is 23 and creatinine 0.89. All cultures remain negative thus far, currently on a combination of Zosyn, Eraxis and Flagyl. No fever or chills. On 12/05/2018 patient seen in follow-up on medical surgical floor. She is sitting up in the recliner, in no acute distress. He is on room air, denies any difficulty breathing, no chest pain, vital signs are stable, he is eating a regular diet, incision is covered with surgical dressing, abdominal binder is in place, no complaint of abdominal pain, NICO drain is still putting out some moderate amount of seros fluid. Wallace has been taken out, he is voiding. Lung sounds are clear, his labs have been noted, no new chest x-rays, vital signs are stable, cultures remain negative, no nausea vomiting or diarrhea. Breathing is stable. Objective - Vital Signs Vital signs: Vital Signs Temp 98.3 F 12/05/18 08:33 Pulse 116 H 12/05/18 08:33 Resp 16 12/05/18 08:33 BP 120/71 12/05/18 08:33 Pulse Ox 97 12/05/18 08:33 Intake & Output 12/04/18 12/05/18 12/05/18 18:59 06:59 18:59 Intake Total 736 180 Output Total 90 180 Balance 646 -180 180 Weight 126 kg Intake: Oral 736 180 Output: Drainage 90 180 Right Lower Abdomen 90 180 Other: # Voids 2 1 1 # Bowel Movements 2 1 - Exam GENERAL EXAM: Alert, pleasant, 68-year-old white male on room air with a pulse ox of 96-98%, comfortable in no apparent distress. HEAD: Normocephalic/atraumatic. EYES: Normal reaction of pupils, equal size. Conjunctiva pink, sclera white. NOSE: Clear with pink turbinates. THROAT: No erythema or exudates. NECK: No masses, no JVD, no thyroid enlargement, no adenopathy. CHEST: No chest wall deformity. Symmetrical expansion. LUNGS: Equal air entry with no crackles, wheeze, rhonchi or dullness. CVS: Regular rate and rhythm, normal S1 and S2, no gallops, no murmurs, no rubs ABDOMEN: Soft, nontender. No hepatosplenomegaly, no guarding or rigidity. Midabdominal incision is clean dry and intact, abdominal binder is on. Bowel sounds 4, NICO drain with serous output EXTREMITIES: No clubbing, no edema, no cyanosis, 2+ pulses and upper and lower extremities. MUSCULOSKELETAL: Muscle strength and tone normal. SPINE: No scoliosis or deformity SKIN: No rashes CENTRAL NERVOUS SYSTEM: Alert and oriented -3. No focal deficits, tone is normal in all 4 extremities. PSYCHIATRIC: Alert and oriented -3. Appropriate affect. Intact judgment and insight. - Labs CBC & Chem 7: 12/05/18 07:15 12/05/18 07:15 Labs: Abnormal Lab Results - Last 24 Hours (Table) 11/26/18 12/05/18 12/05/18 Range/Units 02:40 07:15 07:15 WBC 15.1 H (3.8-10.6) k/uL RBC 3.12 L (4.30-5.90) m/uL Hgb 9.8 L (13.0-17.5) gm/dL Hct 30.7 L (39.0-53.0) % Neutrophils # 13.2 H (1.3-7.7) k/uL Lymphocytes # 0.7 L (1.0-4.8) k/uL Chloride 111 H (98-107) mmol/L Calcium 7.3 L (8.4-10.2) mg/dL Total Protein 4.9 L (6.3-8.2) g/dL Albumin 2.1 L (3.5-5.0) g/dL Stool Calprotectin 129.4 H mcg/g Microbiology - Last 24 Hours (Table) 12/04/18 15:36 Gram Stain - Preliminary Abdomen Wound Culture - Preliminary 12/04/18 22:05 Anaerobic Culture - Preliminary Abdomen Assessment and Plan Plan: 1 Localized intra-abdominal abscess of the right lower quadrant that and an anastomotic leak, the patient is post open expiratory laparotomy, drainage of intra-abdominal abscess, partial omentectomy, partial colectomy, small bowel resection, primary ileocolic anastomosis and abdominal lavage and placement of a NICO drain in the right lower quadrant/pelvic area and the patient is postop day #5. The patient continues to be on TPN for nutritional support. Bowel sounds are hypoactive. No flatus. 2 NPO post abdominal surgery and the patient continues to have excessive amount of output from his NG tube 3 TPN for nutritional support 4 hypotension recovered, currently normotensive 5 hyperlipidemia 6 hypertension 7 history of CVA 8 history of rheumatoid arthritis 9 mild bronchial asthma 10 kidney stones 11 obesity 12 hypokalemia 13 A. fib with RVR current rhythm is back to sinus, and the patient is on amiodarone Plan: Patient is stable from pulmonary perspective, doing well, he is on room air, eating stable oxygenation, he has a lot of generalized swelling, and some scrot al swelling. We will give 1 dose of IV Lasix 40 mg today, no acute events overnight, increase activity as tolerated. Antibiotics per ID service recommendations, cultures are negative. We will sign off and follow on as- needed basis I performed a history & physical examination of the patient and discussed their management with my nurse practitioner, Karli Peck. I reviewed the nurse practitioner's note and agree with the documented findings and plan of care. Lung sounds are positive for clear, diminished breath sounds. The findings and the impression was discussed with the patient. I attest to the documentation by the nurse practitioner. Time with Patient: Less than 30
--- NOTE | 2018-12-05 13:19 | P.PN ---
Subjective Progress Note Date: 12/04/18 Principal diagnosis: s/p exploratory laparotomy with colon resection s/p drainage of intra-abdominal abscess right lower quadrant and pelvis This is a pleasant 68-year-old patient of Dr. Sherman. Chronic stable medical conditions include asthma, hypertension, hyperlipidemia, osteoarthritis, rheumatoid arthritis. Patient did have a stroke in 2005 with no residue up. History of kidney stones. Patient on November 20 underwent right hemicolectomy by Dr. Angelito Lacy. Patient was discharged on November 22. Patient had been tolerating a liquid diet. After patient went home he described after second day urine output decreased. Patient also notices swelling of the lower extremity. Also became a bit short of breath. Also patient noticed some diffuse abdominal pain. There was no nausea vomiting area and patient did notice a slight temperature. . Appetite has not been good. Patient had been ambulatory in the house. Patient been having dark stools at home. On November 25 patient did undergo EGD that showed multiple duodenal ulcers with evidence of recent bleeding. Also diaphragmatic hiatal hernia Admitted for the same.subsequently found to have intra-abdominal abscess anastomosis leak. Taking back to the OR. Previous investigations Computed tomography scan of the abdomen-moderate free fluid in the abdomen. Patchy pneumopericardium. Multiple distended fluid-filled loops of small bowel in the abdomen Hemoglobin was 14.3 prior to surgery Renal ultrasound-shows right-sided renal calculi Acute abdominal series reports some element of ileus 2-D echo shows EF of 55-60% 11/29/18 remains in the ICU. Tired. No bowel movement. No output through the wound VAC. NICO drain put out 120 mL overnight. Patient slightly anxious. Family the bedside. Patient remains nothing by mouth. NG tube remains in place. Telemetry shows a flutter/fibrillation-patient went into that couple of days ago. Rate controlled 11/30/18 Patient is currently in the MICU. Patient is status post diagnostic laparoscopy converted to open exploratory Laparotomy, drainage of abdominal abscess right lower quadrant and pelvis. Partial omentectomy, colectomy and small bowel resection, primary anastomosis ileocolic and abdominal lavage completed on 11/27/2018. Patient is currently on NG tube with low intermittent suction. No passage of flatus. NICO drain is in place. Patient is also on TPN via PICC line. PTOT was consulted and patient is attempting to get up to the chair today. Saturating well on nasal cannula oxygen. No complaints of chest pain. No cough or sputum production. No fever no chills. Currently on normal saline at 1 50 mL per hour. Urine output is good. Currently on antibiotic smoke, Zosyn and Flagyl. Intra-abdominal fluid cultures have been negative so far. WBC 17.8. Hemoglobin 10.4, sodium 146, BUN 26 and creatinine 1.1 month calcium 7.0 12/01/2018 Patient is lying in the bed still having abdominal discomfort.. Awake alert and oriented. Patient was able to sit in the chair today. Patient does not have any bowel movement yet. NG tube is in place. Currently saturating well on 2 L oxygen only on nausea cannula. Continued on antibiotics in the form of Zosyn and Flagyl. No fever no chills. Surgical site is intact. General surgery and pulmonary is on board. 12/02/2018 Patient is more awake and alert and oriented today. Patient did have a bowel movement. NG tube has been discontinued. Patient was started on clear liquid diet. Currently saturating well on nasal cannula oxygen. No complaints of chest pain or worsening shortness of breath. Chest x-ray showed distal tip of the PICC line overlying the subclavian. No pneumothorax. No pleural effusion. Leukocytosis is increasing to 21.2 today. Hemoglobin 10.1 and platelet count 252. Sodium 146 and potassium 3.2 improved to 3.6 today. Patient has been afebrile. 12/03/2018 Patient is currently sitting in the chair.. Able to tolerate liquid diet. Patient is having bowel movements with loose stools. Saturating well on room air. WBC 16.[address] of abdomen showed postoperative changes without evidence for leak or abscess. Overall hemodynamically stable. Increased his activity and advance diet as tolerated. Pulmonary and general surgery is following. 12/04/2018 Patient is currently transferred to general medical floor. No compressive chest pain or shortness of breath. Lying in the bed comfortably. Able to motivate bedside commode. Patient is having bowel movement. Denied any chest pain or shortness of breath. Saturating well on room air. Evidently stable. WBC, distending down to 13.5. Hemoglobin 9.2 and creatinine 1.07. PT OT is following. Review of systems: Was done for constitutional, cardiovascular, GI, pulmonary. relevant finding as above Current medications reviewed. Objective - Vital Signs Vital signs: Vital Signs Temp 97.7 F 12/04/18 07:00 Pulse 99 12/04/18 07:00 Resp 19 12/04/18 07:00 BP 142/62 12/04/18 07:00 Pulse Ox 93 L 12/04/18 07:00 Intake & Output 12/03/18 12/04/18 12/04/18 18:59 06:59 18:59 Intake Total 1960 360 736 Output Total 475 1000 Balance 1485 -640 736 Weight 126 kg 126 kg Intake: IV 440 360 Piperacillin-Tazobactam 3 100 .375 gm In Sodium Chloride 0.9% 100 ml @ 25 mls/hr IVPB Q8HR SONJA Rx# :[id number] Sodium Acetate 25 meq 80 Potassium Phosphate 20 mmol Calcium Gluconate 1 gm In Amino Acid 5%-D15w 1,000 ml @ 95 mls/hr IV . BY DURATION SONJA Rx#: [id number] Sodium Chloride 0.9% 1, 160 160 000 ml @ 20 mls/hr IV . Q24H SONJA Rx#:[id number] metroNIDAZOLE-NS PMX 500 100 200 mg In Saline 1 100ml.bag @ 100 mls/hr IVPB Q6H SONJA Rx#:[id number] Intake, IV Titration 560 Amount Potassium Phosphate 10 560 mmol In Amino Acid 5%- D15w+Lytes*E* 1,000 ml @ 80 mls/hr IV .BY DURATION SONJA Rx#:[id number] Oral 960 736 Output: Drainage 125 Right Lower Abdomen 125 Urine 350 200 Post Void Residual 0 Urine/Stool Mix 800 Other: Voiding Method Incontinent # Voids 1 2 2 # Bowel Movements 1 2 - Exam GENERAL: Laying in bed, awake. EYES: Pupils equal. Conjunctiva normal. HEENT: External appearance of nose and ears normal, oral cavity grossly normal. NECK: JVD not raised; masses not palpable. HEART: Heart sounds irregular; some edema . LUNGS: Respiratory rate normal; slightly decreased breath soundsr. ABDOMEN: distended, wound VAC in place, NICO drain, bowel sounds absent PSYCH: Alert and oriented x3; mood and affect anxious. - Labs CBC & Chem 7: 12/05/18 07:15 12/05/18 07:15 Labs: Abnormal Lab Results - Last 24 Hours (Table) 07/25/19 07/26/19 07/26/19 Range/Units 16:59 06:59 06:59 WBC 13.7 H (3.8-10.6) k/uL RBC 2.95 L (4.30-5.90) m/uL Hgb 9.2 L (13.0-17.5) gm/dL Hct 28.5 L (39.0-53.0) % Neutrophils # (Manual) 11.50 H (1.3-7.7) k/uL Lymphocytes # (Manual) 0.82 L (1.0-4.8) k/uL Metamyelocytes # (Man) 0.27 H (0) k/uL Myelocytes # (Manual) 0.27 H (0) k/uL Chloride 114 H (98-107) mmol/L POC Glucose (mg/dL) 100 H (75-99) mg/dL Calcium 7.1 L (8.4-10.2) mg/dL ALT 20 L (21-72) U/L Total Protein 4.5 L (6.3-8.2) g/dL Albumin 1.8 L (3.5-5.0) g/dL Assessment and Plan Assessment: Assessment: -Diagnostic laparoscopy converted to open exploratory laparotomy, drainage of intra-abdominal abscess right lower quadrant and pelvis, partial omentectomy, partial colectomy, small bowel resection, primary anastomosis ileocolic, abdominal lavage 12 L normal saline, placement of #19 NICO drain right side pelvis, application of incisional wound VAC system universal -Acute GI bleed from multiple duodenal ulcers, from use of NSAIDs and antiplatelet agents, status post EGD on November 25 -Acute blood loss anemia from upper GI bleed, and also some blood loss as expected from surgery as hemoglobin was 12.5 upon discharge -Hypotension improving -New onset atrial flutter fibrillation, not a candidate for anticoagulation the present time -Right hemicolectomy for polyps -Obesity BMI 34.4 -Hyperlipidemia -Essential hypertension -Chronic primary osteoarthritis -Acute renal failure possibly ATN combination of cardiorenal syndrome, loss of fluids, slow to improve -Intra-abdominal abscess, following anastamotic leak. Status post surgery as above Plan: Continue current medication treatment plan. Care was discussed with the patient and family the bedside questions were answered. Getting IV antibiotics. Patient did have bowel movement. Started on liquid diet advance as tolerated. Off TPN.. Increase activity. Prognosis guarded. Time with Patient: Greater than 30
[2018-12-05] MEDS: HYDROcodone/APAP 5-325MG 1 EACH TAB PO PRN (15:03)
[2018-12-05] MEDS: SODIUM CHLORIDE 0.9% 1,000 ML IV SCH (15:55)
[2018-12-06] MEDS: PIPERACILLIN-TAZOBACTAM 3.375 GM in SODIUM CHLORIDE 0.9% 100 ML IVPB SCH ×4 (00:37→23:38)
[2018-12-06] MEDS: HYDROcodone/APAP 5-325MG 1 EACH TAB PO PRN ×2 (03:34→20:23)
[2018-12-06] MEDS: metroNIDAZOLE-NS PMX 500 MG in SALINE 1 100ML.BAG IVPB SCH ×4 (04:25→21:48)
--- NOTE | 2018-12-06 08:00 | P.PN ---
Subjective Progress Note Date: 12/06/18 Principal diagnosis: Anastomotic leak Patient doing well today. He is tolerating his low fiber diet. He is having loose stools. Abdominal pain is improving. Today's labs are pending. Objective - Vital Signs Vital signs: Vital Signs Temp 97.6 F 12/06/18 07:01 Pulse 100 12/06/18 07:01 Resp 15 12/06/18 07:01 BP 133/72 12/06/18 07:01 Pulse Ox 93 L 12/06/18 07:01 Intake & Output 12/05/18 12/06/18 12/06/18 18:59 06:59 18:59 Intake Total 540 300 Output Total 600 120 Balance -60 180 Intake: IV 300 Sodium Chloride 0.9% 1, 200 000 ml @ 20 mls/hr IV . Q24H SONJA Rx#:[id number] metroNIDAZOLE-NS PMX 500 100 mg In Saline 1 100ml.bag @ 100 mls/hr IVPB Q6H SONJA Rx#:[id number] Oral 540 Output: Drainage 225 120 Right Lower Abdomen 225 120 Urine 375 Other: # Voids 2 1 # Bowel Movements 1 - Exam Abdomen: Soft, nondistended, mild tenderness, periumbilical wound clean with minimal serous drainage - Labs CBC & Chem 7: 12/05/18 07:15 12/05/18 07:15 Labs: Abnormal Lab Results - Last 24 Hours (Table) 12/05/18 12/05/18 Range/Units 07:15 07:15 WBC 15.1 H (3.8-10.6) k/uL RBC 3.12 L (4.30-5.90) m/uL Hgb 9.8 L (13.0-17.5) gm/dL Hct 30.7 L (39.0-53.0) % Neutrophils # 13.2 H (1.3-7.7) k/uL Lymphocytes # 0.7 L (1.0-4.8) k/uL Chloride 111 H (98-107) mmol/L Calcium 7.3 L (8.4-10.2) mg/dL Total Protein 4.9 L (6.3-8.2) g/dL Albumin 2.1 L (3.5-5.0) g/dL Microbiology - Last 24 Hours (Table) 12/04/18 15:36 Gram Stain - Preliminary Abdomen Wound Culture - Preliminary Assessment and Plan (1) Anastomotic leak of intestine Narrative/Plan: Patient overall doing better. Continue low fiber diet. Increase activity. Infectious disease apparently is considering rehab placement for IV antibiotics. May need PICC line tomorrow. Await morning labs. Current Visit: Yes Status: Acute Code(s): K91.89 - OTH POSTPROCEDURAL COMPLICATIONS AND DISORDERS OF DGSTV SYS SNOMED Code(s): 127498051
[2018-12-06] MEDS: PANTOPRAZOLE 40 MG/10 ML VIAL IVP SCH ×2 (08:04→20:23)
[2018-12-06] MEDS: NYSTATIN 100,000 UNIT/ML SUSP 500,000 UNIT/5 ML CUP PO SCH ×4 (08:04→21:48)
[2018-12-06] MEDS: METOPROLOL TARTRATE 25 MG TAB PO SCH ×3 (08:04→21:48)
[2018-12-06] MEDS: TAMSULOSIN 0.4 MG CAP.ER.24H PO SCH (08:04)
[2018-12-06] MEDS: SUCRALFATE 1 GM TAB PO SCH ×3 (08:04→17:00)
[2018-12-06] MEDS: AMIODARONE 200 MG TAB PO SCH (08:04)
[2018-12-06] MEDS: SIMETHICONE 40 MG/0.6 ML DROPS 2,000 MG/30 ML BOTTLE PO SCH ×4 (08:05→21:48)
[2018-12-06] MEDS: HEPARIN SODIUM,PORCINE 5,000 UNIT/ML 1 ML VIAL SQ SCH ×2 (08:05→20:23)
[2018-12-06 08:35] LABS: Basophils # (A) 0.1 k/uL (0-0.2); Basophils % (A) 0 %; Eosinophils # (A) 0.3 k/uL (0-0.7); Eosinophils % (A) 2 %; HCT 30.2 % (39.0-53.0); HGB 9.3 gm/dL (13.0-17.5); Hypochromasia Moderate; Lymphocytes # (A) 0.7 k/uL (1.0-4.8); Lymphocytes % (A) 6 %; MCH 30.1 pg (25.0-35.0); MCHC 30.9 g/dL (31.0-37.0); MCV 97.5 fL (80.0-100.0); Mean Platelet Volume 8.1; Monocytes # (A) 0.4 k/uL (0-1.0); Monocytes % (A) 3 %; Neutrophils # (A) 11.5 k/uL (1.3-7.7); Neutrophils % (A) 87 %; Platelet Count 432 k/uL (150-450); Poikilocytosis Slight; RBC 3.09 m/uL (4.30-5.90); RDW 14.2 % (11.5-15.5); WBC 13.2 k/uL (3.8-10.6)
--- NOTE | 2018-12-06 12:12 | PN ---
PROGRESS NOTE DATE OF SERVICE: 12/06/2018 This is a 68-year-old gentleman I have been asked to see again because of atrial fibrillation. He is in chronic atrial fibrillation with poorly controlled ventricular rate. We are going to increase the dose of Lopressor to 25 t.i.d. and continue the amiodarone. He is not a candidate for anticoagulation. PHYSICAL EXAM: Heart rate is around 120 beats per minute. Blood pressure is 124/75, respiratory rate is 18. Chest exam reveals diminished air entry at the bases. Heart exam reveals first and second heart sounds irregular rhythm. Exam of the extremities reveals bilateral pitting edema. LABS: Show that the hemoglobin is 9.3. Potassium is 3.7, creatinine is 1.1. ASSESSMENT: 1. Chronic atrial fibrillation with poorly controlled ventricular rate. 2. Status post abdominal surgery. 3. Chronic leg edema. PLAN: Increase the dose of Lopressor to 25 t.i.d. for better rate control. MMODL / NANCYN: [id number] /
--- NOTE | 2018-12-06 13:34 | PN ---
PROGRESS NOTE DATE OF SERVICE: 12/05/2018. REASON FOR FOLLOWUP: Abdominal abscess. INTERVAL HISTORY: The patient is currently afebrile. Patient is breathing comfortably. Denies any chest pain or cough. No nausea, vomiting. No abdominal pain or any diarrhea. PHYSICAL EXAMINATION: Blood pressure 112/67 with a pulse of 105, temperature 98.1. He is 96% on room air. General description is an elderly male lying in bed in no distress. Respiratory system: Unlabored breathing. Decreased breath sounds in the bases. Heart S1, S2. Regular rate and rhythm. Abdomen soft. No tenderness. LABS: Hemoglobin 9.1, white count 15.1 with BUN of 17, creatinine 1.17. DIAGNOSTIC IMPRESSION AND PLAN: Patient with abdominal abscess status post drainage. Culture so far negative. Patient responded to the Zosyn and Eraxis for which the patient is currently on empirically while the patient waiting getting a PICC line and continue antibiotic for another week in the outpatient setting. Continue supportive care. MMODL / IJN: [id number] /
[2018-12-06] MEDS: SODIUM CHLORIDE 0.9% 1,000 ML IV SCH (17:01)
[2018-12-06] MEDS: ANIDULAFUNGIN 100 MG in SODIUM CHLORIDE 0.9% 100 ML IVPB SCH (18:42)
--- NOTE | 2018-12-06 23:51 | P.PN ---
Subjective Progress Note Date: 12/05/18 Principal diagnosis: s/p exploratory laparotomy with colon resection s/p drainage of intra-abdominal abscess right lower quadrant and pelvis This is a pleasant 68-year-old patient of Dr. Sherman. Chronic stable medical conditions include asthma, hypertension, hyperlipidemia, osteoarthritis, rheumatoid arthritis. Patient did have a stroke in 2005 with no residue up. History of kidney stones. Patient on November 20 underwent right hemicolectomy by Dr. Angelito Lacy. Patient was discharged on November 22. Patient had been tolerating a liquid diet. After patient went home he described after second day urine output decreased. Patient also notices swelling of the lower extremity. Also became a bit short of breath. Also patient noticed some diffuse abdominal pain. There was no nausea vomiting area and patient did notice a slight temperature. . Appetite has not been good. Patient had been ambulatory in the house. Patient been having dark stools at home. On November 25 patient did undergo EGD that showed multiple duodenal ulcers with evidence of recent bleeding. Also diaphragmatic hiatal hernia Admitted for the same.subsequently found to have intra-abdominal abscess anastomosis leak. Taking back to the OR. Previous investigations Computed tomography scan of the abdomen-moderate free fluid in the abdomen. Patchy pneumopericardium. Multiple distended fluid-filled loops of small bowel in the abdomen Hemoglobin was 14.3 prior to surgery Renal ultrasound-shows right-sided renal calculi Acute abdominal series reports some element of ileus 2-D echo shows EF of 55-60% 11/29/18 remains in the ICU. Tired. No bowel movement. No output through the wound VAC. NICO drain put out 120 mL overnight. Patient slightly anxious. Family the bedside. Patient remains nothing by mouth. NG tube remains in place. Telemetry shows a flutter/fibrillation-patient went into that couple of days ago. Rate controlled 11/30/18 Patient is currently in the MICU. Patient is status post diagnostic laparoscopy converted to open exploratory Laparotomy, drainage of abdominal abscess right lower quadrant and pelvis. Partial omentectomy, colectomy and small bowel resection, primary anastomosis ileocolic and abdominal lavage completed on 11/27/2018. Patient is currently on NG tube with low intermittent suction. No passage of flatus. NICO drain is in place. Patient is also on TPN via PICC line. PTOT was consulted and patient is attempting to get up to the chair today. Saturating well on nasal cannula oxygen. No complaints of chest pain. No cough or sputum production. No fever no chills. Currently on normal saline at 1 50 mL per hour. Urine output is good. Currently on antibiotic smoke, Zosyn and Flagyl. Intra-abdominal fluid cultures have been negative so far. WBC 17.8. Hemoglobin 10.4, sodium 146, BUN 26 and creatinine 1.1 month calcium 7.0 12/01/2018 Patient is lying in the bed still having abdominal discomfort.. Awake alert and oriented. Patient was able to sit in the chair today. Patient does not have any bowel movement yet. NG tube is in place. Currently saturating well on 2 L oxygen only on nausea cannula. Continued on antibiotics in the form of Zosyn and Flagyl. No fever no chills. Surgical site is intact. General surgery and pulmonary is on board. 12/02/2018 Patient is more awake and alert and oriented today. Patient did have a bowel movement. NG tube has been discontinued. Patient was started on clear liquid diet. Currently saturating well on nasal cannula oxygen. No complaints of chest pain or worsening shortness of breath. Chest x-ray showed distal tip of the PICC line overlying the subclavian. No pneumothorax. No pleural effusion. Leukocytosis is increasing to 21.2 today. Hemoglobin 10.1 and platelet count 252. Sodium 146 and potassium 3.2 improved to 3.6 today. Patient has been afebrile. 12/03/2018 Patient is currently sitting in the chair.. Able to tolerate liquid diet. Patient is having bowel movements with loose stools. Saturating well on room air. WBC 16.[address] of abdomen showed postoperative changes without evidence for leak or abscess. Overall hemodynamically stable. Increased his activity and advance diet as tolerated. Pulmonary and general surgery is following. 12/04/2018 Patient is currently transferred to general medical floor. No compressive chest pain or shortness of breath. Lying in the bed comfortably. Able to motivate bedside commode. Patient is having bowel movement. Denied any chest pain or shortness of breath. Saturating well on room air. Evidently stable. WBC, distending down to 13.5. Hemoglobin 9.2 and creatinine 1.07. PT OT is following. 12/05/18 Patient is currently awake alert oriented x3. Tolerating oral diet. Patient still having loose bowel movements. Saturating well on room air. WBC 15.1 today. NICO drain still having serosanguineous fluid. Patient is voiding spontaneously after taking out Wallace catheter. No fever no chills. Cultures have been negative. Continued on IV antibiotics in the form of Zosyn and methimazole. Review of systems: Was done for constitutional, cardiovascular, GI, pulmonary. relevant finding as above Current medications reviewed. On 12/05/2018 patient seen in follow-up on medical surgical floor. She is sitting up in the recliner, in no acute distress. He is on room air, denies any difficulty breathing, no chest pain, vital signs are stable, he is eating a regular diet, incision is covered with surgical dressing, abdominal binder is in place, no complaint of abdominal pain, NICO drain is still putting out some moderate amount of seros fluid. Wallace has been taken out, he is voiding. Lung sounds are clear, his labs have been noted, no new chest x-rays, vital signs are stable, cultures remain negative, no nausea vomiting or diarrhea. Breathing is stable. Objective - Vital Signs Vital signs: Vital Signs Temp 98.3 F 12/05/18 08:33 Pulse 116 H 12/05/18 08:33 Resp 16 12/05/18 08:33 BP 120/71 12/05/18 08:33 Pulse Ox 97 12/05/18 08:33 Intake & Output 12/04/18 12/05/18 12/05/18 18:59 06:59 18:59 Intake Total 736 180 Output Total 90 180 Balance 646 -180 180 Weight 126 kg Intake: Oral 736 180 Output: Drainage 90 180 Right Lower Abdomen 90 180 Other: # Voids 2 1 1 # Bowel Movements 2 1 - Exam GENERAL: Laying in bed, awake. EYES: Pupils equal. Conjunctiva normal. HEENT: External appearance of nose and ears normal, oral cavity grossly normal. NECK: JVD not raised; masses not palpable. HEART: Heart sounds irregular; some edema . LUNGS: Respiratory rate normal; slightly decreased breath sounds basilar. ABDOMEN: soft nondistended, wound VAC in place, Nico drain, bowel sounds present PSYCH: Alert and oriented x3; mood and affect anxious. - Labs CBC & Chem 7: 12/06/18 07:30 12/05/18 07:15 Labs: Abnormal Lab Results - Last 24 Hours (Table) 11/26/18 12/05/18 12/05/18 Range/Units 02:40 07:15 07:15 WBC 15.1 H (3.8-10.6) k/uL RBC 3.12 L (4.30-5.90) m/uL Hgb 9.8 L (13.0-17.5) gm/dL Hct 30.7 L (39.0-53.0) % Neutrophils # 13.2 H (1.3-7.7) k/uL Lymphocytes # 0.7 L (1.0-4.8) k/uL Chloride 111 H (98-107) mmol/L Calcium 7.3 L (8.4-10.2) mg/dL Total Protein 4.9 L (6.3-8.2) g/dL Albumin 2.1 L (3.5-5.0) g/dL Stool Calprotectin 129.4 H mcg/g Microbiology - Last 24 Hours (Table) 12/04/18 15:36 Gram Stain - Preliminary Abdomen Wound Culture - Preliminary 12/04/18 22:05 Anaerobic Culture - Preliminary Abdomen Assessment and Plan Assessment: Assessment: -Diagnostic laparoscopy converted to open exploratory laparotomy, drainage of intra-abdominal abscess right lower quadrant and pelvis, partial omentectomy, partial colectomy, small bowel resection, primary anastomosis ileocolic, abdominal lavage 12 L normal saline, placement of #19 NICO drain right side pelvis, application of incisional wound VAC system universal -Acute GI bleed from multiple duodenal ulcers, from use of NSAIDs and antiplatelet agents, status post EGD on November 25 -Acute blood loss anemia from upper GI bleed, and also some blood loss as expe cted from surgery as hemoglobin was 12.5 upon discharge -Hypotension improving -New onset atrial flutter fibrillation, not a candidate for anticoagulation the present time -Right hemicolectomy for polyps -Obesity BMI 34.4 -Hyperlipidemia -Essential hypertension -Chronic primary osteoarthritis -Acute renal failure possibly ATN combination of cardiorenal syndrome, loss of fluids, slow to improve -Intra-abdominal abscess, following anastamotic leak. Status post surgery as above Plan: Continue current medication treatment plan. Care was discussed with the patient and family the bedside questions were answered. Getting IV antibiotics. Patient did have bowel movement. Started on liquid diet advance as tolerated. Off TPN.. Increase activity. Prognosis guarded. Time with Patient: Greater than 30
--- NOTE | 2018-12-06 23:56 | P.PN ---
Subjective Progress Note Date: 12/06/18 Principal diagnosis: s/p exploratory laparotomy with colon resection s/p drainage of intra-abdominal abscess right lower quadrant and pelvis This is a pleasant 68-year-old patient of Dr. Sherman. Chronic stable medical conditions include asthma, hypertension, hyperlipidemia, osteoarthritis, rheumatoid arthritis. Patient did have a stroke in 2005 with no residue up. History of kidney stones. Patient on November 20 underwent right hemicolectomy by Dr. Angelito Lacy. Patient was discharged on November 22. Patient had been tolerating a liquid diet. After patient went home he described after second day urine output decreased. Patient also notices swelling of the lower extremity. Also became a bit short of breath. Also patient noticed some diffuse abdominal pain. There was no nausea vomiting area and patient did notice a slight temperature. . Appetite has not been good. Patient had been ambulatory in the house. Patient been having dark stools at home. On November 25 patient did undergo EGD that showed multiple duodenal ulcers with evidence of recent bleeding. Also diaphragmatic hiatal hernia Admitted for the same.subsequently found to have intra-abdominal abscess anastomosis leak. Taking back to the OR. Previous investigations Computed tomography scan of the abdomen-moderate free fluid in the abdomen. Patchy pneumopericardium. Multiple distended fluid-filled loops of small bowel in the abdomen Hemoglobin was 14.3 prior to surgery Renal ultrasound-shows right-sided renal calculi Acute abdominal series reports some element of ileus 2-D echo shows EF of 55-60% 11/29/18 remains in the ICU. Tired. No bowel movement. No output through the wound VAC. NICO drain put out 120 mL overnight. Patient slightly anxious. Family the bedside. Patient remains nothing by mouth. NG tube remains in place. Telemetry shows a flutter/fibrillation-patient went into that couple of days ago. Rate controlled 11/30/18 Patient is currently in the MICU. Patient is status post diagnostic laparoscopy converted to open exploratory Laparotomy, drainage of abdominal abscess right lower quadrant and pelvis. Partial omentectomy, colectomy and small bowel resection, primary anastomosis ileocolic and abdominal lavage completed on 11/27/2018. Patient is currently on NG tube with low intermittent suction. No passage of flatus. NICO drain is in place. Patient is also on TPN via PICC line. PTOT was consulted and patient is attempting to get up to the chair today. Saturating well on nasal cannula oxygen. No complaints of chest pain. No cough or sputum production. No fever no chills. Currently on normal saline at 1 50 mL per hour. Urine output is good. Currently on antibiotic smoke, Zosyn and Flagyl. Intra-abdominal fluid cultures have been negative so far. WBC 17.8. Hemoglobin 10.4, sodium 146, BUN 26 and creatinine 1.1 month calcium 7.0 12/01/2018 Patient is lying in the bed still having abdominal discomfort.. Awake alert and oriented. Patient was able to sit in the chair today. Patient does not have any bowel movement yet. NG tube is in place. Currently saturating well on 2 L oxygen only on nausea cannula. Continued on antibiotics in the form of Zosyn and Flagyl. No fever no chills. Surgical site is intact. General surgery and pulmonary is on board. 12/02/2018 Patient is more awake and alert and oriented today. Patient did have a bowel movement. NG tube has been discontinued. Patient was started on clear liquid diet. Currently saturating well on nasal cannula oxygen. No complaints of chest pain or worsening shortness of breath. Chest x-ray showed distal tip of the PICC line overlying the subclavian. No pneumothorax. No pleural effusion. Leukocytosis is increasing to 21.2 today. Hemoglobin 10.1 and platelet count 252. Sodium 146 and potassium 3.2 improved to 3.6 today. Patient has been afebrile. 12/03/2018 Patient is currently sitting in the chair.. Able to tolerate liquid diet. Patient is having bowel movements with loose stools. Saturating well on room air. WBC 16.[address] of abdomen showed postoperative changes without evidence for leak or abscess. Overall hemodynamically stable. Increased his activity and advance diet as tolerated. Pulmonary and general surgery is following. 12/04/2018 Patient is currently transferred to general medical floor. No compressive chest pain or shortness of breath. Lying in the bed comfortably. Able to motivate bedside commode. Patient is having bowel movement. Denied any chest pain or shortness of breath. Saturating well on room air. Evidently stable. WBC, distending down to 13.5. Hemoglobin 9.2 and creatinine 1.07. PT OT is following. 12/05/18 Patient is currently awake alert oriented x3. Tolerating oral diet. Patient still having loose bowel movements. Saturating well on room air. WBC 15.1 today. NICO drain still having serosanguineous fluid. Patient is voiding spontaneously after taking out Wallace catheter. No fever no chills. Cultures have been negative. Continued on IV antibiotics in the form of Zosyn and methimazole. 12/06/2018 Patient is currently sitting in the chair comfortably. No complaints of chest pain or shortness of breath. NICO drain is still present and draining serosanguineous fluid. Patient was tachycardic this morning and was metoprolol dose was increased. Voiding spontaneously. Patient is still having loose stools. Started on low fiber diet. WBC 13.2 today. Encourage incentive spirometry and ambulation. Continue on IV antibiotics in the form of Zosyn and metronidazole as well as antifungal. Review of systems: Was done for constitutional, cardiovascular, GI, pulmonary. relevant finding as above Objective - Vital Signs Vital signs: Vital Signs Temp 98.0 F 12/06/18 13:49 Pulse 87 12/06/18 13:49 Resp 14 12/06/18 13:49 BP 120/65 12/06/18 13:49 Pulse Ox 94 L 12/06/18 13:49 Intake & Output 12/05/18 12/06/18 12/06/18 18:59 06:59 18:59 Intake Total 540 300 560 Output Total 600 120 410 Balance -60 180 150 Weight 124.9 kg Intake: IV 300 Sodium Chloride 0.9% 1, 200 000 ml @ 20 mls/hr IV . Q24H [facility] Rx#:[id number] metroNIDAZOLE-NS PMX 500 100 mg In Saline 1 100ml.bag @ 100 mls/hr IVPB Q6H [facility] Rx#:[id number] Oral 540 560 Output: Drainage 225 120 110 Right Lower Abdomen 225 120 110 Urine 375 300 Other: # Voids 2 1 1 # Bowel Movements 1 1 - Exam GENERAL: Laying in bed, awake. EYES: Pupils equal. Conjunctiva normal. HEENT: External appearance of nose and ears normal, oral cavity grossly normal. NECK: JVD not raised; masses not palpable. HEART: Heart sounds irregular; some edema . LUNGS: Respiratory rate normal; slightly decreased breath sounds basilar. ABDOMEN: soft nondistended, wound VAC in place, Nico drain, bowel sounds present PSYCH: Alert and oriented x3; mood and affect anxious. - Labs CBC & Chem 7: 12/06/18 07:30 12/05/18 07:15 Labs: Abnormal Lab Results - Last 24 Hours (Table) 12/06/18 Range/Units 07:30 WBC 13.2 H (3.8-10.6) k/uL RBC 3.09 L (4.30-5.90) m/uL Hgb 9.3 L (13.0-17.5) gm/dL Hct 30.2 L (39.0-53.0) % MCHC 30.9 L (31.0-37.0) g/dL Neutrophils # 11.5 H (1.3-7.7) k/uL Lymphocytes # 0.7 L (1.0-4.8) k/uL Assessment and Plan Assessment: Assessment: -Diagnostic laparoscopy converted to open exploratory laparotomy, drainage of intra-abdominal abscess right lower quadrant and pelvis, partial omentectomy, partial colectomy, small bowel resection, primary anastomosis ileocolic, abdominal lavage 12 L normal saline, placement of #19 NICO drain right side pel vis, application of incisional wound VAC system universal. Wound culture showed group D enterococcus and Yeast species. -Acute GI bleed from multiple duodenal ulcers, from use of NSAIDs and antiplatelet agents, status post EGD on November 25 -Acute blood loss anemia from upper GI bleed, and also some blood loss as expected from surgery as hemoglobin was 12.5 upon discharge -Hypotension improving -New onset atrial flutter fibrillation, not a candidate for anticoagulation the present time -Right hemicolectomy for polyps -Obesity BMI 34.4 -Hyperlipidemia -Essential hypertension -Chronic primary osteoarthritis -Acute renal failure possibly ATN combination of cardiorenal syndrome, loss of fluids, slow to improve -Intra-abdominal abscess, following anastamotic leak. Status post surgery as above Plan: Continue current medication treatment plan. Care was discussed with the patient and family the bedside questions were answered. Getting IV antibiotics. Patient is having loose bowel movements. Started on liquid diet advanced low fiber. Off TPN.. Increase activity. Prognosis guarded. Time with Patient: Greater than 30
[2018-12-07] MEDS: metroNIDAZOLE-NS PMX 500 MG in SALINE 1 100ML.BAG IVPB SCH ×4 (04:11→20:38)
[2018-12-07] MEDS: AMIODARONE 200 MG TAB PO SCH (09:13)
[2018-12-07] MEDS: HEPARIN SODIUM,PORCINE 5,000 UNIT/ML 1 ML VIAL SQ SCH ×2 (09:13→20:37)
[2018-12-07] MEDS: METOPROLOL TARTRATE 25 MG TAB PO SCH ×3 (09:13→20:39)
[2018-12-07] MEDS: SUCRALFATE 1 GM TAB PO SCH ×3 (09:13→17:07)
[2018-12-07] MEDS: TAMSULOSIN 0.4 MG CAP.ER.24H PO SCH (09:13)
[2018-12-07] MEDS: PANTOPRAZOLE 40 MG/10 ML VIAL IVP SCH (09:13)
[2018-12-07] MEDS: NYSTATIN 100,000 UNIT/ML SUSP 500,000 UNIT/5 ML CUP PO SCH ×4 (09:13→20:38)
[2018-12-07] MEDS: SIMETHICONE 40 MG/0.6 ML DROPS 2,000 MG/30 ML BOTTLE PO SCH ×4 (09:13→20:38)
[2018-12-07 09:51] LABS: Basophils % (A) 0 %; Eosinophils # (A) 0.2 k/uL (0-0.7); Eosinophils % (A) 1 %; HCT 28.4 % (39.0-53.0); HGB 9.1 gm/dL (13.0-17.5); Hypochromasia Slight; Lymphocytes # (A) 0.8 k/uL (1.0-4.8); Lymphocytes % (A) 6 %; MCH 30.9 pg (25.0-35.0); MCV 96.4 fL (80.0-100.0); Monocytes # (A) 0.4 k/uL (0-1.0); Monocytes % (A) 3 %; Neutrophils # (A) 11.7 k/uL (1.3-7.7); Neutrophils % (A) 89 %; Platelet Count 446 k/uL (150-450); Poikilocytosis Slight; RBC 2.95 m/uL (4.30-5.90); RDW 14.6 % (11.5-15.5); WBC 13.2 k/uL (3.8-10.6)
[2018-12-07 10:44] VITALS: BMI 39.2
[2018-12-07] MEDS: PIPERACILLIN-TAZOBACTAM 3.375 GM in SODIUM CHLORIDE 0.9% 100 ML IVPB SCH ×2 (10:50→16:08)
--- NOTE | 2018-12-07 12:15 | P.PN ---
Subjective Progress Note Date: 12/07/18 CHIEF COMPLAINT: Pancreatitis with upper GI bleed HISTORY OF PRESENT ILLNESS: Patient is status post diagnostic laparoscopy converted to open exploratory laparotomy, drainage of intractable abdominal abscess right lower quadrant and pelvis, partial omentectomy, partial colectomy, small bowel resection, primary anastomosis ileocolic, and abdominal lavage completed on 11/27/18. Patient examined this morning. Patient's spouse present. Patient is sitting up in a chair. He reports his abdominal pain is tolerable. He is tolerating diet. Reports a few loose bowel movements throughout the night. Denies nausea or vomiting. Voiding without difficulty. Vital signs have been stable. Patient is afebrile. WBC 13.2. Hemoglobin 9.1. PHYSICAL EXAM: VITAL SIGNS: Reviewed GENERAL: Well-developed in no acute distress. HEENT: No sclera icterus. Extraocular movements grossly intact. Moist buccal mucosa. Head is atraumatic, normocephalic. Hears conversational speech. No nasal drainage. NECK: Supple without lymphadenopathy. CHEST: Non-labored respirations and equal bilateral excursions. CARDIOVASCULAR: Regular rate with regular rhythm. Palpable 2+ radial pulses. ABDOMEN: Soft. Nondistended. Minimal tenderness. Positive bowel sounds. NICO with small amount of serosanguinous drainage. Dressing intact with shadowing present. Small periumbilical wound with packing present. MUSCULOSKELETAL: No clubbing, cyanosis or edema. NEUROLOGIC: No focal or lateralizing signs. Cranial nerves II through XII grossly intact. PSYCH: Appropriate affect. Alert and oriented to person, place and time. SKIN: Well perfused. Good skin turgor. Small periumbilical wound with packing present. ASSESSMENT: 1. Acute upper gastrointestinal bleed secondary to acute bleeding duodenal ulcers 2. Acute pancreatitis, resolved 3. Acute cholecystitis, stable 4. Severe obstructive uropathy, pre-existing 5. Acute bilateral lower extremity edema 6. Ileus secondary to acute pancreatitis 7. S/P diagnostic laparoscopy converted to open exploratory laparotomy, drainage of intractable abdominal abscess right lower quadrant and pelvis, partial omentectomy, partial colectomy, small bowel resection, primary anastomosis ileocolic, and abdominal lavage 8. Atrial fibrillation PLAN: 1. Continue low fiber diet 2. Activity as tolerated 3. Incentive spirometry 4. Per Dr. Mathews dictation, patient will need 1 week of outpatient IV antibiotics. Will place order for new PICC line to be inserted 5. Antibiotics per Dr. Martinez. Continue to monitor WBC 6. Continue daily dressing changes to abdomen with Aquacel silver. Possible wound vac. Will defer to Dr. Martinez 7. Anticipate discharge to [facility] within the next 24-48 hours Nurse practitioner note has been reviewed by physician. Signing provider agrees with the documented findings, assessment, and plan of care. Objective - Vital Signs Vital signs: Vital Signs Temp 98.1 F 12/07/18 08:21 Pulse 98 12/07/18 08:21 Resp 16 12/07/18 08:21 BP 146/72 12/07/18 08:21 Pulse Ox 93 L 12/07/18 08:21 Intake & Output 12/06/18 12/07/18 12/07/18 18:59 06:59 18:59 Intake Total 740 350 Output Total 450 220 Balance 290 130 Weight 124.1 kg 124.1 kg Intake: IV 350 Piperacillin-Tazobactam 3 100 .375 gm In Sodium Chloride 0.9% 100 ml @ 25 mls/hr IVPB Q8HR [facility] Rx# :[id number] Sodium Chloride 0.9% 1, 150 000 ml @ 20 mls/hr IV . Q24H SON[facility] Rx#:[id number] metroNIDAZOLE-NS PMX 500 100 mg In Saline 1 100ml.bag @ 100 mls/hr IVPB Q6H [facility]ON[facility] Rx#:[id number] Oral 740 Output: Drainage 150 220 Right Lower Abdomen 150 220 Urine 300 Other: # Voids 1 3 # Bowel Movements 1 - Labs CBC & Chem 7: 12/07/18 08:50 12/05/18 07:15 Labs: Abnormal Lab Results - Last 24 Hours (Table) 12/07/18 Range/Units 08:50 WBC 13.2 H (3.8-10.6) k/uL RBC 2.95 L (4.30-5.90) m/uL Hgb 9.1 L (13.0-17.5) gm/dL Hct 28.4 L (39.0-53.0) % Neutrophils # 11.7 H (1.3-7.7) k/uL Lymphocytes # 0.8 L (1.0-4.8) k/uL Microbiology - Last 24 Hours (Table) 12/04/18 22:05 Anaerobic Culture - Preliminary Abdomen 12/04/18 15:36 Gram Stain - Preliminary Abdomen Wound Culture - Preliminary Group D Enterococcus Yeast species Assessment and Plan (1) Acute cholecystitis with chronic cholecystitis Current Visit: Yes Status: Acute Code(s): K81.2 - ACUTE CHOLECYSTITIS WITH CHRONIC CHOLECYSTITIS SNOMED Code(s): 480785611 (2) Acute pancreatitis Current Visit: Yes Status: Acute Code(s): K85.90 - ACUTE PANCREATITIS WITHOUT NECROSIS OR INFECTION, UNSP SNOMED Code(s): 093769268 (3) BMI 37.0-37.9, adult Current Visit: Yes Status: Acute Code(s): Z68.37 - BODY MASS INDEX (BMI) 37.0-37.9, ADULT SNOMED Code(s): 911958626 (4) Bladder atony Current Visit: Yes Status: Acute Code(s): N31.2 - FLACCID NEUROPATHIC BLADDER, NOT ELSEWHERE CLASSIFIED SNOMED Code(s): 959635402 (5) Duodenal ulcer hemorrhage Current Visit: Yes Status: Acute Code(s): K26.4 - CHRONIC OR UNSPECIFIED DUODENAL ULCER WITH HEMORRHAGE SNOMED Code(s): 94901433 (6) Iron deficiency anemia due to chronic blood loss Current Visit: Yes Status: Acute Code(s): D50.0 - IRON DEFICIENCY ANEMIA SECONDARY TO BLOOD LOSS (CHRONIC) SNOMED Code(s): 235620065 (7) Prostatic hyperplasia, benign localized, with obstruction Current Visit: Yes Status: Acute Code(s): N40.1 - BENIGN PROSTATIC HYPERPLASIA WITH LOWER URINARY TRACT SYMP; N13.8 - OTHER OBSTRUCTIVE AND REFLUX UROPATHY SNOMED Code(s): 147054829
[2018-12-07] MEDS ORDERED: LIDOCAINE 1% INJ 10MG/ML (20 ML MDV) ONE (13:31)
[2018-12-07] MEDS ORDERED: LIDOCAINE 1% INJ 10MG/ML (20 ML MDV) SQ ONE (13:48)
[2018-12-07] MEDS: SODIUM CHLORIDE 0.9% 1,000 ML IV SCH (14:40)
--- NOTE | 2018-12-07 14:41 | IR ---
PICC LINE PLACEMENT: HISTORY: Infection requiring long-term antibiotic therapy PROCEDURE: Ultrasound and fluoroscopic guidance of PICC line placement. COMPLICATIONS: None ANESTHESIA: 1. 1% Lidocaine locally. FINDINGS/TECHNIQUE: The procedure was explained to the patient. The risks, complications, benefits and alternatives were discussed and any questions were answered. Informed consent was obtained. The patient was placed supine on the fluoroscopic table and prepped and draped in the usual sterile fash ion. Utilizing a 21 gauge needle and sonographic and fluoroscopic guidance, access in the right cep halic vein was achieved and there is placement of a 0.018 guidewire. The vein is patent. A 4-F chacko th was placed over the guidewire. The guidewire and dilator were removed and a 4-F. PICC line was pl aced through the sheath with the tip at the level of the SVC. The sheath was removed, the catheter w as flushed and sutured into position. The patient was stable throughout the procedure and remained s table upon discharge from the Department of Radiology. The vein puncture was patent under ultrasound. A simmons scale image was obtained to document patency of the vein punctured. All elements of the maximal barrier technique were utilized. FLUOROSCOPY TIME: 0.2 minutes and one image submitted IMPRESSION: Successful PICC line placement under ultrasound and fluoroscopic guidance.
[2018-12-07] MEDS: ANIDULAFUNGIN 100 MG in SODIUM CHLORIDE 0.9% 100 ML IVPB SCH (17:07)
--- NOTE | 2018-12-07 19:42 | PN ---
PROGRESS NOTE DATE OF SERVICE: 12/07/2018. REASON FOR FOLLOWUP: Abdominal abscess. INTERVAL HISTORY: The patient is currently afebrile. Patient has been breathing comfortably. Denies having any chest pain, shortness of breath or cough. No nausea, vomiting. Denies any abdominal pain. Did have 4 bowel movements since last night. PHYSICAL EXAMINATION: Blood pressure 146/72 with a pulse of 90, temperature 98.1. He is 93% on 2 L nasal cannula. General description is an elderly male lying in bed in no distress. Respiratory system: Unlabored breathing. Decreased breath sounds in the bases. Heart is S1, S2. Regular rate and rhythm. ABDOMEN: Soft, mildly distended. No guarding or rigidity. EXTREMITIES: No edema of the feet. LABS: Hemoglobin 9.1, white count 13.2, BUN of 17, creatinine 1.17. DIAGNOSTIC IMPRESSION AND PLAN: Patient with abdominal abscess. Cultures now showing Group D Enterococcus and new species. The patient is currently covered with Zosyn and Eraxis while waiting for the ID sensitivities to pathogen to determine discharge antibiotics. Continue supportive care. MMODL / IJN: [id number] /
[2018-12-07] MEDS: PANTOPRAZOLE 40 MG TABLET PO SCH (20:38)
--- NOTE | 2018-12-08 00:45 | P.PN ---
Progress Note - Text Progress Note Date: 12/07/18 Interval history: This is a pleasant 68-year-old patient of Dr. Sherman. Chronic stable medical conditions include asthma, hypertension, hyperlipidemia, osteoarthritis, rheumatoid arthritis. Patient did have a stroke in 2005 with no residue up. History of kidney stones. Patient on November 20 underwent right hemicolectomy by Dr. Angelito Lacy. Patient was discharged on November 22. Patient had been tolerating a liquid diet. After patient went home he described after second day urine output decreased. Patient also notices swelling of the lower extremity. Also became a bit short of breath. Also patient noticed some diffuse abdominal pain. There was no nausea vomiting area and patient did notice a slight temperature. . Appetite has not been good. Patient had been ambulatory in the house. Patient been having dark stools at home. On November 25 patient did undergo EGD that showed multiple duodenal ulcers with evidence of recent bleeding. Also diaphragmatic hiatal hernia Admitted for the same.subsequently found to have intra-abdominal abscess anastomosis leak. Taking back to the OR. Today-sitting upon a chair. Tolerating his diet. Had a bowel movement. Has a NICO drain with serosanguineous discharge. Abdomen pain is well controlled. at the bedside. Her nausea vomiting. Review of systems: Was done for constitutional, cardiovascular, GI, pulmonary. relevant finding as above Active Medications Hydrocodone Bitart/Acetaminophen ([place] 5-325) 1 each PO Q4HR PRN PRN Reason: MODERATE Pain Last Admin: 12/06/18 20:23 Dose: 1 each Documented by: Amiodarone HCl (Cordarone) 200 mg PO DAILY [facility] Last Admin: 12/07/18 09:13 Dose: 200 mg Documented by: Diphenhydramine HCl (Benadryl) 25 mg IVP Q6HR PRN PRN Reason: Itching Heparin Sodium (Porcine) (Heparin) 5,000 unit SQ Q12HR [facility]ONJA Last Admin: 12/07/18 20:37 Dose: 5,000 unit Documented by: Hydromorphone HCl (Dilaudid) 1 mg IVP Q4HR PRN PRN Reason: SEVERE Pain Last Admin: 11/26/18 22:40 Dose: 1 mg Documented by: Piperacillin Sod/Tazobactam (Sod 3.375 gm/ Sodium Chloride) 100 mls @ 25 mls/hr IVPB Q8HR [facility] Last Admin: 12/07/18 16:08 Dose: 25 mls/hr Documented by: Metronidazole 500 mg/ IV (Solution) 100 mls @ 100 mls/hr IVPB Q6H [facility] Last Admin: 12/07/18 20:38 Dose: 100 mls/hr Documented by: Sodium Chloride (Saline 0.9%) 1,000 mls @ 20 mls/hr IV .Q24H [facility] Last Admin: 12/07/18 14:40 Dose: Not Given Documented by: Anidulafungin 100 mg/ Sodium (Chloride) 100 mls @ 84 mls/hr IVPB Q24H [facility] Last Admin: 12/07/18 17:07 Dose: 84 mls/hr Documented by: Metoprolol Tartrate (Lopressor) 25 mg PO TID [facility] Last Admin: 12/07/18 20:39 Dose: 25 mg Documented by: Miscellaneous Information (Magnesium Per Protocol) 1 each MISCELLANE DAILY PRN; Protocol PRN Reason: Per Protocol Miscellaneous Information (Potassium Per Protocol) 1 each MISCELLANE DAILY PRN; Protocol PRN Reason: Per Protocol Naloxone HCl (Narcan) 0.2 mg IV Q2M PRN PRN Reason: Opioid Reversal Nystatin (Mycostatin Oral Susp) 500,000 unit PO QID [facility] Last Admin: 12/07/18 20:38 Dose: 500,000 unit Documented by: Ondansetron HCl (Zofran) 4 mg IVP Q8HR PRN PRN Reason: Nausea And Vomiting Last Admin: 11/27/18 08:35 Dose: 4 mg Documented by: Pantoprazole Sodium (Protonix) 40 mg PO BID [facility] Last Admin: 12/07/18 20:38 Dose: 40 mg Documented by: Simethicone (Mylicon Drops) 40 mg PO QID [facility] Last Admin: 12/07/18 20:38 Dose: 40 mg Documented by: Sucralfate (Carafate) 1 gm PO AC-TID [facility] Last Admin: 12/07/18 17:07 Dose: 1 gm Documented by: Tamsulosin HCl (Flomax) 0.4 mg PO PC-BRKFST [facility] Last Admin: 12/07/18 09:13 Dose: 0.4 mg Documented by: Physical examination: VITAL SIGNS: 98.6, 92, 16, 124/70, 94% room air GENERAL: Sitting up in a chair, awake comfortable. EYES: Pupils equal. Conjunctiva normal. HEENT: External appearance of nose and ears normal, oral cavity grossly normal.NG tube in place NECK: JVD not raised; masses not palpable. HEART: Heart sounds irregular; some edema . LUNGS: Respiratory rate normal; slightly decreased breath sounds. ABDOMEN: distended, wound VAC in place, NICO drain, bowel sounds present PSYCH: Alert and oriented x3; mood and affect anxious. Investigations: White count 13.2 hemoglobin 9.1 platelets 446 Potassium 3.7 creatinine 1.17 Previous investigations Computed tomography scan of the abdomen-moderate free fluid in the abdomen. Patchy pneumopericardium. Multiple distended fluid-filled loops of small bowel in the abdomen Hemoglobin was 14.3 prior to surgery Renal ultrasound-shows right-sided renal calculi Acute abdominal series reports some element of ileus 2-D echo shows EF of 55-60% Abdominal wound growing VRE and Jil albicans Assessment: -Diagnostic laparoscopy converted to open exploratory laparotomy, drainage of intra-abdominal abscess right lower quadrant and pelvis, partial omentectomy, partial colectomy, small bowel resection, primary anastomosis ileocolic, abdominal lavage 12 L normal saline, placement of #19 NICO drain right side pelvis, application of incisional wound VAC system universal -Acute GI bleed from multiple duodenal ulcers, from use of NSAIDs and antiplatelet agents, status post EGD on November 25 -Acute blood loss anemia from upper GI bleed, and also some blood loss as expected from surgery as hemoglobin was 12.5 upon discharge -Hypotension corrected -New onset atrial flutter fibrillation, not a candidate for anticoagulation the present time -Right hemicolectomy for polyps -Obesity BMI 34.4 -Hyperlipidemia -Essential hypertension -Chronic primary osteoarthritis -Acute renal failure possibly ATN combination of cardiorenal syndrome, loss of fluids, resolved -Intra-abdominal abscess, following anastamotic leak. Status post surgery as above, with cultures growing enterococcus faecium and Jil albicans Plan: Patient did use a walker and did walk in the hallway. Plan is to go to the [facility]. Patient's PICC line had come out and new midline is being placed per ID. Patient be getting about another week of antibiotics. Care was discussed at length with the patient and his .
[2018-12-08] MEDS: PIPERACILLIN-TAZOBACTAM 3.375 GM in SODIUM CHLORIDE 0.9% 100 ML IVPB SCH ×2 (00:48→13:03)
[2018-12-08] MEDS: metroNIDAZOLE-NS PMX 500 MG in SALINE 1 100ML.BAG IVPB SCH (04:47)
[2018-12-08 08:40] LABS: Basophils % (A) 0 %; Eosinophils # (A) 0.3 k/uL (0-0.7); Eosinophils % (A) 2 %; HCT 29.3 % (39.0-53.0); HGB 9.2 gm/dL (13.0-17.5); Hypochromasia Moderate; Lymphocytes % (A) 8 %; MCH 30.2 pg (25.0-35.0); MCHC 31.3 g/dL (31.0-37.0); MCV 96.5 fL (80.0-100.0); Monocytes # (A) 0.5 k/uL (0-1.0); Monocytes % (A) 4 %; Neutrophils # (A) 10.6 k/uL (1.3-7.7); Neutrophils % (A) 84 %; Platelet Count 443 k/uL (150-450); Poikilocytosis Slight; RBC 3.04 m/uL (4.30-5.90); RDW 14.7 % (11.5-15.5); WBC 12.6 k/uL (3.8-10.6)
[2018-12-08 08:49] LABS: Calcium 7.2 mg/dL (8.4-10.2); Potassium 3.6 mmol/L (3.5-5.1)
[2018-12-08] MEDS: SUCRALFATE 1 GM TAB PO SCH ×3 (10:34→17:07)
[2018-12-08] MEDS: SIMETHICONE 40 MG/0.6 ML DROPS 2,000 MG/30 ML BOTTLE PO SCH ×4 (10:34→22:19)
[2018-12-08] MEDS: TAMSULOSIN 0.4 MG CAP.ER.24H PO SCH (11:07)
[2018-12-08] MEDS: METOPROLOL TARTRATE 25 MG TAB PO SCH ×3 (11:08→22:19)
[2018-12-08] MEDS: PANTOPRAZOLE 40 MG TABLET PO SCH ×2 (11:08→22:19)
[2018-12-08] MEDS: HEPARIN SODIUM,PORCINE 5,000 UNIT/ML 1 ML VIAL SQ SCH ×2 (11:08→22:18)
[2018-12-08] MEDS: AMIODARONE 200 MG TAB PO SCH (11:08)
[2018-12-08] MEDS: NYSTATIN 100,000 UNIT/ML SUSP 500,000 UNIT/5 ML CUP PO SCH ×4 (11:36→22:19)
--- NOTE | 2018-12-08 11:57 | P.PN ---
Subjective Progress Note Date: 12/08/18 CHIEF COMPLAINT: Pancreatitis with upper GI bleed HISTORY OF PRESENT ILLNESS: Patient is status post diagnostic laparoscopy converted to open exploratory laparotomy, drainage of intractable abdominal abscess right lower quadrant and pelvis, partial omentectomy, partial colectomy, small bowel resection, primary anastomosis ileocolic, and abdominal lavage completed on 11/27/18. Patient examined this morning. Patient's spouse present. Patient is sitting up in a chair. He reports his abdominal pain is tolerable. He is tolerating diet. Passing flatus and having BMs. Denies nausea or vomiting. Voiding without difficulty. patient complains of continued scrotal edema. Vital signs have been stable. Patient is afebrile. Wound cultures positive for VRE. PHYSICAL EXAM: VITAL SIGNS: Reviewed GENERAL: Well-developed in no acute distress. HEENT: No sclera icterus. Extraocular movements grossly intact. Moist buccal mucosa. Head is atraumatic, normocephalic. Hears conversational speech. No nasal drainage. NECK: Supple without lymphadenopathy. CHEST: Non-labored respirations and equal bilateral excursions. CARDIOVASCULAR: Regular rate with regular rhythm. Palpable 2+ radial pulses. ABDOMEN: Soft. Nondistended. Nontender. Positive bowel sounds. NICO with small amount of serous drainage. Wound vac to abdomen present MUSCULOSKELETAL: No clubbing, cyanosis. persistent scrotal edema NEUROLOGIC: No focal or lateralizing signs. Cranial nerves II through XII grossly intact. PSYCH: Appropriate affect. Alert and oriented to person, place and time. SKIN: Well perfused. Good skin turgor. ASSESSMENT: 1. Acute upper gastrointestinal bleed secondary to acute bleeding duodenal ulcers 2. Acute pancreatitis, resolved 3. Acute cholecystitis, stable 4. Severe obstructive uropathy, pre-existing 5. Acute bilateral lower extremity edema 6. Ileus secondary to acute pancreatitis 7. S/P diagnostic laparoscopy converted to open exploratory laparotomy, drainage of intractable abdominal abscess right lower quadrant and pelvis, partial omentectomy, partial colectomy, small bowel resection, primary anastomosis ileocolic, and abdominal lavage 8. Atrial fibrillation PLAN: 1. Continue low fiber diet 2. Activity as tolerated 3. Incentive spirometry 4. Continue wound VAC. Change dressing Friday. Continue NICO drain at discharge. Will be removed by Dr. Jackson at follow-up visit. 4. Dr. Jackson would like urology consulted to evaluate patient's scrotal edema before he can be discharged 5. Discharge planning remains in process. Dr. Martinez recommending Daptomycin and Eraxis at discharge. [facility] unable to accept patient due to cost of daptomycin. Social work states they are looking into [facility]. anticipate discharge to subacute rehab when plans are finalized. Nurse practitioner note has been reviewed by physician. Signing provider agrees with the documented findings, assessment, and plan of care. Objective - Vital Signs Vital signs: Vital Signs Temp 98.3 F 12/08/18 08:49 Pulse 100 12/08/18 08:49 Resp 16 12/08/18 08:49 BP 132/73 12/08/18 08:49 Pulse Ox 93 L 12/08/18 08:49 Intake & Output 12/07/18 12/08/18 12/08/18 18:59 06:59 18:59 Output Total 530 305 50 Balance -530 -305 -50 Weight 124.1 kg 124.3 kg Output: Drainage 30 55 50 Medial Abdomen 50 Right Lower Abdomen 30 55 Urine 500 250 Other: Voiding Method Urinal # Voids 1 # Bowel Movements 2 - Labs CBC & Chem 7: 12/08/18 07:14 12/08/18 07:14 Labs: Abnormal Lab Results - Last 24 Hours (Table) 12/08/18 12/08/18 Range/Units 07:14 07:14 WBC 12.6 H (3.8-10.6) k/uL RBC 3.04 L (4.30-5.90) m/uL Hgb 9.2 L (13.0-17.5) gm/dL Hct 29.3 L (39.0-53.0) % Neutrophils # 10.6 H (1.3-7.7) k/uL Chloride 108 H (98-107) mmol/L Calcium 7.2 L (8.4-10.2) mg/dL Microbiology - Last 24 Hours (Table) 12/04/18 15:36 Gram Stain - Final Abdomen Wound Culture - Final Enterococcus faecium VRE Jil albicans Assessment and Plan (1) Acute cholecystitis with chronic cholecystitis Current Visit: Yes Status: Acute Code(s): K81.2 - ACUTE CHOLECYSTITIS WITH CHRONIC CHOLECYSTITIS SNOMED Code(s): 629755006 (2) Acute pancreatitis Current Visit: Yes Status: Acute Code(s): K85.90 - ACUTE PANCREATITIS WIT HOUT NECROSIS OR INFECTION, UNSP SNOMED Code(s): 121061133 (3) BMI 37.0-37.9, adult Current Visit: Yes Status: Acute Code(s): Z68.37 - BODY MASS INDEX (BMI) 37.0-37.9, ADULT SNOMED Code(s): 490134559 (4) Bladder atony Current Visit: Yes Status: Acute Code(s): N31.2 - FLACCID NEUROPATHIC BLADDER, NOT ELSEWHERE CLASSIFIED SNOMED Code(s): 275399764 (5) Duodenal ulcer hemorrhage Current Visit: Yes Status: Acute Code(s): K26.4 - CHRONIC OR UNSPECIFIED DUODENAL ULCER WITH HEMORRHAGE SNOMED Code(s): 40555909 (6) Iron deficiency anemia due to chronic blood loss Current Visit: Yes Status: Acute Code(s): D50.0 - IRON DEFICIENCY ANEMIA SECONDARY TO BLOOD LOSS (CHRONIC) SNOMED Code(s): 465535441 (7) Prostatic hyperplasia, benign localized, with obstruction Current Visit: Yes Status: Acute Code(s): N40.1 - BENIGN PROSTATIC HYPERPLASIA WITH LOWER URINARY TRACT SYMP; N13.8 - OTHER OBSTRUCTIVE AND REFLUX UROPATHY SNOMED Code(s): 688481156
--- NOTE | 2018-12-08 13:10 | PN ---
PROGRESS NOTE DATE OF SERVICE: 12/08/2018 REASON FOR FOLLOWUP: Abdominal abscess, VRE and Jil. INTERVAL HISTORY: The patient is currently afebrile. Patient has been breathing comfortably. Denies having any chest pain. No shortness of breath and no cough. No worsening abdominal pain. No nausea, vomiting or diarrhea. PHYSICAL EXAMINATION: Blood pressure 132/73 with a pulse of 100, temperature 98.3, he is 93% on room air. General description is an elderly male, lying in bed in no distress. RESPIRATORY SYSTEM: Unlabored breathing, clear to auscultation anteriorly. HEART: S1, S2. Regular rate and rhythm. ABDOMEN: Soft, wound is covered with wound VAC. EXTREMITIES: Some trace edema of the feet. LABS: Hemoglobin 9.8, white count of 12.6, BUN of 13, creatinine 1.92. Abdominal culture finalized with VRE and Jil albicans. DIAGNOSTIC IMPRESSION AND PLAN: Patient with abdominal abscess, status post drainage, now with abdominal wound dehiscence. Culture positive for VRE and Jil albicans. The patient is on amiodarone which will communicate use oral Diflucan. Continue on daptomycin started this morning and Zosyn discontinued. Did have a PICC line. Plan for continue antibiotic therapy with close outpatient followup. Local wound care. Continue the wound VAC. MMODL / IJN: [id number] / MTDSabine
[2018-12-08] MEDS ORDERED: diphenhydrAMINE 25 MG CAP PO PRN (14:03)
--- NOTE | 2018-12-08 15:45 | CDI ---
Documentation Clarification Form Date: 12/08/2018 3:13:15 PM From: Cassandra Herrera RN CCDS Admit Date: 11/25/2018 12:47:00 PM Patient Name: Kevin Kincaid Visit Number: [id number] Discharge Date: ATTENTION: The Clinical Documentation Specialists (CDI) and [facility] Coding Staff appreciate your assistance in clarifying documentation. Please respond to the clarification below the line at the bottom and electronically sign. The CDI & [facility] Coding staff will review the response and follow-up if needed. Please note: Queries are made part of the Legal Health Record. If you have any questions, please contact the author of this message via ITS. Dr. Gabi Jackson Sepsis was documented by Infectious Disease and Internal Medicine. History/Risk Factors: 68 year old male that presents to [facility] with upper right quadrant abdominal pain status post right hemicolectomy 11/20/2018. Clinical Indicators: 11/28/2018 Dr. Clem PAN Impending septic shock, blood pressure trending low WBC on admission 15.8 ; 11/25/2018 16.0; 11/26/2018 16.2; 11/27/2018 18.4; 11/28/2018 23.6 Lactic acid: 11/28/2018 1.3 Vitals signs on admission: 132/61 94 98.5 20 95% ra VSS 11/28/2018 96/60 103 99.4 16 95% 3L nc Procedure Performed on 11/27/2018 Diagnostic laparoscopy converted to open exploratory laparotomy, drainage of intra-abdominal abscess right lower quadrant and pelvis, partial omentectomy, partial colectomy, small bowel resection, primary anastomosis ileocolic, abdominal lavage 12 L normal saline, placement of #19 NICO drain right side pelvis, application of incisionalwound VAC system universal ID Consult: 11/28/18 hypotension rule out sepsis Antibiotics: Zosyn Ivpb; Flagyl Ivpb; IV Bolus: 11/27/2018 2L 0.9ns ivfl bolus; 11/28/2018 2 L LR ivfl bolus, 1L 0.9ns ivfl bous In your professional opinion, please clarify if these findings signify one of the following conditions, whether the condition is POA, and cause, if known: o Sepsis o Sepsis with Septic Shock o Septic Shock o Sepsis ruled out o Other, please specify o Unable to determine SIRS Criteria (2 or more of the following may indicate SIRS): -Temperature < 96.8F (36C) or > 101.0F (38.3C) -Heart Rate > 90 bpm -Respiratory Rate > 20 breaths/min or PaCO2 < 32 mmHg -White Blood Cell Count > 12,000 or < 4,000 cells/mm3 or > 10% bands -Lactate >2.0 mmol/L (>4.0 is equivalent to septic shock) (Last Revision: August 2017) Unable to determine as I was out of town from November 27 to December 08, please review infectious disease provider recommendations on sepsis criteria. 12/13/18 2229 MTDD
[2018-12-08] MEDS: SODIUM CHLORIDE 0.9% 1,000 ML IV SCH (16:51)
[2018-12-08] MEDS: ANIDULAFUNGIN 100 MG in SODIUM CHLORIDE 0.9% 100 ML IVPB SCH (17:09)
[2018-12-08] MEDS ORDERED: PIPERACILLIN-TAZOBACTAM 3.375 GM in SODIUM CHLORIDE 0.9% 100 ML IVPB SCH (20:00)
--- NOTE | 2018-12-08 20:05 | P.PN ---
Progress Note - Text Progress Note Date: 12/08/18 Interval history: This is a pleasant 68-year-old patient of Dr. Sherman. Chronic stable medical conditions include asthma, hypertension, hyperlipidemia, osteoarthritis, rheumatoid arthritis. Patient did have a stroke in 2005 with no residue up. History of kidney stones. Patient on November 20 underwent right hemicolectomy by Dr. Angelito Lacy. Patient was discharged on November 22. Patient had been tolerating a liquid diet. After patient went home he described after second day urine output decreased. Patient also notices swelling of the lower extremity. Also became a bit short of breath. Also patient noticed some diffuse abdominal pain. There was no nausea vomiting area and patient did notice a slight temperature. . Appetite has not been good. Patient had been ambulatory in the house. Patient been having dark stools at home. On November 25 patient did undergo EGD that showed multiple duodenal ulcers with evidence of recent bleeding. Also diaphragmatic hiatal hernia Admitted for the same.subsequently found to have intra-abdominal abscess anastomosis leak. Taking back to the OR. Today- is present. Tolerating his diet. Had a bowel movement yesterday. NICO drain putting out about 30-60 mL per shift. No nausea vomiting. Awaiting a PICC line. Review of systems: Was done for constitutional, cardiovascular, GI, pulmonary. relevant finding as above Active Medications Hydrocodone Bitart/Acetaminophen (Nash 5-325) 1 each PO Q4HR PRN PRN Reason: MODERATE Pain Last Admin: 12/06/18 20:23 Dose: 1 each Documented by: Amiodarone HCl (Cordarone) 200 mg PO DAILY [facility] Last Admin: 12/08/18 11:08 Dose: 200 mg Documented by: Diphenhydramine HCl (Benadryl) 25 mg PO Q6HR PRN PRN Reason: Itching Heparin Sodium (Porcine) (Heparin) 5,000 unit SQ Q12HR [facility] Last Admin: 12/08/18 11:08 Dose: 5,000 unit Documented by: Hydromorphone HCl (Dilaudid) 1 mg IVP Q4HR PRN PRN Reason: SEVERE Pain Last Admin: 11/26/18 22:40 Dose: 1 mg Documented by: Sodium Chloride (Saline 0.9%) 1,000 mls @ 20 mls/hr IV .Q24H [facility] Last Admin: 12/08/18 16:51 Dose: Not Given Documented by: Anidulafungin 100 mg/ Sodium (Chloride) 100 mls @ 84 mls/hr IVPB Q24H [facility] Last Admin: 12/08/18 17:09 Dose: 84 mls/hr Documented by: Daptomycin 800 mg/ Sodium (Chloride) 50 mls @ 100 mls/hr IVPB Q24HR [facility]; Protocol Last Admin: 12/08/18 11:09 Dose: 100 mls/hr Documented by: Metoprolol Tartrate (Lopressor) 25 mg PO TID [facility] Last Admin: 12/08/18 15:42 Dose: 25 mg Documented by: Miscellaneous Information (Magnesium Per Protocol) 1 each MISCELLANE DAILY PRN; Protocol PRN Reason: Per Protocol Miscellaneous Information (Potassium Per Protocol) 1 each MISCELLANE DAILY PRN; Protocol PRN Reason: Per Protocol Naloxone HCl (Narcan) 0.2 mg IV Q2M PRN PRN Reason: Opioid Reversal Nystatin (Mycostatin Oral Susp) 500,000 unit PO QID [facility] Last Admin: 12/08/18 17:07 Dose: 500,000 unit Documented by: Ondansetron HCl (Zofran) 4 mg IVP Q8HR PRN PRN Reason: Nausea And Vomiting Last Admin: 11/27/18 08:35 Dose: 4 mg Documented by: Pantoprazole Sodium (Protonix) 40 mg PO BID [facility] Last Admin: 12/08/18 11:08 Dose: 40 mg Documented by: Simethicone (Mylicon Drops) 40 mg PO QID [facility] Last Admin: 12/08/18 17:06 Dose: 40 mg Documented by: Sucralfate (Carafate) 1 gm PO AC-TID [facility] Last Admin: 12/08/18 17:07 Dose: 1 gm Documented by: Tamsulosin HCl (Flomax) 0.4 mg PO PC-BRKFST [facility] Last Admin: 12/08/18 11:07 Dose: 0.4 mg Documented by: Physical examination: VITAL SIGNS: 98.3, 100, 16, 132/73, 93% room air GENERAL: Sitting up in a chair, awake comfortable. EYES: Pupils equal. Conjunctiva normal. HEENT: External appearance of nose and ears normal, oral cavity grossly normal.NG tube in place NECK: JVD not raised; masses not palpable. HEART: Heart sounds irregular; some edema . LUNGS: Respiratory rate normal; slightly decreased breath sounds. ABDOMEN: distended, wound VAC in place, NICO drain, bowel sounds present PSYCH: Alert and oriented x3; mood and affect anxious. Investigations: White count 12.6 and globin 9.2 Creatinine 1.02 Previous investigations Computed tomography scan of the abdomen-moderate free fluid in the abdomen. Patchy pneumopericardium. Multiple distended fluid-filled loops of small bowel in the abdomen Hemoglobin was 14.3 prior to surgery Renal ultrasound-shows right-sided renal calculi Acute abdominal series reports some element of ileus 2-D echo shows EF of 55-60% Abdominal wound growing VRE and Jil albicans Assessment: -Diagnostic laparoscopy converted to open exploratory laparotomy, drainage of intra-abdominal abscess right lower quadrant and pelvis, partial omentectomy, partial colectomy, small bowel resection, primary anastomosis ileocolic, abdominal lavage 12 L normal saline, placement of #19 NICO drain right side pelvis, application of incisional wound VAC system universal -Acute GI bleed from multiple duodenal ulcers, from use of NSAIDs and antiplatelet agents, status post EGD on November 25 -Acute blood loss anemia from upper GI bleed, and also some blood loss as expected from surgery as hemoglobin was 12.5 upon discharge -Hypotension corrected -New onset atrial flutter fibrillation, not a candidate for anticoagulation the present time -Right hemicolectomy for polyps -Obesity BMI 34.4 -Hyperlipidemia -Essential hypertension -Chronic primary osteoarthritis -Acute renal failure possibly ATN combination of cardiorenal syndrome, loss of fluids, resolved -Intra-abdominal abscess, following anastamotic leak. Status post surgery as above, with cultures growing enterococcus faecium and Jil albicans Plan: Patient continues to improve gradually. Continue with antibiotics. Looking for patient go to the ECF. Discussed with patient and .
[2018-12-09] MEDS: NYSTATIN 100,000 UNIT/ML SUSP 500,000 UNIT/5 ML CUP PO SCH ×2 (07:52→11:55)
[2018-12-09] MEDS: PANTOPRAZOLE 40 MG TABLET PO SCH (07:53)
[2018-12-09] MEDS: HEPARIN SODIUM,PORCINE 5,000 UNIT/ML 1 ML VIAL SQ SCH (07:53)
[2018-12-09] MEDS: SUCRALFATE 1 GM TAB PO SCH ×2 (07:53→11:55)
[2018-12-09] MEDS: TAMSULOSIN 0.4 MG CAP.ER.24H PO SCH (07:53)
[2018-12-09] MEDS: AMIODARONE 200 MG TAB PO SCH (07:53)
[2018-12-09] MEDS: SIMETHICONE 40 MG/0.6 ML DROPS 2,000 MG/30 ML BOTTLE PO SCH ×2 (07:54→11:55)
[2018-12-09] MEDS: METOPROLOL TARTRATE 25 MG TAB PO SCH ×2 (08:08→16:54)
--- NOTE | 2018-12-09 09:36 | P.GSCN ---
History of Present Illness Consult date: 12/09/18 History of present illness: We were asked to see the patient in consultation for a swollen scrotum. The patient was seen by Dr. Carmona a few weeks ago for voiding dysfunction. The patient is in the hospital for an anastomotic leak after bowel resection. He has a colostomy. He is slowly recuperating. He is never had a swollen scrotum before. It is not painful. As expected his protein levels are low. Review of Systems All systems: negative - Constitutional Denies fever, Denies weight loss - EENT Eyes: denies blurred vision Ears, nose, mouth and throat: Denies dysphagia - Cardiovascular Denies chest pain, Denies shortness of breath - Respiratory Denies cough, Denies 7 - Gastrointestinal Reports as per HPI - Genitourinary Denies dysuria, Denies hematuria - Integumentary Denies rash, Denies unusual bruising - Neurological Denies headaches, Denies syncope - Hematologic/Lymphatic Denies easy bleeding, Denies easy bruising Past Medical History Past Medical History: Asthma, CVA/TIA, Eye Disorder, Hyperlipidemia, Hypertension, Osteoarthritis (OA), Prostate Disorder, Rheumatoid Arthritis (RA) Additional Past Medical History / Comment(s): Multiple colon polyps, recent R colectomy d/t tumor/polyps and found appendix was diseased so removed and also found gallbladder disease and kidney stones per pt, pt has post op wound vac in place, prior to colectomy found to have abnormal kidney function labs-thought d/t dehydration/side effect of antihypertensive med pt was taking, 2005 CVA with no residual, bilateral legs vascular disease, BPH, past nephrolithiasis-passed stones on his own, R cataract History of Any Multi-Drug Resistant Organisms: VRE Year Discovered:: 12/04/18 MDRO Source:: abdomen VRE Past Surgical History: Appendectomy, Bowel Resection Additional Past Surgical History / Comment(s): 11/23/18 R colectomy/appendectomy, 2 colonoscopies with multiple benign polypectomies, left cataract Past Anesthesia/Blood Transfusion Reactions: No Reported Reaction Smoking Status: Former smoker - Past Family History Father Family Medical History: Cancer Additional Family Medical History / Comment(s): oral cancer with metastasis Mother Family Medical History: Renal Disease Additional Family Medical History / Comment(s): Mother from a kidney stone/infection/sepsis. Medications and Allergies Home Medications Medication Instructions Recorded Confirmed Type Atorvastatin [Lipitor] 40 mg PO HS 09/14/18 11/24/18 History HYDROcodone/APAP 5-325MG [[place] 1 tab PO Q4HR PRN 3 Days #18 tab 11/20/18 11/24/18 Rx 5-325] Tamsulosin [Flomax] 0.4 mg PO DAILY #5 cap.er.24h 11/20/18 11/24/18 Rx Pantoprazole [Protonix] 40 mg PO BID #60 tab 11/25/18 Rx Sucralfate [Carafate] 1 gm PO AC-TID #90 tab 11/25/18 Rx Tamsulosin [Flomax] 0.4 mg PO DAILY #30 cap.er.24h 11/25/18 Rx Allergies Allergy/AdvReac Type Severity Reaction Status Date / Time strawberry Allergy Swelling Verified 11/24/18 12:34 Surgical - Exam Vital Signs Temp Pulse Resp BP Pulse Ox 98.5 F 94 20 132/61 95 11/24/18 12:10 11/24/18 12:10 11/24/18 12:10 11/24/18 12:10 11/24/18 12:10 - General well developed, well nourished, no distress - ENT no hearing loss - Neck trachea midline - Respiratory normal expansion, normal respiratory effort - Cardiovascular Rhythm: regular - Abdomen Colostomy soft and nontender - Genitourinary The penis is uncircumcised. There is scrotal edema without erythema, tenderness or crepitus. - Musculoskeletal He has Osmar wraps her on his lower extremities. He does have edema into his thigh. - Psychiatric oriented to time, oriented to person, oriented to place, speech is normal, memory intact Results - Labs 12/08/18 07:14 12/08/18 07:14 Microbiology - Last 24 Hours (Table) 12/04/18 15:36 Gram Stain - Final Abdomen Wound Culture - Final Enterococcus faecium VRE Jil albicans 12/04/18 22:05 Anaerobic Culture - Final Abdomen Assessment and Plan Assessment: Impression: Scrotal edema, postoperative. Hypoalbuminemia, postoperative Recommendations: The edema is surgical as well as due to the hypoalbuminemia. It will resolve as his nutrition improves and he ambulates. He needs scrotal support and elevation.
--- NOTE | 2018-12-09 14:00 | PN ---
PROGRESS NOTE DATE OF SERVICE: 12/09/2018 REASON FOR FOLLOWUP: Abdominal sepsis. INTERVAL HISTORY: The patient is currently afebrile. The patient has been breathing comfortably. The patient seemed to be slightly upset with concern for possible getting out of the town for his rehab in view of the cost of the daptomycin which the patient needs for his GI infection. The patient denies any nausea, vomiting, or any diarrhea. PHYSICAL EXAMINATION: Blood pressure 137/67 with a pulse of 94, temperature 98.3, he is 93% on room air. General description is an elderly male, lying in bed in no distress. RESPIRATORY SYSTEM: Unlabored breathing, clear to auscultation anteriorly. HEART: S1, S2. Regular rate and rhythm. ABDOMEN: Soft, no tenderness. LABS: Hemoglobin 9.2 with white count of 12.6, BUN of 13, creatinine 1.02. DIAGNOSTIC IMPRESSION AND PLAN: Patient with intraabdominal abscess, status post drainage, subsequently did have dehiscence of the surgeon. Post culture positive for VRE and Jil albicans. Patient is currently on daptomycin, in view of the cost associated with outpatient daptomycin, he may be switched over to Zyvox 600 mg twice a day for 12 day and continue Eraxis 100 mg daily for 12 days. Cannot use the Diflucan as the patient is on amiodarone. Care discussed in detail with the nurse practitioner for surgical team who is working on the discharge. Continue supportive care. MARKY / JOHNY: [id number] / MTDD
--- NOTE | 2018-12-09 14:20 | P.DS ---
Providers Date of admission: 11/25/18 12:47 Expected date of discharge: 12/09/18 Attending physician: Gabi Jackson Consults: 11/25/18 08:17 Consult Physician Routine Consulting Provider: Elias Lemus Consult Reason/Comments: severe obstructive uropathy Do you want consulting provider notified?: Yes 11/25/18 09:26 Consult Physician Routine Consulting Provider: Jayro Nj Consult Reason/Comments: Medical management Do you want consulting provider notified?: Yes 11/26/18 08:05 Consult Physician Routine Consulting Provider: Orlando Martinez Consult Reason/Comments: antibiotic management Do you want consulting provider notified?: Yes 11/26/18 20:30 Consult Physician Stat Consulting Provider: Florin Padilla Consult Reason/Comments: Atrial Fib w/ RVR Do you want consulting provider notified?: Yes 11/28/18 11:51 Consult Physician Routine Consulting Provider: Sebastian Thomas Consult Reason/Comments: ICU management Do you want consulting provider notified?: Yes 12/08/18 08:04 Consult Physician Routine Consulting Provider: Elias Lemus Consult Reason/Comments: scrotal edema Do you want consulting provider notified?: Yes Primary care physician: Kevin Sherman - Kip Diagnosis(es) (1) Acute cholecystitis with chronic cholecystitis Current Visit: Yes Status: Acute (2) Acute pancreatitis Current Visit: Yes Status: Acute (3) BMI 37.0-37.9, adult Current Visit: Yes Status: Acute (4) Bladder atony Current Visit: Yes Status: Acute (5) Duodenal ulcer hemorrhage Current Visit: Yes Status: Acute (6) Iron deficiency anemia due to chronic blood loss Current Visit: Yes Status: Acute (7) Prostatic hyperplasia, benign localized, with obstruction Current Visit: Yes Status: Acute Hospital Course: 68-year-old male who underwent right hemicolectomy on October 21, 2018. Patient was discharged home and was doing well. He presented back to the hospital with abdominal pain, swelling of his extremities, and dark stools. Patient underwent EGD revealing multiple duodenal ulcers with recent bleeding. Patient then developed persistent leukocytosis. CAT scan was performed revealing questionable anastomotic leak. Patient underwent diagnostic laparoscopy converted to open exploratory laparotomy, drainage of intractable abdominal abscess right lower quadrant and pelvis, partial omentectomy, partial colectomy, small bowel resection, primary anastomosis ileocolic, and abdominal lavage completed on 11/27/18. Patient did develop new onset atrial fibrillation during hospitalization. He has since been in sinus rhythm. cardiology was consulted and evaluated patient during auscultation. The patient is not a candidate for anticoagulation secondary to recent upper GI bleeding with multiple duodenal ulcers. The patient has also been followed by infectious disease during hospitalization. Wound cultures are positive for VRE. Patient did have a wound vac placed during hospitalization. Patient is tolerating oral diet. Having bowel movements. Vital signs have been stable. He has been working with physical therapy. He remains weak and requires MATIAS at the time of discharge. Dr. Martinez recommending Zyvox and Eraxis at the time of discharge for 12 additional days. Patient is stable for discharge today to subacute rehab. Please see EMR for further hospital course details. NICO drain to remain intact until follow-up appointment with Dr. Jackson. Wound VAC to continue at subacute rehab. Discharge Diagnosis: 1. Acute upper gastrointestinal bleed secondary to acute bleeding duodenal ulcers 2. Acute pancreatitis, resolved 3. Acute cholecystitis, stable 4. Severe obstructive uropathy, pre-existing 5. Acute bilateral lower extremity edema 6. Ileus secondary to acute pancreatitis 7. S/P diagnostic laparoscopy converted to open exploratory laparotomy, drainage of intractable abdominal abscess right lower quadrant and pelvis, partial omentectomy, partial colectomy, small bowel resection, primary anastomosis ileocolic, and abdominal lavage 8. Atrial fibrillation Nurse practitioner note has been reviewed by physician. Signing provider agrees with the documented findings, assessment, and plan of care. Plan - Discharge Summary Discharge Rx Participant: Yes New Discharge Prescriptions: New Sucralfate [Carafate] 1 gm PO AC-TID #90 tab Pantoprazole [Protonix] 40 mg PO BID #60 tab Tamsulosin [Flomax] 0.4 mg PO DAILY #30 cap.er.24h Continue HYDROcodone/APAP 5-325MG [Florence 5-325] 1 tab PO Q4HR PRN 3 Days #18 tab PRN Reason: Pain Tamsulosin [Flomax] 0.4 mg PO DAILY #5 cap.er.24h Discontinued Losartan/Hydrochlorothiazide [Hyzaar 100-12.5 Tablet] 1 tab PO QAM Clopidogrel [Plavix] 75 mg PO DAILY Aspirin [Adult Low Dose Aspirin EC] 81 mg PO DAILY Ibuprofen [Motrin] 600 mg PO Q8HR PRN #30 tab PRN Reason: Pain No Action Atorvastatin [Lipitor] 40 mg PO HS Discharge Medication List Atorvastatin [Lipitor] 40 mg PO HS 09/14/18 [History] HYDROcodone/APAP 5-325MG [Florence 5-325] 1 tab PO Q4HR PRN 3 Days #18 tab 11/20/18 [Rx] Tamsulosin [Flomax] 0.4 mg PO DAILY #5 cap.er.24h 11/20/18 [Rx] Pantoprazole [Protonix] 40 mg PO BID #60 tab 11/25/18 [Rx] Sucralfate [Carafate] 1 gm PO AC-TID #90 tab 11/25/18 [Rx] Tamsulosin [Flomax] 0.4 mg PO DAILY #30 cap.er.24h 11/25/18 [Rx] Follow up Appointment(s)/Referral(s): Willie Sherman MD [Primary Care Provider] - 1 Week Gabi Jackson MD [STAFF PHYSICIAN] - 2 Weeks Patient Instructions/Handouts: Peptic Ulcer (DC), Cholecystitis (ED), Pancreatitis (DC), Enlarged Prostate (BPH) (DC), Low Fat Diet (DC), Wallace Catheter Placement and Care (DC) Activity/Diet/Wound Care/Special Instructions: Low-fat diet upon discharge. No lifting over 4 pounds in 4 weeks until 12/21/2018. May shower. No bathtub soaks until December 31. Wound vac on abdominal wound: Change Friday, Friday, Friday using black granulofoam. Settings: continuous medium 125 mgHg
[2018-12-09 15:43] VITALS: BP 158/82; PULSE 120; RESP 16; TEMP 98.1
--- NOTE | 2018-12-09 17:44 | P.PN ---
Progress Note - Text Progress Note Date: 12/09/18 Interval history: This is a pleasant 68-year-old patient of Dr. Sherman. Chronic stable medical conditions include asthma, hypertension, hyperlipidemia, osteoarthritis, rheumatoid arthritis. Patient did have a stroke in 2005 with no residue up. History of kidney stones. Patient on November 20 underwent right hemicolectomy by Dr. Angelito Lacy. Patient was discharged on November 22. Patient had been tolerating a liquid diet. After patient went home he described after second day urine output decreased. Patient also notices swelling of the lower extremity. Also became a bit short of breath. Also patient noticed some diffuse abdominal pain. There was no nausea vomiting area and patient did notice a slight temperature. . Appetite has not been good. Patient had been ambulatory in the house. Patient been having dark stools at home. On November 25 patient did undergo EGD that showed multiple duodenal ulcers with evidence of recent bleeding. Also diaphragmatic hiatal hernia Admitted for the same.subsequently found to have intra-abdominal abscess anastomosis leak. Taking back to the OR. Today-no new issues. Starting a diet. Did walk a bit. Pending to go to [facility]. Had a bowel movement.. Review of systems: Was done for constitutional, cardiovascular, GI, pulmonary. relevant finding as above Current medications are reviewed in the electronic records from today Physical examination: VITAL SIGNS: 98.1, 110, 16, 150s/82, 94% room air GENERAL: Sitting up in a chair, awake comfortable. EYES: Pupils equal. Conjunctiva normal. HEENT: External appearance of nose and ears normal, oral cavity grossly normal.NG tube in place NECK: JVD not raised; masses not palpable. HEART: Heart sounds irregular; some edema . LUNGS: Respiratory rate normal; slightly decreased breath sounds. ABDOMEN: distended, wound VAC in place, NICO drain, bowel sounds present PSYCH: Alert and oriented x3; mood and affect anxious. Investigations: No labs from today Previous investigations Computed tomography scan of the abdomen-moderate free fluid in the abdomen. Patchy pneumoperitoneum. Multiple distended fluid-filled loops of small bowel in the abdomen Hemoglobin was 14.3 prior to surgery Renal ultrasound-shows right-sided renal calculi Acute abdominal series reports some element of ileus 2-D echo shows EF of 55-60% Abdominal wound growing VRE and Jil albicans Assessment: -Diagnostic laparoscopy converted to open exploratory laparotomy, drainage of intra-abdominal abscess right lower quadrant and pelvis, partial omentectomy, partial colectomy, small bowel resection, primary anastomosis ileocolic, abdominal lavage 12 L normal saline, placement of #19 NICO drain right side p mariusz, application of incisional wound VAC system universal -Acute GI bleed from multiple duodenal ulcers, from use of NSAIDs and antiplatelet agents, status post EGD on November 25 -Acute blood loss anemia from upper GI bleed, and also some blood loss as expected from surgery as hemoglobin was 12.5 upon discharge -Hypotension corrected -New onset atrial flutter fibrillation, not a candidate for anticoagulation the present time -Right hemicolectomy for polyps -Obesity BMI 34.4 -Hyperlipidemia -Essential hypertension -Chronic primary osteoarthritis -Acute renal failure possibly ATN combination of cardiorenal syndrome, loss of fluids, resolved -Intra-abdominal abscess, following anastamotic leak. Status post surgery as above, with cultures growing enterococcus faecium and Jil albicans Plan: Continue current medication treatment plan. Pending CBC to ECF. Antibiotics per ID.
--- NOTE | 2018-12-15 12:49 | CDI ---
In responding to this query, please exercise your independent professional judgment. The [facility] Coding Staff and Clinical Documentation Specialists appreciate your assistance in clarifying documentation, maintaining compliance with coding guidelines, accurately documenting patients condition and capturing severity of illness. The fact that a question is asked does not imply that any particular answer is desired or expected. Communication forms are a method of clarifying documentation and are made part of the Legal Health Record. Thank you in advance for your clarification Last Revision December 2017 Documentation Clarification Form Date: 12/15/2018 CDS: Cassandra Herrera RN, CCDS Admit Date: 11/25/2018 Discharge Date 12/09/2018 Patient Name: Kevin Kincaid ATTENTION: The Clinical Documentation Specialists (CDI) and [facility] Coding Staff appreciate your assistance in clarifying documentation. Please respond to the clarification below the line at the bottom and electronically sign. The CDI & [facility] Coding staff will review the response and follow-up if needed. Please note: Queries are made part of the Legal Health Record. If you have any questions, please contact the author of this message via ITS. Dr. Orlando Martinez MD The patient presented with the following (insert date/location of documentation/diagnosis) History/Risk Factors: 68 year old male that presents to [facility] with upper right quadrant abdominal Pain status post right hemicolectomy 11/20/2018. (recent infection/outpatient antibiotics? Include name of antibiotics/route: PO or IV) Clinical Indicators: Please delete the indicators that are not applicable to this query. WBC on admission 15.8; 11/25/2018 16.0; 11/26/2018 16.2; 11/27/2018 18.4; 11/28/2018 23. Lactic acid: 11/28/2018 1.3 Vitals signs on admission: 132/61 94 98.5 20 95% ra Other Clinical Indicators: Consult Critical Care 11/28/2018 Hypotension rule out sepsis Procedure; 11/27/2018 Diagnostic laparoscopy converted to open exploratory laparotomy drainage of intra-abdominal abscess right lower quadrant and pelvis, partial omentectomy, partial colectomy, small bowel resection, primary anastomosis ileocolic, abdominal lavage 12L normal saline, placement of #19JP drain right side pelvis, application of incisional wound VAC system. Treatment:Please delete the treatments that are not applicable to this query ID Consult: Progress note 12/09/2018 reason for follow up Abdominal sepsis. Patient with intrabdominal abscess, s/p drainage, subsequently did have dehiscence of the ___. Post culture positive for VRE and Jil Albicans. Antibiotics: Zosyn Ivpb; Flagyl Ivpb; Daptomycin ivpb IV Bolus: 11/27/2018 2L 0.9ns ivfl bolus; 11/28/2018 2 L LR ivfl bolus, 1L 0.9ns ivfl bolus In your professional opinion, please clarify if these findings signify one of the following conditions, whether the condition is POA, and cause, if known: (Please remove the diagnosis options that are not applicable to the clinical review found in the record) Condition Sepsis ruled out Sepsis Sepsis with Septic Shock Septic Shock Other, please specify Unable to determine Present on Admission  Yes  No SIRS Criteria 2 or more of the following may indicate SIRS Temperature < 96.8F (36C) or > 101.0F (38.3C) Heart Rate > 90 bpm Respiratory Rate > 20 breaths/min or PaCO2 < 32 mmHg White Blood Cell Count > 12,000 or < 4,000 cells/mm3 or > 10% bands Lactate >2.0 mmol/L (>4.0 is equivalent to septic shock) (Last Revision: August 2017) Sepsis secondary to abd abscess , present on admission MTDD
== END 2018-12-09 17:32 | DRG 329 ==
LOC: INTOOBSV 10:14 → 3NMEDONC 10:14 → OBSVTOIN 11-25 12:47 → 3NMEDONC 11-25 18:04 → 3SCARD 11-26 22:00 → 2SICU 11-28 12:50 → 4SSUR 12-04 05:22
PROVIDERS: ADMIT Surgery Plastic and Reconstructive Surgery; ATTEND Surgery Plastic and Reconstructive Surgery
PROC: 0DB68ZX Excision of Stomach, Via Natural or Artificial Opening Endoscopic, Diagnostic (ICD-10-PCS; 2018-11-25)
PROC: 0DB98ZX Excision of Duodenum, Via Natural or Artificial Opening Endoscopic, Diagnostic (ICD-10-PCS; 2018-11-25)
PROC: 02HV33Z Insertion of Infusion Device into Superior Vena Cava, Percutaneous Approach (ICD-10-PCS; 2018-11-27)
PROC: B5181ZA Fluoroscopy of Superior Vena Cava using Low Osmolar Contrast, Guidance (ICD-10-PCS; 2018-11-27)
PROC: 0DTF0ZZ Resection of Right Large Intestine, Open Approach (ICD-10-PCS; principal; 2018-11-27 10:00)
PROC: 0W9G0ZZ Drainage of Peritoneal Cavity, Open Approach (ICD-10-PCS; principal; 2018-11-27 10:00)
PROC: 0DT80ZZ Resection of Small Intestine, Open Approach (ICD-10-PCS; principal; 2018-11-27 10:00)
PROC: 0DBU0ZZ Excision of Omentum, Open Approach (ICD-10-PCS; principal; 2018-11-27 10:00)
PROC: 02PYX3Z Removal of Infusion Device from Great Vessel, External Approach (ICD-10-PCS; 2018-12-02)
PROC: 02HV33Z Insertion of Infusion Device into Superior Vena Cava, Percutaneous Approach (ICD-10-PCS; 2018-12-02)
PROC: B5181ZA Fluoroscopy of Superior Vena Cava using Low Osmolar Contrast, Guidance (ICD-10-PCS; 2018-12-07)
PROC: 02HV33Z Insertion of Infusion Device into Superior Vena Cava, Percutaneous Approach (ICD-10-PCS; 2018-12-07)
DX: K91.89 Other postprocedural complications and disorders of digestive system (principal); A41.89 Other specified sepsis; K26.0 Acute duodenal ulcer with hemorrhage; K85.90 Acute pancreatitis without necrosis or infection, unspecified; K65.1 Peritoneal abscess; N17.0 Acute kidney failure with tubular necrosis; K26.4 Chronic or unspecified duodenal ulcer with hemorrhage; T81.43XA Infection following a procedure, organ and space surgical site, initial encounter; K56.7 Ileus, unspecified; N13.8 Other obstructive and reflux uropathy; K81.2 Acute cholecystitis with chronic cholecystitis; D62 Acute posthemorrhagic anemia; B37.0 Candidal stomatitis; K55.9 Vascular disorder of intestine, unspecified; R18.8 Other ascites; J90 Pleural effusion, not elsewhere classified; J98.11 Atelectasis; T82.524A Displacement of infusion catheter, initial encounter; K52.9 Noninfective gastroenteritis and colitis, unspecified; I11.9 Hypertensive heart disease without heart failure; K81.9 Cholecystitis, unspecified; N40.1 Benign prostatic hyperplasia with lower urinary tract symptoms; Z68.37 Body mass index [BMI] 37.0-37.9, adult; N31.2 Flaccid neuropathic bladder, not elsewhere classified; T39.395A Adverse effect of other nonsteroidal anti-inflammatory drugs [NSAID], initial encounter; I48.91 Unspecified atrial fibrillation; E66.01 Morbid (severe) obesity due to excess calories; M19.91 Primary osteoarthritis, unspecified site; E87.6 Hypokalemia; J45.909 Unspecified asthma, uncomplicated; E63.9 Nutritional deficiency, unspecified; E78.5 Hyperlipidemia, unspecified; E88.09 Other disorders of plasma-protein metabolism, not elsewhere classified; F17.200 Nicotine dependence, unspecified, uncomplicated; G47.33 Obstructive sleep apnea (adult) (pediatric); K21.9 Gastro-esophageal reflux disease without esophagitis; K29.70 Gastritis, unspecified, without bleeding; K44.9 Diaphragmatic hernia without obstruction or gangrene; K82.8 Other specified diseases of gallbladder; M06.9 Rheumatoid arthritis, unspecified; N20.0 Calculus of kidney; Y71.2 Prosthetic and other implants, materials and accessory cardiovascular devices associated with adverse incidents; Z53.31 Laparoscopic surgical procedure converted to open procedure; Z79.02 Long term (current) use of antithrombotics/antiplatelets; Z79.1 Long term (current) use of non-steroidal anti-inflammatories (NSAID); Z79.2 Long term (current) use of antibiotics; Z79.82 Long term (current) use of aspirin; Z79.899 Other long term (current) drug therapy; Z80.0 Family history of malignant neoplasm of digestive organs; Z80.8 Family history of malignant neoplasm of other organs or systems; Z86.010 Personal history of colon polyps; Z86.73 Personal history of transient ischemic attack (TIA), and cerebral infarction without residual deficits; Z93.3 Colostomy status; Z87.442 Personal history of urinary calculi; Z98.42 Cataract extraction status, left eye; Z91.018 Allergy to other foods
CPT/HCPCS: 36573; 43239; 71045; 71046; 74019; 74022; 74176; 74177; 76705; 76770; 76857; 80048; 80053; 81001; 82040; 82150; 82330; 82533; 82728; 83540; 83550; 83605; 83690; 83735; 83993; 84100; 84132; 84443; 84478; 84484; 85025; 85610; 86850; 86900; 86901; 87040; 87045; 87046; 87070; 87075; 87077; 87086; 87186; 87205; 87324; 88305; 88307; 93005; 93306; 93970

== ENCOUNTER 2019-01-08 11:55 | Emergency (ER) | payer MEDICARE, OTHER ==
[2019-01-08 12:15] VITALS: TEMP 97.9
--- NOTE | 2019-01-08 12:41 | ED ---
Lower Extremity Injury HPI - General Chief Complaint: Extremity Injury, Lower Stated Complaint: Poss blood clot Time Seen by Provider: 01/08/19 12:17 Source: patient Mode of arrival: ambulatory Limitations: no limitations - History of Present Illness Initial Comments: Patient is a 68-year-old male presenting to the emergency Department with complaints of pain in this left lower leg since yesterday. Patient has had recent history of abdominal surgeries in November to remove tumors of the colon by Dr. Jackson. Patient has been having at home PT twice a week and has noticed an increase in left lower leg pain in his calf. Patient was evaluated today by an at-home nurse who suggested he come to the ER to rule out a DVT. Patient denies any recent fever, chills, chest pain, shortness of breath. Patient has been progressing well since his surgeries. Patient denies any other complaints at this time. Upon arrival to ER, vital signs stable, afebrile. - Related Data Home Medications Medication Instructions Recorded Confirmed Atorvastatin [Lipitor] 40 mg PO HS 09/14/18 11/24/18 Previous Rx's Medication Instructions Recorded Pantoprazole [Protonix] 40 mg PO BID #60 tab 11/25/18 Sucralfate [Carafate] 1 gm PO AC-TID #90 tab 11/25/18 Acetaminophen Tab [Tylenol Tab] 650 mg PO Q4H #30 tablet 12/09/18 Amiodarone [Cordarone] 200 mg PO DAILY #30 tab 12/09/18 Metoprolol Tartrate [Lopressor] 25 mg PO TID #90 tablet 12/09/18 Tamsulosin [Flomax] 0.4 mg PO DAILY #30 cap 12/09/18 Apixaban [Eliquis] 0 mg PO DIRECTED #40 tablet 01/08/19 Allergies Allergy/AdvReac Type Severity Reaction Status Date / Time strawberry Allergy Swelling Verified 01/08/19 12:12 Review of Systems ROS Statement: Those systems with pertinent positive or pertinent negative responses have been documented in the HPI. ROS Other: All systems not noted in ROS Statement are negative. Past Medical History Past Medical History: Asthma, CVA/TIA, Eye Disorder, Hyperlipidemia, Hypertension, Osteoarthritis (OA), Prostate Disorder, Rheumatoid Arthritis (RA) Additional Past Medical History / Comment(s): Multiple colon polyps, recent R colectomy d/t tumor/polyps and found appendix was diseased so removed and also found gallbladder disease and kidney stones per pt, pt has post op wound vac in place, prior to colectomy found to have abnormal kidney function labs-thought d/t dehydration/side effect of antihypertensive med pt was taking, 2005 CVA with no residual, bilateral legs vascular disease, BPH, past nephrolithiasis-passed stones on his own, R cataract History of Any Multi-Drug Resistant Organisms: VRE Date of last positivie culture/infection: 12/04/18 MDRO Source:: abdomen VRE Past Surgical History: Appendectomy, Bowel Resection Additional Past Surgical History / Comment(s): 11/23/18 R colectomy/appendectomy, 2 colonoscopies with multiple benign polypectomies, left cataract Past Anesthesia/Blood Transfusion Reactions: No Reported Reaction Past Psychological History: No Psychological Hx Reported Smoking Status: Former smoker Past Alcohol Use History: None Reported Past Drug Use History: None Reported - Past Family History Father Family Medical History: Cancer Additional Family Medical History / Comment(s): oral cancer with metastasis Mother Family Medical History: Renal Disease Additional Family Medical History / Comment(s): Mother from a kidney stone/infection/sepsis. General Exam - General Exam Comments Initial Comments: GENERAL: Well-appearing, well-nourished and in no acute distress. HEAD: Atraumatic, normocephalic. EYES: Pupils equal round and reactive to light, extraocular movements intact, sclera anicteric, conjunctiva are normal. ENT: TMs normal, nares patent, oropharynx clear without exudates. Moist mucous membranes. NECK: Normal range of motion, supple without lymphadenopathy or JVD. LUNGS: Breath sounds clear to auscultation bilaterally and equal. No wheezes rales or rhonchi. HEART: Regular rate and rhythm without murmurs, rubs or gallops. ABDOMEN: Soft, nontender, normoactive bowel sounds. No guarding, no rebound. No masses appreciated. : Deferred EXTREMITIES: Tender to palpation of the left calf, left popliteal area, slightly warm compared to the right lower extremity. No erythema. No clubbing or cyanosis. Neurovascular intact. NEUROLOGICAL: Cranial nerves II through XII grossly intact. Normal speech, normal gait. PSYCH: Normal mood, normal affect. SKIN: Warm, Dry, normal turgor, no rashes or lesions noted. Limitations: no limitations Course Vital Signs 01/08/19 01/08/19 12:12 13:40 Temperature 97.9 F Pulse Rate 110 H 83 Respiratory 18 15 Rate Blood Pressure 136/72 143/75 O2 Sat by Pulse 98 95 Oximetry Medical Decision Making - Medical Decision Making Patient is a 68-year-old male presenting with pain in his left lower leg. Patient had recent significant abdominal surgery in November. Patient is currently not on blood thinners. On exam patient has pain in the left lower extremity, warmth and edema. Ultrasound Doppler of the left lower extremity revealed an acute DVT from the common femoral vein through the proximal calf. Case discussed with Dr. Hercules. Patient will be started on a Eliquis and will follow-up with Dr. Rothman on Friday. Patient is stable for discharge at this time. Return parameters were discussed with the patient and his and they both verbalized understanding. Vital signs remained stable throughout stay. Disposition Clinical Impression: Left leg DVT Disposition: HOME SELF-CARE Condition: Stable Instructions (If sedation given, give patient instructions): Deep Vein Thrombosis (ED) Additional Instructions: Please return to the Emergency Department if symptoms worsen or any other concerns. Return to ER if development of shortness of breath, chest pain, cough. Follow-up with Dr. Jackson as discussed on Friday. Prescriptions: Apixaban [Eliquis] 0 mg PO DIRECTED #40 tablet Is patient prescribed a controlled substance at d/c from ED?: No Referrals: Willie Sherman MD [Primary Care Provider] - 1-2 days
--- NOTE | 2019-01-08 13:15 | US ---
EXAMINATION TYPE: US venous doppler duplex LE LT DATE OF EXAM: 01/08/2019 1:06 PM COMPARISON: 11/25/2018 CLINICAL HISTORY: 68-year-old male Pain. Edema SIDE PERFORMED: Left TECHNIQUE: The lower extremity deep venous system is examined utilizing real time linear array sonog efrem with graded compression, doppler sonography and color-flow sonography. VESSELS IMAGED: External Iliac Vein (EIV) Common Femoral Vein Deep Femoral Vein Greater Saphenous Vein * Femoral Vein Popliteal Vein Small Saphenous Vein * Proximal Calf Veins (* superficial vessels) Left Leg: Positive for DVT, Extensive acute DVT from CFV through prox calf veins. The vessels are di stended with thrombus and demonstrated no flow. IMPRESSION: Exam positive for extensive acute DVT from the left groin into the upper calf.
[2019-01-08 13:49] VITALS: BP 143/75; PULSE 83; RESP 15
== END 2019-01-08 13:43 | disposition home or self-care (01) ==
LOC: EC 11:55
DX: I82.412 Acute embolism and thrombosis of left femoral vein (principal); E78.5 Hyperlipidemia, unspecified; I10 Essential (primary) hypertension; Z87.891 Personal history of nicotine dependence; Z91.018 Allergy to other foods; Z79.899 Other long term (current) drug therapy; Z86.73 Personal history of transient ischemic attack (TIA), and cerebral infarction without residual deficits; Z87.39 Personal history of other diseases of the musculoskeletal system and connective tissue
CPT/HCPCS: 99283

== ENCOUNTER → 2019-02-01 | Outpatient (CLI) | payer MEDICARE, OTHER ==
--- NOTE | 2019-02-01 15:51 | US ---
EXAMINATION TYPE: US venous doppler duplex LE LT DATE OF EXAM: 02/01/2019 12:50 PM COMPARISON: US 2019 CLINICAL HISTORY: 68-year-old male I82.402 DVT left lower extremity. Follow up left leg DVT, patient on blood thinners SIDE PERFORMED: Left TECHNIQUE: The lower extremity deep venous system is examined utilizing real time linear array sonog efrem with graded compression, doppler sonography and color-flow sonography. FINDINGS: VESSELS IMAGED: External Iliac Vein (EIV) Common Femoral Vein Deep Femoral Vein Greater Saphenous Vein * Femoral Vein Popliteal Vein Small Saphenous Vein * Proximal Calf Veins (* superficial vessels) Left Leg: Positive for DVT upper femoral vein through upper calf veins IMPRESSION: Clot previously seen in the common femoral vein has cleared. Otherwise, extensive clot persists exten ding from the upper superficial femoral vein down into the upper calf veins.
== END | disposition home or self-care (01) ==
LOC: RADUSWWP 12:04
PROVIDERS: ATTEND Surgery Plastic and Reconstructive Surgery
DX: I82.402 Acute embolism and thrombosis of unspecified deep veins of left lower extremity (principal); Z91.018 Allergy to other foods

== ENCOUNTER → 2019-06-14 | Outpatient (CLI) | payer MEDICARE, OTHER ==
[2019-06-14 17:08] LABS: Chol/HDL Ratio 3.37; LDL Cholesterol,Calculated 58.6 mg/dL (0.0-131.0); VLDL Calculation 12.4 mg/dL (5.00-40.00)
[2019-06-14 17:16] LABS: T4, Free (Free Thyroxine) 1.5 ng/dL (0.80-1.80)
== END | disposition home or self-care (01) ==
LOC: LABWHC1 09:11
PROVIDERS: ATTEND Internal Medicine Cardiovascular Disease
DX: I10 Essential (primary) hypertension (principal); E03.2 Hypothyroidism due to medicaments and other exogenous substances
CPT/HCPCS: 36415; 80061; 84439; 84443; 84450; 84460

== ENCOUNTER → 2019-09-28 | Outpatient (CLI) | payer MEDICARE, OTHER ==
--- NOTE | 2019-09-28 12:54 | CT ---
EXAMINATION TYPE: CT abdomen pelvis wo con DATE OF EXAM: 09/28/2019 COMPARISON: 12/02/2018 HISTORY: ventral hernia CT DLP: 1040 mGycm Examination of the solid and hollow viscera is limited given the lack of contrast. FINDINGS: LUNG BASES: No evidence for nodule. No evidence for infiltrate. LIVER/GB: The gallbladder is unremarkable. No space-occupying hepatic lesion. PANCREAS: No pancreatic mass identified. No inflammatory process seen. SPLEEN: No evidence for splenomegaly. No intrasplenic lesions seen. ADRENALS: No adrenal nodules identified. No evidence for thickening. KIDNEYS: No evidence for solid renal mass. Stable renal cystic changes bilaterally. No nephrolithiasi s. No hydronephrosis. BOWEL: Postsurgical changes of right hemicolectomy. No definite evidence for recurrent or residual ma ss. No evidence of bowel obstruction. No inflammatory process. Lymph nodes: No evidence for adenopathy greater than 1 cm. Abdominal aorta: Atheromatous changes seen. No evidence for aneurysm. Genital organs: No significant abnormality. Other: Identified is a ventral hernia to the left of the umbilicus with wide mouth measuring 4.4 cm. The hernia contains a short segment of small bowel without incarceration or obstruction. No additiona l hernia is identified. IMPRESSION: 1. Ventral hernia is noted. 2. changes of right hemicolectomy without evidence for recurrent or residual mass.
--- NOTE | 2019-09-28 13:43 | US ---
EXAMINATION TYPE: US gallbladder DATE OF EXAM: 09/28/2019 COMPARISON: CT same day. CLINICAL HISTORY: K43.9 Ventral Hernia, K81.9 Cholecystitis. EXAM MEASUREMENTS: Liver Length: 16.2 cm Gallbladder Wall: 0.2 cm CBD: 0.4 cm Right Kidney: 12.1 x 4.5 x 4.4 cm Pancreas: Tail obscured by overlying bowel gas, visualized portions wnl Liver: wnl Gallbladder: wnl Evidence for sonographic Islas's sign: No CBD: wnl Right Kidney: No hydronephrosis. Cystic area mid pole measuring 2.3 x 1.9 x 1.8 cm Visualized pancreas appears within normal limits in CT. A large exophytic cyst anteriorly from upper pole left kidney near pancreatic tail is seen better on CT versus ultrasound images saved. Visualized liver shows no worrisome mass or ductal dilatation. Gallbladder shows no shadowing mobile gallstones . Cortical thinning right kidney. Technologist marked simple appearing 1.8 cm central thin-walled cys t corresponding to axial image [address] IMPRESSION: No shadowing mobile gallstones or ultrasound evidence for acute cholecystitis.
== END | disposition home or self-care (01) ==
LOC: RADCTMAIN 12:22
PROVIDERS: ATTEND Surgery Plastic and Reconstructive Surgery
DX: K43.9 Ventral hernia without obstruction or gangrene (principal); Z90.49 Acquired absence of other specified parts of digestive tract; Z91.018 Allergy to other foods
CPT/HCPCS: 74176; 76705

== ENCOUNTER → 2019-09-28 | Outpatient (CLI) | payer MEDICARE, OTHER | END | disposition home or self-care (01) | LOC: LABWHC1 11:50 | PROVIDERS: ATTEND Surgery Plastic and Reconstructive Surgery | DX: U07.1 COVID-19 (principal) | CPT/HCPCS: 87635 ==

== ENCOUNTER 2019-09-30 07:35 | Day surgery (SDC) | payer MEDICARE, OTHER ==
[2019-09-28 14:50] VITALS: BMI 32.2
--- NOTE | 2019-09-29 19:31 | P.GSHP ---
History of Present Illness H&P Date: 09/30/19 CHIEF COMPLAINT: Anemia HISTORY OF PRESENT ILLNESS: The patient is a 69-year-old male who presents with history of ulcers and colon polyps. Upper and lower endoscopy were offered for further evaluation and management. PAST MEDICAL HISTORY: Please see list. PAST SURGICAL HISTORY: Please see list. MEDICATIONS: Please see list. ALLERGIES: Please see list. SOCIAL HISTORY: No illicit drug use FAMILY HISTORY: No reports of Crohn disease or ulcerative colitis. REVIEW OF ORGAN SYSTEMS: CONSTITUTIONAL: No reports of fevers or chills. GI: Denies any blood in stools or constipation. PHYSICAL EXAM: VITAL SIGNS: Stable GENERAL: Well-developed pleasant in no acute distress. HEENT: No scleral icterus. Extraocular movements grossly intact. Moist buccal mucosa. NECK: Supple without lymphadenopathy. CHEST: Unlabored respirations. Equal bilateral excursions. CARDIOVASCULAR: Regular rate and rhythm. Distal 2+ pulses. ABDOMEN: Soft, nondistended. MUSCULOSKELETAL: No clubbing, cyanosis, or edema. ASSESSMENT: 1. Gastric ulcer 2. Colon polyps status post resection PLAN: 1. Recommend proceeding with an upper and lower endoscopy Past Medical History Past Medical History: Asthma, CVA/TIA, Eye Disorder, Hyperlipidemia, Hypertensio n, Osteoarthritis (OA), Prostate Disorder, Rheumatoid Arthritis (RA) Additional Past Medical History / Comment(s): Multiple colon polyps, , 2006 CVA with no residual, bilateral legs vascular disease, BPH, past nephrolithiasis- passed stones on his own, R cataract, PANCREATITIS History of Any Multi-Drug Resistant Organisms: VRE Date of last positivie culture/infection: 12/04/18 MDRO Source:: abdomen VRE Past Surgical History: Appendectomy, Bowel Resection Additional Past Surgical History / Comment(s): 11/23/18 R colectomy/appendectomy, 2 colonoscopies with multiple benign polypectomies, left cataract Past Anesthesia/Blood Transfusion Reactions: No Reported Reaction Smoking Status: Former smoker - Past Family History Father Family Medical History: Cancer Additional Family Medical History / Comment(s): oral cancer with metastasis Mother Family Medical History: Renal Disease Additional Family Medical History / Comment(s): Mother from a kidney stone/infection/sepsis. Medications and Allergies Home Medications Medication Instructions Recorded Confirmed Type Atorvastatin [Lipitor] 40 mg PO HS 09/14/18 09/28/19 History Pantoprazole [Protonix] 40 mg PO BID #60 tab 11/25/18 09/28/19 Rx Sucralfate [Carafate] 1 gm PO AC-TID #90 tab 11/25/18 09/28/19 Rx Amiodarone [Cordarone] 200 mg PO DAILY #30 tab 12/09/18 09/28/19 Rx Apixaban [Eliquis] 5 mg PO BID 09/28/19 09/28/19 History Docusate [Colace] 100 mg PO DAILY 09/28/19 09/28/19 History Furosemide [Lasix] 20 mg PO DAILY 09/28/19 09/28/19 History Metoprolol Tartrate [Lopressor] 25 mg PO BID 09/28/19 09/28/19 History Multivitamins, Thera [Multivitamin 1 tab PO DAILY 09/28/19 09/28/19 History (formulary)] Potassium Chloride 8 meq PO DAILY 09/28/19 09/28/19 History Allergies Allergy/AdvReac Type Severity Reaction Status Date / Time strawberry Allergy Swelling Verified 09/28/19 14:29
[~2019-09-30 07:35] MED LIST changes: +HYDROmorphone 0.5 MG/0.5 ML SYRINGE IVP PRN; -LIDOCAINE 1% 20 ML VIAL (10MG/ML) FOR IV START INTRADERMA PRN
[2019-09-30 08:16] VITALS: TEMP 97.3
[2019-09-30] MEDS ORDERED: MIDAZOLAM 2 MG/2 ML VIAL ONE (09:14)
[2019-09-30] MEDS ORDERED: PROPOFOL 10 MG/ML 20 ML VIAL IV ONE (09:14)
[2019-09-30] MEDS ORDERED: LIDOCAINE 1% INJ 10MG/ML (20 ML MDV) ONE (09:14)
--- NOTE | 2019-09-30 09:18 | P.HPADDEND ---
H&P Addendum H&P Addendum Date: 09/30/19 Patient has history of gastric ulcers including multiple colon polyps status post resection one year ago. We'll proceed with upper and lower endoscopy.
--- NOTE | 2019-09-30 09:42 | P.PCN ---
Date of Procedure: 09/30/19 Description of Procedure: PREOPERATIVE DIAGNOSIS: Personal history of colon polyps Status post right hemicolectomy POSTOPERATIVE DIAGNOSIS: Personal history of colon polyps Status post right hemicolectomy Tubular adenoma transverse colon OPERATION: Colonoscopy to ileocolic anastomosis Colonoscopy with hot snare polypectomy SURGEON: Gabi Jackson MD. ANESTHESIA: MAC. INDICATIONS: The patient is an 69-year-old male who presents family history of malignant colon polyps and personal history of colon polyps. He is status post colon resection one year ago. Benefits and risks were described and informed consent was obtained. DESCRIPTION OF PROCEDURE: The patient had undergone Suprep. He had been brought into the operating room and laid in the left lateral decubitus position. After adequate intravenous sedation, the rectum was examined with 2% lidocaine jelly. The prostate was unremarkable. External hemorrhoids were encountered. The rectal tone was within normal limits. No lesions were palpated in the rectal vault. An Olympus colonoscope was advanced to the ileocolic anastomosis were clearly viewed. The prep was good. No sigmoid diverticulosis was encountered. Transverse colon adenoma was snare polypectomy. No evidence of focal colitis was found. Retroflexion of the scope demonstrated grade 3 internal hemorrhoids without active bleeding or inflammation. The colon was desufflated. The patient had tolerated the procedure well. Withdrawal time was over 6 minutes. FINDINGS: Aronchick preparation quality scale 2 (1-5) Internal hemorrhoids, grade 3 External hemorrhoids, grade 3 No arteriovenous malformations. No sigmoid diverticulosis Removal of 1 polyp: - Snare polypectomy mid-transverse colon, 5 mm tubulovillous adenoma polyp. No focal colitis. RECOMMENDATIONS: Repeat colonoscopy in 3 years, 2022 Plan - Discharge Summary Discharge Rx Participant: Yes New Discharge Prescriptions: No Action Atorvastatin [Lipitor] 40 mg PO HS Sucralfate [Carafate] 1 gm PO AC-TID #90 tab Pantoprazole [Protonix] 40 mg PO BID #60 tab Amiodarone [Cordarone] 200 mg PO DAILY #30 tab Multivitamins, Thera [Multivitamin (formulary)] 1 tab PO DAILY Furosemide [Lasix] 20 mg PO DAILY Docusate [Colace] 100 mg PO DAILY Potassium Chloride 8 meq PO DAILY Apixaban [Eliquis] 5 mg PO BID Metoprolol Tartrate [Lopressor] 25 mg PO BID Discharge Medication List Atorvastatin [Lipitor] 40 mg PO HS 09/14/18 [History] Pantoprazole [Protonix] 40 mg PO BID #60 tab 11/25/18 [Rx] Sucralfate [Carafate] 1 gm PO AC-TID #90 tab 11/25/18 [Rx] Amiodarone [Cordarone] 200 mg PO DAILY #30 tab 12/09/18 [Rx] Apixaban [Eliquis] 5 mg PO BID 09/28/19 [History] Docusate [Colace] 100 mg PO DAILY 09/28/19 [History] Furosemide [Lasix] 20 mg PO DAILY 09/28/19 [History] Metoprolol Tartrate [Lopressor] 25 mg PO BID 09/28/19 [History] Multivitamins, Thera [Multivitamin (formulary)] 1 tab PO DAILY 09/28/19 [History] Potassium Chloride 8 meq PO DAILY 09/28/19 [History]
--- NOTE | 2019-09-30 09:44 | P.PCN ---
Date of Procedure: 09/30/19 Description of Procedure: PREOPERATIVE DIAGNOSIS: History of gastric ulcer Anemia POSTOPERATIVE DIAGNOSIS: History of gastric ulcer Anemia OPERATION: Esophagogastroduodenoscopy SURGEON: Gabi Jackson MD ANESTHESIA: MAC. INDICATIONS: The patient is a 69-year-old male who presents with history of gastric ulcers and anemia. Benefits and risks of the procedure were described. Informed consent was obtained. DESCRIPTION: The patient was brought into the endoscopy suite and laid in the left lateral decubitus position. An Olympus gastroscope was passed along the posterior oropharynx down to the distal esophagus where the squamocolumnar junction was encountered at 40 cm from the incisors. The stomach was entered and no bile reflux was found. Additional findings are listed below. The first through third portion of the duodenum was examined and unremarkable. Retroflexion of the scope confirmed Hill grade 1 lower esophageal valve. The squamocolumnar junction demonstrated LA grade A erosive esophagitis. The stomach was desufflated. The patient tolerated the procedure well. FINDINGS: Squamocolumnar junction 40 cm from the incisors. Diaphragmatic hiatus at 40 cm. Hill grade 1 lower esophageal valve. LA grade A erosive esophagitis. No active duodenitis. Resolved gastric and duodenal ulcers RECOMMENDATIONS: Upper endoscopy as needed.
[2019-09-30 10:10] VITALS: BP 118/57; PULSE 61; RESP 18
== END 2019-09-30 10:19 | disposition home or self-care (01) ==
LOC: ORWHC2ENDO 07:35
PROVIDERS: ATTEND Surgery Plastic and Reconstructive Surgery
DX: K51.40 Inflammatory polyps of colon without complications (principal); D64.9 Anemia, unspecified; K22.10 Ulcer of esophagus without bleeding; Z86.010 Personal history of colon polyps; Z83.71 Family history of colonic polyps; K57.30 Diverticulosis of large intestine without perforation or abscess without bleeding; K64.4 Residual hemorrhoidal skin tags; K64.2 Third degree hemorrhoids; E66.9 Obesity, unspecified; N40.0 Benign prostatic hyperplasia without lower urinary tract symptoms; I73.9 Peripheral vascular disease, unspecified; M19.90 Unspecified osteoarthritis, unspecified site; M06.9 Rheumatoid arthritis, unspecified; I10 Essential (primary) hypertension; E78.5 Hyperlipidemia, unspecified; I48.91 Unspecified atrial fibrillation; J45.909 Unspecified asthma, uncomplicated; Z87.11 Personal history of peptic ulcer disease; Z79.01 Long term (current) use of anticoagulants; Z79.899 Other long term (current) drug therapy; Z90.49 Acquired absence of other specified parts of digestive tract; Z91.018 Allergy to other foods; Z86.73 Personal history of transient ischemic attack (TIA), and cerebral infarction without residual deficits; Z86.718 Personal history of other venous thrombosis and embolism; Z87.442 Personal history of urinary calculi; Z86.19 Personal history of other infectious and parasitic diseases; Z87.891 Personal history of nicotine dependence; Z98.42 Cataract extraction status, left eye; Z87.19 Personal history of other diseases of the digestive system; Z68.31 Body mass index [BMI] 31.0-31.9, adult; Z80.0 Family history of malignant neoplasm of digestive organs; Z84.1 Family history of disorders of kidney and ureter; Z98.0 Intestinal bypass and anastomosis status
CPT/HCPCS: 88305; 45385; 43235; J2250; J2001; J2704

== ENCOUNTER 2019-10-25 10:23 | Inpatient (IN) | payer MEDICARE, OTHER ==
[2019-10-21 09:10] VITALS: BMI 31.8
--- NOTE | 2019-10-25 07:34 | P.GSHP ---
History of Present Illness H&P Date: 10/25/19 CHIEF COMPLAINT: Ventral hernia HISTORY OF PRESENT ILLNESS: The patient is a 69-year-old male who presents with a history of swelling and pain along the abdomen from a hernia. Now he presents for surgical intervention. PAST MEDICAL HISTORY: Please see list. PAST SURGICAL HISTORY: Please see list. MEDICATIONS: Please see list. ALLERGIES: Please see list. SOCIAL HISTORY: No illicit drug use FAMILY HISTORY: No reports of Crohn disease or ulcerative colitis. REVIEW OF ORGAN SYSTEMS: Additionally reports: CONSTITUTIONAL: No fevers or chills. EYES: Denies any trouble with vision. Wears glasses. HEENT: No difficulties with hearing. No nosebleeds. No difficulty swallowing. RESPIRATORY: Denies pneumonia. Denies any troubles with breathing or dyspnea on exertion. CARDIOVASCULAR: Has palpitations. No recent heart attacks. GASTROINTESTINAL: Denies fatty food intolerance. Denies change in bowel habits and gas bloat. GENITOURINARY: Denies any blood in urine or increased urinary frequency. NEUROLOGICAL: Denies any numbness or tingling along the distal extremities. No seizure disorders or headaches. MUSCULOSKELETAL: Has back pain, stiffness or joint arthritis. SKIN: No current skin cancer. No rash. PSYCHIATRIC: Denies current depression or suicidal thoughts. ENDOCRINE: Denies current thyroid disorders. Denies any blood sugar glucose intolerance. HEME/LYMPHATIC: Denies any lumps and bumps around the neck. Past deep venous thrombosis. ALLERGY/IMMUNOLOGY: No immunoglobulin therapy. No immune deficiencies. BREAST: Denies current breast lumps, pain or nipple discharge. PHYSICAL EXAM: VITAL SIGNS: Reviewed Patient is a 69-year-old male. Abdomen: Large ventral hernia, 15 x 10 cm, epigastrium. Easily reducible. CONSTITUTIONAL: Well developed and in no acute distress. Vitals reviewed. EYES: Conjuctivae without sclera icterus. Pupils are equally round and reactive to light. Extraocular movements grossly intact. HEAD, EARS, NOSE, THROAT: Moist buccal mucosa. Head is atraumatic, normocephalic. Hears conversational speech. No nasal drainage. NECK: Supple. No JV distention. No thyroidomegaly. RESPIRATORY: Non-labored respirations and equal bilateral excursions. No gross wheezes. CARDIOVASCULAR: Regular rate and rhythm. Extremities without moderate edema. Palpable 2+ radial pulses. LYMPH: No neck lymphadenopathy. No axillary lymphadenopathy. MUSCULOSKELETAL: Nail and fingers with good capillary refill. SKIN: Warm and well perfused with good skin turgor. NEUROLOGIC: Cranial nerves I through XII grossly intact. Sensation upper and extremities intact. No focal or lateralizing signs. PSYCH: Appropriate affect. Alert and oriented to person, place and time. Displa ys appropriate insight. ASSESSMENT: 1. Ventral hernia PLAN: 1. Recommend proceeding with robotic ventral hernia repair with mesh. 2. Benefits and risks of surgical intervention was discussed including possibility of open technique. 3. DVT prophylaxis. 4. Antibiotic prophylaxis. Past Medical History Past Medical History: Asthma, CVA/TIA, Deep Vein Thrombosis (DVT), Eye Disorder, Hyperlipidemia, Hypertension, Osteoarthritis (OA), Prostate Disorder, Rheumatoid Arthritis (RA) Additional Past Medical History / Comment(s): 2006 CVA with no residual, bilateral legs vascular disease, BPH, RT cataract, DVT LT LEG 11/2018, kIDNEY STONES History of Any Multi-Drug Resistant Organisms: VRE Date of last positivie culture/infection: 12/04/18 MDRO Source:: abdomen VRE Past Surgical History: Appendectomy, Bowel Resection Additional Past Surgical History / Comment(s): 11/23/18 R colectomy/appendectomy, 2 colonoscopies with multiple benign polypectomies, left cataract Past Anesthesia/Blood Transfusion Reactions: No Reported Reaction Smoking Status: Former smoker - Past Family History Father Family Medical History: Cancer Additional Family Medical History / Comment(s): oral cancer with metastasis Mother Family Medical History: Renal Disease Additional Family Medical History / Comment(s): Mother from a kidney stone/infection/sepsis. Medications and Allergies Home Medications Medication Instructions Recorded Confirmed Type Atorvastatin [Lipitor] 40 mg PO HS 09/14/18 10/21/19 History Amiodarone [Cordarone] 200 mg PO DAILY #30 tab 12/09/18 10/21/19 Rx Apixaban [Eliquis] 5 mg PO BID 09/28/19 10/21/19 History Docusate [Colace] 100 mg PO DAILY 09/28/19 10/21/19 History Furosemide [Lasix] 20 mg PO DAILY 09/28/19 10/21/19 History Metoprolol Tartrate [Lopressor] 25 mg PO BID 09/28/19 10/21/19 History Potassium Chloride 8 meq PO DAILY 09/28/19 10/21/19 History Allergies Allergy/AdvReac Type Severity Reaction Status Date / Time strawberry Allergy Swelling Verified 10/21/19 08:49
[~2019-10-25 10:23] MED LIST changes: +DEXAMETHASONE SOD PHOSPHATE 10 MG/ML 1 ML VIAL IV ONE; +HEPARIN SODIUM,PORCINE 5,000 UNIT/ML 1 ML VIAL SQ ONE; -LACTATED RINGERS 1,000 ML IV SCH; +LIDOCAINE 1% (10MG/ML) FOR IV START INTRADERMA PRN; +MIDAZOLAM 2 MG/2 ML VIAL IV PRN; +ONDANSETRON 4 MG/2 ML VIAL IVP ONE; +fentaNYL (PF) 50 MCG/ML 2 ML AMP IVP PRN
[2019-10-25] MEDS: LACTATED RINGERS 1,000 ML IV SCH ×2 (10:42→12:29)
[2019-10-25 11:11] LABS: Basophils # (A) 0.1 k/uL (0-0.2); Basophils % (A) 1 %; Eosinophils # (A) 0.3 k/uL (0-0.7); Eosinophils % (A) 2 %; HCT 48.9 % (39.0-53.0); HGB 15.8 gm/dL (13.0-17.5); Lymphocytes # (A) 1.7 k/uL (1.0-4.8); Lymphocytes % (A) 16 %; MCH 30.5 pg (25.0-35.0); MCHC 32.3 g/dL (31.0-37.0); MCV 94.5 fL (80.0-100.0); Mean Platelet Volume 9.2; Monocytes # (A) 0.4 k/uL (0-1.0); Monocytes % (A) 4 %; Neutrophils # (A) 8.4 k/uL (1.3-7.7); Neutrophils % (A) 77 %; Platelet Count 184 k/uL (150-450); RBC 5.17 m/uL (4.30-5.90); RDW 13.6 % (11.5-15.5)
[2019-10-25 11:30] LABS: Prothrombin Time 10.6 sec (9.0-12.0)
[2019-10-25 11:32] LABS: Albumin 4.3 g/dL (3.5-5.0); Calcium 9.1 mg/dL (8.4-10.2); Potassium 4.3 mmol/L (3.5-5.1); Total Bilirubin 0.9 mg/dL (0.2-1.3); Total Protein 7.3 g/dL (6.3-8.2)
[2019-10-25] MEDS ORDERED: fentaNYL (PF) 50 MCG/ML 2 ML AMP IV ONE (11:52)
--- NOTE | 2019-10-25 12:03 | P.ANPRN ---
Procedure Note - Anesthesia - Nerve Block Performed Bilateral Rectus Abdominis Single Time Out Performed: Yes Date of Procedure: 10/25/19 Procedure Start Time: 11:51 Procedure Stop Time: 12:01 Location of Patient: PreOp Indication: Acute Post-Operative Pain, Requested by Surgeon Sedation Type: Sedate with meaningful contact maintained Preparation: Sterile Prep Position: Supine Catheter: None Needle Types: Pajunk Needle Gauge: 21 Ultrasound used to visualize needle placement: Yes Ultrasound used to observe medication spread: Yes Injectate: 0.5% Ropivacaine (see comment for volume) (20 cc + decadron 4mg--- per side) Blood Aspirated: No Pain Paresthesia on Injection Noted: No Resistance on Injection: Normal Image Stored and Saved: Yes Events: Uneventful and Well Tolerated
[2019-10-25] MEDS ORDERED: NEOSTIGMINE 1 MG/ML 10 ML VIAL ONE (12:25)
[2019-10-25] MEDS ORDERED: LIDOCAINE 1% INJ 10MG/ML (20 ML MDV) ONE (12:25)
[2019-10-25] MEDS ORDERED: HYDROmorphone (PF) 1 MG/ML ONE (12:25)
[2019-10-25] MEDS ORDERED: PROPOFOL 10 MG/ML 20 ML VIAL IV ONE (12:25)
[2019-10-25] MEDS ORDERED: SUCCINYLCHOLINE CHLORIDE 100 MG/5 ML SYR IV ONE (12:25)
[2019-10-25] MEDS ORDERED: fentaNYL (PF) 50 MCG/ML 2 ML AMP ONE (12:25)
[2019-10-25] MEDS ORDERED: ROPIVACAINE 5 MG/ML 30 ML VIAL ONE (12:25)
[2019-10-25] MEDS ORDERED: MIDAZOLAM 2 MG/2 ML VIAL ONE (12:25)
[2019-10-25] MEDS ORDERED: DEXAMETHASONE SOD PHOSPHATE 4 MG/ML 1 ML VIAL ONE (12:25)
[2019-10-25] MEDS ORDERED: ROCURONIUM BROMIDE 10 MG/ML 5 ML VIAL IV ONE (12:25)
[2019-10-25] MEDS ORDERED: GLYCOPYRROLATE 0.2 MG/ML 2 ML VIAL ONE (12:25)
[2019-10-25] MEDS ORDERED: BUPIVACAIN-EPI 0.25%-1:200,000 30 ML VIAL SQ ONE (13:23)
[2019-10-25] MEDS ORDERED: LACTATED RINGERS 1,000 ML IV ONE (15:14)
[2019-10-25] MEDS ORDERED: NALOXONE 0.4 MG/ML 1 ML VIAL IV PRN (16:07)
[2019-10-25] MEDS ORDERED: ONDANSETRON 4 MG/2 ML VIAL IVP PRN (16:07)
[2019-10-25] MEDS ORDERED: HYDROmorphone 1 MG/ML 1 ML SYRINGE IVP PRN (16:07)
[2019-10-25] MEDS ORDERED: HYDROcodone/APAP 5-325MG 1 EACH TAB PO PRN (16:07)
--- NOTE | 2019-10-25 16:17 | P.OP ---
Date of Procedure: 10/25/19 Description of Procedure: SURGEON: KHALIDA LOUIS MD PREOPERATIVE DIAGNOSES: 1. Initial incisional hernia 2. Chronic atrial fibrillation 3. Chronic anticoagulant to use 4. Hypertensive heart disease 5. Obesity due to excess calories, BMI 32.3 6. History of right colectomy for high risk colon adenomas 7. Leukocytosis, pre-existing 8. Hyperlipidemia 9. Chronic constipation 10. Pre-existing obstructive uropathy POSTOPERATIVE DIAGNOSES: 1. Initial incarcerated incisional hernia, 30 x 36 cm with loss of abdominal wall domain 2. Chronic atrial fibrillation 3. Chronic anticoagulant to use 4. Hypertensive heart disease 5. Obesity due to excess calories, BMI 32.3 6. History of right colectomy for high risk colon adenomas 7. Leukocytosis, pre-existing 8. Hyperlipidemia 9. Chronic constipation 10. Pre-existing obstructive uropathy 11. Peritoneal adhesions Procedure(s) Performed: 1. Robotic da Kyle laparoscopic lysis of adhesions converted to open 2. Abdominal wall reconstruction with trunk myocutaneous bilateral flap advancement for open repair of incisional hernia with Ventralight ST mesh 23 x 28 cm 3. Bilateral component separation technique for incisional hernia repair 30 x 36 cm 4. Excision of excess skin 23 x 6 cm midline including umbilicus 5. Placement of two round #19 Mauro-Tomas subcutaneous drains bilateral lower abdominal wall Anesthesia: GETA, regional, local Estimated Blood Loss (ml): 100 Condition: stable Disposition: floor SPECIMENS REMOVED: Excess subcutaneous skin COMPLICATIONS: None. DRAINS: Two #19 Steven drains below the bilateral lower abdomen Operative Findings: 1. Complex abdominal wall hernia requiring abandoning robotic assisted technique due to complete loss of domain, hernia 30 x 36 cm 2. Complete abdominal wall reconstruction was performed using component separation technique, bilateral including mesh placement as onlay 3. Component separation technique reduced hernia defect 14 x 23 cm and defect closed with oversew INDICATIONS: The patient is a 69-year-old male with complicated medical and surgical history including history of multiple high risk colon adenomas requiring right hemicolectomy. Patient had a blowout of the anastomosis developing leak and subsequent sepsis requiring open exploration 1 year ago. In the last 4 months, he developed a symptomatic painful midline incisional hernia. Imaging studies confirmed involvement of small bowel. Surgical intervention was sought. Benefits and risks of the procedure including but not limited to ble eding, infection, need for further surgery, conversion from laparoscopic to to open technique, placement of mesh, chronic pain were described. Informed consent was obtained. DESCRIPTION OF PROCEDURE: The patient was brought into the operating room and laid in supine position. After general induction, the abdomen had been prepped and draped in standard sterile fashion using ChloraPrep. Ioban draping was also placed. Prior to incision, a timeout protocol was confirmed with surgical team regarding the patient's name including procedures to be performed. The robot was primed prior to the procedure. A timeout protocol was confirmed with the surgical team regarding patient's name, procedure to be performed, including preoperative medications. Initial incision was made with an #11 blade along the left upper quadrant. A 0 degree 5 mm laparoscopic trocar entry was performed. Diagnostic laparoscopy demonstrated peritoneal adhesions along the midline; however the upper abdomen and left lateral abdominal wall was free. Peritoneal adhesions of small bowel to the abdominal wall along the midline was identified. Three 8 mm trocars was placed along the left lateral abdominal wall. The 5-mm port was exchanged for an 8 mm robotic port. Placements of the ports were 20 cm from the target anatomy and 10 cm apart. The da Kyle XI robot was previously primed, prepped and draped then docked along the left side of the patient. I then sat at the robot Da Kyle XI console where working arms of the robot including Bovie cautery connected to robotic scissors, vessel sealer and gras pers placed by the assistant to the director. Adhesions along the midline were initially addressed with scissors and vessel sealer. After lysis of adhesions over 30 minutes, careful inspection of the abdominal wall confirmed complete separation of the fascia including muscles with a defect greater than 15 cm in width. Upon this finding, open repair is proposed. The robot was undocked. All robotic equipment was removed. I was scrubbed into the case. The abdomen was remarked with indelible marker on the Ioban marking the length and width of the true hernia defect and preparation for component separation technique. Using a #10 blade, the abdomen was entered along his previous cicatrix from the xiphoid to the pubis. With pneumoperitoneum from insufflation, the abdomen was entered. Careful inspection confirmed complete separation of the muscle including fascia of the defect greater than 15 cm. Measured defect was 30 cm wide x 36 cm in length. Subcutaneous skin flaps were created on both sides was over 10 cm exposure. The external oblique fascia was incised on both sides lateral to the rectus muscle and myocutaneous flap was developed with over 8 cm overlap achieved on both sides. Resulting residual wideness of the defect was 14 cm. The muscle and fascia were oversewed using double-stranded 0 PDS. A fascial plication using #2 Ethibonds were placed along the length of the ureter. Next, an onlay mesh of [address] mesh cut, fitted and sutured to the abdominal wall using 2-0 VLOC. The ventral hernia defect was completely repaired and closed. For postop analgesia, 85 mL of Exparel with sensorcaine and normal saline mixture was infiltrated along the midline of the myocutaneous flap advancement. Moderate redundant subcutaneous tissue was identified along the midline preventing plate closure of the space. To prevent risk of infection to the mesh including seroma, excess skin was removed along the midline of 23 cm in length and 6 cm in width which allowed closure of the subcutaneous tissue. Prior to skin closure, two round #19 Steven drains were placed underneath the flap and brought out along the bilateral lower abdominal wall. Drain stitch using 2-0 nylon was placed. Once reapproximated, the skin was closed in layers using 0 Vicryl for the superficial fascial system followed by running 3-0 Monocryl for the deep dermis. Once the incision was closed, bulb suction was attached. Hemostasis was checked. The skin was cleansed with dilute hydrogen peroxide and normal saline. Exofin closure tape system was used along the midline. Optifoam tape was placed along the midline. At the end of the procedure, the needle, sponge and instrument count was verified correct. Drain sponge was also placed using Optifoam. The patient was then transferred to a hospital bed. An abdominal binder was placed and marked. The patient was taken to the postanesthesia care unit in stable condition, awake and extubated. The intraoperative findings were discussed with her family who was pleased with the level of care.
[2019-10-25] MEDS: KETOROLAC 30 MG/ML 1 ML VIAL IVP SCH ×2 (17:30→22:22)
[2019-10-25] MEDS: METOPROLOL TARTRATE 25 MG TAB PO SCH (20:05)
[2019-10-26] MEDS: D5-0.45% NACL WITH KCL 20MEQ/L 1,000 ML IV SCH ×4 (00:40→20:11)
[2019-10-26] MEDS: KETOROLAC 30 MG/ML 1 ML VIAL IVP SCH ×4 (05:00→21:33)
[2019-10-26 08:12] LABS: Basophils % (A) 0 %; Eosinophils % (A) 0 %; HGB 14.5 gm/dL (13.0-17.5); Lymphocytes # (A) 0.6 k/uL (1.0-4.8); Lymphocytes % (A) 3 %; MCH 30.9 pg (25.0-35.0); MCHC 32.3 g/dL (31.0-37.0); MCV 95.6 fL (80.0-100.0); Mean Platelet Volume 9.1; Monocytes # (A) 0.7 k/uL (0-1.0); Monocytes % (A) 3 %; Neutrophils # (A) 20.9 k/uL (1.3-7.7); Neutrophils % (A) 94 %; Platelet Count 160 k/uL (150-450); RDW 13.5 % (11.5-15.5); WBC 22.3 k/uL (3.8-10.6)
[2019-10-26] MEDS: ENOXAPARIN 30 MG/0.3 ML SYRINGE SQ SCH (09:24)
[2019-10-26] MEDS: AMIODARONE 200 MG TAB PO SCH (09:25)
[2019-10-26] MEDS: PANTOPRAZOLE 40 MG/10 ML VIAL IV SCH (09:25)
[2019-10-26] MEDS: METOPROLOL TARTRATE 25 MG TAB PO SCH ×2 (09:25→21:32)
[2019-10-26 09:36] LABS: Calcium 8.6 mg/dL (8.4-10.2); Magnesium 1.9 mg/dL (1.6-2.3); Potassium 4.8 mmol/L (3.5-5.1)
[2019-10-26] MEDS: PIPERACILLIN-TAZOBACTAM 3.375 GM in SODIUM CHLORIDE 0.9% 100 ML IVPB SCH ×2 (11:59→20:11)
--- NOTE | 2019-10-26 14:22 | P.PN ---
<Yasmin Hill Pat - Last Filed: 10/26/19 14:22> Subjective Progress Note Date: 10/26/19 CHIEF COMPLAINT: Incisional hernia HISTORY OF PRESENT ILLNESS: Patient is status post robotic laparoscopic lysis of adhesions converted to open and complete abdominal wall reconstruction for open repair of incisional hernia. POD #1. Patient examined at the bedside. Patient reports his pain is tolerable. Tolerating diet. No nausea or vomiting. NICO drains x 2 with sanguinous drainage. WBC 22.3. Vital signs stable. Afebrile. PHYSICAL EXAM: VITAL SIGNS: Reviewed GENERAL: Well-developed in no acute distress. HEENT: No sclera icterus. Extraocular movements grossly intact. Moist buccal mucosa. Head is atraumatic, normocephalic. Hears conversational speech. No nasal drainage. NECK: Supple without lymphadenopathy. CHEST: Non-labored respirations and equal bilateral excursions. CARDIOVASCULAR: Regular rate with regular rhythm. Palpable 2+ radial pulses. ABDOMEN: Soft. Nondistended. Dressing CDI. Abdominal binder noted. NICO drains x 2 with sanguinous drainage. MUSCULOSKELETAL: No clubbing or cyanosis. NEUROLOGIC: No focal or lateralizing signs. Cranial nerves II through XII grossly intact. PSYCH: Appropriate affect. Alert and oriented to person, place and time. SKIN: Well perfused. Good skin turgor. ASSESSMENT: 1. Recurrent incisional hernia PLAN: -Continue diet as tolerated -Monitor hemoglobin -Monitor NICO drain output -Continue to hold Eliquis -Begin antibiotics. Monitor WBC Nurse practitioner note has been reviewed by physician. Signing provider agrees with the documented findings, assessment, and plan of care. Objective - Vital Signs Vital signs: Vital Signs Temp 98 F 10/26/19 11:43 Pulse 69 10/26/19 11:43 Resp 20 10/26/19 11:43 BP 172/81 10/26/19 11:43 Pulse Ox 94 L 10/26/19 11:43 Intake & Output 10/25/19 10/26/19 10/26/19 18:59 06:59 18:59 Intake Total 2550 Output Total 400 57 Balance 2150 -57 Weight 103.5 kg Intake: IV 2550 Output: Drainage 57 Left Lower Abdomen 20 Right Lower Abdomen 37 Urine 300 Estimated Blood Loss 100 Other: Voiding Method Urinal # Voids 0 # Bowel Movements 0 - Labs CBC & Chem 7: 10/26/19 07:37 10/26/19 07:37 Labs: Abnormal Lab Results - Last 24 Hours (Table) 10/26/19 10/26/19 Range/Units 07:37 07:37 WBC 22.3 H (3.8-10.6) k/uL Neutrophils # 20.9 H (1.3-7.7) k/uL Lymphocytes # 0.6 L (1.0-4.8) k/uL Chloride 108 H (98-107) mmol/L BUN 23 H (9-20) mg/dL Glucose 140 H (74-99) mg/dL <Gabi Jackson N - Last Filed: 11/05/19 03:45> Subjective Patient seen and evaluated with nurse practitioner. Patient is status post repair of complicated abdominal wall hernia. Additionally, patient has pre- existing leukocytosis. White blood cell count moderately elevated. Continue antibiotics. 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 Patient is high risk for surgical bleeding and as a result anticoagulant on hold Objective - Vital Signs Vital signs: Vital Signs Temp 97.8 F 10/29/19 11:19 Pulse 60 10/29/19 11:19 Resp 16 10/29/19 11:19 BP 138/73 10/29/19 11:19 Pulse Ox 97 10/29/19 11:19 - Labs CBC & Chem 7: 10/29/19 07:00 10/29/19 07:00
[2019-10-26] MEDS ORDERED: TAMSULOSIN 0.4 MG CAP.ER.24H PO STA (20:40)
[2019-10-27] MEDS: D5-0.45% NACL WITH KCL 20MEQ/L 1,000 ML IV SCH ×4 (04:14→23:51)
[2019-10-27] MEDS: PIPERACILLIN-TAZOBACTAM 3.375 GM in SODIUM CHLORIDE 0.9% 100 ML IVPB SCH ×3 (04:14→20:09)
[2019-10-27] MEDS: KETOROLAC 30 MG/ML 1 ML VIAL IVP SCH ×2 (04:17→11:30)
[2019-10-27] MEDS: LACTATED RINGERS 1,000 ML IV SCH ×2 (06:22→22:38)
[2019-10-27 07:21] LABS: Basophils % (A) 0 %; Eosinophils % (A) 0 %; HCT 42.2 % (39.0-53.0); HGB 13.7 gm/dL (13.0-17.5); Lymphocytes % (A) 5 %; MCH 31.3 pg (25.0-35.0); MCHC 32.5 g/dL (31.0-37.0); MCV 96.3 fL (80.0-100.0); Mean Platelet Volume 9.2; Monocytes # (A) 0.8 k/uL (0-1.0); Monocytes % (A) 4 %; Neutrophils # (A) 16.4 k/uL (1.3-7.7); Neutrophils % (A) 90 %; Platelet Count 152 k/uL (150-450); RBC 4.38 m/uL (4.30-5.90); RDW 13.8 % (11.5-15.5); WBC 18.3 k/uL (3.8-10.6)
[2019-10-27 07:50] LABS: Calcium 8.6 mg/dL (8.4-10.2); Potassium 4.1 mmol/L (3.5-5.1)
[2019-10-27] MEDS: TAMSULOSIN 0.4 MG CAP.ER.24H PO SCH (08:52)
[2019-10-27] MEDS: AMIODARONE 200 MG TAB PO SCH (08:52)
[2019-10-27] MEDS: FUROSEMIDE 20 MG TAB PO SCH (08:52)
[2019-10-27] MEDS: METOPROLOL TARTRATE 25 MG TAB PO SCH ×2 (08:52→20:09)
[2019-10-27] MEDS: PANTOPRAZOLE 40 MG/10 ML VIAL IV SCH (08:53)
[2019-10-27] MEDS: DOCUSATE 100 MG CAP PO SCH ×2 (08:53→20:10)
[2019-10-27] MEDS: ENOXAPARIN 30 MG/0.3 ML SYRINGE SQ SCH (08:53)
[2019-10-27 14:09] LABS: Appearance,Urine Clear (Clear); Bilirubin,Urine Negative (Negative); Blood,Urine Negative (Negative); Color,Urine Light Yellow; Glucose,Urine (UA) Negative (Negative); Ketones,Urine Negative (Negative); Leukocyte Esterase,Urine Negative (Negative); Nitrite,Urine Negative (Negative); Protein,Urine Negative (Negative); Specific Gravity,Urine 1.014 (1.001-1.035); Urobilinogen,Urine <2.0 mg/dL (<2.0)
--- NOTE | 2019-10-27 14:45 | P.PN ---
<Yasmin Hill Pat - Last Filed: 10/27/19 14:41> Subjective Progress Note Date: 10/27/19 CHIEF COMPLAINT: Incisional hernia HISTORY OF PRESENT ILLNESS: Patient is status post robotic laparoscopic lysis of adhesions converted to open and complete abdominal wall reconstruction for open repair of incisional hernia. POD #2. Patient examined at the bedside. Patient reports his pain is tolerable. Tolerating diet. No nausea or vomiting. NICO drains x 2 with sanguinous drainage. WBC 18.3. Vital signs stable. Afebrile. PHYSICAL EXAM: VITAL SIGNS: Reviewed GENERAL: Well-developed in no acute distress. HEENT: No sclera icterus. Extraocular movements grossly intact. Moist buccal mucosa. Head is atraumatic, normocephalic. Hears conversational speech. No nasal drainage. NECK: Supple without lymphadenopathy. CHEST: Non-labored respirations and equal bilateral excursions. CARDIOVASCULAR: Regular rate with regular rhythm. Palpable 2+ radial pulses. ABDOMEN: Soft. Nondistended. Dressing CDI. Abdominal binder noted. NICO drains x 2 with sanguinous drainage. MUSCULOSKELETAL: No clubbing or cyanosis. NEUROLOGIC: No focal or lateralizing signs. Cranial nerves II through XII grossly intact. PSYCH: Appropriate affect. Alert and oriented to person, place and time. SKIN: Well perfused. Good skin turgor. ASSESSMENT: 1. Recurrent incisional hernia 2. Pre-existing leukocytosis prior to surgery PLAN: -Continue diet as tolerated -Monitor hemoglobin -Monitor NICO drain output -Continue to hold Eliquis -Continue antibiotics. Monitor WBC. Dr. Martinez consulted for evaluation -Obtain culture from NICO drain Nurse practitioner note has been reviewed by physician. Signing provider agrees with the documented findings, assessment, and plan of care. Objective - Vital Signs Vital signs: Vital Signs Temp 97.9 F 10/27/19 04:49 Pulse 55 L 10/27/19 08:00 Resp 16 10/27/19 08:00 BP 157/76 10/27/19 04:49 Pulse Ox 95 10/27/19 04:49 Intake & Output 10/26/19 10/27/19 10/27/19 18:59 06:59 18:59 Intake Total 1000 360 Output Total 80 420 435 Balance -80 580 -75 Intake: Intake, IV Titration 1000 Amount D5-0.45% NaCl with KCl 1000 20Meq/l 1,000 ml @ 125 mls/hr IV .Q8H [facility] Rx#: [id number] Oral 360 Output: Drainage 80 45 60 Left Lower Abdomen 30 15 Right Lower Abdomen 50 30 60 Urine 375 375 Other: Voiding Method Urinal Urinal Urinal # Voids 1 1 2 # Bowel Movements 0 - Labs CBC & Chem 7: 10/27/19 06:58 10/27/19 06:58 Labs: Abnormal Lab Results - Last 24 Hours (Table) 10/27/19 10/27/19 10/27/19 Range/Units 06:58 06:58 12:22 WBC 18.3 H (3.8-10.6) k/uL Neutrophils # 16.4 H (1.3-7.7) k/uL Chloride 109 H (98-107) mmol/L BUN 25 H (9-20) mg/dL Glucose 100 H (74-99) mg/dL C-Reactive Protein 16.4 H (<10.0) mg/L <Gabi Jackson - Last Filed: 11/05/19 03:47> Subjective Patient seen and evaluated with nurse practitioner. Additional findings include, patient is doing remarkably well. His pain is well-controlled. He is happy. He is ambulating. His main concern includes constipation. Home medic ations for constipation restarted. We'll arrange for home health care. Abdominal binder repositioned. Dressings clean dry and intact without cellulitis or infection. Objective - Vital Signs Vital signs: Vital Signs Temp 97.8 F 10/29/19 11:19 Pulse 60 10/29/19 11:19 Resp 16 10/29/19 11:19 BP 138/73 10/29/19 11:19 Pulse Ox 97 10/29/19 11:19 - Labs CBC & Chem 7: 10/29/19 07:00 10/29/19 07:00
[2019-10-27 18:36] LABS: Ferritin 44.8 ng/mL (22.0-322.0)
[2019-10-27 18:53] LABS: % Iron Saturation 7.41 (15.00-50.00)
--- NOTE | 2019-10-27 23:48 | CONS ---
CONSULTATION DATE OF SERVICE: 10/27/2019 REASON FOR FOLLOWUP: Leukocytosis. HISTORY OF PRESENT ILLNESS: The patient is a 69-year-old male admitted to the hospital for a ventral hernia repair on October 25, 2019, in this patient who apparently did have a problem with swelling and recurrent incisional hernia. The patient on admission to the hospital has been afebrile and no fever has been recorded. The patient on admission to the hospital was noticed to have a white count of 11,000 that was up to 22,000 after surgery and is 18.3 today. With this elevated white count, Infectious Disease has been consulted for further recommendation and antibiotic management. The patient currently denies having any headache. Denies having any URI symptoms. No chest pain. No shortness of breath or cough. No nausea, no vomiting. The patient's abdominal pain is currently controlled. He has been tolerating his regular diet. The patient did mention slight urinary symptom after his Wallace was discontinued that was mostly yesterday, but denies any burning or frequency or difficulty with urination today. REVIEW OF SYSTEMS: Positive points have been mentioned in HPI. Rest of the systems is negative. PAST MEDICAL HISTORY: CVA, TIA, DVT, hypertension, hyperlipidemia, osteoarthritis, prostate disorder, rheumatoid arthritis, history of kidney stone. PAST SURGICAL HISTORY: Appendectomy and bowel resection and previous history of VRE infection abdominal wound. SOCIAL HISTORY: Remote history of smoking. No drinking or drug use. FAMILY HISTORY: Father with history oral cancer with metastasis. Mother history of renal disease. ALLERGIES: Allergies to STRAWBERRY, no known drug allergies. MEDICATIONS: Medications include the patient is currently on Zosyn, Flomax, Protonix, Zofran, Narcan, Lopressor, Dilaudid, Lasix, Lovenox, Colace, amiodarone, and [place]. PHYSICAL EXAMINATION: Blood pressure 163/79 with a pulse of 66, temperature 97.7. He is 93% on room air. General description is an elderly male up in the chair in no distress. No tachypnea or accessory muscle of respiration use. HEENT: Examination shows no pallor or scleral icterus. Oral mucous membrane is dry. No pharyngeal erythema or thrush. NECK: Trachea central. No thyromegaly. LUNGS: Unlabored breathing, clear to auscultation anteriorly. No wheeze or crackle. HEART: S1, S2. Regular rate and rhythm. ABDOMEN: Soft. Mild tenderness. No guarding or rigidity. No organomegaly. EXTREMITIES: No edema of feet. SKIN EXAMINATION: No rash or mass palpable. NEUROLOGICAL: Patient is awake, alert, oriented x3. Mood and affect normal. LABS: Hemoglobin 13.7, white count of 18.3 with a BUN of 25, creatinine is 1.21. No culture on this admission. DIAGNOSTIC IMPRESSION AND PLAN: Patient admitted to the hospital with ventral hernia repair in this patient who is status post complex abdominal wall hernia repair with complete abdominal wall reconstruction in this patient who did have a jump in the white count post surgery could be more likely reactive. Clinical suspicion is low for infection as the patient's white count showing a downward trend and the patient is afebrile, does not look toxic and currently no other obvious clinical focus of infection. Lungs are clear to auscultation and urine has been negative. PLAN: 1. Blood cultures x2. 2. Check a CRP level. 3. We keep the patient on empiric Zosyn 3.375 grams q.8 hours while waiting for his condition to stabilize and cultures to finalize. 4. We will follow on his clinical condition and culture to further adjust medication if needed. Thank you for this consultation. Will follow this patient along with you. MMODL / IJN: [id number] /
[2019-10-28] MEDS: PIPERACILLIN-TAZOBACTAM 3.375 GM in SODIUM CHLORIDE 0.9% 100 ML IVPB SCH ×3 (03:53→20:04)
[2019-10-28 07:29] LABS: Basophils % (A) 0 %; Eosinophils # (A) 0.3 k/uL (0-0.7); Eosinophils % (A) 3 %; HCT 39.9 % (39.0-53.0); HGB 13.2 gm/dL (13.0-17.5); Lymphocytes % (A) 9 %; MCH 32.2 pg (25.0-35.0); MCHC 33.2 g/dL (31.0-37.0); Mean Platelet Volume 8.8; Monocytes # (A) 0.6 k/uL (0-1.0); Monocytes % (A) 6 %; Neutrophils # (A) 8.8 k/uL (1.3-7.7); Neutrophils % (A) 82 %; Platelet Count 155 k/uL (150-450); RBC 4.11 m/uL (4.30-5.90); RDW 13.8 % (11.5-15.5); WBC 10.8 k/uL (3.8-10.6)
[2019-10-28 07:41] LABS: Calcium 8.2 mg/dL (8.4-10.2); Potassium 4.4 mmol/L (3.5-5.1)
[2019-10-28] MEDS: D5-0.45% NACL WITH KCL 20MEQ/L 1,000 ML IV SCH (08:04)
[2019-10-28] MEDS: TAMSULOSIN 0.4 MG CAP.ER.24H PO SCH (08:06)
[2019-10-28] MEDS: METOPROLOL TARTRATE 25 MG TAB PO SCH ×2 (08:06→20:08)
[2019-10-28] MEDS: DOCUSATE 100 MG CAP PO SCH ×2 (08:06→20:08)
[2019-10-28] MEDS: ENOXAPARIN 30 MG/0.3 ML SYRINGE SQ SCH (08:06)
[2019-10-28] MEDS: AMIODARONE 200 MG TAB PO SCH (08:06)
[2019-10-28] MEDS: FUROSEMIDE 20 MG TAB PO SCH (08:06)
[2019-10-28] MEDS: PANTOPRAZOLE 40 MG/10 ML VIAL IV SCH (08:07)
[2019-10-28] MEDS ORDERED: FUROSEMIDE 10 MG/ML 2 ML VIAL IV ONE (09:02)
--- NOTE | 2019-10-28 09:05 | P.PN ---
Subjective Progress Note Date: 10/28/19 CHIEF COMPLAINT: Incisional hernia with loss of domain HISTORY OF PRESENT ILLNESS: The patient is a 69-year-old male status post open incisional hernia repair with bilateral myocutaneous flap advancement, 10/25/19. He reports moderate urination at night secondary to Flomax. Additionally no abdominal pain. No fevers or chills. White blood cell count improved from 22,000 to 10,800. Infectious disease following for history of VRE and multidrug resistant organisms. NICO fluid was not sent yesterday as confirmed by nursing. ROS: No reports of nausea and vomiting. No bowel movements. No fevers or c hills. No new chest pain. No productive sputum PHYSICAL EXAM: VITAL SIGNS: Reviewed CONSTITUTIONAL: Well developed and in no acute distress. EYES: Conjuctivae without sclera icterus. Extraocular movements grossly intact. HEAD, EARS, NOSE, THROAT: Moist buccal mucosa. Head is atraumatic, norm ocephalic. Hears conversational speech. No nasal drainage. NECK: Supple. No thyroidomegaly. RESPIRATORY: Non-labored respirations and equal bilateral excursions. CARDIOVASCULAR: Palpable 2+ radial pulses. ABDOMEN: Soft. No peritonitis. Dressing along abdomen and clean dry and intact. NICO serosanguineous and minimal. MUSCULOSKELETAL: No gross deformity of the lower extremities noted. No cl ubbing. No cyanosis. SKIN: Good skin turgor. Well perfused. NEUROLOGIC: Cranial nerves II through XII grossly intact. No focal or lateralizing signs. PSYCH: Appropriate affect. Alert and oriented to person, place and time. CLINICAL LABS: White blood cell count improved from 22,000 to 10,800. WBC on admission 11,000. Iron panel confirms iron deficiency anemia ASSESSMENT: 1. Complicated incisional hernia of the abdominal wall with loss of domain 2. Pre-existing leukocytosis, present on admission 3. Reactive leukocytosis 4. History of VRE, multidrug resistant 5. Paroxysmal atrial fibrillation 6. Chronic anticoagulant use PLAN: 1. Send NICO fluid again today. 2. Hold discharge until white blood cell count is normal or is cleared for discharge per infectious disease 3. Iron panel confirms iron deficiency anemia. Will give iron infusion today and tomorrow. 4. Disposition pending for tomorrow for reactive leukocytosis including going home with home antibiotics 5. Patient is high surgical risk for infection due to pre-existing leukocytosis and home antibiotics management is pending Objective - Vital Signs Vital signs: Vital Signs Temp 98.0 F 10/28/19 05:00 Pulse 70 10/28/19 05:00 Resp 16 10/28/19 05:00 BP 157/80 10/28/19 05:00 Pulse Ox 96 10/28/19 05:00 Intake & Output 10/27/19 10/28/19 10/28/19 18:59 06:59 18:59 Intake Total 360 1180 Output Total 930 900 60 Balance -570 280 -60 Intake: Oral 360 1180 Output: Drainage 180 60 Left Lower Abdomen 20 20 Right Lower Abdomen 160 40 Urine 750 900 Other: Voiding Method Urinal Urinal # Voids 2 2 # Bowel Movements 0 0 - Labs CBC & Chem 7: 10/29/19 07:00 10/29/19 07:00 Labs: Abnormal Lab Results - Last 24 Hours (Table) 10/27/19 10/27/19 10/28/19 Range/Units 06:58 12:22 07:00 WBC 10.8 H (3.8-10.6) k/uL RBC 4.11 L (4.30-5.90) m/uL Neutrophils # 8.8 H (1.3-7.7) k/uL Chloride (98-107) mmol/L Calcium (8.4-10.2) mg/dL Iron 20 L (65-175) ug/dL % Saturation 7.41 L (15.00-50.00) C-Reactive Protein 16.4 H (<10.0) mg/L 10/28/19 Range/Units 07:16 WBC (3.8-10.6) k/uL RBC (4.30-5.90) m/uL Neutrophils # (1.3-7.7) k/uL Chloride 112 H (98-107) mmol/L Calcium 8.2 L (8.4-10.2) mg/dL Iron (65-175) ug/dL % Saturation (15.00-50.00) C-Reactive Protein (<10.0) mg/L
[2019-10-28] MEDS: SODIUM FERRIC GLUCONAT-SUCROSE 125 MG in SODIUM CHLORIDE 0.9% 100 ML IVPB SCH (10:41)
[2019-10-28] MEDS: LACTATED RINGERS 1,000 ML IV SCH (20:14)
[2019-10-28 20:52] VITALS: RESP 16
--- NOTE | 2019-10-29 00:32 | PN ---
PROGRESS NOTE DATE OF SERVICE: 10/28/2019. REASON FOR FOLLOWUP: Leukocytosis possibly reactive versus abdominal source. INTERVAL HISTORY: The patient is currently afebrile. The patient is feeling better. Breathing comfortably. Denies having any chest pain. No shortness of breath or cough. Abdominal pain is currently controlled. No nausea, vomiting or diarrhea. PHYSICAL EXAMINATION: Blood pressure is a 150/72 with a pulse of 60, temperature 98.5. He is 93% on room air. General description is an elderly male up in the chair in no distress. RESPIRATORY SYSTEM: Unlabored breathing, clear to auscultation anteriorly. HEART: S1, S2. Regular rate and rhythm. ABDOMEN: Soft, no guarding or rigidity. NICO drainage is mostly blood-stained secretion. No purulence. LABS: Hemoglobin is 13.2, white count 10.8, creatinine 1.01. Urine is negative. The abdominal fluid cultures currently pending. Blood culture so far negative. DIAGNOSTIC IMPRESSION AND PLAN: Patient with leukocytosis which is multifactorial, possibly reactive in this patient who did have extensive surgery versus abdominal source. Will wait for the culture to finalize. Continue with Zosyn. Continue with supportive care. MMODL / IJN: [id number] /
[2019-10-29] MEDS: PIPERACILLIN-TAZOBACTAM 3.375 GM in SODIUM CHLORIDE 0.9% 100 ML IVPB SCH ×2 (03:56→11:27)
[2019-10-29 07:19] LABS: Basophils % (A) 0 %; Eosinophils # (A) 0.4 k/uL (0-0.7); Eosinophils % (A) 4 %; HGB 13.5 gm/dL (13.0-17.5); Lymphocytes # (A) 0.9 k/uL (1.0-4.8); Lymphocytes % (A) 8 %; MCH 30.3 pg (25.0-35.0); MCHC 31.4 g/dL (31.0-37.0); MCV 96.6 fL (80.0-100.0); Mean Platelet Volume 8.8; Monocytes # (A) 0.6 k/uL (0-1.0); Monocytes % (A) 6 %; Neutrophils % (A) 81 %; Platelet Count 162 k/uL (150-450); RBC 4.45 m/uL (4.30-5.90); RDW 13.9 % (11.5-15.5)
[2019-10-29 07:31] LABS: Calcium 8.8 mg/dL (8.4-10.2); Potassium 4.6 mmol/L (3.5-5.1)
[2019-10-29] MEDS: FUROSEMIDE 20 MG TAB PO SCH (08:34)
[2019-10-29] MEDS: ENOXAPARIN 30 MG/0.3 ML SYRINGE SQ SCH (08:34)
[2019-10-29] MEDS: PANTOPRAZOLE 40 MG/10 ML VIAL IV SCH (08:34)
[2019-10-29] MEDS: DOCUSATE 100 MG CAP PO SCH (08:34)
[2019-10-29] MEDS: AMIODARONE 200 MG TAB PO SCH (08:34)
[2019-10-29] MEDS: METOPROLOL TARTRATE 25 MG TAB PO SCH (08:34)
[2019-10-29] MEDS: SODIUM FERRIC GLUCONAT-SUCROSE 125 MG in SODIUM CHLORIDE 0.9% 100 ML IVPB SCH (09:20)
[2019-10-29 11:35] VITALS: BP 138/73; PULSE 60; TEMP 97.8
--- NOTE | 2019-10-29 13:22 | P.DS ---
<Yasmin Hill - Last Filed: 10/29/19 13:22> Providers Expected date of discharge: 10/29/19 Hospital Course: 69-year-old male who underwent robotic laparoscopic lysis of adhesions converted to open and complete abdominal wall reconstruction for open repair of incisional hernia on 10/25/[address] Jackson. Patient has been doing well postoperatively. He did have an increase in his white count up to 22,000. Infectious disease was consulted. He received IV antibiotics during hospitalization. His white count has continued to trend downward. Infectious disease recommends Augmentin twice a day for one week at the time of discharge. Patient's pain is controlled on oral medications. His vital signs and stable. He is stable for discharge home today per Dr. Jackson. Please see EMR for further hospital course details. Discharge Diagnosis: 1. Recurrent incisional hernia 2. Pre-existing leukocytosis prior to surgery 3. Iron deficiency anemia Nurse practitioner note has been reviewed by physician. Signing provider agrees with the documented findings, assessment, and plan of care. Patient Condition at Discharge: Stable Plan - Discharge Summary Discharge Rx Participant: Yes New Discharge Prescriptions: New Acetaminophen Tab [Tylenol Tab] 650 mg PO Q4H PRN #30 tablet PRN Reason: Pain Amoxic-Pot Clav 875-125Mg [Augmentin 875-125] 1 tab PO BID 7 Days #14 tab Continue Atorvastatin [Lipitor] 40 mg PO HS Amiodarone [Cordarone] 200 mg PO DAILY #30 tab Furosemide [Lasix] 20 mg PO DAILY Docusate [Colace] 100 mg PO DAILY Potassium Chloride 8 meq PO DAILY Metoprolol Tartrate [Lopressor] 25 mg PO BID Discontinued Apixaban [Eliquis] 5 mg PO BID Discharge Medication List Atorvastatin [Lipitor] 40 mg PO HS 09/14/18 [History] Amiodarone [Cordarone] 200 mg PO DAILY #30 tab 12/09/18 [Rx] Docusate [Colace] 100 mg PO DAILY 09/28/19 [History] Furosemide [Lasix] 20 mg PO DAILY 09/28/19 [History] Metoprolol Tartrate [Lopressor] 25 mg PO BID 09/28/19 [History] Potassium Chloride 8 meq PO DAILY 09/28/19 [History] Acetaminophen Tab [Tylenol Tab] 650 mg PO Q4H PRN #30 tablet 10/26/19 [Rx] Amoxic-Pot Clav 875-125Mg [Augmentin 875-125] 1 tab PO BID 7 Days #14 tab 10/29/19 [Rx] Follow up Appointment(s)/Referral(s): Gabi Jackson MD [STAFF PHYSICIAN] - 11/02/19 8:20 am () [facility] Visiting Nurse, [NON-STAFF] - 1 Week Patient Instructions/Handouts: Ventral Hernia Repair (DC) Activity/Diet/Wound Care/Special Instructions: Tylenol as needed for pain No lifting over 4 pounds for at least 4 weeks, until November 23 Do not remove abdominal binder No showers or bathtub soaks. You may sponge bath only at this time. Very light activity until you are reevaluated at your follow up appointment with your surgeon Strip/milk NICO drains 2-3 times a day Keep a record of NICO drain output and bring with you to follow up appointment you may resume Eliquis on October 31 Discharge Disposition: HOME WITH HOME HEALTH SERVICES <Gabi Jackson - Last Filed: 11/05/19 03:58> Providers Date of admission: 10/25/19 16:43 Attending physician: Gabi Jackson Consults: 10/27/19 10:49 Consult Physician Routine Consulting Provider: Orlando Martinez Consult Reason/Comments: VRE, multidrug resistance Do you want consulting provider notified?: Yes Primary care physician: Kevin Sherman - Discharge Diagnosis(es) (1) Chronic atrial fibrillation Status: Acute (2) History of colectomy Status: Acute (3) Obesity due to excess calories Status: Acute (4) BMI 32.0-32.9,adult Status: Acute (5) Excess skin of abdominal wall Status: Acute (6) Incisional hernia Status: Acute (7) Hypertensive heart disease Status: Acute (8) History of infection with vancomycin resistant Enterococcus (VRE) Status: Acute (9) Leukocytosis Status: Acute Hospital Course: Patient seen and evaluated nurse practitioner. Please see corrections below. Patient presented with pre-existing leukocytosis. Secondary to past history of VRE with multidrug resistance, infectious disease was consulted as his procedures higher risk including placement of mesh with component separation technique. Patient clinically had been doing very well during hospitalization asymptomatic. JPs has been sanguinous. All anticoagulation with exception of heparin/Lovenox held secondary to high risk of bleeding. Prior to discharge, abdominal binder repositioned. All dressings were clean dry and intact without signs of infection. Additional dressings Optifoam sent home with patient for home dressing care. Discharge Diagnosis: 1. Initial incisional hernia 2. Pre-existing leukocytosis prior to surgery 3. Iron deficiency anemia 4. Chronic atrial fibrillation.
--- NOTE | 2019-10-29 14:47 | PN ---
PROGRESS NOTE DATE OF SERVICE: 10/29/2019 REASON FOR FOLLOWUP: Leukocytosis. INTERVAL HISTORY: The patient is currently afebrile. Patient is feeling better. Breathing comfortably. Denies having any chest pain or shortness of breath or cough. Abdominal pain is currently controlled. No nausea, no vomiting, no diarrhea. PHYSICAL EXAMINATION: Blood pressure 130/73 with a pulse of 60, temperature 97.8. He is 97% on room air. General description is an elderly male, lying in bed in no distress. RESPIRATORY SYSTEM: Unlabored breathing, clear to auscultation anteriorly. HEART: S1, S2. Regular rate and rhythm. ABDOMEN: Soft, mildly distended. No guarding or rigidity. LABS: Hemoglobin 13.5, white count of 28,000. BUN 15, creatinine 1.12. The abdominal fluid culture as well as blood culture negative. DIAGNOSTIC IMPRESSION AND PLAN: Patient with leukocytosis, possibly reactive versus abdominal source, in a patient with extensive abdominal surgery. Patient's white count has improved. Cultures have been negative so far. Consider short course of oral Augmentin on discharge. Discussed with the nurse practitioner for admitting team. MMODL / IJN: [id number] /
--- NOTE | 2019-10-30 10:11 | CDI ---
Documentation Clarification Form Date: 10/30/19 From: Yanira Marina Phone: If you have a question about this query, please contact Eugenia Ventura, Truck Crane Operator at [phone] between 8am and 5pm. Admit Date: 10/25/19 Discharge Date:10/29/19 Patient Name: Kevin Kincaid Visit Number: [id number] ATTENTION: The Clinical Documentation Specialists (CDI) and [facility] Coding Staff appreciate your assistance in clarifying documentation. Please respond to the clarification below the line at the bottom and electronically sign. The CDI & [facility] Coding staff will review the response and follow-up if needed. Please note: Queries are made part of the Legal Health Record. If you have any questions, please contact the author of this message via ITS. Dear Dr. Jackson Atrial Fibrillation is documented in your procedure note. History/Risk Factors: Hypertension, PVD, History of A-fib Clinical Indicators: pulse 69 EKG/telemetry: Sinus rhythm with 1st degree AV block Treatment: on chronic Eliquis In your professional opinion, can you please clarify the type of Atrial Fibrillation, if known? Chronic/Permanent Paroxysmal Persistent Other, please specify Unable to determine Chronic/Permanent atrial fibrillation [facility]01/19 @ [facility]
== END 2019-10-29 14:10 | disposition home health service (06) | DRG 354 ==
LOC: OR 10:23 → 5NMEDONC 16:43
PROVIDERS: ADMIT Surgery Plastic and Reconstructive Surgery; ATTEND Surgery Plastic and Reconstructive Surgery
PROC: 0HB7XZZ Excision of Abdomen Skin, External Approach (ICD-10-PCS; principal; 2019-10-25 12:20)
PROC: 0WJF4ZZ Inspection of Abdominal Wall, Percutaneous Endoscopic Approach (ICD-10-PCS; principal; 2019-10-25 12:20)
PROC: 0WUF0JZ Supplement Abdominal Wall with Synthetic Substitute, Open Approach (ICD-10-PCS; principal; 2019-10-25 12:20)
PROC: 8E0W0CZ Robotic Assisted Procedure of Trunk Region, Open Approach (ICD-10-PCS; principal; 2019-10-25 12:20)
DX: K43.0 Incisional hernia with obstruction, without gangrene (principal); I48.21 Permanent atrial fibrillation; D50.9 Iron deficiency anemia, unspecified; D72.829 Elevated white blood cell count, unspecified; E78.5 Hyperlipidemia, unspecified; I10 Essential (primary) hypertension; I48.91 Unspecified atrial fibrillation; J45.909 Unspecified asthma, uncomplicated; M06.9 Rheumatoid arthritis, unspecified; E66.9 Obesity, unspecified; K59.09 Other constipation; N13.9 Obstructive and reflux uropathy, unspecified; H26.9 Unspecified cataract; M19.90 Unspecified osteoarthritis, unspecified site; N40.0 Benign prostatic hyperplasia without lower urinary tract symptoms; I73.9 Peripheral vascular disease, unspecified; Z68.32 Body mass index [BMI] 32.0-32.9, adult; Z79.01 Long term (current) use of anticoagulants; Z79.899 Other long term (current) drug therapy; Z87.891 Personal history of nicotine dependence; Z87.442 Personal history of urinary calculi; Z86.73 Personal history of transient ischemic attack (TIA), and cerebral infarction without residual deficits; Z86.718 Personal history of other venous thrombosis and embolism; Z86.010 Personal history of colon polyps; Z91.018 Allergy to other foods; Z90.49 Acquired absence of other specified parts of digestive tract; Z98.49 Cataract extraction status, unspecified eye; Z80.8 Family history of malignant neoplasm of other organs or systems; Z80.0 Family history of malignant neoplasm of digestive organs; Z84.1 Family history of disorders of kidney and ureter
CPT/HCPCS: 64488; 80048; 80053; 81003; 82728; 83540; 83550; 83735; 85025; 85610; 86140; 87040; 87070; 87205; 88302; 93005

== ENCOUNTER 2020-12-22 07:12 | Emergency (ER) | payer MEDICARE, OTHER ==
[2020-12-22] MEDS ORDERED: METOCLOPRAMIDE 5 MG/ML 2 ML VIAL IVP STA (07:37)
[2020-12-22] MEDS ORDERED: MECLIZINE 12.5 MG TAB PO STA (07:37)
--- NOTE | 2020-12-22 07:43 | ED ---
General Adult HPI - General Chief complaint: Dizziness Stated complaint: Dizziness Time Seen by Provider: 12/22/20 07:23 Source: patient, RN notes reviewed Mode of arrival: wheelchair Limitations: no limitations - History of Present Illness Initial comments: Patient is a pleasant 70-year-old male presenting to the emergency Department with complaints of dizziness. Patient has had symptoms every morning for the past 4 days. Symptoms are positional. Patient feels like the room spinning. Symptoms last for hours and then resolved. Patient's morning has some paresthesias of his right upper and lower lip as well as 2 fingers on his right hand. Patient denies any weakness. Patient did have similar symptoms years ago associated with mini strokes however that time had speech problems and right arm weakness which she does not have at this time. Patient denies any confusion. Patient denies any weakness. - Related Data Home Medications Medication Instructions Recorded Confirmed Docusate [Colace] 100 mg PO HS 09/28/19 12/22/20 Furosemide [Lasix] 20 mg PO DAILY 09/28/19 12/22/20 Metoprolol Tartrate [Lopressor] 25 mg PO BID 09/28/19 12/22/20 Potassium Chloride 8 meq PO DAILY 09/28/19 12/22/20 Amiodarone HCl [Pacerone] 100 mg PO DAILY 12/22/20 12/22/20 Apixaban [Eliquis] 5 mg PO BID 12/22/20 12/22/20 Atorvastatin [Lipitor] 20 mg PO DAILY 12/22/20 12/22/20 Previous Rx's Medication Instructions Recorded Acetaminophen Tab [Tylenol Tab] 650 mg PO Q4H PRN #30 tablet 10/26/19 Meclizine [Antivert] 25 mg PO TID PRN #12 tab 12/22/20 Metoclopramide HCl [Reglan] 10 mg PO Q6HR PRN #15 tablet 12/22/20 Allergies Allergy/AdvReac Type Severity Reaction Status Date / Time strawberry Allergy Swelling Verified 12/22/20 11:16 Review of Systems ROS Statement: Those systems with pertinent positive or pertinent negative responses have been documented in the HPI. ROS Other: All systems not noted in ROS Statement are negative. Constitutional: Denies: fever Eyes: Denies: eye pain ENT: Denies: ear pain Respiratory: Denies: cough Cardiovascular: Denies: chest pain Endocrine: Denies: fatigue Gastrointestinal: Denies: abdominal pain Genitourinary: Denies: dysuria Musculoskeletal: Denies: back pain Skin: Denies: rash Neurological: Reports: as per HPI, vertigo. Denies: headache, weakness Past Medical History Past Medical History: Atrial Fibrillation, Asthma, CVA/TIA, Deep Vein Thrombosis (DVT), Eye Disorder, Hyperlipidemia, Hypertension, Osteoarthritis (OA), Prostate Disorder, Rheumatoid Arthritis (RA) Additional Past Medical History / Comment(s): 2006 CVA with no residual, bilateral legs vascular disease, BPH, RT cataract, DVT LT LEG 11/2018, kIDNEY STONES, Afib diagnosed in 2019 - on Eliquis History of Any Multi-Drug Resistant Organisms: VRE Date of last positivie culture/infection: 12/04/18 MDRO Source:: abdomen VRE Past Surgical History: Appendectomy, Bowel Resection Additional Past Surgical History / Comment(s): 11/23/18 R colectomy/appendectomy, 2 colonoscopies with multiple benign polypectomies, left cataract, 10/25/19 open ventral hernia repair with mesh by Dr. Jackson Past Anesthesia/Blood Transfusion Reactions: No Reported Reaction Past Psychological History: No Psychological Hx Reported Smoking Status: Former smoker Past Alcohol Use History: Rare Past Drug Use History: None Reported - Past Family History Father Family Medical History: Cancer Additional Family Medical History / Comment(s): oral cancer with metastasis Mother Family Medical History: Renal Disease Additional Family Medical History / Comment(s): Mother from a kidney stone/infection/sepsis. General Exam Limitations: no limitations General appearance: alert, in no apparent distress Head exam: Present: normocephalic Eye exam: Present: normal appearance, PERRL, EOMI. Absent: nystagmus ENT exam: Present: normal oropharynx Neck exam: Present: normal inspection Respiratory exam: Present: normal lung sounds bilaterally Cardiovascular Exam: Present: regular rate, normal rhythm GI/Abdominal exam: Present: soft. Absent: tenderness Extremities exam: Present: normal inspection Neurological exam: Present: alert, oriented X3, CN II-XII intact. Absent: motor sensory deficit Expanded Neurological exam: Present: protecting the airway Patient oriented to: Present: person, place, time Speech: Present: fluid speech Cranial nerves: EOM's Intact: Normal, Facial Sensation: Normal Sensory exam: Upper Extremity Light Touch: Normal, Lower Extremity Light Touch: Normal Motor strength exam: RUE: 5, LUE: 5, RLE: 5, LLE: 5 Eye Response: (4) open spontaneously Motor Response: (6) obeys commands Verbal Response: (5) oriented Psychiatric exam: Present: normal affect, normal mood Skin exam: Present: normal color Course Vital Signs 12/22/20 12/22/20 12/22/20 07:16 08:53 10:02 Temperature 97.7 F Pulse Rate 76 79 70 Respiratory 18 16 18 Rate Blood Pressure 195/96 121/81 141/82 O2 Sat by Pulse 99 97 98 Oximetry EKG Findings - EKG Comments: EKG Findings:: Irregular narrow complex rhythm with a rate of 69. NH is 86. QT 402. QTC 4:30. Normal axis. Normal QRS. No acute ST change. Medical Decision Making - Medical Decision Making Patient reevaluated and resting comfortably in bed, symptom-free. Patient feels medications helped him. No signs of stroke on exam or diagnostic imaging. Patient and family updated on results and need for follow-up. - Lab Data Result diagrams: 12/22/20 07:50 12/22/20 07:50 Lab Results 12/22/20 12/22/20 12/22/20 Range/Units 07:50 07:50 07:50 WBC 9.1 (3.8-10.6) k/uL RBC 5.07 (4.30-5.90) m/uL Hgb 16.5 (13.0-17.5) gm/dL Hct 48.8 (39.0-53.0) % MCV 96.4 (80.0-100.0) fL MCH 32.6 (25.0-35.0) pg MCHC 33.8 (31.0-37.0) g/dL RDW 12.8 (11.5-15.5) % Plt Count 151 (150-450) k/uL MPV 9.3 Neutrophils % 83 % Lymphocytes % 10 % Monocytes % 4 % Eosinophils % 2 % Basophils % 0 % Neutrophils # 7.6 (1.3-7.7) k/uL Lymphocytes # 0.9 L (1.0-4.8) k/uL Monocytes # 0.4 (0-1.0) k/uL Eosinophils # 0.1 (0-0.7) k/uL Basophils # 0.0 (0-0.2) k/uL PT 11.5 (9.0-12.0) sec INR 1.1 (<1.2) APTT 28.3 (22.0-30.0) sec Sodium 142 (137-145) mmol/L Potassium 4.3 (3.5-5.1) mmol/L Chloride 107 (98-107) mmol/L Carbon Dioxide 28 (22-30) mmol/L Anion Gap 7 mmol/L BUN 15 (9-20) mg/dL Creatinine 1.14 (0.66-1.25) mg/dL Est GFR (CKD-EPI)AfAm 76 (>60 ml/min/1.73 sqM) Est GFR (CKD-EPI)NonAf 66 (>60 ml/min/1.73 sqM) Glucose 121 H (74-99) mg/dL Calcium 9.2 (8.4-10.2) mg/dL Total Bilirubin 0.6 (0.2-1.3) mg/dL AST 23 (17-59) U/L ALT 20 (4-49) U/L Alkaline Phosphatase 60 (38-126) U/L Troponin I (0.000-0.034) ng/mL Total Protein 6.8 (6.3-8.2) g/dL Albumin 4.2 (3.5-5.0) g/dL 12/22/20 Range/Units 07:50 WBC (3.8-10.6) k/uL RBC (4.30-5.90) m/uL Hgb (13.0-17.5) gm/dL Hct (39.0-53.0) % MCV (80.0-100.0) fL MCH (25.0-35.0) pg MCHC (31.0-37.0) g/dL RDW (11.5-15.5) % Plt Count (150-450) k/uL MPV Neutrophils % % Lymphocytes % % Monocytes % % Eosinophils % % Basophils % % Neutrophils # (1.3-7.7) k/uL Lymphocytes # (1.0-4.8) k/uL Monocytes # (0-1.0) k/uL Eosinophils # (0-0.7) k/uL Basophils # (0-0.2) k/uL PT (9.0-12.0) sec INR (<1.2) APTT (22.0-30.0) sec Sodium (137-145) mmol/L Potassium (3.5-5.1) mmol/L Chloride (98-107) mmol/L Carbon Dioxide (22-30) mmol/L Anion Gap mmol/L BUN (9-20) mg/dL Creatinine (0.66-1.25) mg/dL Est GFR (CKD-EPI)AfAm (>60 ml/min/1.73 sqM) Est GFR (CKD-EPI)NonAf (>60 ml/min/1.73 sqM) Glucose (74-99) mg/dL Calcium (8.4-10.2) mg/dL Total Bilirubin (0.2-1.3) mg/dL AST (17-59) U/L ALT (4-49) U/L Alkaline Phosphatase (38-126) U/L Troponin I <0.012 (0.000-0.034) ng/mL Total Protein (6.3-8.2) g/dL Albumin (3.5-5.0) g/dL - Radiology Data Radiology results: report reviewed (Computed tomography scan of the brain shows no stenosis. Normal [place] image reviewed (Chest x-ray shows no acute process) Disposition Clinical Impression: Dizziness, Paresthesia Disposition: HOME SELF-CARE Condition: Stable Instructions (If sedation given, give patient instructions): Dizziness (ED), Paresthesia (ED) Additional Instructions: Please follow-up with primary care physician in the beginning of the week. Have primary care physician consider referral for neurology. Return for uncontrolled dizziness, weakness, confusion, loss of sensation, difficulty walking, worsening or changing symptoms or any other concerns. Prescription for medication has been sent to your pharmacy. Prescriptions: Meclizine [Antivert] 25 mg PO TID PRN #12 tab PRN Reason: dizziness Metoclopramide HCl [Reglan] 10 mg PO Q6HR PRN #15 tablet PRN Reason: Nausea Is patient prescribed a controlled substance at d/c from ED?: No Referrals: Willie Sherman MD [Primary Care Provider] - 1-2 days Yung Butts MD [Medical Doctor] - 1-2 days Time of Disposition: 12:21
[2020-12-22 08:05] LABS: Basophils % (A) 0 %; Eosinophils # (A) 0.1 k/uL (0-0.7); Eosinophils % (A) 2 %; HCT 48.8 % (39.0-53.0); HGB 16.5 gm/dL (13.0-17.5); Lymphocytes # (A) 0.9 k/uL (1.0-4.8); Lymphocytes % (A) 10 %; MCH 32.6 pg (25.0-35.0); MCHC 33.8 g/dL (31.0-37.0); MCV 96.4 fL (80.0-100.0); Mean Platelet Volume 9.3; Monocytes # (A) 0.4 k/uL (0-1.0); Monocytes % (A) 4 %; Neutrophils # (A) 7.6 k/uL (1.3-7.7); Neutrophils % (A) 83 %; Platelet Count 151 k/uL (150-450); RBC 5.07 m/uL (4.30-5.90); RDW 12.8 % (11.5-15.5); WBC 9.1 k/uL (3.8-10.6)
[2020-12-22 08:15] LABS: INR 1.1 (<1.2); Partial Thromboplastin Time 28.3 sec (22.0-30.0); Prothrombin Time 11.5 sec (9.0-12.0)
[2020-12-22 08:17] LABS: Albumin 4.2 g/dL (3.5-5.0); Calcium 9.2 mg/dL (8.4-10.2); Potassium 4.3 mmol/L (3.5-5.1); Total Bilirubin 0.6 mg/dL (0.2-1.3); Total Protein 6.8 g/dL (6.3-8.2)
--- NOTE | 2020-12-22 08:42 | XR ---
EXAMINATION TYPE: XR chest 2V DATE OF EXAM: 12/22/2020 COMPARISON: 12/04/2018 INDICATION: Altered mental status, dizziness TECHNIQUE: Frontal and lateral views of the chest are obtained. FINDINGS: The heart size is normal. The pulmonary vasculature is normal. The lungs are clear. IMPRESSION: 1. No acute pulmonary process.
--- NOTE | 2020-12-22 10:16 | CT ---
EXAMINATION TYPE: CT angio head neck DATE OF EXAM: 12/22/2020 HISTORY: Dizziness COMPARISON: None CT DLP: 1796.1 mGycm. Automated Exposure Control for Dose Reduction was Utilized. TECHNIQUE: CTA scan of the neck is performed without and with IV Contrast, patient injected with 65 mL of Isovue 370, axial images are obtained, coronal and sagittal reformatted images are reviewed. Th ree-D reconstructed images are created on an independent workstation and reviewed. Source images are reviewed. FINDINGS: Carotid/Vascular Structures: There is a three-vessel arch. Vertebral arteries are codominant. No sign ificant plaquing or stenosis at the origins of the internal carotid arteries are evident. Vertebral a rteries and internal carotid arteries are patent to the skull base. Cervical of [place]: Vertebral basilar system appears normal. Posterior cerebral vasculature is unrema rkable. Internal carotid arteries bifurcate normally into A1 and M1 segments. A2 segments are normal. The anterior communicating artery is patent. Left Posterior communicating artery is patent. Right po sterior communicating artery is patent. IMPRESSION: 1. No flow-limiting stenosis bilateral carotid bifurcations. 2. Normal [place] NASCET criteria was used in interpretation of this exam?
[2020-12-22 12:44] VITALS: BP 128/74; PULSE 74; RESP 16; TEMP 98.2
== END 2020-12-22 12:42 | disposition home or self-care (01) ==
LOC: EC 07:12
DX: R42 Dizziness and giddiness (principal); R20.2 Paresthesia of skin; I10 Essential (primary) hypertension; E78.5 Hyperlipidemia, unspecified; I48.91 Unspecified atrial fibrillation; J45.909 Unspecified asthma, uncomplicated; M06.9 Rheumatoid arthritis, unspecified; Z79.01 Long term (current) use of anticoagulants; Z79.899 Other long term (current) drug therapy; Z86.718 Personal history of other venous thrombosis and embolism; Z86.73 Personal history of transient ischemic attack (TIA), and cerebral infarction without residual deficits; Z87.891 Personal history of nicotine dependence; Z90.49 Acquired absence of other specified parts of digestive tract
CPT/HCPCS: 36415; 93005; 80053; 84484; 85025; 85610; 85730; 71046; 70496; 70498; 96374; 99285; J2765; Q9967

== ENCOUNTER → 2022-04-12 | Outpatient (CLI) | payer MEDICARE, OTHER ==
--- NOTE | 2022-04-12 12:45 | US ---
EXAMINATION TYPE: US venous doppler duplex LE LT DATE OF EXAM: 04/12/2022 12:34 PM COMPARISON: NONE CLINICAL HISTORY: I82.509 CHR EMBOLISM AND THROMBOSIS OF DEEP VEINS. History of DVT left leg, patient on blood thinners SIDE PERFORMED: left TECHNIQUE: The lower extremity deep venous system is examined utilizing real time linear array sonog efrem with graded compression, doppler sonography and color-flow sonography. VESSELS IMAGED: Common Femoral Vein Deep Femoral Vein Greater Saphenous Vein * Femoral Vein Popliteal Vein Small Saphenous Vein * Proximal Calf Veins (* superficial vessels) Left Leg: Positive for DVT left upper femoral vein extending into proximal calf vein. thready flow w ith partial compression IMPRESSION: 1. Deep venous thrombosis left lower extremity femoral vein extending from the calf region.
== END | disposition home or self-care (01) ==
LOC: RADUSWWP 11:58
PROVIDERS: ATTEND Family Medicine
DX: I82.412 Acute embolism and thrombosis of left femoral vein (principal)

== ENCOUNTER 2023-08-15 06:12 | Emergency (ER) | payer MEDICARE, OTHER ==
[2023-08-15 06:32] VITALS: TEMP 98.5
--- NOTE | 2023-08-15 07:01 | ED ---
Abdominal Pain HPI - General Chief Complaint: Abdominal Pain Stated Complaint: right side abd pain Time Seen by Provider: 08/15/23 06:44 Source: patient, RN notes reviewed Mode of arrival: ambulatory Limitations: no limitations - History of Present Illness Initial Comments: This is a 73-year-old male who presents to the emergency department for right flank/side pain. States that it started about 2 hours prior to arrival. He was just sitting down at his kitchen table when the symptoms occurred. He states that he broke out in a sweat with nausea. Denies any changes in bowel/bladder habits. He does report a history of kidney stones in 2016 and states that symptoms feel similar. MD Complaint: abdominal pain - Related Data Home Medications Medication Instructions Recorded Confirmed Docusate [Colace] 100 mg PO HS 09/28/19 12/22/20 Furosemide [Lasix] 20 mg PO DAILY 09/28/19 12/22/20 Metoprolol Tartrate [Lopressor] 25 mg PO BID 09/28/19 12/22/20 Potassium Chloride [Potassium 8 meq PO DAILY 09/28/19 12/22/20 Chloride ER] Amiodarone HCl [Pacerone] 100 mg PO DAILY 12/22/20 12/22/20 Apixaban [Eliquis] 5 mg PO BID 12/22/20 12/22/20 Atorvastatin [Lipitor] 20 mg PO DAILY 12/22/20 12/22/20 Previous Rx's Medication Instructions Recorded Acetaminophen Tab [Tylenol Tab] 650 mg PO Q4H PRN #30 tablet 10/26/19 Meclizine [Antivert] 25 mg PO TID PRN #12 tab 12/22/20 Metoclopramide HCl [Reglan] 10 mg PO Q6HR PRN #15 tablet 12/22/20 HYDROcodone/APAP 7.5-325MG [Spring 1 tab PO Q6HR PRN 3 Days #12 tab 08/15/23 7.5-325] Ondansetron Odt [Zofran Odt] 4 mg PO Q8HR PRN #20 tab 08/15/23 Tamsulosin [Flomax] 0.4 mg PO DAILY #10 cap 08/15/23 Allergies Allergy/AdvReac Type Severity Reaction Status Date / Time strawberry Allergy Swelling Verified 12/22/20 11:16 Review of Systems ROS Statement: Those systems with pertinent positive or pertinent negative responses have been documented in the HPI. ROS Other: All systems not noted in ROS Statement are negative. Past Medical History Past Medical History: Atrial Fibrillation, Asthma, CVA/TIA, Deep Vein Thrombosis (DVT), Eye Disorder, Hyperlipidemia, Hypertension, Osteoarthritis (OA), Prostate Disorder, Rheumatoid Arthritis (RA) Additional Past Medical History / Comment(s): 2006 CVA with no residual, bilateral legs vascular disease, BPH, RT cataract, DVT LT LEG 11/2018, kIDNEY STONES, Afib diagnosed in 2019 - on Eliquis History of Any Multi-Drug Resistant Organisms: VRE Date of last positivie culture/infection: 12/04/18 MDRO Source:: abdomen VRE Past Surgical History: Appendectomy, Bowel Resection Additional Past Surgical History / Comment(s): 11/23/18 R colectomy/appendectomy, 2 colonoscopies with multiple benign polypectomies, left cataract, 10/25/19 open ventral hernia repair with mesh by Dr. Jackson Past Anesthesia/Blood Transfusion Reactions: No Reported Reaction Past Psychological History: No Psychological Hx Reported Smoking Status: Former smoker Past Alcohol Use History: Rare Past Drug Use History: None Reported - Past Family History Father Family Medical History: Cancer Additional Family Medical History / Comment(s): oral cancer with metastasis Mother Family Medical History: Renal Disease Additional Family Medical History / Comment(s): Mother from a kidney stone/infection/sepsis. General Exam Limitations: no limitations General appearance: alert, in no apparent distress Head exam: Present: atraumatic, normocephalic, normal inspection Respiratory exam: Present: normal lung sounds bilaterally. Absent: respiratory distress, wheezes, rales, rhonchi, stridor Cardiovascular Exam: Present: regular rate, normal rhythm, normal heart sounds. Absent: systolic murmur, diastolic murmur, rubs, gallop, clicks GI/Abdominal exam: Present: soft, tenderness (Right mid abdomen), normal bowel sounds. Absent: distended, guarding, rebound, rigid Back exam: Present: CVA tenderness (R) Neurological exam: Present: alert, oriented X3, CN II-XII intact Psychiatric exam: Present: normal affect, normal mood Skin exam: Present: warm, dry, intact, normal color. Absent: rash Course Vital Signs 08/15/23 08/15/23 06:17 08:29 Temperature 98.5 F Pulse Rate 60 52 L Respiratory 19 18 Rate Blood Pressure 198/68 166/70 O2 Sat by Pulse 97 96 Oximetry Medical Decision Making - Medical Decision Making This is a 73 year old male who presents to the emergency department for abdominal pain. Was pt. sent in by a medical professional or institution? @ -No Did you speak to anyone other than the patient for history? @ -No Did you review nursing and triage notes? @ -Yes, and I agree, it is accurate with regards to the patient's symptoms. Were old charts reviewed? @ -No Differential Diagnosis? @ -Differential Abdominal Pain Men: Appendicitis, cholecystitis, diverticulosis, ischemic bowel, pancreatitis, hepatitis, UTI, gastroenteritis, AAA, incarcerated hernia, bowel obstruction, constipation, inflammatory bowel, hepatitis, peptic ulcer disease, splenic infarction, perforated viscus, testicular torsion, this is not meant to be an all-inclusive list EKG interpreted by me (3pts min.)? @ -Not obtained X-rays interpreted by me (1pt min.)? @ -Not obtained CT interpreted by me (1pt min.)? @ -CT scan of the abdomen and pelvis obtained. My interpretation identifies a right ureteral calculus. U/S interpreted by me (1pt. min.)? @ -Not obtained What testing was considered but not performed? (CT, X-rays, U/S, labs)? Why? @ -None What meds were considered but not given? Why? @ -None Did you discuss the management of the patient with other professionals? @ -No Did you reconcile home meds? @ -No Was smoking cessation discussed for >3mins.? @ -No Was critical care preformed (if so, how long)? @ -No Were there social determinants of health that impacted care today? How? (Homelessness, low income, unemployed, alcoholism, drug addiction, transportation, low edu. Level, literacy, decrease access to med. care, senior care, rehab)? @ -No Was there de-escalation of care discussed even if they declined? (Discuss DNR or withdrawal of care, Hospice)? @ -No What co-morbidities impacted this encounter? (DM, HTN, Smoking, COPD, CAD, Cancer, CVA, Hep., AIDS, mental health diagnosis, sleep apnea, morbid obesity)? @ -A-fib, HTN, HLD, Renal disease Was patient admitted / discharged? @ -Discharged. Lab work demonstrates mild leukocytosis and a mild elevation in lactic acid of 2.1. Urinalysis demonstrates blood but is negative for signs of infection. CT scan of the abdomen and pelvis obtained demonstrating a 3 mm obstructing calculus at the proximal right ureter with mild right-sided hydroureter ureteronephrosis. Patient's symptoms were well-controlled in the emergency department and he was also given a liter bolus of IV fluids. Patient is unable to take NSAIDs due to anticoagulant use and decreased renal function. I was subsequently willing to give him a prescription for a short course of Spring for symptomatic control along with Zofran and Flomax. Patient discharged home in stable condition and given information for urology follow-up. Undiagnosed new problem with uncertain prognosis? @ -None Drug Therapy requiring intensive monitoring for toxicity (Heparin, Nitro, Insul in, Cardizem)? @ -None Were any procedures done? @ -None Diagnosis/symptom? @ -Right ureteral calculus Acute, or Chronic, or Acute on Chronic? @ -Acute Uncomplicated (without systemic symptoms) or Complicated (systemic symptoms)? @ -Uncomplicated Side effects of treatment? @ -None Exacerbation, Progression, or Severe Exacerbation] @ -Not applicable Poses a threat to life or bodily function? @ -No Return precautions reviewed in depth, the patient is instructed to return to the emergency department with any new, worsening, or concerning symptoms. Patient verbalized understanding. This case was discussed in detail with the attending ED physician, Dr. Kumar. Presentation, findings, and treatment plan discussed in detail as well. - Lab Data Result diagrams: 08/15/23 06:40 08/15/23 06:40 Lab Results 08/15/23 08/15/23 08/15/23 Range/Units 06:39 06:40 06:40 WBC 11.0 H (3.8-10.6) k/uL RBC 5.12 (4.30-5.90) m/uL Hgb 16.6 (13.0-17.5) gm/dL Hct 51.4 (39.0-53.0) % MCV 100.4 H (80.0-100.0) fL MCH 32.4 (25.0-35.0) pg MCHC 32.2 (31.0-37.0) g/dL RDW 12.8 (11.5-15.5) % Plt Count 152 (150-450) k/uL MPV 9.9 Neutrophils % 82 % Lymphocytes % 11 % Monocytes % 4 % Eosinophils % 2 % Basophils % 0 % Neutrophils # 9.1 H (1.3-7.7) k/uL Lymphocytes # 1.2 (1.0-4.8) k/uL Monocytes # 0.5 (0-1.0) k/uL Eosinophils # 0.2 (0-0.7) k/uL Basophils # 0.1 (0-0.2) k/uL Sodium 143 (137-145) mmol/L Potassium 4.1 (3.5-5.1) mmol/L Chloride 110 H (98-107) mmol/L Carbon Dioxide 25 (22-30) mmol/L Anion Gap 8 mmol/L BUN 16 (9-20) mg/dL Creatinine 1.42 H (0.66-1.25) mg/dL Est GFR (CKD-EPI)AfAm 57 (>60 ml/min/1.73 sqM) Est GFR (CKD-EPI)NonAf 50 (>60 ml/min/1.73 sqM) Glucose 145 H (74-99) mg/dL Lactic Ac Sepsis Rflx Plasma Lactic Acid Christophe (0.7-2.0) mmol/L Calcium 9.4 (8.4-10.2) mg/dL Total Bilirubin 0.9 (0.2-1.3) mg/dL AST 22 (17-59) U/L ALT 19 (4-49) U/L Alkaline Phosphatase 49 (38-126) U/L Total Protein 7.5 (6.3-8.2) g/dL Albumin 4.4 (3.5-5.0) g/dL Amylase 120 H (30-110) U/L Lipase 535 H (23-300) U/L Urine Color Colorless Urine Appearance Clear (Clear) Urine pH 5.0 (5.0-8.0) Ur Specific [place] 1.008 (1.001-1.035) Urine Protein Negative (Negative) Urine Glucose (UA) Negative (Negative) Urine Ketones Negative (Negative) Urine Blood Small H (Negative) Urine Nitrite Negative (Negative) Urine Bilirubin Negative (Negative) Urine Urobilinogen <2.0 (<2.0) mg/dL Ur Leukocyte Esterase Negative (Negative) Urine RBC 6 H (0-5) /hpf Urine WBC <1 (0-5) /hpf Urine Mucus Rare H (None) /hpf 08/15/23 08/15/23 Range/Units 06:40 07:19 WBC (3.8-10.6) k/uL RBC (4.30-5.90) m/uL Hgb (13.0-17.5) gm/dL Hct (39.0-53.0) % MCV (80.0-100.0) fL MCH (25.0-35.0) pg MCHC (31.0-37.0) g/dL RDW (11.5-15.5) % Plt Count (150-450) k/uL MPV Neutrophils % % Lymphocytes % % Monocytes % % Eosinophils % % Basophils % % Neutrophils # (1.3-7.7) k/uL Lymphocytes # (1.0-4.8) k/uL Monocytes # (0-1.0) k/uL Eosinophils # (0-0.7) k/uL Basophils # (0-0.2) k/uL Sodium (137-145) mmol/L Potassium (3.5-5.1) mmol/L Chloride (98-107) mmol/L Carbon Dioxide (22-30) mmol/L Anion Gap mmol/L BUN (9-20) mg/dL Creatinine (0.66-1.25) mg/dL Est GFR (CKD-EPI)AfAm (>60 ml/min/1.73 sqM) Est GFR (CKD-EPI)NonAf (>60 ml/min/1.73 sqM) Glucose (74-99) mg/dL Lactic Ac Sepsis Rflx Y Plasma Lactic Acid Christophe 2.1 H* (0.7-2.0) mmol/L Calcium (8.4-10.2) mg/dL Total Bilirubin (0.2-1.3) mg/dL AST (17-59) U/L ALT (4-49) U/L Alkaline Phosphatase (38-126) U/L Total Protein (6.3-8.2) g/dL Albumin (3.5-5.0) g/dL Amylase (30-110) U/L Lipase (23-300) U/L Urine Color Urine Appearance (Clear) Urine pH (5.0-8.0) Ur Specific [place] (1.001-1.035) Urine Protein (Negative) Urine Glucose (UA) (Negative) Urine Ketones (Negative) Urine Blood (Negative) Urine Nitrite (Negative) Urine Bilirubin (Negative) Urine Urobilinogen (<2.0) mg/dL Ur Leukocyte Esterase (Negative) Urine RBC (0-5) /hpf Urine WBC (0-5) /hpf Urine Mucus (None) /hpf - Radiology Data Radiology results: report reviewed, image reviewed Disposition Clinical Impression: Right ureteral calculus Disposition: HOME SELF-CARE Instructions (If sedation given, give patient instructions): Renal Colic (ED), Ureteral Stones (ED) Additional Instructions: Return to the emergency department with any new, worsening, or concerning symptoms. Take the Flomax daily until your pain resolves or until you pass the kidney stone. Take the Spring sparingly when your pain is the most severe and otherwise take Tylenol. You can take the Zofran up to every 8 hours as needed for nausea and vomiting. Contact urology as listed below for a follow-up appointment. Follow up with your primary care provider in 1-2 days. Prescriptions: Tamsulosin [Flomax] 0.4 mg PO DAILY #10 cap HYDROcodone/APAP 7.5-325MG [Spring 7.5-325] 1 tab PO Q6HR PRN 3 Days #12 tab PRN Reason: Pain Ondansetron Odt [Zofran Odt] 4 mg PO Q8HR PRN #20 tab PRN Reason: Nausea And Vomiting Is patient prescribed a controlled substance at d/c from ED?: Yes When asked, does pt state using other controlled substances?: No If prescribed controlled substance>3 days was MAPS reviewed?: Prescribed <3 Days Referrals: Willie Sherman MD [Primary Care Provider] - 1-2 days Shade Rogers MD [STAFF PHYSICIAN] - 1-2 days Time of Disposition: 08:04
[2023-08-15 07:02] LABS: Basophils # (A) 0.1 k/uL (0-0.2); Basophils % (A) 0 %; Eosinophils # (A) 0.2 k/uL (0-0.7); Eosinophils % (A) 2 %; HCT 51.4 % (39.0-53.0); HGB 16.6 gm/dL (13.0-17.5); Lymphocytes # (A) 1.2 k/uL (1.0-4.8); Lymphocytes % (A) 11 %; MCH 32.4 pg (25.0-35.0); MCHC 32.2 g/dL (31.0-37.0); MCV 100.4 fL (80.0-100.0); Mean Platelet Volume 9.9; Monocytes # (A) 0.5 k/uL (0-1.0); Monocytes % (A) 4 %; Neutrophils # (A) 9.1 k/uL (1.3-7.7); Neutrophils % (A) 82 %; Platelet Count 152 k/uL (150-450); RBC 5.12 m/uL (4.30-5.90); RDW 12.8 % (11.5-15.5)
[2023-08-15 07:07] LABS: Appearance,Urine Clear (Clear); Bilirubin,Urine Negative (Negative); Blood,Urine Small (Negative); Color,Urine Colorless; Glucose,Urine (UA) Negative (Negative); Ketones,Urine Negative (Negative); Leukocyte Esterase,Urine Negative (Negative); Mucus,Urine Rare /hpf; Nitrite,Urine Negative (Negative); Protein,Urine Negative (Negative); RBC,Urine 6 /hpf (0-5); Specific Gravity,Urine 1.008 (1.001-1.035); Urobilinogen,Urine <2.0 mg/dL (<2.0); WBC,Urine <1 /hpf (0-5)
[2023-08-15] MEDS: ONDANSETRON 4 MG/2 ML VIAL IVP STA (07:07)
[2023-08-15] MEDS: MORPHINE SULFATE 4 MG/ML SYRINGE IVP STA (07:08)
[2023-08-15] MEDS: SODIUM CHLORIDE 0.9% 1,000 ML IV STA (07:10)
[2023-08-15] MEDS: KETOROLAC 15 MG/ML 1 ML VIAL IVP STA (07:10)
[2023-08-15 07:14] LABS: ALT 19 U/L (4-49); AST 22 U/L (17-59); African American GFR (CKD) 57 (>60 ml/min/1.73 sqM); Albumin 4.4 g/dL (3.5-5.0); Alkaline Phosphatase 49 U/L (38-126); Amylase 120 U/L (30-110); Anion Gap 8 mmol/L; Blood Urea Nitrogen 16 mg/dL (9-20); Calcium 9.4 mg/dL (8.4-10.2); Carbon Dioxide 25 mmol/L (22-30); Chloride 110 mmol/L (98-107); Glucose 145 mg/dL (74-99); Lipase 535 U/L (23-300); Non-African American GFR(CKD) 50 (>60 ml/min/1.73 sqM); Potassium 4.1 mmol/L (3.5-5.1); Sodium 143 mmol/L (137-145); Total Bilirubin 0.9 mg/dL (0.2-1.3); Total Protein 7.5 g/dL (6.3-8.2)
--- NOTE | 2023-08-15 07:35 | CT ---
EXAMINATION TYPE: CT abdomen pelvis wo con DATE OF EXAM: 08/15/2023 COMPARISON: 09/28/2019 HISTORY: right abd pain CT DLP: 966.6 mGycm Examination of the solid and hollow viscera is limited given the lack of contrast. FINDINGS: LUNG BASES: No evidence for nodule. No evidence for infiltrate. LIVER/GB: The gallbladder is unremarkable. No space-occupying hepatic lesion. PANCREAS: No pancreatic mass identified. No inflammatory process seen. SPLEEN: No evidence for splenomegaly. No intrasplenic lesions seen. ADRENALS: No adrenal nodules identified. No evidence for thickening. KIDNEYS: There is a 3 mm obstructing calculus proximal right ureter at the L4 level. There is mild ri ght-sided hydroureter ureteronephrosis. Nonobstructing 7 mm calculus lower pole right kidney. No rod tional calculi seen. No hydronephrosis or nephrolithiasis left kidney. Hypoattenuating renal lesions could reflect cysts on this unenhanced study. BOWEL: Appendix has a normal appearance. No evidence of bowel obstruction. No inflammatory process. Lymph nodes: No evidence for adenopathy greater than 1 cm. Abdominal aorta: Atheromatous changes seen. No evidence for aneurysm. Genital organs: No significant abnormality. Other: No significant abnormality. IMPRESSION: There is a 3 mm obstructing calculus proximal right ureter at the L4 level. There is mild right-sided hydroureter ureteronephrosis.
[2023-08-15] MEDS: ACET/COD 300 MG/30 MG STARTER PACK 6 TAB BTL PO STA (08:28)
[2023-08-15] MEDS: ONDANSETRON 4 MG ODT STARTER PACK 2 TAB BTL PO STA (08:29)
[2023-08-15 08:37] VITALS: BP 166/70; PULSE 52; RESP 18
== END 2023-08-15 08:35 | disposition home or self-care (01) ==
LOC: EC 06:12
DX: N13.2 Hydronephrosis with renal and ureteral calculous obstruction (principal); Z87.891 Personal history of nicotine dependence; Z91.018 Allergy to other foods
CPT/HCPCS: 99284 ×2; 96374 ×2; 96375 ×3; 96361 ×2; 36415; 80053; 82150; 83605; 83690; 85025; 81001; 74176; J2270; J2405; J1885; S0119